=== PATIENT | male | born 1970 | race Caucasian/White ===

== ENCOUNTER 2023-01-19 21:11 | Emergency (ER) | payer SELFPAY ==
[2023-01-19 21:45] LABS: Protime INR 1.01
[2023-01-19 22:00] LABS: ALT/SGPT 37 U/L (16-61); AST/SGOT 18 U/L (15-37); Albumin 3.4 g/dL (3.4-5.0); Alkaline Phosphatase 121 U/L (45-117); BUN Blood Urea Nitrogen 19 mg/dL (7-18); Bicarbonate 30 mEq/L (21-32); Bilirubin Total 0.2 mg/dL (0.2-1.0); Glomerular Filtration Rate 74 ml/min (=/>90); Glucose Level 121 mg/dL (74-106); NT PRO-BNP 18 pg/mL (<125); Protein, Total 7.5 g/dL (6.4-8.2); Sodium Level 136 mEq/L (136-145); Troponin High Sensitivity 4.3 pg/mL (<58.9)
[2023-01-19 22:01] LABS: Bilirubin Direct < 0.1 mg/dL (0-0.2); Bilirubin Indirect, Calculated ND mg/dL (0.2-0.8)
[2023-01-19 22:13] LABS: Absolute Lymphocytes (CBC) 1.4 K/uL (0.7-4.9); Hematocrit 42.7 % (39.6-49.0); Lymphocytes % 15.9 % (15.3-44.8); MCV 91.6 fL (80-100); RBC Red Blood Cell Count 4.66 M/uL (4.33-5.43)
--- NOTE | 2023-01-19 22:23 | RAD REPORT ---
EXAM DESCRIPTION: Gisele Single View01/19/2023 10:10 pm CLINICAL HISTORY: Chest pain COMPARISON: none FINDINGS: The lungs appear clear of acute infiltrate. The heart is normal size IMPRESSION: No acute abnormalities displayed
--- NOTE | 2023-01-19 23:14 | EDPHYS ---
Physician Documentation [facility] Name: Jeramie Gibbs Age: 52 yrs Sex: Male : 1970 Arrival Date: 01/19/2023 Time: 21:11 Bed 6 Private MD: ED Physician Willie Calderon HPI: 01/19 23:06 This 52 yrs old Male presents to ER via Ambulatory with complaints of Chest sp4 Pain, Palpitations, Dizziness. 23:06 Very pleasant 52-year-old male who is currently in the rehab at [facility] , presents sp4 with acute onset of palpitations described as fluttering heart starting 2 hours ago. Patient has past medical history of asthma. 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 No drug or alcohol use or caffeine use in the last 3 weeks. Patient reports that she has used some other drugs as well in the past. Patient denied chest pain, denied syncope, denied dizziness. Historical: - Allergies: 21:21 PENICILLINS; kd3 - Immunization history:: Adult Immunizations up to date. - Social history:: Smoking status: Patient denies any tobacco usage or history of. - Family history:: not pertinent. ROS: 23:06 Constitutional: Negative for fever, chills, and weight loss, Eyes: Negative for injury, sp4 pain, redness, and discharge, ENT: Negative for injury, pain, and discharge, Neck: Negative for injury, pain, and swelling, Cardiovascular: Negative for chest pain, and edema, positive palpitations and a rapid heart rate Respiratory: Negative for shortness of breath, cough, wheezing, and pleuritic chest pain, Abdomen/GI: Negative for abdominal pain, nausea, vomiting, diarrhea, and constipation, Back: Negative for injury and pain, : Negative for injury, bleeding, discharge, and swelling, MS/Extremity: Negative for injury and deformity, Skin: Negative for injury, rash, and discoloration, Neuro: Negative for headache, weakness, numbness, tingling, and seizure, Psych: Negative for depression, anxiety, Allergy/Immunology: Negative for hives, rash, and allergies Endocrine: Negative for neck swelling, polydipsia, polyuria, polyphagia, and weight changes Hematologic/Lymphatic: Negative for swollen nodes, abnormal bleeding, and unusual bruising Exam: 23:06 Constitutional: This is a well developed, well nourished patient who is awake, alert, sp4 and in no acute distress. Head/Face: Normocephalic, atraumatic. Eyes: Pupils equal round and reactive to light, extra-ocular motions intact. Lids and lashes normal. Conjunctiva and sclera are not injected. Cornea within normal limits. Periorbital areas with no swelling, redness, or edema. ENT: Nares patent. No nasal discharge, no septal abnormalities noted. Tympanic membranes are normal and external auditory canals are clear. Oropharynx with no redness, swelling, or masses, exudates, or evidence of obstruction, uvula midline. Mucous membranes moist. Neck: Trachea midline, no thyromegaly or masses palpated, and no cervical lymphadenopathy. Supple, full range of motion without nuchal rigidity, or vertebral point tenderness. No Meningismus. Chest/axilla: Normal chest wall appearance and motion. Nontender with no deformity. No lesions are appreciated. Cardiovascular: Regular rate and rhythm with a normal S1 and S2. No gallops, murmurs, or rubs. Normal PMI, no JVD. No pulse deficits. Respiratory: Lungs have equal breath sounds bilaterally, clear to auscultation and percussion. No rales, rhonchi or wheezes noted. No increased work of breathing, no retractions or nasal flaring. Abdomen/GI: Soft, non-tender, with normal bowel sounds. No distension or tympany. No guarding or rebound. No evidence of tenderness throughout. Back: No spinal tenderness. No costovertebral tenderness. Skin: Warm, dry with normal turgor. Normal color with no rashes, no lesions, and no evidence of cellulitis. MS/ Extremity: Pulses equal, no cyanosis. Neurovascular intact. Full, normal range of motion. Neuro: Awake and alert, GCS 15, oriented to person, place, time, and situation. Cranial nerves II-XII grossly intact. Motor strength 5/5 in all extremities. Sensory grossly intact. Psych: Awake, alert, with orientation to person, place and time. Behavior, mood, and affect are within normal limits 23:06 ECG was reviewed by the Attending Physician. EKG time 2121, there is normal sinus sp4 rhythm at the rate of 80, overall normal EKG, no ectopy or arrhythmia Vital Signs: 21:19 Weight 63.5 kg; Height 5 ft. 7 in. ; kd3 21:22 Pulse 77; Resp 16; Temp 98.4(TE); Pulse Ox 100% ; kd3 21:24 BP 142 / 93; kd3 23:10 BP 129 / 86; Pulse 74; Resp 18; Pulse Ox 100% on R/A; ll3 21:19 Body Mass Index 21.93 (63.50 kg, 170.18 cm) kd3 MDM: 21:26 Patient medically screened. sp4 23:11 Differential diagnosis: abnormal EKG, acute pericarditis, anxiety, chest wall pain, sp4 congestive heart failure myocarditis, pericarditis. HEART Score: History: Slightly Suspicious (0), ECG: Normal (0), Age: > 45 and < 65 years (1), Risk Factors: No Risk Factors Known (0), Troponin: < or = 1 x Normal Limit (0), Total Score = 1. Data reviewed: vital signs, nurses notes, lab test result(s), cardiac enzymes, CBC, electrolytes, hepatic panel, EKG, radiologic studies, plain films. Consideration of Admission/Observation Escalation of care including admission/observation considered. ED course: Blood sugar mildly elevated 121 otherwise unremarkable work-up, normal EKG, normal chest x-ray, no arrhythmia on the monitor. Normal vital signs. Patient stable for discharge home with referral to cardiology in case of recurrence of palpitations. 01/19 21:25 Order name: Basic Metabolic Panel; Complete Time: 23: [facility] 01/19 21:25 Order name: CBC with Diff; Complete Time: 23: [facility] 01/19 21:25 Order name: LFT's; Complete Time: 23: [facility] 01/19 21:25 Order name: Magnesium; Complete Time: 23: [facility] 01/19 21:25 Order name: NT PRO-BNP; Complete Time: 23: [facility] 01/19 21:25 Order name: PT-INR; Complete Time: 23: 01/19 21:25 Order name: Troponin HS; Complete Time: 23: [facility] 01/19 21:25 Order name: XRAY Chest (1 view); Complete Time: 23: [facility] 01/19 21:25 Order name: EKG; Complete Time: 21: sp4 01/19 21:26 Order name: Cardiac monitoring; Complete Time: :32 sp4 01/19 21:26 Order name: EKG - Nurse/Tech; Complete Time: : sp4 01/19 21:26 Order name: IV Saline Lock; Complete Time: :35 sp4 01/19 21:26 Order name: Labs collected and sent; Complete Time: :35 sp4 01/19 21:26 Order name: O2 Per Protocol; Complete Time: :32 sp4 01/19 21:26 Order name: O2 Sat Monitoring; Complete Time: :32 sp4 EC:06 Rate is 80 beats/min. Rhythm is regular. QRS [place] is Normal. [place] interval is normal. QRS sp4 interval is normal. QT interval is normal. T waves are Normal. No ST changes noted. Clinical impression: Normal ECG. Interpreted by me. Administered Medications: No medications were administered Disposition Summary: 01/19/23 23:14 Discharge Ordered Location: Home sp4 Problem: new sp4 Symptoms: are resolved sp4 Condition: Stable sp4 Diagnosis - Palpitations sp4 Followup: sp4 - With: Lee Harris MD - When: 7 - 10 days - Reason: If symptoms return Discharge Instructions: - Discharge Summary Sheet sp4 - Palpitations sp4 Signatures: Dispatcher [employer] Belinda Rock RN RN kd3 Willie Calderon MD MD sp4
--- NOTE | 2023-01-19 23:14 | ER ---
Nurse's Notes [facility] Name: Jeramie Gibbs Age: 52 yrs Sex: Male : 1970 Arrival Date: 01/19/2023 Time: 21:11 Bed 6 Private MD: Diagnosis: Palpitations Presentation: 01/19 21:19 Chief complaint: Patient states: I have some chest pain with palpation that's started kd3 about 2 hours ago. I have no cardiac issues but i has asthma. My blood pressure is 160/100. I feel like my breathing is a bit shallow. its about a 4/6 right now but earlier it was a 6. Coronavirus screen: Vaccine status: Patient reports being unvaccinated. Ebola Screen: No symptoms or risks identified at this time. Initial Sepsis Screen: Does the patient meet any 2 criteria? No. Patient's initial sepsis screen is negative. Does the patient have a suspected source of infection? No. Patient's initial sepsis screen is negative. Risk Assessment: Do you want to hurt yourself or someone else? Patient reports no desire to harm self or others. Onset of symptoms was January 19, 2023. 21:19 Method Of Arrival: Ambulatory kd3 21:19 Acuity: KANDIS 3 kd3 Triage Assessment: 21:21 General: Appears uncomfortable, Behavior is calm, cooperative. Pain: Complains of pain kd3 in anterior aspect of left upper chest Pain does not radiate. Cardiovascular: Patient's skin is warm and dry. 21:21 Neuro: Level of Consciousness is awake, alert, obeys commands, Oriented to person, kd3 place, time, situation. Respiratory: Airway is patent Trachea midline Respiratory effort is even, unlabored, Respiratory pattern is regular, symmetrical. Historical: - Allergies: 21:21 PENICILLINS; kd3 - Immunization history:: Adult Immunizations up to date. - Social history:: Smoking status: Patient denies any tobacco usage or history of. - Family history:: not pertinent. Screenin:33 [facility] ED Fall Risk Assessment (Adult) History of falling in the last 3 months, ll3 including since admission No falls in past 3 months (0 pts) Confusion or Disorientation No (0 pts) Intoxicated or Sedated No (0 pts) Impaired Gait No (0 pts) Mobility Assist Device Used No (0 pt) Altered Elimination No (0 pt) Score/Fall Risk Level 0 - 2 = Low Risk Oriented to surroundings, Maintained a safe environment, Educated pt \T\ family on fall prevention, incl call for assistance when getting out of bed. Abuse screen: Denies threats or abuse. Denies injuries from another. Nutritional screening: No deficits noted. Tuberculosis screening: No symptoms or risk factors identified. Assessment: 21:33 General: Appears uncomfortable, Behavior is calm, cooperative. Pain: Complains of pain ll3 in chest Pain does not radiate. Pain currently is 4 out of 10 on a pain scale. at worst was 7 out of 10 on a pain scale. Quality of pain is described as sharp, stabbing, Pain began 1 hour ago. Is continuous. Neuro: Level of Consciousness is awake, alert, obeys commands, Oriented to person, place, time, situation, Reports dizziness. Cardiovascular: Patient's skin is warm and dry. Chest pain is described as vague, quality is sharp, stabbing, is located in left anterior chest wall began 1 hour prior to arrival episodes are continuous. Respiratory: Reports shortness of breath Respiratory effort is even, unlabored, Respiratory pattern is regular, symmetrical. Derm: Skin is pink, warm \T\ dry. 23:10 Reassessment: No changes from previously documented assessment. Patient and/or family ll3 updated on plan of care and expected duration. Pain level reassessed. Patient is alert, oriented x 3, equal unlabored respirations, skin warm/dry/pink. Vital Signs: 21:19 Weight 63.5 kg; Height 5 ft. 7 in. ; kd3 21:22 Pulse 77; Resp 16; Temp 98.4(TE); Pulse Ox 100% ; kd3 21:24 BP 142 / 93; kd3 23:10 BP 129 / 86; Pulse 74; Resp 18; Pulse Ox 100% on R/A; ll3 21:19 Body Mass Index 21.93 (63.50 kg, 170.18 cm) kd3 ED Course: 21:12 Patient arrived in ED. ja2 21:21 Triage completed. kd3 21:21 Arm band placed on right wrist. kd3 21:25 Willie Cadleron MD is Attending Physician. sp4 21:34 Placed in gown. Bed in low position. Call light in reach. Side rails up X 1. Client mb9 placed on continuous cardiac and pulse oximetry monitoring. NIBP monitoring applied. surgical supplies sterilizer on. 21:34 EKG done, by ED staff, reviewed by Willie Calderon MD. Inserted saline lock: 20 gauge mb9 in right antecubital area, using aseptic technique. 21:35 No provider procedures requiring assistance completed. mb9 21:35 Patient maintains SpO2 saturation greater than 95% on room air. ll3 21:35 Basic Metabolic Panel Sent. mb9 21:35 CBC with Diff Sent. mb9 21:35 LFT's Sent. mb9 21:35 Magnesium Sent. mb9 21:35 NT PRO-BNP Sent. mb9 21:35 PT-INR Sent. mb9 21:35 Troponin HS Sent. mb9 22:12 XRAY Chest (1 view) In Process Unspecified. EDMS 22:19 Isidro Wilson, RN is Primary Nurse. rv 23:13 Lee Harris MD is Referral Physician. sp4 23:20 IV discontinued, intact, bleeding controlled, No redness/swelling at site. Pressure ll3 dressing applied. Administered Medications: No medications were administered Medication: 21:35 VIS not applicable for this client. mb9 Outcome: 23:14 Discharge ordered by . sp4 23:20 Discharged to home ambulatory. ll3 23:20 Condition: stable 23:20 Discharge instructions given to patient, Instructed on discharge instructions, follow up and referral plans. Demonstrated understanding of instructions, follow-up care. 23:20 Patient left the ED. ll3 Signatures: Dispatcher [employer] [facility] Isidro Wilson, RN RN rv Sandra Zimmer Lynsea, RN RN [email or web address] Belinda Carcamo RN RN [email or web address] Gaviota Lopez RN RN [email or web address] Willie Calderon MD MD sp4
[2023-01-20 00:22] VITALS: TEMP 98.4; O2SAT 100
[2023-01-20 00:24] VITALS: BP 129/86
--- NOTE | 2023-01-20 14:36 | EKG ---
Test Date: 2023-01-19 Test Time: 21:22:53 Customer Retention Representative: JOSLYN MEASUREMENT RESULTS: Intervals: Rate: 80 MD: 142 QRSD: 90 QT: 338 QTc: 389 [place]: P: 65 MD: 142 QRS: 9 T: 42 INTERPRETIVE STATEMENTS: Normal sinus rhythm Normal ECG No previous ECG available for comparison Electronically Signed On 01-20-23 14:35:49 CDT by Osiel Tapia
== END 2023-01-19 23:20 | disposition home or self-care (01) ==
LOC: ER 21:11
DX: R00.2 Palpitations (principal)
CPT/HCPCS: 36415; 71045; 80048; 80076; 83735; 83880; 84484; 85025; 85610; 93005; 99285

== ENCOUNTER 2023-01-22 21:07 | Emergency (ER) | payer SELFPAY ==
--- OUTSIDE RECORDS SUMMARY | 2023-01-22 21:24 | XMS REPORT | Continuity of Care Document ---
:1970 Author Organization [facility] t Address [address] [place] [address] Care Team Providers Name Role Phone Asked, No Pcp Primary Care Physician Unavailable Cathy Morocho Attending Clinician CATHY MOROCHO Attending Clinician Unavailable KEVIN CHIANG Attending Clinician Unavailable GARTH ROBISON Attending Clinician Unavailable VANGIE MANE Attending Clinician Unavailable PAM THMOAS Attending Clinician Unavailable Deepak Rutherford Attending Clinician DEEPAK RUTHERFORD Attending Clinician Unavailable Lennie Doss MD Attending Clinician [phone] Jayden Chavez Attending Clinician JAYDEN CHAVEZ Attending Clinician Unavailable Tommy Kemp MD Attending Clinician TOMMY KEMP Attending Clinician Unavailable BARRY CREWS Attending Clinician Unavailable MK ELLSWORTH Attending Clinician Unavailable VINICIUS PRESLEY Attending Clinician Unavailable Lg Hutchinson Attending Clinician Unavailable Sly Mccord Attending Clinician Unavailable Sofia Blood Attending Clinician SOFIA BLOOD Attending Clinician Unavailable Branden Benitez Attending Clinician BRANDEN BENITEZ Attending Clinician Unavailable Harriet Pierce Attending Clinician Jamar Azar Jr Attending Clinician Felipa Gabino Jorge Attending Clinician Ata Coats Attending Clinician Augusto Perry Attending Clinician Grayson Loyd Attending Clinician Ezra Warren Attending Clinician [phone] GARTH ROBISON Admitting Clinician Unavailable Payers Payer Name Policy Type Policy Number Effective Date Expiration Date S ource Problems Condition Condition Condition Status Onset Resolution Last Treating Co mments Source Name Details Category Date Date Treatment Clinician Date SOB/CHEST SOB/CHEST Diagnosis Active 2021-082022-08-14 Memoria PRESSURE PRESSURE 2-17 09:26:00 l Active 00:00: Naresh 08/08/2022 [facility] FACE FACE Diagnosis Active 2022-02-14 Mem oria SWOLLEN SWOLLEN 6- 01:22:00 l Active 00:00: Naresh 02/14/2022 [facility] SOB/CHEST SOB/CHEST Diagnosis Active 2021-10-23 Memoria TIGHTNESS TIGHTNESS 3-03 13:00:00 l Active 00:00: [place] 10/23/2021 [facility] SI SI Diagnosis Active 2020-082021-06-15 Mem oria Active 0-23 14:21:00 l 06/14/2021 00:00: Enmanuel interiano [facility] [place] CHEST PAIN CHEST Diagnosis Active 2021-02-03 Memoria PAIN 6-12 07:42:00 l Active 00:00: Naresh 02/01/2021 [facility] LEG PAIN LEG PAIN Diagnosis Active 2019-12-30 Memoria Active 12-29 17:03:00 l 12/30/2019 00:00: Enmanuel interiano [facility] 00 Naresh BACK PAIN BACK PAIN Diagnosis Active 2018-082019-06-26 Memoria Active 08-26 16:46:00 l 06/26/2019 00:00: Enmanuel interiano [facility] 00 Naresh CHEST CHEST Diagnosis Active 2018-12-07 [facility] oria PAINS PAINS 3-15 13:04:00 l Active 00:00: Naresh 11/04/2018 00 [facility] HEAD HEAD Diagnosis Active 2016-11-25 Mem oria INJURY INJURY - 14:40:00 l Active 00:00: Naresh 11/25/2016 00 [facility] FALL FALL Diagnosis Active 2016-04-13 Mem oria Active 04-13 21:23:00 l 04/13/2016 00:00: Enmanuel interiano 00 [facility] PAIN IN PAIN IN Diagnosis Active 2015-11-25 Memoria NECK NECK 4- 20:59:00 l Active 00:00: Naresh 11/25/2015 00 [facility] COUGH/FEVE COUGH/FEV Diagnosis Active 2015-11-05 Memoria R ER Active - 07:24:00 l 11/05/2015 00:00: Enmanuel interiano 00 [place] RIBCAGE RIBCAGE Diagnosis Active 2013-11-05 Memoria PAIN PAIN 3-16 14:25:00 l Active 00:00: Naresh 11/05/2013 00 [facility] KNEE PAIN KNEE PAIN Diagnosis Active 2011-082012-08-16 Memoria OR INJURY OR INJURY - 11:46:00 l Active 10:00: [place] 08/15/2012 00 [place] Other long Other Problem 2019-01-10 M emoria term detention 12:17:27 l (current) (current) Herm gracie drug drug therapy therapy 01/10/2019 [facility] Personal Personal Problem 2019-02-20 Memoria history of history of 15:43:45 l urinary urinary Naresh calculi calculi 02/20/2019 [facility] Allergy Allergy Problem 2019-02-20 Me moria status to status to 15:43:45 l other other [place] drugs, drugs, medicament medicament s and s and biological biological substances substances status status 02/20/2019 [facility] Allergy Allergy Problem 2019-02-20 Me moria status to status to 15:43:45 l penicillin penicillin He rgacie 9 [facility] History of History Problem Resolve 2022-02-16 Memoria operative of d 21:14:14 l procedure operative Herm gracie on knee procedure (situation on knee ) (situation ) Resolved Problem 02/16/2022 [facility] Asthma Asthma Problem Active 2012-08-18 Santino cynthia Active 09:39:25 l Problem Naresh 08/18/2012 [facility] Asthma Asthma Problem Active 2022-08-11 Santino cynthia (disorder) (disorder) 00:46:36 l Active [place] Problem 08/11/2022 [facility] Contusion Contusion Problem Active 2022-08-11 Memoria of of 00:46:36 l multiple multiple Enmanuel n sites of sites of lower limb lower limb (disorder) (disorder) Active Problem 08/11/2022 [facility] Thigh pain Thigh Problem Active 2022-08-11 M emoria (finding) pain 00:46:36 l (finding) Naresh Active Problem 08/11/2022 [facility] History of Past Illness Condition Condition Condition Status Onset Resolution Last Treating Co mments Source Name Details Category Date Date Treatment Clinician Date Dental Dental Problem 2022-02-16 2022-02-16 Memoria caries, caries, 02-14 21:14:14 21:14:14 l unspecifie unspecifie 17:00: He rmann d d 00 02/14/2022 02/16/2022 [facility] Other Other Problem 2022-02-16 2022-02-16 M emoria psychoacti psychoacti 02-14 21:14:14 21:14:14 l ve ve 17:00: Naresh substance substance 00 abuse, abuse, uncomplica uncomplica sofiya sofiya 02/14/2022 02/16/2022 [facility] Cellulitis Celluliti Problem 2022-02-16 2022-02-16 Memoria of face s of face 02-14 21:14:14 21:14:14 l 02/14/2022 17:00: Enmanuel interiano 02/16/2022 00 [facility] Unspecifie Unspecifi Problem 2020-082021-06-16 2021-06-16 Memoria d asthma ed asthma 21:55:19 21:55:19 l with with 17:00: Naresh (acute) (acute) 00 exacerbati exacerbati on on 06/14/2021 06/16/2021 [facility] Suicidal Suicidal Problem 2020-082021-06-16 2021-06-16 Memoria ideations ideations 21:55:19 21:55:19 l 06/14/2021 17:00: Enmanuel interiano 06/16/2021 00 [facility] Acute Acute Problem 2020-082021-06-16 2021-06-16 M emoria upper upper 21:55:19 21:55:19 l respirator respirator 17:00: Bean bello y y 00 infection, infection, unspecifie unspecifie d d 06/14/2021 06/16/2021 [facility] Major Major Problem 2021-02-06 2021-02-06 M emoria depressive depressive 02-04 21:41:17 21:41:17 l disorder, disorder, 17:00: [place] soto single 00 episode, episode, unspecifie unspecifie d d 02/04/2021 [facility] Chest Chest Problem 2021-02-04 2021-02-04 M emoria pain, pain, 02-02 21:06:34 21:06:34 l unspecifie unspecifie 17:00: He eugenia d d 00 02/02/2021 02/04/2021 [facility] Acute Acute Problem 2021-02-04 2021-02-04 M emoria kidney kidney 02-02 21:06:34 21:06:34 l failure, failure, 17:00: Enmanuel interiano unspecifie unspecifie 00 d d 02/02/2021 [facility] Unspecifie Unspecifi Problem 2020-01-01 2020-01-01 Bailey chapman asthma, ed asthma, 12-29 21:50:25 21:50:25 l uncomplica uncomplica 17:00: He eugenia arriaza sofiya 00 12/30/2019 0 [facility] Contusion Contusion Problem 2020-01-01 2020-01-01 Memoria of of 12-29 21:50:25 21:50:25 l unspecifie unspecifie 17:00: He eugenia chapman lower d lower 00 leg, leg, initial initial encounter encounter 12/30/2019 01/01/2020 [facility] Pain in Pain in Problem 2020-01-01 2020-01-01 Memoria right right 12-29 21:50:25 21:50:25 l thigh thigh 17:00: Naresh 12/30/2019 00 01/01/2020 [facility] Dorsalgia, Dorsalgia Problem 2018-082019-06-28 2019-06-28 Bailey unspecifie , 08-26 23:20:29 23:20:29 l d unspecifie 18:00: Enmanuel chapman 00 06/26/2019 06/28/2019 [facility] Unspecifie Unspecifi Problem 2017-082019-02-20 2019-02-20 Bailey chapman ed 2- 15:43:45 15:43:45 l abdominal abdominal 04:43: Herm gracie pain pain 15 08/11/2018 02/20/2019 [facility] Cervicalgi Cervicalg Problem 2017-082019-01-10 2019-01-10 Bailey a ia 08-29 12:17:27 12:17:27 l 06/29/2018 04:30: Enmanuel interiano 50 9 [facility] Struck by Struck by Problem 2017-082019-01-10 2019-01-10 Bailey horse, horse, 08-23 12:17:27 12:17:27 l initial initial 05:00: Naresh encounter encounter 00 06/23/2018 9 [facility] Palpitatio Palpitati Problem 2018-11-07 2018-11-07 Bailey vizcarra ons 316 22:45:51 22:45:51 l 11/05/2018 05:00: Enmanuel interiano 00 9 [facility] Elevated Elevated Problem 2018-2018-11-07 2018-11-07 Memoria blood-pres blood-pres 11-05 22:45:51 22:45:51 l sure sure 05:00: Naresh reading, reading, 00 without without diagnosis diagnosis of of hypertensi hypertensi on on 11/05/2018 11/07/2018 [facility] Contusion Contusion Problem 2016-11-28 2016-11-28 Memoria of right of right 11-25 05:09:03 05:09:03 l hand, hand, 05:00: Naresh initial initial 00 encounter encounter 11/25/2016 11/28/2016 [facility] Unspecifie Unspecifi Problem 2016-11-28 2016-11-28 Memoria d injury ed injury 11-25 05:09:03 05:09:03 l of head, of head, 05:00: Enmanuel interiano initial initial 00 encounter encounter 11/25/2016 11/28/2016 [facility] Discharge Discharge Problem 2016-04-16 2016-04-16 Memoria Diagnosis: Diagnosis: 04-13 04:00:13 04:00:13 l Cervical Cervical 05:00: Enmanuel interiano sprain sprain 00 04/13/2016 04/16/2016 [facility] Discharge Discharge Problem 2016-04-16 2016-04-16 Memoria Diagnosis: Diagnosis: 04-13 04:00:13 04:00:13 l Acute head Acute head 05:00: Bean gracie injury injury 00 with loss with loss of of consciousn consciousn ess ess 04/13/2016 6 [facility] Discharge Discharge Problem 2015-11-28 2015-11-28 Memoria Diagnosis: Diagnosis: 11-24 04:34:22 04:34:22 l Sprain of Sprain of 05:00: [place] gracie ligaments ligaments 00 of of cervical cervical spine, spine, initial initial encounter encounter 11/25/2015 11/28/2015 [facility] Discharge Discharge Problem 2015-11-08 2015-11-08 Memoria Diagnosis: Diagnosis: 11-04 05:22:06 05:22:06 l Bronchitis Bronchitis 05:00: He rmann 11/05/2015 00 11/08/2015 [facility] Allergies, Adverse Reactions, Alerts Allergy Allergy Status Severity Reaction(s) Onset Inactive Treating Comm ents Source Name Type Date Date Clinician Penicill Propensi Active Other (See 2020-08 Unknown M ethodi ins ty to Comments) 08-26 adverse 00:00: Hospita reaction 00 l s to drug [facility]: 00 tramadol DA Active U [facility]ching [facility] 02-17 00:00: 00 Penicill DA Active U Rash [facility] ins 02-07 00:00: 00 tramadol DA Active U Itching [facility] 02-07 00:00: 00 tramadol DA Active U 2018-08 [facility] 09[facility]12 [place] [facility] [place] penicill DA Active U 2018-08 [facility] in G 09-12 [place] 00:00: [facility] 00 [facility] [place] NO KNOWN Allergy Active [facility] penicill penicill Active Memori a ins ins l Naresh traMADol traMADol Active Memori a l Naresh Social History Social Habit Start Date Stop Date Quantity Comments Source Gender identity [facility] History of Social 2021-12-02 2021-12-02 [facility] function 00:00:00 00:00:00 Sex Ass[birth year] At [birth year] [facility] 00:00:00 00:[facility]:00 [facility] Smoking Status Start Date Stop Date Source Tobacco smoking consumption unknown [facility] Tobacco smoking status [facility] Medications Ordered Filled Start Stop Current Ordering Indication Dosage Frequency Signature Comments Components Source Medication Medication Date Date Medication? Clinician (SIG) Name Name Albuterol 2021-08 Yes = 2 puff, Mem oria (Eqv-Proven 2-17 INHALATION l til HFA) 90 19:00: , Q6H, # He rmann mcg/inh 00 8.5 gm, 0 inhalation Refill(s), aerosol Pharmacy: [facility] #[id number], 167.64, cm, 08/08/22 9:03:00 COPY CHIEF, Height, 69.6, kg, 08/08/22 9:03:00 COPY CHIEF, Weight Nebulizer 2021-08 Yes 1 Bailey meaz 2-17 MISC, l 19:00: ONCALL, # Naresh 00 1 ea, 0 Refill(s), Pharmacy: [facility] #[id number], 167.64, cm, 08/08/22 9:03:00 COPY CHIEF, Height, 69.6, kg, 08/08/22 9:03:00 COPY CHIEF, Weight albuterol 2021-08 Yes 2.5 mg, Memor ia 0.5% 2-17 INHALATION l inhalation 19:00: , Q6H, PRN H ermann solution 00 wheezing, # 20 ea, 0 Refill(s), Pharmacy: [facility] #[id number], 167.64, cm, 08/08/22 9:03:00 COPY CHIEF, Height, 69.6, kg, 08/08/22 9:03:00 COPY CHIEF, Weight Azithromyci 2021-08 Yes See Jayson whitney n 5 Day 2-17 Instructio l Dose Pack 19:00: ns, Take 2 He rmann 250 mg oral 00 tablets by tablet mouth the first day then 1 tablet by mouth days 2-5., X 5 day, # 6 tab, 0 Refill(s), Pharmacy: [facility] #[id number], 167.64, cm, 08/08/22 9:03:00 COPY CHIEF, Height, 69.6, kg, 08/08/22 9:03:00 COPY CHIEF, Weight Albuterol 2021-08 Yes = 2 puff, Mem oria (Eqv-Proven 2-17 INHALATION l til HFA) 90 19:00: , Q6H, # He rmann mcg/inh 00 8.5 gm, 0 inhalation Refill(s), aerosol Pharmacy: [facility] #[id number], 167.64, cm, 08/08/22 9:03:00 COPY CHIEF, Height, 69.6, kg, 08/08/22 9:03:00 COPY CHIEF, Weight Nebulizer 2021-08 Yes 1 ea, Memoria 2-17 MISC, l 19:00: ONCALL, # Naresh 00 1 ea, 0 Refill(s), Pharmacy: [facility] #[id number], 167.64, cm, 08/08/22 9:03:00 COPY CHIEF, Height, 69.6, kg, 08/08/22 9:03:00 COPY CHIEF, Weight albuterol 2021-08 Yes 2.5 mg, Memor ia 0.5% 2-17 INHALATION l inhalation 19:00: , Q6H, PRN H ermann solution 00 wheezing, # 20 ea, 0 Refill(s), Pharmacy: [facility] #[id number], 167.64, cm, 08/08/22 9:03:00 COPY CHIEF, Height, 69.6, kg, 08/08/22 9:03:00 COPY CHIEF, Weight Azithromyci 2021-08 Yes See Memori a n 5 Day 2-17 Instructio l Dose Pack 19:00: ns, Take 2 He rmann 250 mg oral 00 tablets by tablet mouth the first day then 1 tablet by mouth days 2-5., X 5 day, # 6 tab, 0 Refill(s), Pharmacy: [facility] #[id number], 167.64, cm, 08/08/22 9:03:00 COPY CHIEF, Height, 69.6, kg, 08/08/22 9:03:00 COPY CHIEF, Weight predniSONE 2021-08 Yes 50 mg = 1 Me moria 50 mg oral 2-17 tab, PO, l tablet 18:59: Daily, X 5 Radha nn 00 day, # 5 tab, 0 Refill(s), Pharmacy: [facility] #[id number], 167.64, cm, 08/08/22 9:03:00 COPY CHIEF, Height, 69.6, kg, 08/08/22 9:03:00 COPY CHIEF, Weight predniSONE 2021-08 Yes 50 mg = 1 Me moria 50 mg oral 2-17 tab, PO, l tablet 18:59: Daily, X 5 Radha nn 00 day, # 5 tab, 0 Refill(s), Pharmacy: [facility] #[id number], 167.64, cm, 08/08/22 9:03:00 COPY CHIEF, Height, 69.6, kg, 08/08/22 9:03:00 COPY CHIEF, Weight clindamycin Yes 450 mg = 3 Memoria 150 mg oral 6-25 cap, PO, l capsule 08:30: Q6H, X 10 Radha nn 00 day, # 120 cap, 0 Refill(s), Pharmacy: [facility] #[id number], 167.64, cm, 06/25/22 0:17:00 CDT, Height, 70.455, kg, 02/14/22 0:17:00 CDT, Weight ketOROLAC 2021-0 Yes 10 mg = 1 Mem oria 10 mg oral 6-25 tab, PO, l tablet 08:30: Q6H, X 5 Naresh 00 day, # 20 tab, 0 Refill(s), [id number], 167.64, cm, 02/14/22 0:17:00 CDT, Height, 70.455, kg, 02/14/22 0:17:00 CDT, Weight clindamycin 2021-0 Yes 450 mg = 3 Memoria 150 mg oral 6-25 cap, PO, l capsule 08:30: Q6H, X 10 Radha nn 00 day, # 120 cap, 0 Refill(s), [id number], 167.64, cm, 02/14/22 0:17:00 CDT, Height, 70.455, kg, 02/14/22 0:17:00 CDT, Weight ketOROLAC 2021-0 Yes 10 mg = 1 Mem oria 10 mg oral 6-25 tab, PO, l tablet 08:30: Q6H, X 5 [place] 00 day, # 20 tab, 0 Refill(s), [id number], 167.64, cm, 02/14/22 0:17:00 CDT, Height, 70.455, kg, 02/14/22 0:17:00 CDT, Weight Omnipaque 2021-0 No 45 Memoria 350 6-25 mL/min, l injectable 06:45: STAT, Enmanuel n solution 00 Start date: 02/14/22 1:45:00 CDT, Stop date: 02/14/22 1:45:00 CDT Omnipaque 2-0 No 45 Memoria 350 6-25 mL/min, l injectable 06:45: STAT, Enmanuel n solution 00 Start date: 02/14/22 1:45:00 CDT, Stop date: 02/14/22 1:45:00 CDT ketOROLAC 2-0 No 30 mg, Memori a 30 mg/mL 6-25 Route: l injectable 06:30: IVP, Drug He rmann solution 00 form: INJ, ONCE, Dosing Weight 70.455, kg, Priority: STAT, Start date: 02/14/22 1:30:00 CDT, Stop date: 02/14/22 1:30:00 CDT ketOROLAC No 30 mg, Memori a 30 mg/mL 6-25 Route: l injectable 06:30: IVP, Drug He rmann solution 00 form: INJ, ONCE, Dosing Weight 70.455, kg, Priority: STAT, Start date: 02/14/22 1:30:00 CDT, Stop date: 02/14/22 1:30:00 CDT Saline No Notes: Memoria Flush 0.9% 6-25 Same as: l 05:56: BD Naresh 00 Posiflush Sterile Saline No Notes: Memoria Flush 0.9% 6-25 Same as: l 05:56: BD [place] 00 Posiflush Sterile albuterol 2021- No 1{puff} Q6H Inhale 1-2 Methodi (PROAIR 4-12 05-[address] HFA) 90 00:00: 04:59 every 6 Hospit a mcg/actuati 00 :00 (six) l on inhaler hours as needed for wheezing for up to 30 days. predniSONE Yes 20 mg = 1 Me moria 20 mg oral 3-03 tab, PO, l tablet 18:40: BID, X 5 [place] day, # 10 tab, 0 Refill(s), Pharmacy: [facility] #[id number], 167.64, cm, 10/23/21 11:36:00 COPY CHIEF, Height, 71.2, kg, 10/23/21 11:36:00 COPY CHIEF, Weight Albuterol Yes 2.49 mg = Mem oria 0.83 MG/ML 3-03 3 mL, NEB, l Inhalant 18:40: Q6H, PRN Radha nn Solution 00 as needed for shortness of breath, # 120 ea, 3 Refill(s), Pharmacy: [facility] #[id number], 167.64, cm, 10/23/21 11:36:00 COPY CHIEF, Height, 71.2, kg, 10/23/21 11:36:00 COPY CHIEF, Weight albuterol Yes 2.49 mg = Mem oria 0.083% 3-03 3 mL, NEB, l inhalation 18:40: Q6H, PRN Her escobedo solution 00 as needed for shortness of breath, # 120 ea, 3 Refill(s), [id number], 167.64, cm, 10/23/21 11:36:00 COPY CHIEF, Height, 71.2, kg, 10/23/21 11:36:00 COPY CHIEF, Weight albuterol Yes 2 puff, Memor ia 90 mcg/inh 3-03 INHALATION l inhalation 18:40: , QID, # Her escobedo aerosol 00 17 gm, 0 Refill(s), [id number], 167.64, cm, 10/23/21 11:36:00 COPY CHIEF, Height, 71.2, kg, 10/23/21 11:36:00 COPY CHIEF, Weight Nebulizer Yes 1 ea, Memoria Mask 3-03 MISC, PRN, l Child/Pedia 18:40: PRN As Herm gracie tric 00 directed Misc/Other by physician, # 1 packet, 0 Refill(s), Pharmacy: [facility] #[id number], 167.64, cm, 10/23/21 11:36:00 COPY CHIEF, Height, 71.2, kg, 10/23/21 11:36:00 COPY CHIEF, Weight Nebulizer 0 Yes 1 ea, Memoria 3-03 MISC, l 18:40: ONCALL, # [place] 00 1 ea, 0 Refill(s), [id number], DISP #1 NEBULIZER, 167.64, cm, 10/23/21 11:36:00 COPY CHIEF, Height, 71.2, kg, 10/23/21 11:36:00 COPY CHIEF, Weight predniSONE Yes 20 mg = 1 Me moria 20 mg oral 3-03 tab, PO, l tablet 18:40: BID, X 5 [place] 00 day, # 10 tab, 0 Refill(s), [id number], 167.64, cm, 10/23/21 11:36:00 COPY CHIEF, Height, 71.2, kg, 10/23/21 11:36:00 COPY CHIEF, Weight Albuterol Yes 2.49 mg = Mem oria 0.83 MG/ML 3-03 3 mL, NEB, l Inhalant 18:40: Q6H, PRN Radha nn Solution 00 as needed for shortness of breath, # 120 ea, 3 Refill(s), Pharmacy: [facility] #[id number], 167.64, cm, 10/23/21 11:36:00 COPY CHIEF, Height, 71.2, kg, 10/23/21 11:36:00 COPY CHIEF, Weight albuterol Yes 2.49 mg = Mem oria 0.083% 3-03 3 mL, NEB, l inhalation 18:40: Q6H, PRN Her escobedo solution 00 as needed for shortness of breath, # 120 ea, 3 Refill(s), [id number], 167.64, cm, 10/23/21 11:36:00 COPY CHIEF, Height, 71.2, kg, 10/23/21 11:36:00 COPY CHIEF, Weight albuterol Yes 2 puff, Memor ia 90 mcg/inh 3-03 INHALATION l inhalation 18:40: , QID, # Her escobedo aerosol 00 17 gm, 0 Refill(s), [id number], 167.64, cm, 10/23/21 11:36:00 COPY CHIEF, Height, 71.2, kg, 10/23/21 11:36:00 COPY CHIEF, Weight Nebulizer 0 Yes 1 ea, Memoria Mask 3-03 MISC, PRN, l Child/Pedia 18:40: PRN As Herm gracie tric 00 directed Misc/Other by physician, # 1 packet, 0 Refill(s), [id number], 167.64, cm, 10/23/21 11:36:00 COPY CHIEF, Height, 71.2, kg, 10/23/21 11:36:00 COPY CHIEF, Weight Nebulizer 0 Yes 1 ea, Memoria 3-03 MISC, l 18:40: ONCALL, # [place] 00 1 ea, 0 Refill(s), Pharmacy: [facility] #[id number], DISP #1 NEBULIZER, 167.64, cm, 10/23/21 11:36:00 COPY CHIEF, Height, 71.2, kg, 10/23/21 11:36:00 COPY CHIEF, Weight Solu-Medrol No Notes: Santino cynthia 10-23 (Same l 18:32: as:Solu-ME Naresh 00 DROL, A-Methapre d) Albuterol No Notes: SEE Me moria 0.83 MG/ML 3-03 RT l Inhalant 18:32: DOCUMENTAT Her escobedo Solution 00 ION (Same as: Proventil) Solu-Medrol No Notes: Santino cynthia 10-23 (Same l 18:32: as:Solu-ME [place] 00 DROL, A-Methapre d) Albuterol No Notes: SEE Me moria 0.83 MG/ML 3-03 RT l Inhalant 18:32: DOCUMENTAT Her escobedo Solution 00 ION (Same as: Proventil) Albuterol No Notes: SEE Me moria 0.83 MG/ML 3-03 RT l Inhalant 17:51: DOCUMENTAT Her escobedo Solution 00 ION (Same as: Proventil) Albuterol No Notes: SEE Me moria 0.83 MG/ML 3-03 RT l Inhalant 17:51: DOCUMENTAT Her escobedo Solution 00 ION (Same as: Proventil) Albuterol No Notes: Memori a 0.833 MG/ML - (Same as: l / 17:50: Duoneb) [place] Ipratropium 00 Prosperity 0.167 MG/ML Inhalant Solution [DuoNeb] Albuterol No Notes: Memori a 0.833 MG/ML 3-03 (Same as: l / 17:50: Duoneb) [place] Ipratropium 00 Prosperity 0.167 MG/ML Inhalant Solution [DuoNeb] albuterol 2020-08- No 1{puff} Q6H Inhale 1-2 [facility] (PROAIR 1-04 12-[address] HFA) 90 00:00: 05:59 every 6 Hospit a mcg/actuati 00 :00 (six) l on inhaler hours as needed for wheezing for up to 30 days. methylPREDN 2020-08 No follow Met joséi Thompsonrei 08-26 11-[address] (MEDROL 00:00: 05:59 directions Hos neha DOSEPAK) 4 00 :00 l mg tablet 0.5 ML 2020-08 No 0.5 ml, Memoria Bordetella 023 Route: IM, l pertussis 09:00: Drug Form: Bean rm SUSP, hemagglutin Dosing in vaccine, Weight inactivated 72.727, 0.016 MG/ML kg, ONCE, / Start Bordetella date: pertussis 06/14/21 pertactin 4:00:00 vaccine, CDT, Stop inactivated date: 0.005 MG/ML 06/14/21 / 4:00:00 Bordetella CDT pertussis toxoid vaccine, inactivated 0.016 MG/ML / diphtheria toxoid vaccine, inactivate 0.5 ML 2020-08 No 0.5 ml, Memoria Bordetella 023 Route: IM, l pertussis 09:00: Drug Form: Bean SUSP, hemagglutin Dosing in vaccine, Weight inactivated 72.727, 0.016 MG/ML kg, ONCE, / Start Bordetella date: pertussis 06/14/21 pertactin 4:00:00 vaccine, CDT, Stop inactivated date: 0.005 MG/ML 06/14/21 / 4:00:00 Bordetella CDT pertussis toxoid vaccine, inactivated 0.016 MG/ML / diphtheria toxoid vaccine, inactivate Ibuprofen 2020-08 No 800 mg, Memor ia 0-23 Route: PO, l 08:59: Drug form: [place] 00 TAB, ONCE, Dosing Weight 72.727, kg, Priority: STAT, Start date: 06/14/21 3:59:00 CDT, Stop date: 06/14/21 3:59:00 CDT Ibuprofen 2020-08 No 800 mg, Memor ia 0-23 Route: PO, l 08:59: Drug form: [place] 00 TAB, ONCE, Dosing Weight 72.727, kg, Priority: STAT, Start date: 06/14/21 3:59:00 CDT, Stop date: 06/14/21 3:59:00 CDT ketOROLAC 2020-08 No 4 days Memor ia 30 mg/mL 0-23 l injectable 07:40: MEDICATION H ermann solution 00 WASTE Product Size: 30 mg Product Wasted: ___ mg ketOROLAC 2020-08 No 4 days Memor ia 30 mg/mL 0-23 l injectable 07:40: MEDICATION H ermann solution 00 WASTE Product Size: 30 mg Product Wasted: ___ mg Albuterol 2020-08 No Notes: Memori a 0.833 MG/ML 0-23 (Same as: l / 07:39: Duoneb) Naresh Ipratropium 00 Pros[place] 0.167 MG/ML Inhalant Solution Prednisone 2020-08 No Notes: Memor ia 0-23 Take with l 07:39: food. Albuterol 2020-08 No Notes: Memori a 0.833 MG/ML 0-23 (Same as: l 07:39: Duoneb) Naresh Ipratropium 00 [place] 0.167 MG/ML Inhalant Solution Prednisone 2020-08 No Notes: Memor ia 0-23 Take with l 07:39: food. AZITHROmyci 2020-08 Yes 250mg QD Take [address] [facility] 0[facility]22 [facility] (ZITHROMAX) 00:00: (250 mg Med ical 250 MG 00 total) by Center tablet mouth daily Take first 2 tablets together, then 1 every day until finished.. AZITHROmyci 2020-08 Yes 250mg QD Take [address] [facility] 0[facility] (ZITHROMAX) 00:00: (250 mg Med ical 250 MG 00 total) by [facility] tablet mouth daily Take first 2 tablets together, then 1 every day until finished.. albuterol 2020-08 No 2{puff} Inhale [address] [facility] HFA 0-22 10-22 puffs by [facility] (VENTOLIN 00:00: 23:59 mouth via Me dical HFA) 90 00 :00 inhaler Center mcg/actuati every 4 on inhaler (four) hours as needed for Wheezing. albuterol 2020-08- No 2{puff} Inhale [address] [facility] HFA 0-22 10-22 puffs [facility] (VENTOLIN 00:00: 23:59 mouth via Me dical HFA) 90 00 :00 inhaler Center mcg/actuati every 4 on inhaler (four) hours as needed for Wheezing. acetaminoph 2020-08 No 500mg Take [address] [facility] [address] [facility] 06-23 [facility] (TYLENOL) 00:00: 23:59 (500 mg Medi guzman 500 MG 00 :00 total) by Center tablet mouth every 6 (six) hours as needed for Pain for up to 10 days. guaiFENesin 2020-08 No 200mg Take [address] (ROBITUSSIN 06-23 mLs (200 Brittni es ) 100 mg/5 00:00: 23:59 mg total) M edical mL syrup 00 :00 by mouth 3 Cent[facility] r (three) times daily as needed for Cough for up to 10 days. albuterol 2020-08 No 2{puff} Inhale [address] [facility] HFA 0-22 10-22 puffs [facility] (VENTOLIN 00:00: 00:00 mouth via Me dical HFA) 90 00 :00 inhaler Center mcg/actuati every 4 on inhaler (four) hours as needed for Wheezing. Melatonin Yes Notes: Memori a 6-15 (Same as: l 12:06: Melatonin) Melatonin Yes Notes: Memori a 6-15 (Same as: l 12:06: Melatonin) Calcium No 2,000 mL, Memor ia Chloride 6 2,000 l 0.0014 05:29: ml/hr, [place] MEQ/ML / 00 Infuse Potassium Over: 1 Chloride hr, Route: 0.004 IV, 2,000, MEQ/ML / Drug form: Sodium INJ, ONCE, Chloride Priority: 0.103 STAT, MEQ/ML / Dosing Sodium Weight Lactate 72.727 kg, 0.028 Start MEQ/ML date: Injectable 02/02/21 Solution 0:29:00 CDT, Stop date: 02/02/21 0:29:00 CDT, 0 Calcium 2021-0 No 2,000 mL, Memor ia Chloride 6-13 2,000 l 0.0014 05:29: ml/hr, [place] MEQ/ML / 00 Infuse Potassium Over: 1 Chloride hr, Route: 0.004 IV, 2,000, MEQ/ML / Drug form: Sodium INJ, ONCE, Chloride Priority: 0.103 STAT, MEQ/ML / Dosing Sodium Weight Lactate 72.727 kg, 0.028 Start MEQ/ML date: Injectable 02/02/21 Solution 0:29:00 CDT, Stop date: 02/02/21 0:29:00 CDT, 0 Calcium 2020-0 No 1,000 mL, Memor ia Chloride 6-13 1,000 l 0.0014 04:46: ml/hr, [place] MEQ/ML / 00 Infuse Potassium Over: 1 Chloride hr, Route: 0.004 IV, 1,000, MEQ/ML / Drug form: Sodium INJ, ONCE, Chloride Priority: 0.103 STAT, MEQ/ML / Dosing Sodium Weight Lactate 72.727 kg, 0.028 Start MEQ/ML date: Injectable 02/01/21 Solution 23:46:00 CDT, Stop date: 02/01/21 23:46:00 CDT, 0 Calcium 2020-0 No 1,000 mL, Memor ia Chloride 6-13 1,000 l 0.0014 04:46: ml/hr, Naresh MEQ/ML / 00 Infuse Potassium Over: 1 Chloride hr, Route: 0.004 IV, 1,000, MEQ/ML / Drug form: Sodium INJ, ONCE, Chloride Priority: 0.103 STAT, MEQ/ML / Dosing Sodium Weight Lactate 72.727 kg, 0.028 Start MEQ/ML date: Injectable 02/01/21 Solution 23:46:00 CDT, Stop date: 02/01/21 23:46:00 CDT, 0 Aspirin No Notes: Memoria 02-02 Take with l 02:43: food. Nitroglycer No Notes: Santino cynthia in 02-02 (Same l 02:43: as:Nitroqu ick, Nitrostat) "Do Not Crush" Sublingual tablet Saline No Notes: Memoria Flush 0.9% 02-02 (Same as: l 02:43: BD [place] Posiflush) Aspirin No Notes: Memoria 02-02 Take with l 02:43: food. Naresh 00 Nitroglycer No Notes: Santino cynthia in 02-02 (Same l 02:43: as:Nitroqu ick, Nitrostat) "Do Not Crush" Sublingual tablet Saline No Notes: Memoria Flush 0.9% 02-02 (Same as: l 02:43: BD [place] Posiflush) 200 ACTUAT 2020-0 Yes 2 puff, Santino cynthia Albuterol 5-10 INHALER, l 0.09 00:03: Q6H, PRN [place] MG/ACTUAT 00 wheezing, Metered coughing, Dose or Inhaler shortness [ProAir of breath, HFA] # 1 ea, 1 Refill(s) tramadol 2020-0 Yes 50 mg = 1 Santino cynthia hydrochlori 5-10 tab, PO, l de 50 MG 00:03: BID, X 15 Herm gracie Oral Tablet day, # 12 [Ultram] tab, 0 Refill(s) ProAir HFA 2020-0 Yes 2 puff, Santino cynthia 90 mcg/inh 5-10 INHALER, l inhalation 00:03: Q6H, PRN Her [place] aerosol 00 wheezing, with coughing, adapter or shortness of breath, # 1 ea, 1 Refill(s) 200 ACTUAT 2020-0 Yes 2 puff, Santino cynthia Albuterol 5-10 INHALER, l 0.09 00:03: Q6H, PRN [place] MG/ACTUAT 00 wheezing, Metered coughing, Dose or Inhaler shortness [ProAir of breath, HFA] # 1 ea, 1 Refill(s) tramadol 2020-0 Yes 50 mg = 1 Santino cynthia hydrochlori 5-10 tab, PO, l de 50 MG 00:03: BID, X 15 Herm gracie Oral Tablet 00 day, # 12 [Ultram] tab, 0 Refill(s) ProAir HFA 2020-0 Yes 2 puff, Santino cynthia 90 mcg/inh 5-10 INHALER, l inhalation 00:03: Q6H, PRN Her [place] aerosol 00 wheezing, with coughing, adapter or shortness of breath, # 1 ea, 1 Refill(s) Methocarbam 2018-08 Yes 1,500 mg = Memoria ol 750 MG 1-05 2 tab, PO, l Oral Tablet 00:55: TID, X 7 He rmann [Robaxin] 00 day, # 42 tab, 0 Refill(s) Acetaminoph 2018-08 Yes 1 tab, PO, Memoria en 300 MG / 1-05 Q6H, PRN l Codeine 00:55: pain, X 7 Radha nn Phosphate 00 day, # 7 30 MG Oral tab, 0 Tablet Refill(s) Methocarbam 2018-08 Yes 1,500 mg = Memoria ol 750 MG 1-05 2 tab, PO, l Oral Tablet 00:55: TID, X 7 He rmann [Robaxin] 00 day, # 42 tab, 0 Refill(s) Acetaminoph 2018-08 Yes 1 tab, PO, Memoria en 300 MG / 1-05 Q6H, PRN l Codeine 00:55: pain, X 7 Radha nn Phosphate 00 day, # 7 30 MG Oral tab, 0 Tablet Refill(s) meloxicam 2018-08 Yes 15 mg = 1 Mem oria 15 mg oral 1-05 tab, PO, l tablet 00:54: Daily, # [place] 00 30 tab, 0 Refill(s) meloxicam 2018-08 Yes 15 mg = 1 Mem oria 15 mg oral 1-05 tab, PO, l tablet 00:54: Daily, # Naresh 00 30 tab, 0 Refill(s) Ketorolac 2018-08 No 30 mg, Memori a 08-26 Route: l 22:05: IVP, Drug Naresh form: INJ, ONCE, Dosing Weight 69.9, kg, Priority: STAT, Start date: 06/26/19 16:05:00 COPY CHIEF, Stop date: 06/26/19 16:05:00 COPY CHIEF Zofran 2018-08 No 4 mg, Memoria 08-26 Route: l 22:05: IVP, Drug [place] form: INJ, ONCE, Dosing Weight 69.9, kg, Priority: STAT, Start date: 06/26/19 16:05:00 COPY CHIEF, Stop date: 06/26/19 16:05:00 COPY CHIEF Ketorolac 2018-08 No 30 mg, Memori a 08-26 Route: l 22:05: IVP, Drug Naresh 00 form: INJ, ONCE, Dosing Weight 69.9, kg, Priority: STAT, Start date: 06/26/19 16:05:00 COPY CHIEF, Stop date: 06/26/19 16:05:00 COPY CHIEF Zofran 2018- No 4 mg, Memoria 08-26 Route: l 22:05: IVP, Drug [place] 00 form: INJ, ONCE, Dosing Weight 69.9, kg, Priority: STAT, Start date: 06/26/19 16:05:00 COPY CHIEF, Stop date: 06/26/19 16:05:00 COPY CHIEF Saline 2018-08 No Notes: Memoria Flush 0.9% 1-04 (Same as: l 21:08: BD Naresh Posiflush) Saline 2018-08 No Notes: Memoria Flush 0.9% 1-04 (Same as: l 21:08: BD [place] Posiflush) Furosemide No 40 mg, Memor ia 11-05 Route: l 06:50: IVP, Drug [place] form: INJ, ONCE, Dosing Weight 67.8, kg, Priority: STAT, Start date: 11/05/18 1:50:00 CDT, Stop date: 11/05/18 1:50:00 CDT Nitroglycer 2018-0 No 1 inch, Mem oria in 0.02 11-05 Route: l MG/MG 06:50: TOP, Naresh Topical 00 Dosing Ointment Weight 67.8, kg, ONCE, STAT, Start date: 11/05/18 1:50:00 CDT, Stop date: 11/05/18 1:50:00 CDT Aspirin 2018-0 No 324 mg, Memoria 11-05 Route: l 06:50: CHEW, Drug [place] 00 form: CHEWTAB, ONCE, Dosing Weight 67.8, kg, Priority: STAT, Start date: 11/05/18 1:50:00 CDT, Stop date: 11/05/18 1:50:00 CDT Furosemide 2018-0 No 40 mg, Memor ia 11-05 Route: l 06:50: IVP, Drug [place] 00 form: INJ, ONCE, Dosing Weight 67.8, kg, Priority: STAT, Start date: 11/05/18 1:50:00 CDT, Stop date: 11/05/18 1:50:00 CDT Nitroglycer 2019-0 No 1 inch, Mem oria in 0.02 3-16 Route: l MG/MG 06:50: TOP, Naresh Topical 00 Dosing Ointment Weight 67.8, kg, ONCE, STAT, Start date: 11/05/18 1:50:00 CDT, Stop date: 11/05/18 1:50:00 CDT Aspirin 2019-0 No 324 mg, Memoria 3-16 Route: l 06:50: CHEW, Drug Naresh 00 form: CHEWTAB, ONCE, Dosing Weight 67.8, kg, Priority: STAT, Start date: 11/05/18 1:50:00 CDT, Stop date: 11/05/18 1:50:00 CDT Sodium 2019-0 No 1,000 mL, Memori a Chloride 3-16 1000 l 0.9% 04:53: ml/hr, Naresh (Bolus) IV 00 Infuse Over: 1 hr, Route: IV, 1,000, Drug form: INJ, ONCE, Priority: STAT, Dosing Weight 67.8 kg, Start date: 11/04/18 23:53:00 CDT, Stop date: 11/04/18 23:53:00 CDT Sodium 2019-0 No 1,000 mL, Memori a Chloride 3-16 1000 l 0.9% 04:53: ml/hr, Naresh (Bolus) IV 00 Infuse Over: 1 hr, Route: IV, 1,000, Drug form: INJ, ONCE, Priority: STAT, Dosing Weight 67.8 kg, Start date: 11/04/18 23:53:00 CDT, Stop date: 11/04/18 23:53:00 CDT Saline 0 No Notes: Memoria Flush 0.9% 3-16 (Same as: l 04:33: BD Naresh Posiflush) Saline 0 No Notes: Memoria Flush 0.9% 3-16 (Same as: l 04:33: BD [place] Posiflush) Acetaminoph 2017-08 No 1 tab, Santino cynthia en 325 MG / 2-13 Route: PO, l Hydrocodone 04:10: Drug Form: Naresh Bitartrate 00 TAB, 5 MG Oral Dosing Tablet Weight [[place] 72.727, 5/325] kg, ONCE, STAT, Start date: 08/03/18 22:10:00 COPY CHIEF, Stop date: 08/03/18 22:10:00 COPY CHIEF Acetaminoph 2017-08 No 1 tab, Santino cynthia en 325 MG / 2-13 Route: PO, l Hydrocodone 04:10: Drug Form: [place] Bitartrate 00 TAB, 5 MG Oral Dosing Tablet Weight [[place] 72.727, 5/325] kg, ONCE, STAT, Start date: 08/03/18 22:10:00 COPY CHIEF, Stop date: 08/03/18 22:10:00 COPY CHIEF Methocarbam 2017-08 No 1,500 mg = Memoria ol 750 MG 2-13 2 tab, PO, l Oral Tablet 04:08: TID, X 7 He rmann [Robaxin] 00 day, # 42 tab, 0 Refill(s) Methocarbam 2017-08 No 1,500 mg = Memoria ol 750 MG 2-13 2 tab, PO, l Oral Tablet 04:08: TID, X 7 He rmann [Robaxin] 00 day, # 42 tab, 0 Refill(s) Acetaminoph 2017-08 No 1 - 2 tab, Memoria en 300 MG / 2-13 PO, Q4H, l Codeine 04:07: PRN Pain, Radha nn Phosphate 00 X 7 day, # 30 MG Oral 20 tab, 0 Tablet Refill(s) [Tylenol with Codeine #3] Acetaminoph 2017-08 No 1 - 2 tab, Memoria en 300 MG / 2-13 PO, Q4H, l Codeine 04:07: PRN Pain, Radha nn Phosphate 00 X 7 day, # 30 MG Oral 20 tab, 0 Tablet Refill(s) [Tylenol with Codeine #3] Zofran 2017-08 No Notes: Memoria 2-13 (Same as: l 00:55: Zofran) [place] 00 MEDICATION WASTE Product Size: 4 mg Product Wasted: ___ mg Morphine 2017-08 No Notes: Memoria 2-13 (Same l 00:55: as:MORPhin Naresh 00 e Sulfate) Ketorolac 2017-08 No 4 days Memor ia 2-13 l 00:55: MEDICATION [place] 00 WASTE Product Size: 30 mg Product Wasted: ___ mg Zofran 2017-08 No Notes: Memoria 2-13 (Same as: l 00:55: Zofran) Naresh 00 MEDICATION WASTE Product Size: 4 mg Product Wasted: ___ mg Morphine 2017-08 No Notes: Memoria 2-13 (Same l 00:55: as:MORPhin Naresh 00 e Sulfate) Ketorolac 2017-08 No 4 days Memor ia 2-13 l 00:55: MEDICATION [place] 00 WASTE Product Size: 30 mg Product Wasted: ___ mg Ondansetron 2017-08 No Notes: Santino cynthia 2-13 (Same as: l 00:51: Zofran) Naresh 00 MEDICATION WASTE Product Size: 4 mg Product Wasted: ___ mg Sodium 2017-08 No 1,000 mL, Memori a Chloride 2-13 1000 l 0.9% 00:51: ml/hr, [place] (Bolus) IV 00 Infuse Over: 1 hr, Route: IV, 1,000, Drug form: INJ, ONCE, Priority: STAT, Dosing Weight 72.727 kg, Start date: 08/03/18 18:51:00 COPY CHIEF, Stop date: 08/03/18 18:51:00 COPY CHIEF Ondansetron 2017-08 No Notes: Santino cynthia 2-13 (Same as: l 00:51: Zofran) [place] 00 MEDICATION WASTE Product Size: 4 mg Product Wasted: ___ mg Sodium 2017-08 No 1,000 mL, Memori a Chloride 2-13 1000 l 0.9% 00:51: ml/hr, Naresh (Bolus) IV 00 Infuse Over: 1 hr, Route: IV, 1,000, Drug form: INJ, ONCE, Priority: STAT, Dosing Weight 72.727 kg, Start date: 08/03/18 18:51:00 COPY CHIEF, Stop date: 08/03/18 18:51:00 COPY CHIEF Acetaminoph 2017-08 No 1 tab, PO, Memoria en 300 MG / 1-01 Q4H, PRN l Codeine 22:06: Pain, X 7 Radha nn Phosphate 00 day, # 30 60 MG Oral tab, 0 Tablet Refill(s) [Tylenol with Codeine #4] Acetaminoph 2017-08 No 1 tab, PO, Memoria en 300 MG / 01 Q4H, PRN l Codeine 22:06: Pain, X 7 Radha nn Phosphate 00 day, # 30 60 MG Oral tab, 0 Tablet Refill(s) [Tylenol with Codeine #4] Acetaminoph 2017-08 No 1 tab, Santino cynthia en 325 MG / 08-23 Route: PO, l Hydrocodone 22:05: Drug Form: Naresh Bitartrate 00 TAB, 7.5 MG Oral Dosing Tablet Weight [[place] 70.455, 7.5/325] kg, ONCE, STAT, Start date: 06/23/18 17:05:00 CDT, Stop date: 06/23/18 17:05:00 CDT Acetaminoph 2017-08 No 1 tab, Santino cynthia en 325 MG / 08-23 Route: PO, l Hydrocodone 22:05: Drug Form: Na[place] Bitartrate 00 TAB, 7.5 MG Oral Dosing Tablet Weight [[place] 70.455, 7.5/325] kg, ONCE, STAT, Start date: 06/23/18 17:05:00 CDT, Stop date: 06/23/18 17:05:00 CDT Flexeril 2017-08 No Notes: Memoria 08-23 (Same As: l 19:59: Flexeril) Flexeril 2017-08 No Notes: Memoria 08-23 (Same As: l 19:59: Flexeril) Acetaminoph No 1 - 2 tab, Memoria en 300 MG / 4-05 PO, Q4H, l Codeine 20:38: PRN Pain, Radha nn Phosphate 00 X 2 day, # 30 MG Oral 30 tab, 0 Tablet Refill(s) [Tylenol with Codeine #3] Acetaminoph No 1 - 2 tab, Memoria en 300 MG / 4-05 PO, Q4H, l Codeine 20:38: PRN Pain, Radha nn Phosphate 00 X 2 day, # 30 MG Oral 30 tab, 0 Tablet Refill(s) [Tylenol with Codeine #3] Acetaminoph No Notes: Do M emoria en 325 MG / 4-05 not exceed l Hydrocodone 19:16: 4gm/day of Naresh Bitartrate 00 acetaminop 10 MG Oral hen. (Same Tablet as: [place] [[place] 325/10) ] Acetaminoph No Notes: Do M emoria en 325 MG / 4-05 not exceed l Hydrocodone 19:16: 4gm/day of Naresh Bitartrate 00 acetaminop 10 MG Oral hen. (Same Tablet as: [place] [[place] 325/10) ] Morphine 2015-0 No 4 mg, Memoria 04-14 Route: l 03:43: IVP, Drug [place] 00 form: INJ, ONCE, Dosing Weight 77.273, kg, Priority: STAT, Start date: 04/13/16 22:43:00 CDT, Stop date: 04/13/16 22:43:00 CDT Morphine 2015-0 No 4 mg, Memoria 04-14 Route: l 03:43: IVP, Drug Na[place] 00 form: INJ, ONCE, Dosing Weight 77.273, kg, Priority: STAT, Start date: 04/13/16 22:43:00 CDT, Stop date: 04/13/16 22:43:00 CDT Cyclobenzap 2015- Yes 10 mg = 1 M emoria rine 8-23 tab, PO, l hydrochlori 03:40: TID, PRN He rmann de 10 MG 00 for spasm, Oral Tablet X 10 day, [Flexeril] # 30 tab, 0 Refill(s) Cyclobenzap Yes 10 mg = 1 M emoria rine 8-23 tab, PO, l hydrochlori 03:40: TID, PRN He rmann de 10 MG 00 for spasm, Oral Tablet X 10 day, [Flexeril] # 30 tab, 0 Refill(s) Acetaminoph No 1 - 2 tab, Memoria en 300 MG / -23 PO, Q4H, l Codeine 03:38: PRN Pain, Radha nn Phosphate 00 X 2 day, # 30 MG Oral 24 tab, 0 Tablet Refill(s) [Tylenol with Codeine #3] Acetaminoph No 1 - 2 tab, Memoria en 300 MG / 8-23 PO, Q4H, l Codeine 03:38: PRN Pain, Radha nn Phosphate 00 X 2 day, # 30 MG Oral 24 tab, 0 Tablet Refill(s) [Tylenol with Codeine #3] Morphine No Notes: Memoria 04-14 (Same l 00:39: as:MORPhin [place] 00 e Sulfate) Zofran No Notes: Memoria 04-14 (Same as: l 00:39: Zoan) Naresh 00 MEDICATION WASTE Product Size: 4 mg Product Wasted: ___ mg Sodium No 1,000 mL, Memori a Chloride 8-23 1000 l 0.154 00:39: ml/hr, [place] MEQ/ML 00 Infuse Injectable Over: 1 Solution hr, Route: IV, 1,000, Drug form: INJ, ONCE, Priority: STAT, Dosing Weight 77.273 kg, Start date: 04/13/16 19:39:00 CDT, Duration: 1 doses or times, Stop date: 04/13/16 19:39:00 CDT Morphine No Notes: Memoria 04-14 (Same l 00:39: as:MORPhin [place] 00 e Sulfate) Zofran No Notes: Memoria 04-14 (Same as: l 00:39: [facility]) Naresh 00 MEDICATION WASTE Product Size: 4 mg Product Wasted: ___ mg Sodium No 1,000 mL, Memori a Chloride 8-23 1000 l 0.154 00:39: ml/hr, Naresh MEQ/ML 00 Infuse Injectable Over: 1 Solution hr, Route: IV, 1,000, Drug form: INJ, ONCE, Priority: STAT, Dosing Weight 77.273 kg, Start date: 04/13/16 19:39:00 CDT, Duration: 1 doses or times, Stop date: 04/13/16 19:39:00 CDT Acetaminoph Yes 1 - 2 tab, Memoria en 300 MG / 4-05 PO, Q4H, l Codeine 01:46: PRN Pain, Radha nn Phosphate 00 X 4 day, # 30 MG Oral 20 tab, 0 Tablet Refill(s) [Tylenol with Codeine #3] Cyclobenzap Yes 10 mg, PO, Memoria rine 4-05 TID, PRN l hydrochlori 01:46: Muscle Herm gracie de 10 MG 00 Spasm, X 5 Oral Tablet day, # 20 [Flexeril] tab, 0 Refill(s) Acetaminoph Yes 1 - 2 tab, Memoria en 300 MG / 4-05 PO, Q4H, l Codeine 01:46: PRN Pain, Radha nn Phosphate 00 X 4 day, # 30 MG Oral 20 tab, 0 Tablet Refill(s) [Tylenol with Codeine #3] Cyclobenzap Yes 10 mg, PO, Memoria rine 4-05 TID, PRN l hydrochlori 01:46: Muscle Herm gracie de 10 MG 00 Spasm, X 5 Oral Tablet day, # 20 [Flexeril] tab, 0 Refill(s) Acetaminoph No Notes: Do M emoria en 300 MG / 4-05 not exceed l Codeine 01:44: 4gm/day of Herm gracie Phosphate 00 acetaminop 30 MG Oral hen. (Same Tablet as: [Tylenol Tylenol with with Codeine #3] Codeine # 3) Flexeril No Notes: Memoria 4-05 (Same As: l 01:44: Flexeril) [place] 00 Acetaminoph No Notes: Do M emoria en 300 MG / 4-05 not exceed l Codeine 01:44: 4gm/day of Herm gracie Phosphate 00 acetaminop 30 MG Oral hen. (Same Tablet as: [Tylenol Tylenol with with Codeine #3] Codeine # 3) Flexeril No Notes: Memoria 4-05 (Same As: l 01:44: Flexeril) [place] 00 200 ACTUAT Yes 2 puff, Santino cynthia Albuterol 3-15 INHALATION l 0.09 12:08: , Q4H, # 1 [place] MG/ACTUAT 00 unit, 0 Dry Powder Refill(s) Inhaler predniSONE Yes 60 mg = 3 Me moria 20 mg oral 3-15 tab, PO, l tablet 12:08: Daily, [place] 00 Take 3 tablets for 60 mg dose, X 4 day, # 12 tab, 0 Refill(s) Azithromyci Yes See Memori a n 5 Day 3-15 Instructio l Dose Pack 12:08: ns, Take 2 He rmann 250 mg oral 00 tablets by tablet mouth the first day then 1 tablet by mouth days 2-5., X 5 day, # 6 tab, 0 Refill(s) albuterol Yes 2 puff, Memor ia 90 mcg/inh 3-15 INHALATION l inhalation 12:08: , Q4H, # 1 H ermann powder 00 unit, 0 Refill(s) 200 ACTUAT Yes 2 puff, Santino cynthia Albuterol 3-15 INHALATION l 0.09 12:08: , Q4H, # 1 [place] MG/ACTUAT 00 unit, 0 Dry Powder Refill(s) Inhaler predniSONE Yes 60 mg = 3 Me moria 20 mg oral 3-15 tab, PO, l tablet 12:08: Daily, Naresh 00 Take 3 tablets for 60 mg dose, X 4 day, # 12 tab, 0 Refill(s) Azithromyci Yes See Maria Doloresori a n 5 Day 3-15 Instructio l Dose Pack 12:08: ns, Take 2 He rmann 250 mg oral 00 tablets by tablet mouth the first day then 1 tablet by mouth days 2-5., X 5 day, # 6 tab, 0 Refill(s) albuterol Yes 2 puff, Memor ia 90 mcg/inh 3-15 INHALATION l inhalation 12:08: , Q4H, # 1 H ermann powder 00 unit, 0 Refill(s) Prednisone No 60 mg, Memor ia 3-15 Route: PO, l 11:40: Drug form: [place] 00 TAB, ONCE, Dosing Weight 77.273, kg, Priority: STAT, Start date: 11/05/15 6:40:00, Stop date: 11/05/15 6:40:00 Albuterol No 3 mL, Memoria 0.833 MG/ML 3-15 Route: l / 11:40: NEB, Naresh Ipratropium 00 Dosing [place] Weight 0.167 MG/ML 77.273, Inhalant kg, ONCE, Solution STAT, Start date: 11/05/15 6:40:00, Stop date: 11/05/15 6:40:00 Prednisone 2016-0 No 60 mg, Memor ia 11-04 Route: PO, l 11:40: Drug form: [place] 00 TAB, ONCE, Dosing Weight 77.273, kg, Priority: STAT, Start date: 11/05/15 6:40:00, Stop date: 11/05/15 6:40:00 Albuterol 2015-0 No 3 mL, Memoria 0.833 MG/ML 11-04 Route: l / 11:40: NEB, Naresh Ipratropium 00 Dosing [place] Weight 0.167 MG/ML 77.273, Inhalant kg, ONCE, Solution STAT, Start date: 11/05/15 6:40:00, Stop date: 11/05/15 6:40:00 [place] 2011-08 Yes Jesu 1 tab, PO, Memoria oral tablet 2-25 Will Thacker TID, PRN, l 17:52: 10 tabNaresh 07 for pain, Substituti on Allowed, Maintenanc e, TAB [place] 2011-08 Yes Jesu 1 tab, PO, Memoria oral tablet 2-25 Will Thacker TID, PRN, l 17:52: 10 tabNaresh 07 for pain, Substituti on Allowed, Maintenanc e, TAB ibuprofen 2011-08 Yes Jesu 600 mg, 1 M emoria 600 mg oral 2-25 Will Thacker tab, PO, l tablet 17:51: Q6H, PRN, Enmanuel n 45 take with food, 30 tab, Pain, Substituti on Allowedtak e with food ibuprofen 2011-08 Yes Jesu 600 mg, 1 M emoria 600 mg oral 2-25 Will Thackre tab, PO, l tablet 17:51: Q6H, PRN, Enmanuel n 45 take with food, 30 tab, Pain, Substituti on Allowedtak e with food Vital Signs Vital Name Observation Time Observation Value Comments Source HEIGHT 2021-06-13 11:37:00 160 cm WEIGHT 2021-06-13 11:37:00 74.844 kg HEIGHT 2021-06-13 11:37:00 160 cm WEIGHT 2021-06-13 11:37:00 74.844 kg Systolic (mm Hg) 2022-08-08 19:21:00 Santino rial [place] Diastolic (mm Hg) 2022-08-08 19:21:00 Mem orial [place] Heart Rate 2022-08-08 19:21:00 [facility] Na[facility] Height 2022-08-08 15:03:00 5 [ft_i] [facility] [place] BMI Calculated 2022-08-08 15:03:00 Memori al Naresh Weight 2022-08-08 15:03:00 [facility] Naresh Weight 2022-08-08 14:56:00 [facility] [place] Systolic (mm Hg) 2022-02-14 09:13:00 Santino rial Na[place] Diastolic (mm Hg) 2022-02-14 09:13:00 Mem orial Naresh Systolic (mm Hg) 2022-02-14 08:08:00 Santino rial [place] Diastolic (mm Hg) 2022-02-14 08:08:00 Mem orial Naresh Height 2022-02-14 05:17:00 167.64 cm [facility] [place] BMI Calculated 2022-02-14 05:17:00 Memori al Naresh Weight 2022-02-14 05:17:00 [facility] [place] Systolic (mm Hg) 2022-02-14 05:17:00 Santino rial [place] Diastolic (mm Hg) 2022-02-14 05:17:00 Mem orial [place] Heart Rate 2022-02-14 05:17:00 [facility] [place] Respitory Rate 2022-02-14 05:17[facility] Oral (F[facility] 2022-02-14 05:17:00 98.1 F [facility] Systolic blood 2021-12-02 13:44:00 140 mm[Hg] [facility] pressure Diastolic blood 2021-12-02 13:44:00 79 mm[Hg] [facility] pressure Heart rate 2021-12-02 13:44:00 91 /min [facility] Respiratory rate 2021-12-02 13:44:00 20 /min [facility] Oxygen saturation in 2021-12-02 13:44:00 98 /min [facility] Arterial blood by Pulse oximetry Body temperature 2021-12-02 12:23:00 37.28 [facility] Systolic (mm Hg) 2021-10-23 19:02:00 [facility] [place] Diastolic (mm Hg) 2021-10-23 19:02:00 [facility] Temperature Oral (F) 2021-10-23 18:44:00 98.1 F [facility] Respitory Rate 2021-10-23 18:44:00 [facility] Systolic (mm Hg) 2021-10-23 18:00:00 [facility] [place] Diastolic (mm Hg) 2021-10-23 18:00:00 [facility] Systolic (mm Hg) 2021-10-23 17:48:00 [facility] Diastolic (mm Hg) 2021-10-23 17:48:00 [facility] Height 2021-10-23 17:36:00 167.64 cm [facility] BMI Calculated 2021-10-23 17:36:00 [facility] [place] Weight 2021-10-23 17:36:00 [facility] 2021-10-23 17:36:00 [facility] Respitory Rate 2021-10-23 17:36:00 [facility] Temperature Oral (F) 2021-10-23 17:36:00 98.2 F [facility] Body height 2021-06-26 19:24:00 167.6 cm [facility] Body weight 2021-06-26 19:24:00 77.111 kg [facility] BMI 2021-06-26 19:24:00 27.44 kg/m2 [facility] Temperature Oral (F) 2021-06-14 19:00:00 98.0 F [facility] [place] Heart Rate 2021-06-14 19:00:00 [facility] Respitory Rate 2021-06-14 19:00:00 [facility] Systolic (mm Hg) 2021-06-14 19:00:00 [facility] [place] Diastolic (mm Hg) 2021-06-14 19:00:00 [facility] [place] Temperature Oral (F) 2021-06-14 17:03:00 97.8 F [facility] Heart Rate 2021-06-14 17:03:00 [facility] Respitory Rate 2021-06-14 17:03:00 [facility] [place] Systolic (mm Hg) 2021-06-14 17:03:00 [facility] [place] Diastolic (mm Hg) 2021-06-14 17:03:00 [facility] [place] Systolic (mm Hg) 2021-06-14 15:06:00 [facility] Diastolic (mm Hg) 2021-06-14 15:06:00 [facility] Temperature Oral (F) 2021-06-14 15:06:00 97.2 F [facility] Heart Rate 2021-06-14 15:06:00 [facility] Respitory Rate 2021-06-14 15:06:00 Jayson Rosasann Height 2021-06-14 05:51:00 167.64 cm [facility] BMI Calculated 2021-06-14 05:51:00 [facility] [place] Weight 2021-06-14 05:51:00 [facility] Systolic blood 2021-06-13 13:08:00 140 mm[Hg] [facility] Diastolic blood 2021-06-13 13:08:00 88 mm[Hg] [facility] Heart rate 2021-06-13 13:08:00 86 /min [facility] Respiratory rate 2021-06-13 13:08:00 18 /min [facility] Oxygen saturation in 2021-06-13 13:08:00 98 /min [facility] Arterial blood by Medical Ce nter Pulse oximetry Body temperature 2021-06-13 11:37:00 37.11 [facility] Body height 2021-06-13 11:37:00 160 cm [facility] Body weight 2021-06-13 11:37:00 74.844 kg [facility] BMI 2021-06-13 11:37:00 29.23 kg/m2 [facility] Systolic (mm Hg) 2021-02-04 13:57:00 Sant[facility] Diastolic (mm Hg) 2021-02-04 13:57:00 Mem orial [place] Respitory Rate 2021-02-04 13:57:00 [facility] Rate 2021-02-04 13:57:00 [facility] [place] Temperature Oral (F) 2021-02-04 13:57:00 97.9 F [facility] Temperature Oral (F) 2021-02-04 11:56:00 97.4 F [facility] Heart Rate 2021-02-04 11:56:00 [facility] [place] Respitory Rate 2021-02-04 11:56:00 [facility] Systolic (mm Hg) 2021-02-04 11:56:00 Santino rial [place] Diastolic (mm Hg) 2021-02-04 11:56:00 [facility] Temperature Oral (F) 2021-02-04 10:30:00 98.2 F [facility] [place] Heart Rate 2021-02-04 10:30:00 [facility] Respitory Rate 2021-02-04 10:30:00 [facility] Systolic (mm Hg) 2021-02-04 10:30:00 Santino rial [place] Diastolic (mm Hg) 2021-02-04 10:30:00 [facility] Height 2021-02-03 20:51:00 170.18 cm [facility] BMI Calculated 2021-02-03 20:51:00 [facility] Weight 2021-02-03 20:51:00 [facility] Respitory Rate 2021-02-02 07:00:00 [facility] [place] Systolic (mm Hg) 2021-02-02 07:00:00 Santino rial [place] Diastolic (mm Hg) 2021-02-02 07:00:00 [facility] Respitory Rate 2021-02-02 05:50:00 [facility] Systolic (mm Hg) 2021-02-02 05:50:00 Santino rial [place] Diastolic (mm Hg) 2021-02-02 05:50:00 Mem orial [place] Respitory Rate 2021-02-02 04:40:00 [facility] Systolic (mm Hg) 2021-02-02 04:40:00 Santino [facility] [place] Diastolic (mm Hg) 2021-02-02 04:40:00 Mem orial [place] BMI Calculated 2021-02-02 02:43:00 [facility] Height 2021-02-02 02:30:00 172.72 cm [facility] BMI Calculated 2021-02-02 02:30:00 [facility] Weight 2021-02-02 02:30:00 [facility] Heart Rate 2021-02-02 02:30:00 [facility] Temperature Oral (F) 2021-02-02 02:30:00 98.8 F [facility] [place] Systolic (mm Hg) 2019-12-31 00:03:00 [facility]ino [facility] Diastolic (mm Hg) 2019-12-31 00:03:00 [facility] Heart Rate 2019-12-31 00:03:00 [facility] [place] Respitory Rate 2019-12-31 00:03:00 [facility] Height 2019-12-30 21:58:00 167.64 cm [facility] [place] BMI Calculated 2019-12-30 21:58:00 [facility] [place] Weight 2019-12-30 21:58:00 [facility] [place] Systolic (mm Hg) 2019-12-30 21:58:00 Santino rial [place] Diastolic (mm Hg) 2019-12-30 21:58:00 Mem orial [place] Heart Rate 2019-12-30 21:58:00 [facility] Respitory Rate 2019-12-30 21:58:00 [facility] [place] Temperature Oral (F) 2019-12-30 21:58:00 98.2 F [facility] [place] Temperature Oral (F) 2019-06-27 01:20:00 98 F [facility] Heart Rate 2019-06-27 01:20:00 [facility] Respitory Rate 2019-06-27 01:20:00 [facility] Systolic (mm Hg) 2019-06-27 01:20:00 Santino [facility] [place] Diastolic (mm Hg) 2019-06-27 01:20:00 [facility] Systolic (mm Hg) 2019-06-26 20:57:00 [facility] Diastolic (mm Hg) 2019-06-26 20:57:00 [facility] Heart Rate 2019-06-26 20:57:00 [facility] Respitory Rate 2019-06-26 20:57:00 [facility] [place] Temperature Oral (F) 2019-06-26 20:57:00 97.8 F [facility] [place] Height 2019-06-26 20:57:00 167.64 cm [facility] BMI Calculated 2019-06-26 20:57:00 [facility] [place] Weight 2019-06-26 20:57:00 [facility] [place] Respitory Rate 2018-11-05 08:07:00 [facility] [place] Temperature Oral (F) 2018-11-05 08:07:00 98.2 F [facility] [place] Systolic (mm Hg) 2018-11-05 08:07:00 Santino [facility] Diastolic (mm Hg) 2018-11-05 08:07:00 Mem orial [place] Heart Rate 2018-11-05 08:07:00 [facility] [place] Systolic (mm Hg) 2018-11-05 06:54:00 Santino rial [place] Diastolic (mm Hg) 2018-11-05 06:54:00 Mem orial [place] Respitory Rate 2018-11-05 06:54:00 [facility] Heart Rate 2018-11-05 05:35:00 [facility] Systolic (mm Hg) 2018-11-05 04:47:00 Santino rial [place] Diastolic (mm Hg) 2018-11-05 04:47:00 Mem orial [place] BMI Calculated 2018-11-05 04:25:00 [facility] Height 2018-11-05 04:25:00 170.18 cm [facility] [place] Weight 2018-11-05 04:25:00 [facility] [place] Temperature Oral (F) 2018-11-05 04:25:00 98.2 F [facility] Respitory Rate 2018-11-05 04:25:00 [facility] [place] Heart Rate 2018-11-05 04:25:00 [facility] Respitory Rate 2018-08-04 04:08:00 [facility] Heart Rate 2018-08-04 04:08:00 [facility] Systolic (mm Hg) 2018-08-04 04:08:00 Santino rial [place] Diastolic (mm Hg) 2018-08-04 04:08:00 [facility] Temperature Oral (F) 2018-08-04 04:08:00 98.5 F [facility] Height 2018-08-04 00:39:00 167.64 cm [facility] [place] Weight 2018-08-04 00:39:00 [facility] BMI Calculated 2018-08-04 00:39:00 [facility] Respitory Rate 2018-08-04 00:39:00 [facility] [place] Heart Rate 2018-08-04 00:39:00 [facility] Systolic (mm Hg) 2018-08-04 00:39:00 Santino rial [place] Diastolic (mm Hg) 2018-08-04 00:39:00 Mem o[facility] [place] Temperature Oral (F) 2018-08-04 00:39:00 98.8 F [facility] [place] Respitory Rate 2018-06-23 22:20:00 [facility] Heart Rate 2018-06-23 22:20:00 [facility] Systolic (mm Hg) 2018-06-23 22:20:00 Santino [facility] Diastolic (mm Hg) 2018-06-23 22:20:00 Mem orial [place] Weight 2018-06-23 19:46:00 [facility] [place] Respitory Rate 2018-06-23 19:46:00 [facility] [place] Heart Rate 2018-06-23 19:46:00 [facility] [place] Height 2018-06-23 19:46:00 170.18 cm [facility] BMI Calculated 2018-06-23 19:46:00 [facility] [place] Temperature Oral (F) 2018-06-23 19:46:00 97.9 F [facility] [place] Systolic (mm Hg) 2018-06-23 19:46:00 [facility]ino [facility] Diastolic (mm Hg) 2018-06-23 19:46:00 Mem o[facility] [place] Systolic (mm Hg) 2016-11-25 20:50:00 Santino [facility] [place] Diastolic (mm Hg) 2016-11-25 20:50:00 Mem [facility] Heart Rate 2016-11-25 20:50:00 [facility] [place] Respitory Rate 2016-11-25 20:50:00 [facility] [place] Temperature Oral (F) 2016-11-25 20:50:00 98.1 F [facility] [place] Weight 2016-11-25 19:02:00 [facility] [place] BMI Calculated 2016-11-25 19:02:00 [facility] [place] Height 2016-11-25 19:02:00 170.18 cm [facility] [place] Temperature Oral (F) 2016-11-25 19:02:00 97.8 F [facility] [place] Respitory Rate 2016-11-25 19:02:00 [facility] [place] Heart Rate 2016-11-25 19:02:00 [facility] [place] Systolic (mm Hg) 2016-11-25 19:02:00 Santino [facility] Diastolic (mm Hg) 2016-11-25 19:02:00 [facility] [place] Respitory Rate 2016-04-14 03:57:00 [facility] [place] Heart Rate 2016-04-14 03:57:00 [facility] [place] Systolic (mm Hg) 2016-04-14 03:57:00 Santino rial [place] Diastolic (mm Hg) 2016-04-14 03:57:00 Mem orial [place] Temperature Oral (F) 2016-04-14 03:57:00 97.8 F [facility] Temperature Oral (F) 2016-04-14 00:12:00 97.5 F [facility] [place] Heart Rate 2016-04-14 00:12:00 [facility] Respitory Rate 2016-04-14 00:12:00 [facility] Weight 2016-04-14 00:12:00 [facility] [place] Systolic (mm Hg) 2016-04-14 00:12:00 [facility]ino [facility] Diastolic (mm Hg) 2016-04-14 00:12:00 [facility] [place] Temperature Oral (F) 2015-11-26 02:15:00 98.0 F [facility] Respitory Rate 2015-11-26 02:15:00 [facility] Systolic (mm Hg) 2015-11-26 02:15:00 Santino [facility] Diastolic (mm Hg) 2015-11-26 02:15:00 [facility] Heart Rate 2015-11-26 02:15:00 [facility] Height 2015-11-25 23:44:00 170.18 cm [facility] BMI Calculated 2015-11-25 23:44:00 [facility] Weight 2015-11-25 23:44:00 [facility] Temperature Oral (F) 2015-11-25 23:44:00 98.2 F [facility] [place] Respitory Rate 2015-11-25 23:44:00 [facility] Heart Rate 2015-11-25 23:44:00 [facility] Systolic (mm Hg) 2015-11-25 23:44:00 Santino [facility] Diastolic (mm Hg) 2015-11-25 23:44:00 Mem [facility] Heart Rate 2015-11-05 12:20:00 [facility] [place] Systolic (mm Hg) 2015-11-05 12:20:00 Santino rial [place] Diastolic (mm Hg) 2015-11-05 12:20:00 Mem o[facility] [place] Temperature Oral (F) 2015-11-05 12:20:00 97.8 F [facility] Respitory Rate 2015-11-05 12:20:00 [facility] [place] Respitory Rate 2015-11-05 12:06:00 [facility] Temperature Oral (F) 2015-11-05 11:16:00 97.5 F [facility] [place] Respitory Rate 2015-11-05 11:16:00 [facility] [place] Heart Rate 2015-11-05 11:16:00 [facility] Height 2015-11-05 11:16:00 170.18 cm [facility] [place] Systolic (mm Hg) 2015-11-05 11:16:00 Santino rial [place] Diastolic (mm Hg) 2015-11-05 11:16:00 [facility] BMI Calculated 2015-11-05 11:16:00 [facility] [place] Weight 2015-11-05 11:16:00 [facility] Weight 2013-11-05 17:37:00 [facility] [place] Diastolic (mm Hg) 2013-11-05 17:37:00 [facility] Systolic (mm Hg) 2013-11-05 17:37:00 Santino [facility] Temperature Oral (F) 2013-11-05 17:37:00 98.1 F [facility] Heart Rate 2013-11-05 17:37:00 [facility] [place] Respitory Rate 2013-11-05 17:37:00 [facility] Weight 2012-08-16 15:36:00 [facility] Height 2012-08-16 15:36:00 170.18 cm [facility] Procedures Procedure Date / Time Performing Clinician Source Performed ECG ED PRELIMINARY 2021-12-02 [facility] ECG 12-LEAD 2021-12-02 12:16:32 [place] ECG ED PRELIMINARY 2021-06-26 22:14[facility] 12-LEAD 2021-06-26 20:13[facility]07 [facility] 2021-06-26 20:06[facility]00 [facility] METABOLIC 2021-06-26 20:06:00 Jesús [facility] PANEL [facility] TROPONIN 2021-06-26 20:06:00 [facility] NATRIURETIC PEPTIDE 2021-06-26 20:06:00 [facility] GFR 2021-06-26 20:06:00 [facility]IR[facility]ORY [facility]OGEN 2021-06-26 20:04:00 [facility] WITH [facility]-19 [facility] RT-PCR XR CHEST 1 VW 2021-06-26 19:48:52 [facility] CHEST 1 VIEW PORTABLE 2021-06-13 12:40:00 [facility] SARS-COV2/INFLUENZA/RSV 2021-06-13 11:55:[address] [facility] RT-PCR Medical Center COMPREHENSIVE METABOLIC 2021-06-13 11:55:00 Edison [facility] CBC W/PLT COUNT & AUTO 2021-06-13 11:55:00 [facility] B-TYPE NATRIURETIC FACTOR 2021-06-13 11:55:00 Tommy Kemp I [facility] (BNP) [facility] TROPONIN I 2021-06-13 11:55:00 Edison [facility] PROTHROMBIN TIME/INR 2021-06-13 11:55:00 [facility] D-DIMER 2021-06-13 11:55:00 [facility] CBC W/PLT COUNT & AUTO 2021-06-13 11:55:00 [facility] ECG 12-LEAD 2021-06-13 11:50:12 Unknown, Hl7 [facility] EKG-SCANNED 2021-06-13 00:00:00 Provider, Default GREGORIO Nixk es [facility] ACL - Repair of anterior Memoria l [facility] cruciate ligament Knee joint operation [facility] Plan of Care Planned Activity Planned Date Details Comments Source Future Scheduled 2023-04-[address] [facility] Test 00:00:00 (Season Ended) [code = Medic al Center INFLUENZA VACCINE (Season Ended)] Future Scheduled 2022-12-17 COLONOSCOPY SCREENING [facility] Test 00:53:50 [code = COLONOSCOPY SCREENING] Future Scheduled 2022-12-17 SHINGLES VACCINES (1 [facility] Test 00:53:50 of 2) [code = SHINGLES VACCINES (1 of 2)] Future Scheduled 2022-12-17 INFLUENZA VACCINE Method is Hospital Test 00:53:50 [code = INFLUENZA VACCINE] Future Scheduled 2022-12-17 COVID-19 VACCINE (#1) [facility] Test 00:53:50 [code = COVID-19 VACCINE (#1)] Future Scheduled 2022-12-17 Hepatitis C screening [facility] Test 00:53:50 (procedure) [code = 254767161] Future Scheduled 2022 SHINGLES VACCINES ([address] [facility] Test 00:00:00 of 2) [code = SHINGLES Medic al Center VACCINES (1 of 2)] Future Scheduled 2022-08-[address] [facility] Test 00:00:00 (12+) [code = Medical Center DEPRESSION SCREENING (12+)] Future Scheduled 2022-04-23 INFLUENZA VACCINE (#1) [facility] 00:00[facility]00 [code = INFLUENZA Medical Ce nter VACCINE (#1)] Future Scheduled 2022-04-22 HEPATITIS B VACCINES [facility] Test 05:52:23 (1 of 3 - 3-dose series) [code = HEPATITIS B VACCINES (1 of 3 - 3-dose series)] Future Scheduled 2022-04-22 COVID-19 VACCINE (#1) [facility] Test 05:52:23 [code = COVID-19 VACCINE (#1)] Future Scheduled 2022-04-22 Pneumococcal Vaccine: [facility] Test 05:52:23 Pediatrics (0 to 5 Years) and At-Risk Patients (6 to 64 Years) (1 - PCV) [code = Pneumococcal Vaccine: Pediatrics (0 to 5 Years) and At-Risk Patients (6 to 64 Years) (1 - PCV)] Future Scheduled 2022-04-22 Hepatitis C screening [facility] Test 05:52:23 (procedure) [code = 554333158] Future Scheduled 2022-04-22 COLONOSCOPY SCREENING [facility] Test 05:52:23 [code = COLONOSCOPY SCREENING] Future Scheduled 2022-04-22 INFLUENZA VACCINE [facility] Hospital Test 05:52:23 [code = INFLUENZA VACCINE] Future Scheduled 2021-08-[address] [facility] Test 00:00:00 (12+) [code = [facility] DEPRESSION SCREEN[facility] (12+)] Future Scheduled 2007-12-[address] [facility] Test 00:00:00 (procedure) [code = [facility] [id number]] Future Scheduled 2007-12-[address] [facility] Test 00:00:00 (procedure) [code = [facility] [id number]] Future Scheduled 1991-12-07 DTAP/TDAP/TD [facility]ACCINES [facility] 00:00:00 (1 - Tdap) [code = Medical C enter DTAP/TDAP/TD VACCINES (1 - Tdap)] Future Scheduled 1991-12-07 DTAP/TDAP/TD [facility]ACCINES [facility] 00:00:00 (1 - Tdap) [code = Medical C enter DTAP/TDAP/TD VACCINES (1 - Tdap)] Future Scheduled 1990 HEPATITIS C [facility]CRE[facility] 00:00:00 [code = HEPATITIS C Medical Center SCREENING] Future Scheduled 1990 HEPATITIS C [facility] 00:00:00 [code = HEPATITIS C Medical Center SCREENING] Future Scheduled [address] [facility] Test 00:00:00 Counseling and Medical Cente r Screening (12+) [code = Tobacco Cessation Counseling and Screening (12+)] Future Scheduled 1973-06-07 COVID-19 VACCINE (#1) [facility] 00:00:00 [code = COVID-[address] VACCINE (#1)] Future Scheduled 1973-06-07 COVID-19 VACCINE (#1) [facility] 00:00:00 [code = COVID-[address] VACCINE (#1)] Future Scheduled [address] [facility] Test 00:00:00 (combo) [code = CT Medical C enter Colonography (combo)] Future Scheduled [address] [facility] 00:00:00 malignant neoplasm of Medica l Center colon (procedure) [code = 049545803] Future Scheduled [address] [facility] Test 00:00:00 malignant neoplasm of Medica l Center colon (procedure) [code = 163048738] Future Scheduled [address] [facility] Test 00:00:00 malignant neoplasm of Medica l Center colon (procedure) [code = 457754919] Future Scheduled [address] [facility] Test 00:00:00 malignant neoplasm of Medica l Center colon (procedure) [code = 835906366] Future Scheduled 1972 Sigmoidoscopy [facility]code [facility] S[facility]oscopy] Medical Cente r Future Scheduled [address] [facility] 00:00:00 (combo) [code = CT Medical C enter Colonography (combo)] Future Scheduled [address] [facility] Test 00:00:00 malignant neoplasm of Medica l Center colon (procedure) [code = 191194468] Future Scheduled [address] [facility] Test 00:00:00 malignant neoplasm of Medica l Center colon (procedure) [code = 957323215] Future Scheduled [address] [facility] Test 00:00:00 malignant neoplasm of Medica l Center colon (procedure) [code = 240005423] Future Scheduled [address] [facility] Test 00:00:00 malignant neoplasm of Medica l Center colon (procedure) [code = 010967498] Future Scheduled 1972 Sigmoidoscopy [facility] Sigmoidoscopy] Medical Cente r Encounters Start End Encounter Admission Attending Care Care Encounter Source Date/Time Date/Time Type Type Clinicians Facility Department ID 2022-06-14 Emergency [facility] [id number] VINNY - 13:21:[address] [facility] ent 2022-06-13 Outpatient [facility] [id number] [place] 14:52:47 [id number] [facility] 2021-02-17 Inpatient [facility] [id number] [facility] 20:37:00 83 2021-02-07 Inpatient [facility] [id number] [facility] 13:15:00 43 2023-01-15 2023-01-15 Outpatient [facility] [id number] Ghassan 12:04:43 12:04:43 [id number] [place] 2022-08-08 2022-08-08 Emergency [facility] [id number] Memoria 14:46:50 19:29:[address] 2022-08-08 2022-08-08 Emergency [facility] [id number] Memoria 14:46:50 19:29:[address] 2022-08-08 2022-08-08 Outpatient Cathy Morocho 2.16.840. 2.16.840. 1. [id number] 08:46:50 13:29:00 Bryan [id number]. [id number] 3.615.120 5.120 2022-08-08 2022-08-08 Outpatient Cathy Morocho 2.16.840. 2.16.840. 1. [id number] 08:46:50 13:29:00 Bryan [id number]. [id number] 11 3.615.120 5.120 2022-08-08 2022-08-08 Emergency E CATHY MOROCHO [facility] [id number] [facility] 08:46:00 13:29:00 2022-06-13 2022-06-16 Inpatient MARIIA [facility] [id number] Dania Pineda 16:25:00 23:00:00 [facility] 2022-06-13 2022-06-16 Outpatient RICKI [facility] [id number] [facility] 16:25:00 17:08:00 GARTH 2022-06-14 2022-06-14 Emergency VANGIE MANE [facility] [id number] Edwin 14:01:00 21:49:00 [facility] 2022-06-14 2022-06-14 Emergency WILLIAM, [facility] [id number] [place] 16:35:55 17:06:51 [facility] 2022-02-14 2022-02-14 Emergency [facility] [id number] [facility] 05:07:21 09:22:00 r [place] 10 [facility] 2022-02-14 2022-02-14 Emergency [facility] [id number] [facility] 05:07:21 09:22:00 r [place] 10 l [facility] 2022-02-14 2022-02-14 Outpatient Krish, 2.16.840. 2.16.840.1. 4 [id number] 00:07:21 04:22:00 Deepak Felipe [id number]. [id number] 10 3.615.120 5.120 2022-02-14 2022-02-14 Outpatient Krish, 2.16.840. 2.16.840.1. 4 [id number] 00:07:21 04:22:00 Deepak Felipe [id number]. [id number] 10 3.615.120 5.120 2022-02-14 2022-02-14 Emergency E KRISH, [facility] [id number] [facility] 00:07:00 04:22:00 DEEPAK 2021-12-02 2021-12-02 Emergency Norick, 1.2.840.1 [id number] Methodi 08:09:00 08:46:00 Lennie Ramirez 15384.1.1 600 s t 3.430.2.7 Hospit a .3.559780 l .8 2021-12-02 2021-12-02 Travel 1.2.840.1 1.2.450.587 [id number] Methodi 00:00:00 00:00:[address] 3.430.2.7 0.2.7.3.698 Ho spita .3.020451 084.8 l .8 2021-10-23 2021-10-23 Emergency [facility] [id number] Memoria 17:33:27 19:09:00 r [place] 09 [facility] 2021-10-23 2021-10-23 Emergency [facility] [id number] Memoria 17:33:27 19:09:00 r [place] 09 [facility] 2021-10-23 2021-10-23 Outpatient Scott, 2.16.840. 2.16.840.1. 4 [id number] 11:33:27 13:09:00 Jayden [id number]. [id number] [place] 3.615.120 5.120 2021-10-23 2021-10-23 Outpatient Scott, 2.16.840. 2.16.840.1. 4 [id number] 11:33:27 13:09:00 Jayden 1.568527. [id number] 09 [place] 3.615.120 5.120 2021-10-23 2021-10-23 Emergency E SCOTT, [facility] MHC[facility] [id number] [facility] 11:33:00 13:09:00 JAYDEN 2021-06-26 2021-06-26 Emergency Noffsinger, 1.2.840.1 [id number] Methodi 17:28:00 18:04:00 Lennie Ramirez 88190.1.1 327 s t 3.430.2.7 Hospit a .3.733293 l .8 2021-06-26 2021-06-26 Travel 1.2.840.1 1.2.508.009 [id number] Methodi 00:00:00 00:00:[address] 3.430.2.7 0.2.7.3.698 Ho spita .3.033452 084.8 l .8 2021-06-14 2021-06-14 Emergency [facility] [id number] Memoria 05:50:40 19:51:00 r [place] 08 [facility] 2021-06-14 2021-06-14 Emergency [facility] [id number] Memoria 05:50:40 19:51:00 r [place] 08 l [facility] 2021-06-14 2021-06-14 Outpatient Krish, 2.16.840. 2.16.840.1. 4 [id number] 00:50:40 14:51:00 Deepak Felipe [id number]. [id number] 08 3.615.120 5.120 2021-06-14 2021-06-14 Outpatient Krish, 2.16.840. 2.16.840.1. 4 [id number] 00:50:40 14:51:00 Deepak Felipe [id number]. [id number] 08 3.615.120 5.120 2021-06-14 2021-06-14 Outpatient Krish, 2.16.840. 2.16.840.1. 4 [id number] 00:50:40 14:51:00 Deepak Felipe [id number]. [id number] 08 3.615.120 5.120 2021-06-14 2021-06-14 Outpatient Krish, 2.16.840. 2.16.840.1. 4 [id number] 00:50:40 14:51:00 Deepak Felipe [id number]. [id number] 08 3.615.120 5.120 2021-06-13 2021-06-13 Emergency ER Eladia Kemptravon [facility] [id number] 11:38:00 13:36:00 [facility] 2021-06-13 2021-06-13 [id number] [facility] 11:38:00 13:36:00 2021-06-13 2021-06-13 Orders [facility] [id number] 00:00:00 00:00:00 Only [facility] 2021-06-05 2021-06-05 Outpatient WAIPAHU, [facility] [id number] Edwin 09:56:51 09:57:38 [facility] 2021-06-05 2021-06-[address] [place] [address] [id number] [place] 09:56:51 09:57:38 [facility] 2021-06-05 2021-06-05 [facility] [id number] [place] 00:00:00 00:00:00 [facility] 2021-05-28 2021-05-28 [facility] [id number] [place] 14:57:00 19:04:00 [facility] 2021-05-28 2021-05-28 [facility] [id number] [place] 12:15:31 12:27:14 [facility] 2021-04-15 2021-04-16 Emergency [facility] [id number] [place] 18:59:00 00:02:00 [facility] 2021-04-15 2021-04-15 Emergency [facility] [id number] [place] 21:02:13 21:22:03 [facility] 2021-04-15 2021-04-15 [facility] [id number] [place] 19:33:31 19:41:12 [facility] 2021-04-15 2021-04-15 Emergency [facility] [id number] [place] 00:00:00 17:37:11 [facility] [facility] 2021-03-11 2021-03-11 Outpatient [facility] [id number] [place] 00:00:00 00:00:00 [facility] 2021-03-10 2021-03-10 Outpatient [facility] [id number] [place] 09:09:39 10:23:48 [facility] 2021-02-18 2021-02-18 Outpatient [facility] [id number] [place] 14:10:55 14:45:54 [facility] 2021-02-17 2021-02-17 Emergency [facility] [id number] [facility] 20:37:00 20:37:00 2021-02-10 2021-02-10 Outpatient [facility] [id number] [place] 11:17:19 11:17:24 [facility] 2021-02-07 2021-02-07 Outpatient [facility] [id number] [place] 10:38:11 11:09:38 [facility] 2021-02-03 2021-02-04 Emergency [facility] [id number] Memoria 20:31:30 14:47:00 r Naresh [address] [place] [address] 2021-02-03 2021-02-04 Emergency [facility] [id number] Memoria 20:31:30 14:47:[address] 2021-02-03 2021-02-04 Outpatient Jeremi, 2.16.840. 2.16.840.1. [id number] 15:31:30 09:47:00 Sofia Joe 1.327263. [id number] 07 3.615.120 5.120 2021-02-03 2021-02-04 Outpatient Jeremi, 2.16.840. 2.16.840.1. [id number] 15:31:30 09:47:00 Sofia Joe 1.120596. [id number] 07 3.615.120 5.120 2021-02-03 2021-02-04 Emergency E JEREMI, MHCY MHCY 7507 MHCY 15:31:00 09:47:00 SOFIA 2021-02-02 2021-02-02 Emergency [facility] [id number] Memoria 02:27:30 07:51:[address] 2021-02-02 2021-02-02 [facility] [id number] Memoria 02:27:30 07:51:[address] 2021-02-01 2021-02-02 Outpatient Walk, 2.16.840. 2.16.840.1. 4 [id number] 21:27:30 02:51:00 Branden 1.956230. [id number] 06 [place] 3.615.120 5.120 2021-02-01 2021-02-02 Outpatient Walk, 2.16.840. 2.16.840.1. 4 [id number] 21:27:30 02:51:00 Branden 1.168289. [id number] 06 [place] 3.615.120 5.120 2021-02-01 2021-02-02 Emergency E WALK, MHCY MHCY 7506 MHCY 21:27:00 02:51:00 BRANDEN 2019-12-30 2019-12-31 [facility] [id number] Memoria 21:53:45 00:23:[address] 2019-12-30 2019-12-31 [facility] [id number] Memoria 21:53:45 00:23:[address] 2019-12-30 2019-12-30 Outpatient Krish, 2.16.840. 2.16.840.1. 4 [id number] 16:53:45 19:23:00 Deepak Felipe 1.537751. [id number] 05 3.615.120 5.120 2019-12-30 2019-12-30 Outpatient Krish, 2.16.840. 2.16.840.1. 4 [id number] 16:53:45 19:23:00 Deepak Spears.774895. [id number] 05 3.615.120 5.120 2019-12-30 2019-12-30 Emergency E KRISH, MHCY MHCY 7505 MHCY 16:53:00 19:23:00 DEEPAK 2019-06-26 2019-06-27 [facility] [id number] Memoria 20:54:02 01:22:[address] 2019-06-26 2019-06-27 [facility] [id number] Memoria 20:54:02 01:22:[address] 2019-06-26 2019-06-26 Outpatient [facility], 2.16.840. 2.16.840.1. 4 [id number] 14:54:02 19:22:00 Harriet Spears.143756. [id number] 04 [place] 3.615.120 5.120 2019-06-26 2019-06-26 [facility] 2.16.840. 2.16.840.1. 4 [id number] 14:54:02 19:22:00 Harriet 1.217281. [id number] 04 [place] 3.615.120 5.120 2019-06-26 2019-06-26 Emergency E MHCY MHCY 7504 MHCY 14:54:00 14:54:00 2018-11-05 2018-11-05 Emergency [facility] [id number] Memoria 04:22:00 09:19:00 r Naresh 03 [facility] 2018-11-05 2018-11-05 [facility] [id number] Memoria 04:22:00 09:19:00 r Naresh 03 [facility] 2018-11-04 2018-11-05 Outpatient Azar, 2.16.840. 2.16.840.1. 4 [id number] 23:22:00 04:19:00 Jamar 1.187538. [id number] 03 Mar 3.615.120 5.120 2018-11-04 2018-11-05 Outpatient Azar, 2.16.840. 2.16.840.1. 4 [id number] 23:22:00 04:19:00 Jamar 1.324051. [id number] 03 Mar 3.615.120 5.120 2018-11-04 2018-11-04 Emergency E MHCY MHCY 7503 MHCY 23:22:00 23:22:00 2018-08-04 2018-08-04 [facility] [id number] Memoria 00:39:00 04:23:00 r Naresh 02 [facility] 2018-08-04 2018-08-04 [facility] [id number] Memoria 00:39:00 04:23:00 r Naresh 02 [facility] 2018-08-03 2018-08-03 Outpatient Le, Gabino 2.16.840. 2.16.840.1. [id number] 18:39:00 22:23:00 Man 1.590388. [id number] 02 3.615.120 5.120 2018-08-03 2018-08-03 Outpatient Le, Gabino 2.16.840. 2.16.840.1. [id number] 18:39:00 22:23:00 Man 1.046356. [id number] 02 3.615.120 5.120 2018-06-23 2018-06-23 [facility] [id number] Memoria 19:44:00 22:20:00 r [place] [facility] 2018-06-23 2018-06-23 [facility] [id number] Memoria 19:44:00 22:20:00 r [place] [facility] 2018-06-23 2018-06-23 Outpatient Krish, 2.16.840. 2.16.840.1. 4 [id number] 14:44:00 17:20:00 Deepak Felipe 1.492901. [id number] 01 3.615.120 5.120 2018-06-23 2018-06-23 Outpatient Krish, 2.16.840. 2.16.840.1. 4 [id number] 14:44:00 17:20:00 Deepak Felipe 1.526105. [id number] 01 3.615.120 5.120 2016-11-25 2016-11-25 [facility] [id number] Memoria 18:57:00 20:51:00 r [place] 00 [facility] 2016-11-25 2016-11-25 [facility] [id number] Memoria 18:57:00 20:51:00 r [place] 00 [facility] 2016-11-25 2016-11-25 Outpatient Jorge L, 2.16.840. 2.16.840.1. 4 [id number] 13:57:00 15:51:00 Ata Felipe 1.356097. [id number] 00 3.615.120 5.120 2016-11-25 2016-11-25 Outpatient Jorge L, 2.16.840. 2.16.840.1. 4 [id number] 13:57:00 15:51:00 Ata Felipe 1.155411. [id number] 00 3.615.120 5.120 2016-04-14 2016-04-14 [facility] [id number] Memoria 00:04:00 04:17:00 r Naresh 04 [facility] 2016-04-14 2016-04-14 [facility] [id number] Memoria 00:04:00 04:17:00 r [place] 04 [facility] 2016-04-13 2016-04-13 Outpatient Kumichaelleen, MHSE MHSE [id number] 19:04:00 23:17:00 Augusto 04 2016-04-13 2016-04-13 Outpatient Adantsen, MHSE MHSE [id number] 19:04:00 23:17:00 Augusto 04 2015-11-25 2015-11-26 [facility] [id number] Memoria 23:35:00 02:15:00 Emergency r [place] 03 [facility] 2015-11-25 2015-11-26 [facility] [id number] Memoria 23:35:00 02:15:00 Emergency r Naresh 03 [facility] 2015-11-25 2015-11-25 Outpatient Loyd, MHSE MHSE [id number] 18:35:00 21:15:00 Gr[place] 03 [facility] 2015-11-25 2015-11-25 Outpatient Loyd, MHSE MHSE [id number] 18:35:00 21:15:00 Grayson 03 [facility] 2015-11-05 2015-11-05 [facility] [id number] Memoria 11:15:00 12:26:00 Emergency r Naresh 02 [facility] 2015-11-05 2015-11-05 [facility] [id number] Memoria 11:15:00 12:26:00 Emergency r Naresh 02 [facility] 2015-11-05 2015-11-05 Outpatient Johannacain, MHSE MHSE [id number] 06:15:00 07:26:00 Ezra Lulu [facility] 2015-11-05 2015-11-05 Outpatient Chinaharrisoncain, MHSE MHSE [id number] 06:15:00 07:26:00 Ezra 02 Jesús 2013-11-05 2013-11-05 [facility] [id number] 8_[id number] Memoria 17:15:00 19:25:00 Emergency r [place] [id number] l [address] 2013-11-05 2013-11-05 [facility] [id number] 8_4 Memoria 17:15:00 19:25:00 Emergency r Naresh [id number] l [address] 2013-11-05 2013-11-05 Outpatient Briana, 2.16.840. 2.16.840.1. [id number] 12:15:00 14:25:00 Ezra 1.196449. [id number] Jesús 3.615.0.1 5.0.608 03 5492-03-16 2013-11-05 Outpatient charleen, 2.16.840. 2.16.840.1. [id number] 12:15:00 14:25:00 Ezra 1.337451. [id number] Jesús 3.615.0.1 5.0.982 76 4403-12-25 2012-08-16 Emergency [facility] [id number] Memoria 09:35:00 09:36:00 r [place] 00 l Naresh 2012-08-16 2012-08-16 [id number] Memoria 09:35:00 09:36:00 r [place] 00 l Naresh Results Test Description Test Time Test Comments Results Result Comments Source RADRPT 2022-08-08 15:55:01 Test Item Value Reference [facility] code = [facility] PROCEDURE INFORMATION: Exam: XR Chest Exam date and time: 08/08/2022 9:17 AM Age: 51 years old Clinical indication: Dyspnea; Additional info: /dyspnea TECHNIQUE: Imaging protocol: Radiologic exam of the chest. Views: 1 view. COMPARISON: CR CHEST 1VIEW DX 10/23/2021 12:10 PM FINDINGS: Tubes, catheters and devices: None. Lungs: The lungs appear clear. Pleural spaces: Unremarkable. No pleural effusion. No pneumothorax. Heart/Mediastinum: Mediastinum and leydi appear unremarkable. Bones/joints: No acute bony abnormality identified. IMPRESSION: No evidence for an acute cardiopulmonary process. Roger Joyner MD On 08/08/2022 09:53:41; [id number] [facility]IYRQ5339-13-40 15:55:01 Test Item Value Reference Range Interpretation Comments RADRPT (test code PROCEDURE INFORMATION: = RADRPT) Exam: XR Chest Exam date and time: 08/08/2022 9:17 AM Age: 51 years old Clinical indication: Dyspnea; Additional info: /dyspnea TECHNIQUE: Imaging protocol: Radiologic exam of the chest. Views: 1 view. COMPARISON: CR CHEST 1VIEW DX 10/23/2021 12:10 PM FINDINGS: Tubes, catheters and devices: None. Lungs: The lungs appear clear. Pleural spaces: Unremarkable. No pleural effusion. No pneumothorax. Heart/Mediastinum: Mediastinum and leydi appear unremarkable. Bones/joints: No acute bony abnormality identified. IMPRESSION: No evidence for an acute cardiopulmonary process. Roger Joyner MD On 08/08/2022 09:53:41; [id number] [facility]FcvwcbnJDWCMCCWG6479-06-93 15:28:00 Test Item Value Reference Range Interpretation Comments Glucose Lvl (test code = Glucose Lvl) 121 70-99 [facility]hamAsuwamqHPRDHROCJ2773-72-49 15:28:00 Test Item Value Reference Range Interpretation Comments Glucose Lvl (test code = Glucose Lvl) 121 70-99 [facility]hamIffmkllWGFGWNVIC2816-43-89 15:28:00 Test Item Value Reference Range Interpretation Comments BUN (test code = BUN) 23 - [place] 089042-12-17 15:28:00 Test Item Value Reference Range Interpretation Comments BUN (test code = BUN) 23 03-13 [facility]hamGuktaeaIXWJPANXX3873-73-96 15:28:00 Test Item Value Reference Range Interpretation Comments Creatinine Lvl (test code = Creatinine 1.20 0.50-1.40 Lvl) [place] 089042-12-17 15:28:00 Test Item Value Reference Range Interpretation Comments Creatinine Lvl (test code = Creatinine 1.20 0.50-1.40 Lvl) [place] 089042-12-17 15:28:00 Test Item Value Reference Range Interpretation Comments Sodium Lvl (test code = Sodium Lvl) 142 135-145 [facility]hamWrrxzoiPEYBJCBBK1905-20-36 15:28:00 Test Item Value Reference Range Interpretation Comments Sodium Lvl (test code = Sodium Lvl) 142 135-145 [facility]hamUozykhtOYAAYJPOG9165-60-25 15:28:00 Test Item Value Reference Range Interpretation Comments Potassium Lvl (test code = Potassium 4.0 3.5-5.1 Lvl) [facility]RMCFWNQCZ8685-44-21 15:28:00 Test Item Value Reference Range Interpretation Comments Potassium Lvl (test code = Potassium 4.0 3.5-5.1 Lvl) [facility]hamGfknjqcNZKAXWEXS8695-97-36 15:28:00 Test Item Value Reference Range Interpretation Comments Chloride Lvl (test code = Chloride Lvl) 108 95-109 [facility]hamSvdbmhfEADBEQIMR2954-45-27 15:28:00 Test Item Value Reference Range Interpretation Comments Chloride Lvl (test code = Chloride Lvl) 108 95-109 [facility]hamQwiyphlEINBDHWOG6832-03-62 15:28:00 Test Item Value Reference Range Interpretation Comments CO2 (test code = CO2) [facility]hamZkgedzyOAFOGQGDR5692-10-97 15:28:00 Test Item Value Reference Range Interpretation Comments CO2 (test code = CO2) 32 [facility] HospitalIutynnvSNFDQXUJH5921-46-15 15:28:00 Test Item Value Reference Range Interpretation Comments Calcium Lvl (test code = Calcium Lvl) 9.0 8.5-10.5 [facility]hamZmgnqopHRNACVDZM0989-50-82 15:28:00 Test Item Value Reference Range Interpretation Comments Calcium Lvl (test code = Calcium Lvl) 9.0 8.5-10.5 [facility]hamFjmmcmnBTADCYKNC1744-03-63 15:28:00 Test Item Value Reference Range Interpretation Comments AGAP (test code = AGAP) 11.0 10.0-20.0 [facility]hamBfszpqtQGOMHNHRR8510-63-01 15:28:00 Test Item Value Reference Range Interpretation Comments AGAP (test code = AGAP) 11.0 10.0-20.0 [facility]hamPfzumdvEJVSSASOP0324-17-11 15:28:00 Test Item Value Reference Range Interpretation Comments eGFR (test code = eGFR) 74 [facility] HospitalCxtgkgzAKEJJRSLE8299-20-08 15:28:00 Test Item Value Reference Range Interpretation Comments eGFR (test code = eGFR) 74 [facility] CenterUlsmuznZMTDGBFVSP4209-20-75 15:28:00 Test Item Value Reference Range Interpretation Comments WBC X 10x3 (test code = WBC X 10x3) 7.2 3.7-10.4 [facility]KzswwgjBAVZHXUUDX9688-29-89 15:28:00 Test Item Value Reference Range Interpretation Comments WBC X 10x3 (test code = WBC X 10x3) 7.2 3.7-10.4 [facility] CenterUbgtpvmFUMDTSKMGM4670-09-93 15:28:00 Test Item Value Reference Range Interpretation Comments RBC X 10x6 (test code = RBC X 10x6) 4.67 4.70-6.10 [facility] CenterFqsnuhtIBDYTZJRGN7806-68-90 15:28:00 Test Item Value Reference Range Interpretation Comments RBC X 10x6 (test code = RBC X 10x6) 4.67 4.70-6.10 [facility] CenterJbjyqogZICHOCHKPR4225-76-76 15:28:00 Test Item Value Reference Range Interpretation Comments Hgb (test code = Hgb) 14.7 14.0-18.0 [facility] CenterDandvpwHVQNZFISBA3871-72-65 15:28:00 Test Item Value Reference Range Interpretation Comments Hgb (test code = Hgb) 14.7 14.0-18.0 [facility] CenterGhkhbskKKMCFTTUYZ2591-89-55 15:28:00 Test Item Value Reference Range Interpretation Comments Hct (test code = Hct) 43.7 42.0-54.0 [facility] CenterJatvafzGHARRQEZTD2154-48-04 15:28:00 Test Item Value Reference Range Interpretation Comments Hct (test code = Hct) 43.7 42.0-54.0 [facility] CenterYwxlyknLBCZKWWNHK9304-94-59 15:28:00 Test Item Value Reference Range Interpretation Comments MCV (test code = MCV) 93.6 80.0-94.0 [facility] CenterXpoxngdOFXAXMDSNZ0639-54-10 15:28:00 Test Item Value Reference Range Interpretation Comments MCV (test code = MCV) 93.6 80.0-94.0 [facility] CenterFfdhyfhRSLIMBYWBT3844-38-23 15:28:00 Test Item Value Reference Range Interpretation Comments MCH (test code = MCH) 31.6 pg 27.0-31.0 [facility] CenterYnivgpsSJSHQDGIWW2393-22-45 15:28:00 Test Item Value Reference Range Interpretation Comments MCH (test code = MCH) 31.6 pg 27.0-31.0 [place] 969802-12-17 15:28:00 Test Item Value Reference Range Interpretation Comments MCHC (test code = MCHC) 33.7 32.0-36.0 [facility] CenterTkkqtqfLATDWVTVWS1758-08-47 15:28:00 Test Item Value Reference Range Interpretation Comments MCHC (test code = MCHC) 33.7 32.0-36.0 [facility] CenterAseiqvlDFCWSRXRBH8678-35-60 15:28:00 Test Item Value Reference Range Interpretation Comments RDW (test code = RDW) 13.1 11.5-14.5 [place] 969802-12-17 15:28:00 Test Item Value Reference Range Interpretation Comments RDW (test code = RDW) 13.1 11.5-14.5 [facility] CenterOwyeiqkCVVGRGMNUX9117-85-11 15:28:00 Test Item Value Reference Range Interpretation Comments Platelet (test code = Platelet) 428 133-450 [place] 969802-12-17 15:28:00 Test Item Value Reference Range Interpretation Comments Platelet (test code = Platelet) 428 133-450 [facility] CenterVyqqqzkPPLUAWUCMY8404-13-86 15:28:00 Test Item Value Reference Range Interpretation Comments MPV (test code = MPV) 7.3 7.4-10.4 [facility] CenterVhtiznoZIFYJYNDTR2754-24-99 15:28:00 Test Item Value Reference Range Interpretation Comments MPV (test code = MPV) 7.3 7.4-10.4 [facility] CenterEihnosfQIIBMQUAWN4119-45-88 15:28:00 Test Item Value Reference Range Interpretation Comments Segs (test code = Segs) 51.7 45.0-75.0 [place] 969802-12-17 15:28:00 Test Item Value Reference Range Interpretation Comments Segs (test code = Segs) 51.7 45.0-75.0 [place] [address]-12-17 15:28:00 Test Item Value Reference Range Interpretation Comments Lymphocytes (test code = Lymphocytes) 26.4 20.0-40.0 [place] [address]-12-17 15:28:00 Test Item Value Reference Range Interpretation Comments Lymphocytes (test code = Lymphocytes) 26.4 20.0-40.0 [place] 969802-12-17 15:28:00 Test Item Value Reference Range Interpretation Comments Monocytes (test code = Monocytes) 8.9 2.0-12.0 [place] 969802-12-17 15:28:00 Test Item Value Reference Range Interpretation Comments Monocytes (test code = Monocytes) 8.9 2.0-12.0 [place] [address]-12-17 15:28:00 Test Item Value Reference Range Interpretation Comments Eosinophils (test code = 12.1 See_Comment [A utomated message] The Eosinophils) system which ge nerated this result tra nsmitted reference range : <=4.0. The reference r robert was not used to int erpret this result as normal/abnormal . [place] [address]-12-17 15:28:00 Test Item Value Reference Range Interpretation Comments Eosinophils (test code = 12.1 See_Comment [A utomated message] The Eosinophils) system which ge nerated this result tra nsmitted reference range : <=4.0. The reference r robert was not used to int erpret this result as normal/abnormal . [place] [address]-12-17 15:28:00 Test Item Value Reference Range Interpretation Comments Basophils (test code = 0.9 See_Comment [Aut omated message] The Basophils) system which ge nerated this result tra nsmitted reference range : <=1.0. The reference r robert was not used to int erpret this result as normal/abnormal . [place] [address]-12-17 15:28:00 Test Item Value Reference Range Interpretation Comments Basophils (test code = 0.9 See_Comment [Aut omated message] The Basophils) system which ge nerated this result tra nsmitted reference range : <=1.0. The reference r robert was not used to int erpret this result as normal/abnormal . [place] [address]-12-17 15:28:00 Test Item Value Reference Range Interpretation Comments Neutrophils # (test code = Neutrophils 3.7 1.5-8.1 #) [place] [address]-12-17 15:28:00 Test Item Value Reference Range Interpretation Comments Neutrophils # (test code = Neutrophils 3.7 1.5-8.1 #) [place] [address]-12-17 15:28:00 Test Item Value Reference Range Interpretation Comments Lymphocytes # (test code = Lymphocytes 1.9 1.0-5.5 #) [place] [address] 15:28:00 Test Item Value Reference Range Interpretation Comments Lymphocytes # (test code = Lymphocytes 1.9 1.0-5.5 #) [address]12-17 15:28:00 Test Item Value Reference Range Interpretation Comments Monocytes # (test code 0.6 See_Comment [Aut omated message] The = Monocytes #) system which generated this result tra nsmitted reference range : <=0.8. The reference r robert was not used to int erpret this result as normal/abnormal . [address]12-17 15:28:00 Test Item Value Reference Range Interpretation Comments Monocytes # (test code 0.6 See_Comment [Aut omated message] The = Monocytes #) system which generated this result tra nsmitted reference range : <=0.8. The reference r robert was not used to int erpret this result as normal/abnormal . [address]17 15:28:00 Test Item Value Reference Range Interpretation Comments Eosinophils # (test code 0.9 See_Comment [A utomated message] The = Eosinophils #) system [facility] generated this result tra nsmitted reference range : <=0.5. The reference r robert was not used to int erpret this result as normal/abnormal . [address]12-17 15:28:00 Test Item Value Reference Range Interpretation Comments Eosinophils # (test code 0.9 See_Comment [A utomated message] The = Eosinophils #) system [facility] [employer] generated this result tra nsmitted reference range : <=0.5. The reference r robert was not used to int erpret this result as normal/abnormal . [address]17 15:28:00 Test Item Value Reference Range Interpretation Comments Basophils # (test code 0.1 See_Comment [Aut omated message] The = Basophils #) system which generated this result tra nsmitted reference range : <=0.2. The reference r robert was not used to int erpret this result as normal/abnormal . [place] [address] 15:28:00 Test Item Value Reference Range Interpretation Comments Basophils # (test code 0.1 See_Comment [Aut omated message] The = Basophils #) system which generated this result tra nsmitted reference range : <=0.2. The reference r robert was not used to int erpret this result as normal/abnormal . [facility] HIEWG1042-89-28 06:06:00 Test Item Value Reference Range Interpretation Comments Glucose Lvl (test code = Glucose Lvl) 109 70-99 [facility]2022-06-25 06:06:00 Test Item Value Reference Range Interpretation Comments Glucose Lvl (test code = Glucose Lvl) 109 70-99 [facility]2022-06-25 06:06:00 Test Item Value Reference Range Interpretation Comments BUN (test code = BUN) 13 03-13 [facility]COMMUNICATION[facility] INFRASTRUCTURE INVESTMENTSFORMERLY [facility] CAREKVEUR9428-51-95 06:06:00 Test Item Value Reference Range Interpretation Comments BUN (test code = BUN) 13 03-13 [facility] [employer] [id number] 06:06:00 Test Item Value Reference Range Interpretation Comments Creatinine Lvl (test code = Creatinine 1.00 0.50-1.40 Lvl) [facility] [employer] [id number] 06:06:00 Test Item Value Reference Range Interpretation Comments Creatinine Lvl (test code = Creatinine 1.00 0.50-1.40 Lvl) [facility] [employer] [id number] 06:06:00 Test Item Value Reference Range Interpretation Comments Sodium Lvl (test code = Sodium Lvl) 143 135-145 [facility] [employer] [id number] 06:06:00 Test Item Value Reference Range Interpretation Comments Sodium Lvl (test code = Sodium Lvl) 143 135-145 [facility] [employer] [id number] 06:06:00 Test Item Value Reference Range Interpretation Comments Potassium Lvl (test code = Potassium 3.3 3.5-5.1 Lvl) [facility] [employer] [id number] 06:06:00 Test Item Value Reference Range Interpretation Comments Potassium Lvl (test code = Potassium 3.3 3.5-5.1 Lvl) [facility] [employer] [id number] 06:06:00 Test Item Value Reference Range Interpretation Comments Chloride Lvl (test code = Chloride Lvl) 107 95-109 [facility] [id number] 06:06:00 Test Item Value Reference Range Interpretation Comments Chloride Lvl (test code = Chloride Lvl) 107 95-109 [facility]2022-06-25 06:06:00 Test Item Value Reference Range Interpretation Comments CO2 (test code = CO2) 29 [facility]2022-06-25 06:06:00 Test Item Value Reference Range Interpretation Comments CO2 (test code = CO2) [place] 221162-06-25 06:06:00 Test Item Value Reference Range Interpretation Comments Calcium Lvl (test code = Calcium Lvl) 9.1 8.5-10.5 [place] 221162-06-25 06:06:00 Test Item Value Reference Range Interpretation Comments Calcium Lvl (test code = Calcium Lvl) 9.1 8.5-10.5 [place] 221162-06-25 06:06:00 Test Item Value Reference Range Interpretation Comments Total Protein (test code = Total 7.1 6.4-8.4 Protein) [place] 221162-06-25 06:06:00 Test Item Value Reference Range Interpretation Comments Total Protein (test code = Total 7.1 6.4-8.4 Protein) [place] 221162-06-25 06:06:00 Test Item Value Reference Range Interpretation Comments Albumin Lvl (test code = Albumin Lvl) 3.0 3.5-5.0 [place] 221162-06-25 06:06:00 Test Item Value Reference Range Interpretation Comments Albumin Lvl (test code = Albumin Lvl) 3.0 3.5-5.0 [place] 221162-06-25 06:06:00 Test Item Value Reference Range Interpretation Comments ALANINE AMINOTRANSFERASE 66 See_Comment [A utomated message] (test code = ALANINE The sys tem which AMINOTRANSFERASE) generated this result transmitted ref erence range: <=65. Th e reference range was not used to int erpret this result as normal/abnormal . [place] 221162-06-25 06:06:00 Test Item Value Reference Range Interpretation Comments ALANINE AMINOTRANSFERASE 66 See_Comment [A utomated message] (test code = ALANINE The sys tem which AMINOTRANSFERASE) generated this result transmitted ref erence range: <=65. Th e reference range was not used to int erpret this result as normal/abnormal . [facility] [employer] [id number] 06:06:00 Test Item Value Reference Range Interpretation Comments AST (test code = AST) 58 See_Comment [Auto mated message] The system which ge nerated this result transmit sofiya reference range : <=37. The reference range was not used to interpr et this result as simone l/abnormal. [facility] [employer] [id number] 06:06:00 Test Item Value Reference Range Interpretation Comments AST (test code = AST) 58 See_Comment [Auto mated message] The system which ge nerated this result transmit sofiya reference range : <=37. The reference range was not used to interpr et this result as simone l/abnormal. [facility] [employer] [id number] 06:06:00 Test Item Value Reference Range Interpretation Comments Alk Phos (test code = Alk Phos) 180 39-136 [facility] [employer] [id number] 06:06:00 Test Item Value Reference Range Interpretation Comments Alk Phos (test code = Alk Phos) 180 39-136 [facility] [employer] [id number] 06:06:00 Test Item Value Reference Range Interpretation Comments Bili Total (test code = Bili Total) 0.3 0.2-1.3 [facility] [employer] [id number] 06:06:00 Test Item Value Reference Range Interpretation Comments Bili Total (test code = Bili Total) 0.3 0.2-1.3 [facility] [employer] [id number] 06:06:00 Test Item Value Reference Range Interpretation Comments AGAP (test code = AGAP) 10.3 10.0-20.0 [facility] [employer] [id number] 06:06:00 Test Item Value Reference Range Interpretation Comments AGAP (test code = AGAP) 10.3 10.0-20.0 [facility] [employer] [id number] 06:06:00 Test Item Value Reference Range Interpretation Comments B/C Ratio (test code = B/C Ratio) 13 02-14 [facility] [employer] [id number] 06:06:00 Test Item Value Reference Range Interpretation Comments B/C Ratio (test code = B/C Ratio) 13 02-14 [facility] [employer] [id number] 06:06:00 Test Item Value Reference Range Interpretation Comments Globulin (test code = Globulin) 4.1 2.7-4.2 [facility]2022-06-25 06:06:00 Test Item Value Reference Range Interpretation Comments Globulin (test code = Globulin) 4.1 2.7-4.2 [facility]2022-06-25 06:06:00 Test Item Value Reference Range Interpretation Comments A/G Ratio (test code = A/G Ratio) 0.7 1 0.7-1.6 [facility]2022-06-25 06:06:00 Test Item Value Reference Range Interpretation Comments A/G Ratio (test code = A/G Ratio) 0.7 1 0.7-1.6 [facility]2022-06-25 06:06:00 Test Item Value Reference Range Interpretation Comments eGFR (test code = eGFR) 88 [facility]2022-06-25 06:06:00 Test Item Value Reference Range Interpretation Comments eGFR (test code = eGFR) 88 [facility]AnueejhLTNYJJBYIL1401-96-52 06:06:00 Test Item Value Reference Range Interpretation Comments WBC X 10x3 (test code = WBC X 10x3) 12.6 3.7-10.4 [facility] CenterMlgwgtdXQGFANWKRC0521-88-68 06:06:00 Test Item Value Reference Range Interpretation Comments WBC X 10x3 (test code = WBC X 10x3) 12.6 3.7-10.4 [facility] CenterKjjleykEVIWZYLTOG0819-76-21 06:06:00 Test Item Value Reference Range Interpretation Comments RBC X 10x6 (test code = RBC X 10x6) 4.67 4.70-6.10 [facility] CenterQbxitxaTQPAHITZQP7844-00-88 06:06:00 Test Item Value Reference Range Interpretation Comments RBC X 10x6 (test code = RBC X 10x6) 4.67 4.70-6.10 [facility] CenterUxxqecuHZEBBDKEXB8999-99-96 06:06:00 Test Item Value Reference Range Interpretation Comments Hgb (test code = Hgb) 14.5 14.0-18.0 [facility] CenterRrwfbanJEWXZRWQUK1329-20-79 06:06:00 Test Item Value Reference Range Interpretation Comments Hgb (test code = Hgb) 14.5 14.0-18.0 [facility] CenterPtnzryaIMQSHHBNQA6918-69-78 06:06:00 Test Item Value Reference Range Interpretation Comments Hct (test code = Hct) 42.3 42.0-54.0 [facility] CenterNkoldcmDFBQREWVTR9543-40-70 06:06:00 Test Item Value Reference Range Interpretation Comments Hct (test code = Hct) 42.3 42.0-54.0 [facility] CenterOismtlzTZSVRLHFUC0308-69-57 06:06:00 Test Item Value Reference Range Interpretation Comments MCV (test code = MCV) 90.6 80.0-94.0 [facility] CenterHuubjgvLONEPXRFUJ7778-35-74 06:06:00 Test Item Value Reference Range Interpretation Comments MCV (test code = MCV) 90.6 80.0-94.0 [facility] CenterMprmtnsUCTZZNMYLD9871-73-08 06:06:00 Test Item Value Reference Range Interpretation Comments MCH (test code = MCH) 31.0 pg 27.0-31.0 [facility] CenterOsybjgwDFMJEPSVYS0022-57-90 06:06:00 Test Item Value Reference Range Interpretation Comments MCH (test code = MCH) 31.0 pg 27.0-31.0 [facility] CenterZeaxgqkNAHPAHCIYJ8059-71-30 06:06:00 Test Item Value Reference Range Interpretation Comments MCHC (test code = MCHC) 34.2 32.0-36.0 [facility] CenterOqteqyvYBYLSUNPOZ2412-40-36 06:06:00 Test Item Value Reference Range Interpretation Comments RDW (test code = RDW) 13.2 11.5-14.5 [facility] CenterYxhqgzqPCKSKKEJLT7163-17-26 06:06:00 Test Item Value Reference Range Interpretation Comments MCHC (test code = MCHC) 34.2 32.0-36.0 [facility] CenterUbdocjiGDUOXLHVFW7517-30-05 06:06:00 Test Item Value Reference Range Interpretation Comments Platelet (test code = Platelet) 394 133450 [facility] CenterKsejsvqRYIEETDZSQ2787-36-89 06:06:00 Test Item Value Reference Range Interpretation Comments RDW (test code = RDW) 13.2 11.5-14.5 [facility] CenterSurufkrQHJRQKCBVD2391-08-69 06:06:00 Test Item Value Reference Range Interpretation Comments Platelet (test code = Platelet) 394 133450 [facility] CenterRooxpngAEHUGRDSNG5210-89-54 06:06:00 Test Item Value Reference Range Interpretation Comments MPV (test code = MPV) 7.7 7.4-10.4 [facility] CenterPdgwkpbQRABIUOHWM1460-12-03 06:06:00 Test Item Value Reference Range Interpretation Comments MPV (test code = MPV) 7.7 7.4-10.4 [facility] CenterQymdnwmTEQLDAWIVJ0141-87-08 06:06:00 Test Item Value Reference Range Interpretation Comments Segs (test code = Segs) 78.7 45.0-75.0 [facility] CenterUlgdxhyXKXMAGVAUZ7120-05-89 06:06:00 Test Item Value Reference Range Interpretation Comments Lymphocytes (test code = Lymphocytes) 8.8 20.0-40.0 [facility] CenterQmujogrHSJEMNITPU3213-65-32 06:06:00 Test Item Value Reference Range Interpretation Comments Segs (test code = Segs) 78.7 45.0-75.0 [facility] CenterUclfqaoEHPUMGVHQM5089-64-74 06:06:00 Test Item Value Reference Range Interpretation Comments Monocytes (test code = Monocytes) 8.2 2.0-12.0 [facility] CenterXrzkqlxBCMXKWULOJ2588-05-95 06:06:00 Test Item Value Reference Range Interpretation Comments Lymphocytes (test code = Lymphocytes) 8.8 20.0-40.0 [facility] CenterNuhetrcJJRQGGMJLY9505-23-67 06:06:00 Test Item Value Reference Range Interpretation Comments Monocytes (test code = Monocytes) 8.2 2.0-12.0 [facility] CenterPqecladGTXCUMMDIM9120-81-01 06:06:00 Test Item Value Reference Range Interpretation Comments Eosinophils (test code = 3.8 See_Comment [A utomated message] The Eosinophils) system which ge nerated this result tra nsmitted reference range : <=4.0. The reference r robert was not used to int erpret this result as normal/abnormal . [facility] CenterFnradklPWNFWRLGIV0914-01-42 06:06:00 Test Item Value Reference Range Interpretation Comments Eosinophils (test code = 3.8 See_Comment [A utomated message] The Eosinophils) system which ge nerated this result tra nsmitted reference range : <=4.0. The reference r robert was not used to int erpret this result as normal/abnormal . [facility] CenterIbeoiimUUHAXZWGXG1451-26-74 06:06:00 Test Item Value Reference Range Interpretation Comments Basophils (test code = 0.5 See_Comment [Aut omated message] The Basophils) system which ge nerated this result tra nsmitted reference range : <=1.0. The reference r robert was not used to int erpret this result as normal/abnormal . [facility] CenterKghstinSSTHPNPPKT7786-90-02 06:06:00 Test Item Value Reference Range Interpretation Comments Neutrophils # (test code = Neutrophils 9.9 1.5-8.1 #) [facility] CenterOembzfbSSXFFSXHQK9957-84-01 06:06:00 Test Item Value Reference Range Interpretation Comments Basophils (test code = 0.5 See_Comment [Aut omated message] The Basophils) system which ge nerated this result tra nsmitted reference range : <=1.0. The reference r robert was not used to int erpret this result as normal/abnormal . [facility] CenterYaplcpePEHLNVLRYL2191-69-12 06:06:00 Test Item Value Reference Range Interpretation Comments Lymphocytes # (test code = Lymphocytes 1.1 1.0-5.5 #) [facility] CenterZndmtaeBULXEPDXAZ2681-98-25 06:06:00 Test Item Value Reference Range Interpretation Comments Neutrophils # (test code = Neutrophils 9.9 1.5-8.1 #) [facility] CenterUrmszciBXOOMEJRYH3957-62-05 06:06:00 Test Item Value Reference Range Interpretation Comments Monocytes # (test code 1.0 See_Comment [Aut omated message] The = Monocytes #) system which generated this result tra nsmitted reference range : <=0.8. The reference r robert was not used to int erpret this result as normal/abnormal . [facility] CenterXyzzofnFRPBNZSBVW0838-45-16 06:06:00 Test Item Value Reference Range Interpretation Comments Lymphocytes # (test code = Lymphocytes 1.1 1.0-5.5 #) [facility] CenterQliqhpuIPENJPFKVY3404-91-23 06:06:00 Test Item Value Reference Range Interpretation Comments Eosinophils # (test code 0.5 See_Comment [A utomated message] The = Eosinophils #) system whic h generated this result tra nsmitted reference range : <=0.5. The reference r robert was not used to int erpret this result as normal/abnormal . [facility] CenterByqphorHGKKEFOLXY1189-74-23 06:06:00 Test Item Value Reference Range Interpretation Comments Monocytes # (test code 1.0 See_Comment [Aut omated message] The = Monocytes #) system which generated this result tra nsmitted reference range : <=0.8. The reference r robert was not used to int erpret this result as normal/abnormal . [facility] CenterCmyoqnnJAKIGOSXFT8106-50-96 06:06:00 Test Item Value Reference Range Interpretation Comments Basophils # (test code 0.1 See_Comment [Aut omated message] The = Basophils #) system which generated this result tra nsmitted reference range : <=0.2. The reference r robert was not used to int erpret this result as normal/abnormal . [facility] CenterIsfhzbaUAPFKXRGQU8779-51-63 06:06:00 Test Item Value Reference Range Interpretation Comments Eosinophils # (test code 0.5 See_Comment [A utomated message] The = Eosinophils #) system whic h generated this result tra nsmitted reference range : <=0.5. The reference r robert was not used to int erpret this result as normal/abnormal . [place] [id number] 06:06:00 Test Item Value Reference Range Interpretation Comments Acetaminoph Lvl (test code = no gt 10-20 Acetaminoph Lvl) [facility] CenterNneujyvQITSGYOZJX5266-38-57 06:06:00 Test Item Value Reference Range Interpretation Comments Basophils # (test code 0.1 See_Comment [Aut omated message] The = Basophils #) system which generated this result tra nsmitted reference range : <=0.2. The reference r robert was not used to int erpret this result as normal/abnormal . [facility]V28[facility] 06:06:00 Test Item Value Reference Range Interpretation Comments Salicylate Lvl (test 12.2 See_Comment [Autom ated message] The code = Salicylate Lvl) syste m which generated this result tra nsmitted reference range : <=30.0. The reference r robert was not used to int erpret this result as normal/abnormal . [place] [id number] 06:06:00 Test Item Value Reference Range Interpretation Comments Acetaminoph Lvl (test code = no gt 10-20 Acetaminoph Lvl) [place] [id number] 06:06:00 Test Item Value Reference Range Interpretation Comments Salicylate Lvl (test 12.2 See_Comment [Autom ated message] The code = Salicylate Lvl) jay hess which generated this result tra nsmitted reference range : <=30.0. The reference r robert was not used to int erpret this result as normal/abnormal . [facility] [id number] 06:04:00 Test Item Value Reference Range Interpretation Comments U Amph Scr (test code Positive *ABN*(02/14/22 = U Amph Scr) 1:04 AM) [facility] [id number] 06:04:00 Test Item Value Reference Range Interpretation Comments U Garciela Scr (test code Negative *NA*(02/14/22 = U Graciela Scr) 1:04 AM) [facility] [id number] 06:04:00 Test Item Value Reference Range Interpretation Comments U Amph Scr (test code Positive *ABN*(02/14/22 = U Amph Scr) 1:04 AM) [facility] [id number] 06:04:00 Test Item Value Reference Range Interpretation Comments U Benzodiaz Scr (test Positive *ABN*(02/14/22 code = U Benzodiaz Scr) 1:04 AM) [facility] [id number] 06:04:00 Test Item Value Reference Range Interpretation Comments U Graciela Scr (test code Negative *NA*(02/14/22 = U Graciela Scr) 1:04 AM) [facility] [id number] 06:04:00 Test Item Value Reference Range Interpretation Comments U Cocaine Scr (test Negative *NA*(02/14/22 code = U Cocaine Scr) 1:04 AM) [facility] [id number] 06:04:00 Test Item Value Reference Range Interpretation Comments U Benzodiaz Scr (test Positive *ABN*(02/14/22 code = U Benzodiaz Scr) 1:04 AM) [facility] [id number] 06:04:00 Test Item Value Reference Range Interpretation Comments U Cannab Scr (test Negative *NA*(02/14/22 code = U Cannab Scr) 1:04 AM) [facility] [id number] 06:04:00 Test Item Value Reference Range Interpretation Comments U Cocaine Scr (test Negative *NA*(02/14/22 code = U Cocaine Scr) 1:04 AM) [facility] [id number] 06:04:00 Test Item Value Reference Range Interpretation Comments U Opiate Scr (test Positive *ABN*(02/14/22 code = U Opiate Scr) 1:04 AM) [facility] [id number] 06:04:00 Test Item Value Reference Range Interpretation Comments U Cannab Scr (test Negative *NA*(02/14/22 code = U Cannab Scr) 1:04 AM) [facility] [id number] 06:04:00 Test Item Value Reference Range Interpretation Comments U Phencyclidine Scr (test Negative code = U Phencyclidine *NA*(02/14/22 1:04 Scr) AM) [facility] [id number] 06:04:00 Test Item Value Reference Range Interpretation Comments U Opiate Scr (test Positive *ABN*(02/14/22 code = U Opiate Scr) 1:04 AM) [facility] [id number] 06:04:00 Test Item Value Reference Range Interpretation Comments UDS Note (test code = See Note (02/14/22 1:04 UDS Note) AM) [facility] [id number] 06:04:00 Test Item Value Reference Range Interpretation Comments U Phencyclidine Scr (test Negative code = U Phencyclidine *NA*(02/14/22 1:04 Scr) AM) [facility] [id number] 06:04:00 Test Item Value Reference Range Interpretation Comments Ethanol Lvl (test code = Ethanol Lvl) no gt [facility] [id number] 06:04:00 Test Item Value Reference Range Interpretation Comments UDS Note (test code = See Note (02/14/22 1:04 UDS Note) AM) [facility] NgpmxwsRCBOATALYY4550-67-68 06:04:00 Test Item Value Reference Range Interpretation Comments Etoh (%) (test code = Etoh (%)) no gt [facility] PjiazfnJPOOAAQLYD9734-32-06 06:04:00 Test Item Value Reference Range Interpretation Comments Ethanol Lvl (test code = Ethanol Lvl) no gt [facility] [id number] 06:04:00 Test Item Value Reference Range Interpretation Comments UA Color (test code = Deana *ABN*(02/14/22 UA Color) 1:04 AM) [facility] IvbtkboGQGHPANYWQ4002-57-12 06:04:00 Test Item Value Reference Range Interpretation Comments Etoh (%) (test code = Etoh (%)) no gt [facility] [id number] 06:04:00 Test Item Value Reference Range Interpretation Comments UA Turbidity (test code = Clear (02/14/22 1:04 UA Turbidity) AM) [facility] [id number] 06:04:00 Test Item Value Reference Range Interpretation Comments UA Color (test code = Deana *ABN*(02/14/22 UA Color) 1:04 AM) [facility] [id number] 06:04:00 Test Item Value Reference Range Interpretation Comments UA Spec Grav (test code = UA Spec 1.035 1 Grav) [facility] [id number] 06:04:00 Test Item Value Reference Range Interpretation Comments UA Turbidity (test code = Clear (02/14/22 1:04 UA Turbidity) AM) [facility] [id number] 06:04:00 Test Item Value Reference Range Interpretation Comments UA pH (test code = UA pH) 5.0 1 5.0-8.0 [facility] [id number] 06:04:00 Test Item Value Reference Range Interpretation Comments UA Spec Grav (test code = UA Spec 1.035 1 Grav) [facility] [id number] 06:04:00 Test Item Value Reference Range Interpretation Comments UA Protein (test code = UA Protein) 30 mg/dL [facility] [id number] 06:04:00 Test Item Value Reference Range Interpretation Comments UA pH (test code = UA pH) 5.0 1 5.0-8.0 [facility] [id number] 06:04:00 Test Item Value Reference Range Interpretation Comments UA Glucose (test code = UA Negative mg/dL Glucose) [facility] [id number] 06:04:00 Test Item Value Reference Range Interpretation Comments UA Protein (test code = UA Protein) 30 mg/dL [facility] [id number] 06:04:00 Test Item Value Reference Range Interpretation Comments UA Ketones (test code = UA Negative mg/dL Ketones) [facility] [id number] 06:04:00 Test Item Value Reference Range Interpretation Comments UA Glucose (test code = UA Negative mg/dL Glucose) [facility] [id number] 06:04:00 Test Item Value Reference Range Interpretation Comments UA Bili (test code = Small *ABN*(02/14/22 UA Bili) 1:04 AM) [facility] [id number] 06:04:00 Test Item Value Reference Range Interpretation Comments UA Ketones (test code = UA Negative mg/dL Ketones) [facility] [id number] 06:04:00 Test Item Value Reference Range Interpretation Comments UA Blood (test code = Negative (02/14/22 1:04 UA Blood) AM) [facility] AND [id number] 06:04:00 Test Item Value Reference Range Interpretation Comments UA Bili (test code = Small *ABN*(02/14/22 UA Bili) 1:04 AM) [facility] AND [id number] 06:04:00 Test Item Value Reference Range Interpretation Comments UA Urobilinogen (test code = UA 4.0 0.1-1.0 Urobilinogen) [facility] AND [id number] 06:04:00 Test Item Value Reference Range Interpretation Comments UA Nitrite (test code Negative (02/14/22 1:04 = UA Nitrite) AM) [facility] AND [id number] 06:04:00 Test Item Value Reference Range Interpretation Comments UA Blood (test code = Negative (02/14/22 1:04 UA Blood) AM) [facility] [id number] 06:04:00 Test Item Value Reference Range Interpretation Comments UA Leuk Est (test Negative (02/14/22 1:04 code = UA Leuk Est) AM) [facility] [id number] 06:04:00 Test Item Value Reference Range Interpretation Comments UA Urobilinogen (test code = UA 4.0 0.1-1.0 Urobilinogen) [facility] [id number] 06:04:00 Test Item Value Reference Range Interpretation Comments UA WBC (test code = 2 See_Comment [Automa sofiya message] The UA WBC) system which ge nerated this result transmit sofiya reference range : <=5. The reference range was not used to interpr et this result as simone l/abnormal. [facility] [id number] 06:04:00 Test Item Value Reference Range Interpretation Comments UA Nitrite (test code Negative (02/14/22 1:04 = UA Nitrite) AM) [facility] [id number] 06:04:00 Test Item Value Reference Range Interpretation Comments UA RBC (test code = 11 See_Comment [Automa sofiya message] The UA RBC) system which ge nerated this result transmit sofiya reference range : <=2. The reference range was not used to interpr et this result as simone l/abnormal. [facility] [id number] 06:04:00 Test Item Value Reference Range Interpretation Comments UA Leuk Est (test Negative (02/14/22 1:04 code = UA Leuk Est) AM) [facility] [id number] 06:04:00 Test Item Value Reference Range Interpretation Comments UA Mucus (test code = UA Mucus) Few /LPF [facility] [id number] 06:04:00 Test Item Value Reference Range Interpretation Comments UA WBC (test code = 2 See_Comment [Automa sofiya message] The UA WBC) system which ge nerated this result transmit sofiya reference range : <=5. The reference range was not used to interpr et this result as simone l/abnormal. [facility] [id number] 06:04:00 Test Item Value Reference Range Interpretation Comments UA Sq Epi (test code = UA Sq Epi) None Seen [facility] [id number] 06:04:00 Test Item Value Reference Range Interpretation Comments UA RBC (test code = 11 See_Comment [Automa sofiya message] The UA RBC) system which ge nerated this result transmit sofiya reference range : <=2. The reference range was not used to interpr et this result as simone l/abnormal. [facility] [id number] 06:04:00 Test Item Value Reference Range Interpretation Comments UA Mucus (test code = UA Mucus) Few /LPF [facility] [id number] 06:04:00 Test Item Value Reference Range Interpretation Comments UA Sq Epi (test code = UA Sq Epi) None Seen [facility] 12 [id number] 22:00:35 Test Item Value Reference Range Interpretation Comments Ventricular rate (test code = 253) Atrial rate (test code = 255) [place] interval (test code = 266) QRSD interval (test code = 260) QT interval (test code = 264) QTC interval (test code = 265) P axis 1 (test code = 267) QRS axis 1 (test code = 268) T wave axis (test code = 270) EKG impression (test Normal sinus code = 273) rhythm-Normal ECG-In automated comparison with ECG of 26-JUN-2021 15:13,-No significant change was found- [facility]2022-03-03 17:57:00 Test Item Value Reference Range Interpretation Comments Glucose Lvl (test code = Glucose Lvl) 116 70-99 [facility]2022-03-03 17:57:00 Test Item Value Reference Range Interpretation Comments BUN (test code = BUN) 16 03-13 [facility]2022-03-03 17:57:00 Test Item Value Reference Range Interpretation Comments Creatinine Lvl (test code = Creatinine 1.10 0.50-1.40 Lvl) [facility]2022-03-03 17:57:00 Test Item Value Reference Range Interpretation Comments Glucose Lvl (test code = Glucose Lvl) 116 70-99 [facility]2022-03-03 17:57:00 Test Item Value Reference Range Interpretation Comments Sodium Lvl (test code = Sodium Lvl) 139 135-145 [facility]2022-03-03 17:57:00 Test Item Value Reference Range Interpretation Comments BUN (test code = BUN) 16 03-13 [facility]2022-03-03 17:57:00 Test Item Value Reference Range Interpretation Comments Potassium Lvl (test code = Potassium 4.0 3.5-5.1 Lvl) [facility]2022-03-03 17:57:00 Test Item Value Reference Range Interpretation Comments Creatinine Lvl (test code = Creatinine 1.10 0.50-1.40 Lvl) [facility]2022-03-03 17:57:00 Test Item Value Reference Range Interpretation Comments Chloride Lvl (test code = Chloride Lvl) 104 95-109 [facility]2022-03-03 17:57:00 Test Item Value Reference Range Interpretation Comments Sodium Lvl (test code = Sodium Lvl) 139 135-145 [place] 221162-03-03 17:57:00 Test Item Value Reference Range Interpretation Comments CO2 (test code = CO2) 30 [facility]2022-03-03 17:57:00 Test Item Value Reference Range Interpretation Comments Potassium Lvl (test code = Potassium 4.0 3.5-5.1 Lvl) [facility]2022-03-03 17:57:00 Test Item Value Reference Range Interpretation Comments Calcium Lvl (test code = Calcium Lvl) 9.1 8.5-10.5 [place] 221162-03-03 17:57:00 Test Item Value Reference Range Interpretation Comments Chloride Lvl (test code = Chloride Lvl) 104 95-109 [facility]2022-03-03 17:57:00 Test Item Value Reference Range Interpretation Comments AGAP (test code = AGAP) 9.0 10.0-20.0 [facility]2022-03-03 17:57:00 Test Item Value Reference Range Interpretation Comments CO2 (test code = CO2) [facility]2022-03-03 17:57:00 Test Item Value Reference Range Interpretation Comments eGFR (test code = eGFR) 79 [facility]2022-03-03 17:57:00 Test Item Value Reference Range Interpretation Comments Calcium Lvl (test code = Calcium Lvl) 9.1 8.5-10.5 [place] 969802-03-03 17:57:00 Test Item Value Reference Range Interpretation Comments WBC X 10x3 (test code = WBC X 10x3) 9.7 3.7-10.4 [place] 221162-03-03 17:57:00 Test Item Value Reference Range Interpretation Comments AGAP (test code = AGAP) 9.0 10.0-20.0 [place] 969802-03-03 17:57:00 Test Item Value Reference Range Interpretation Comments RBC X 10x6 (test code = RBC X 10x6) 4.36 4.70-6.10 [facility]2022-03-03 17:57:00 Test Item Value Reference Range Interpretation Comments eGFR (test code = eGFR) 79 [place] 969802-03-03 17:57:00 Test Item Value Reference Range Interpretation Comments Hgb (test code = Hgb) 13.8 14.0-18.0 [place] [address]-03-03 17:57:00 Test Item Value Reference Range Interpretation Comments WBC X 10x3 (test code = WBC X 10x3) 9.7 3.7-10.4 [place] [address]-03-03 17:57:00 Test Item Value Reference Range Interpretation Comments Hct (test code = Hct) 39.4 42.0-54.0 [place] [address]-03-03 17:57:00 Test Item Value Reference Range Interpretation Comments RBC X 10x6 (test code = RBC X 10x6) 4.36 4.70-6.10 [place] 969802-03-03 17:57:00 Test Item Value Reference Range Interpretation Comments MCV (test code = MCV) 90.3 80.0-94.0 [place] [address]-03-03 17:57:00 Test Item Value Reference Range Interpretation Comments Hgb (test code = Hgb) 13.8 14.0-18.0 [place] [address]-03-03 17:57:00 Test Item Value Reference Range Interpretation Comments MCH (test code = MCH) 31.5 pg 27.0-31.0 [place] 969802-03-03 17:57:00 Test Item Value Reference Range Interpretation Comments Hct (test code = Hct) 39.4 42.0-54.0 [place] [address]-03-03 17:57:00 Test Item Value Reference Range Interpretation Comments MCHC (test code = MCHC) 34.9 32.0-36.0 [place] [address]-03-03 17:57:00 Test Item Value Reference Range Interpretation Comments MCV (test code = MCV) 90.3 80.0-94.0 [place] [address]-03-03 17:57:00 Test Item Value Reference Range Interpretation Comments RDW (test code = RDW) 12.7 11.5-14.5 [facility]GkqrrqvLNXZPYFWJO2803-95-28 17:57:00 Test Item Value Reference Range Interpretation Comments MCH (test code = MCH) 31.5 pg 27.0-31.0 [facility] CenterFdvazijBKWAPVPSQH7002-11-48 17:57:00 Test Item Value Reference Range Interpretation Comments Platelet (test code = Platelet) 427 133-450 [facility] CenterHlzdwvkJCSDLGBQVY0501-27-44 17:57:00 Test Item Value Reference Range Interpretation Comments MCHC (test code = MCHC) 34.9 32.0-36.0 [facility] CenterVdxurohVTYEDHRXPF5363-58-62 17:57:00 Test Item Value Reference Range Interpretation Comments MPV (test code = MPV) 7.0 7.4-10.4 [facility] CenterBsuavjvKRFBBKEEKN5747-38-75 17:57:00 Test Item Value Reference Range Interpretation Comments RDW (test code = RDW) 12.7 11.5-14.5 [facility] CenterHpkyqbvLVVWQZECOW8525-81-51 17:57:00 Test Item Value Reference Range Interpretation Comments D-Dimer (test code = D-Dimer) no gt [facility] CenterCbfwuijFKDFSTMWQY1484-76-59 17:57:00 Test Item Value Reference Range Interpretation Comments Platelet (test code = Platelet) 427 133-450 [facility] CenterUpawgjsJOJVTSQORH2510-48-73 17:57:00 Test Item Value Reference Range Interpretation Comments Segs (test code = Segs) 63.9 45.0-75.0 [facility] CenterMvdaudkUBFDKJQQWT7214-78-18 17:57:00 Test Item Value Reference Range Interpretation Comments MPV (test code = MPV) 7.0 7.4-10.4 [place] 969802-03-03 17:57:00 Test Item Value Reference Range Interpretation Comments Lymphocytes (test code = Lymphocytes) 14.8 20.0-40.0 [place] 969802-03-03 17:57:00 Test Item Value Reference Range Interpretation Comments D-Dimer (test code = D-Dimer) no gt [facility] CenterHjormszAVBQJFNKQH0606-07-15 17:57:00 Test Item Value Reference Range Interpretation Comments Monocytes (test code = Monocytes) 9.5 2.0-12.0 [address]03-03 17:57:00 Test Item Value Reference Range Interpretation Comments Segs (test code = Segs) 63.9 45.0-75.0 [place] [address]-03-03 17:57:00 Test Item Value Reference Range Interpretation Comments Eosinophils (test code = 11.3 See_Comment [A utomated message] The Eosinophils) system which ge nerated this result tra nsmitted reference range : <=4.0. The reference r robert was not used to int erpret this result as normal/abnormal . [place] [address]-03-03 17:57:00 Test Item Value Reference Range Interpretation Comments Lymphocytes (test code = Lymphocytes) 14.8 20.0-40.0 [address]03-03 17:57:00 Test Item Value Reference Range Interpretation Comments Basophils (test code = 0.5 See_Comment [Aut omated message] The Basophils) system which ge nerated this result tra nsmitted reference range : <=1.0. The reference r robert was not used to int erpret this result as normal/abnormal . [place] [address]-03-03 17:57:00 Test Item Value Reference Range Interpretation Comments Neutrophils # (test code = Neutrophils 6.2 1.5-8.1 #) [place] [address]-03-03 17:57:00 Test Item Value Reference Range Interpretation Comments Monocytes (test code = Monocytes) 9.5 2.0-12.0 [place] [address]-03-03 17:57:00 Test Item Value Reference Range Interpretation Comments Lymphocytes # (test code = Lymphocytes 1.4 1.0-5.5 #) [place] [address]-03-03 17:57:00 Test Item Value Reference Range Interpretation Comments Eosinophils (test code = 11.3 See_Comment [A utomated message] The Eosinophils) system which ge nerated this result tra nsmitted reference range : <=4.0. The reference r robert was not used to int erpret this result as normal/abnormal . [address]03-03 17:57:00 Test Item Value Reference Range Interpretation Comments Monocytes # (test code 0.9 See_Comment [Aut omated message] The = Monocytes #) system which generated this result tra nsmitted reference range : <=0.8. The reference r robert was not used to int erpret this result as normal/abnormal . [place] [address]-03-03 17:57:00 Test Item Value Reference Range Interpretation Comments Basophils (test code = 0.5 See_Comment [Aut omated message] The Basophils) system which ge nerated this result tra nsmitted reference range : <=1.0. The reference r robert was not used to int erpret this result as normal/abnormal . [place] 969802-03-03 17:57:00 Test Item Value Reference Range Interpretation Comments Eosinophils # (test code 1.1 See_Comment [A utomated message] The = Eosinophils #) system [employer] generated this result tra nsmitted reference range : <=0.5. The reference r robert was not used to int erpret this result as normal/abnormal . [place] [address]-03-03 17:57:00 Test Item Value Reference Range Interpretation Comments Neutrophils # (test code = Neutrophils 6.2 1.5-8.1 #) [place] [address]-03-03 17:57:00 Test Item Value Reference Range Interpretation Comments Lymphocytes # (test code = Lymphocytes 1.4 1.0-5.5 #) [place] 969802-03-03 17:57:00 Test Item Value Reference Range Interpretation Comments Monocytes # (test code 0.9 See_Comment [Aut omated message] The = Monocytes #) system which generated this result tra nsmitted reference range : <=0.8. The reference r robert was not used to int erpret this result as normal/abnormal . [place] [address]-03-03 17:57:00 Test Item Value Reference Range Interpretation Comments Eosinophils # (test code 1.1 See_Comment [A utomated message] The = Eosinophils #) system [employer] generated this result tra nsmitted reference range : <=0.5. The reference r robert was not used to int erpret this result as normal/abnormal . [facility] [id number] 08:10:00 Test Item Value Reference Range Interpretation Comments U Amph Scr (test code Positive *ABN*(06/14/21 = U Amph Scr) 3:10 AM) [facility] [id number] 08:10:00 Test Item Value Reference Range Interpretation Comments U Graciela Scr (test code Negative *NA*(06/14/21 = U Graciela Scr) 3:10 AM) [facility] [id number] 08:10:00 Test Item Value Reference Range Interpretation Comments U Benzodiaz Scr (test Negative *NA*(06/14/21 code = U Benzodiaz Scr) 3:10 AM) [facility] [id number] 08:10:00 Test Item Value Reference Range Interpretation Comments U Cocaine Scr (test Negative *NA*(06/14/21 code = U Cocaine Scr) 3:10 AM) [facility] [id number] 08:10:00 Test Item Value Reference Range Interpretation Comments U Amph Scr (test code Positive *ABN*(06/14/21 = U Amph Scr) 3:10 AM) [facility] [id number] 08:10:00 Test Item Value Reference Range Interpretation Comments U Cannab Scr (test Negative *NA*(06/14/21 code = U Cannab Scr) 3:10 AM) [facility] [id number] 08:10:00 Test Item Value Reference Range Interpretation Comments U Graciela Scr (test code Negative *NA*(06/14/21 = U Graciela Scr) 3:10 AM) [facility] [id number] 08:10:00 Test Item Value Reference Range Interpretation Comments U Opiate Scr (test Negative *NA*(06/14/21 code = U Opiate Scr) 3:10 AM) [facility] [id number] 08:10:00 Test Item Value Reference Range Interpretation Comments U Benzodiaz Scr (test Negative *NA*(06/14/21 code = U Benzodiaz Scr) 3:10 AM) [facility] [id number] 08:10:00 Test Item Value Reference Range Interpretation Comments U Phencyclidine Scr (test Negative code = U Phencyclidine *NA*(06/14/21 3:10 Scr) AM) [facility] [id number] 08:10:00 Test Item Value Reference Range Interpretation Comments U Cocaine Scr (test Negative *NA*(06/14/21 code = U Cocaine Scr) 3:10 AM) [facility] [id number] 08:10:00 Test Item Value Reference Range Interpretation Comments UDS Note (test code = See Note (06/14/21 3:10 UDS Note) AM) [facility] [id number] 08:10:00 Test Item Value Reference Range Interpretation Comments U Cannab Scr (test Negative *NA*(06/14/21 code = U Cannab Scr) 3:10 AM) [facility] [id number] 08:10:00 Test Item Value Reference Range Interpretation Comments U Opiate Scr (test Negative *NA*(06/14/21 code = U Opiate Scr) 3:10 AM) [facility] [id number] 08:10:00 Test Item Value Reference Range Interpretation Comments U Phencyclidine Scr (test Negative code = U Phencyclidine *NA*(06/14/21 3:10 Scr) AM) [facility] [id number] 08:10:00 Test Item Value Reference Range Interpretation Comments UDS Note (test code = See Note (06/14/21 3:10 UDS Note) AM) [facility] [id number] 06:06:00 Test Item Value Reference Range Interpretation Comments Glucose Lvl (test code = Glucose Lvl) 111 70-99 [facility] [employer] [id number] 06:06:00 Test Item Value Reference Range Interpretation Comments BUN (test code = BUN) 20 7- [facility]2021-10-23 06:06:00 Test Item Value Reference Range Interpretation Comments Creatinine Lvl (test code = Creatinine 1.00 0.50-1.40 Lvl) [facility]2021-10-23 06:06:00 Test Item Value Reference Range Interpretation Comments Sodium Lvl (test code = Sodium Lvl) 141 135-145 [facility] [employer] [id number] 06:06:00 Test Item Value Reference Range Interpretation Comments Glucose Lvl (test code = Glucose Lvl) 111 70-99 [facility] [employer] [id number] 06:06:00 Test Item Value Reference Range Interpretation Comments Potassium Lvl (test code = Potassium 3.4 3.5-5.1 Lvl) [facility] [id number] 06:06:00 Test Item Value Reference Range Interpretation Comments BUN (test code = BUN) 20 7-22 [facility]2021-10-23 06:06:00 Test Item Value Reference Range Interpretation Comments Chloride Lvl (test code = Chloride Lvl) 109 95-109 [facility]2021-10-23 06:06:00 Test Item Value Reference Range Interpretation Comments Creatinine Lvl (test code = Creatinine 1.00 0.50-1.40 Lvl) [facility]2021-10-23 06:06:00 Test Item Value Reference Range Interpretation Comments CO2 (test code = CO2) [facility]2021-10-23 06:06:00 Test Item Value Reference Range Interpretation Comments Sodium Lvl (test code = Sodium Lvl) 141 135-145 [facility]2021-10-23 06:06:00 Test Item Value Reference Range Interpretation Comments Calcium Lvl (test code = Calcium Lvl) 9.1 8.5-10.5 [facility]2021-10-23 06:06:00 Test Item Value Reference Range Interpretation Comments Potassium Lvl (test code = Potassium 3.4 3.5-5.1 Lvl) [facility]2021-10-23 06:06:00 Test Item Value Reference Range Interpretation Comments Total Protein (test code = Total 7.6 6.4-8.4 Protein) [facility]2021-10-23 06:06:00 Test Item Value Reference Range Interpretation Comments Chloride Lvl (test code = Chloride Lvl) 109 95-109 [facility]2021-10-23 06:06:00 Test Item Value Reference Range Interpretation Comments Albumin Lvl (test code = Albumin Lvl) 3.9 3.5-5.0 [facility]2021-10-23 06:06:00 Test Item Value Reference Range Interpretation Comments CO2 (test code = CO2) [facility]2021-10-23 06:06:00 Test Item Value Reference Range Interpretation Comments ALANINE AMINOTRANSFERASE 52 See_Comment [A utomated message] (test code = ALANINE The sys tem which AMINOTRANSFERASE) generated this result transmitted ref erence range: <=65. Th e reference range was not used to int erpret this result as normal/abnormal . [facility]Du[facility] [id number] 06:06:00 Test Item Value Reference Range Interpretation Comments Calcium Lvl (test code = Calcium Lvl) 9.1 8.5-10.5 [facility] [employer] [id number] 06:06:00 Test Item Value Reference Range Interpretation Comments AST (test code = AST) 29 See_Comment [Auto mated message] The system which ge nerated this result transmit sofiya reference range : <=37. The reference range was not used to interpr et this result as simone l/abnormal. [facility] [employer] [id number] 06:06:00 Test Item Value Reference Range Interpretation Comments Total Protein (test code = Total 7.6 6.4-8.4 Protein) [facility] [employer] [id number] 06:06:00 Test Item Value Reference Range Interpretation Comments Alk Phos (test code = Alk Phos) 143 39-136 [facility] [employer] [id number] 06:06:00 Test Item Value Reference Range Interpretation Comments Albumin Lvl (test code = Albumin Lvl) 3.9 3.5-5.0 [facility] [employer] [id number] 06:06:00 Test Item Value Reference Range Interpretation Comments Bili Total (test code = Bili Total) 0.9 0.2-1.3 [facility] [employer] [id number] 06:06:00 Test Item Value Reference Range Interpretation Comments ALANINE AMINOTRANSFERASE 52 See_Comment [A utomated message] (test code = ALANINE The sys tem which AMINOTRANSFERASE) generated this result transmitted ref erence range: <=65. Th e reference range was not used to int erpret this result as normal/abnormal . [facility] [employer] [id number] 06:06:00 Test Item Value Reference Range Interpretation Comments AGAP (test code = AGAP) 8.4 10.0-20.0 [facility] [employer] [id number] 06:06:00 Test Item Value Reference Range Interpretation Comments AST (test code = AST) 29 See_Comment [Auto mated message] The system which ge nerated this result transmit sofiya reference range : <=37. The reference range was not used to interpr et this result as simone l/abnormal. [facility] [employer] [id number] 06:06:00 Test Item Value Reference Range Interpretation Comments B/C Ratio (test code = B/C Ratio) 20 1 -25 [facility]2021-10-23 06:06:00 Test Item Value Reference Range Interpretation Comments Alk Phos (test code = Alk Phos) 143 39-136 [facility]2021-10-23 06:06:00 Test Item Value Reference Range Interpretation Comments Globulin (test code = Globulin) 3.7 2.7-4.2 [place] 221161-10-23 06:06:00 Test Item Value Reference Range Interpretation Comments A/G Ratio (test code = A/G Ratio) 1.1 1 0.7-1.6 [facility]2021-10-23 06:06:00 Test Item Value Reference Range Interpretation Comments Bili Total (test code = Bili Total) 0.9 0.2-1.3 [facility]2021-10-23 06:06:00 Test Item Value Reference Range Interpretation Comments eGFR (test code = eGFR) 89 [facility]2021-10-23 06:06:00 Test Item Value Reference Range Interpretation Comments AGAP (test code = AGAP) 8.4 10.0-20.0 [facility] [id number] 06:06:00 Test Item Value Reference Range Interpretation Comments WBC X 10x3 (test code = WBC X 10x3) 9.7 3.7-10.4 [facility]2021-10-23 06:06:00 Test Item Value Reference Range Interpretation Comments B/C Ratio (test code = B/C Ratio) 20 1 02-14 [facility] [id number] 06:06:00 Test Item Value Reference Range Interpretation Comments RBC X 10x6 (test code = RBC X 10x6) 4.41 4.70-6.10 [facility]2021-10-23 06:06:00 Test Item Value Reference Range Interpretation Comments Globulin (test code = Globulin) 3.7 2.7-4.2 [facility] [id number] 06:06:00 Test Item Value Reference Range Interpretation Comments Hgb (test code = Hgb) 13.9 14.0-18.0 [facility]2021-10-23 06:06:00 Test Item Value Reference Range Interpretation Comments A/G Ratio (test code = A/G Ratio) 1.1 1 0.7-1.6 [facility] [id number] 06:06:00 Test Item Value Reference Range Interpretation Comments Hct (test code = Hct) 41.2 42.0-54.0 [facility]2021-10-23 06:06:00 Test Item Value Reference Range Interpretation Comments eGFR (test code = eGFR) 89 [facility] Cent[id number] 06:06:00 Test Item Value Reference Range Interpretation Comments MCV (test code = MCV) 93.3 80.0-94.0 [facility] CenterBotcriqAEHNUMMTSF8875-44-15 06:06:00 Test Item Value Reference Range Interpretation Comments WBC X 10x3 (test code = WBC X 10x3) 9.7 3.7-10.4 [facility] C[id number] 06:06:00 Test Item Value Reference Range Interpretation Comments MCH (test code = MCH) 31.6 pg 27.0-31.0 [facility] [id number] 06:06:00 Test Item Value Reference Range Interpretation Comments RBC X 10x6 (test code = RBC X 10x6) 4.41 4.70-6.10 [facility] CenterTzlhvqrXYSUPVPBHL5218-87-25 06:06:00 Test Item Value Reference Range Interpretation Comments MCHC (test code = MCHC) 33.8 32.0-36.0 [facility] [id number] 06:06:00 Test Item Value Reference Range Interpretation Comments Hgb (test code = Hgb) 13.9 14.0-18.0 [facility] CenterEhaixbeRHANOIWHSF9916-17-16 06:06:00 Test Item Value Reference Range Interpretation Comments RDW (test code = RDW) 12.9 11.5-14.5 [facility] [id number] 06:06:00 Test Item Value Reference Range Interpretation Comments Hct (test code = Hct) 41.2 42.0-54.0 [place] 969801-10-23 06:06:00 Test Item Value Reference Range Interpretation Comments Platelet (test code = Platelet) 440 133-450 [facility] CenterTjuleahYDEJNRYJVA6146-90-98 06:06:00 Test Item Value Reference Range Interpretation Comments MCV (test code = MCV) 93.3 80.0-94.0 [facility] C[id number] 06:06:00 Test Item Value Reference Range Interpretation Comments MPV (test code = MPV) 7.3 7.4-10.4 [facility] CenterXyyseikISPKCBCOVA4037-06-72 06:06:00 Test Item Value Reference Range Interpretation Comments MCH (test code = MCH) 31.6 pg 27.0-31.0 [place] 969801-10-23 06:06:00 Test Item Value Reference Range Interpretation Comments Segs (test code = Segs) 64.3 45.0-75.0 [facility] C[id number] 06:06:00 Test Item Value Reference Range Interpretation Comments MCHC (test code = MCHC) 33.8 32.0-36.0 [facility] CenterShsikmjFKPLZYXDKE9380-75-29 06:06:00 Test Item Value Reference Range Interpretation Comments Lymphocytes (test code = Lymphocytes) 22.7 20.0-40.0 [facility] C[id number] 06:06:00 Test Item Value Reference Range Interpretation Comments RDW (test code = RDW) 12.9 11.5-14.5 [facility] CenterUlzahhdPEEHSMRHQO0231-14-43 06:06:00 Test Item Value Reference Range Interpretation Comments Monocytes (test code = Monocytes) 9.2 2.0-12.0 [facility]QsvbowqQGSKOQWPXO0256-61-10 06:06:00 Test Item Value Reference Range Interpretation Comments Platelet (test code = Platelet) 440 133-450 [facility] CenterVpenjvpHSODRQHRLY2817-67-31 06:06:00 Test Item Value Reference Range Interpretation Comments Eosinophils (test code = 3.1 See_Comment [A utomated message] The Eosinophils) system which ge nerated this result tra nsmitted reference range : <=4.0. The reference r robert was not used to int erpret this result as normal/abnormal . [facility] CenterJjnfhbwDMALDNFHZM8527-17-28 06:06:00 Test Item Value Reference Range Interpretation Comments MPV (test code = MPV) 7.3 7.4-10.4 [facility] CenterDxdsqynSNWYSICQMD5100-36-79 06:06:00 Test Item Value Reference Range Interpretation Comments Basophils (test code = 0.7 See_Comment [Aut omated message] The Basophils) system which ge nerated this result tra nsmitted reference range : <=1.0. The reference r robert was not used to int erpret this result as normal/abnormal . [facility] CenterCucwrivMXNKDTKYWC5408-93-37 06:06:00 Test Item Value Reference Range Interpretation Comments Segs (test code = Segs) 64.3 45.0-75.0 [place] 969801-10-23 06:06:00 Test Item Value Reference Range Interpretation Comments Neutrophils # (test code = Neutrophils 6.2 1.5-8.1 #) [facility] CenterBpeihouSANGQEVJPY6834-94-40 06:06:00 Test Item Value Reference Range Interpretation Comments Lymphocytes (test code = Lymphocytes) 22.7 20.0-40.0 [place] 969801-10-23 06:06:00 Test Item Value Reference Range Interpretation Comments Lymphocytes # (test code = Lymphocytes 2.2 1.0-5.5 #) [facility] CenterEbekrdvXARMKVVNWD3857-58-34 06:06:00 Test Item Value Reference Range Interpretation Comments Monocytes (test code = Monocytes) 9.2 2.0-12.0 [place] 969801-10-23 06:06:00 Test Item Value Reference Range Interpretation Comments Monocytes # (test code 0.9 See_Comment [Aut omated message] The = Monocytes #) system which generated this result tra nsmitted reference range : <=0.8. The reference r robert was not used to int erpret this result as normal/abnormal . [facility] CenterLrhczslEBCONPRTHS8333-70-15 06:06:00 Test Item Value Reference Range Interpretation Comments Eosinophils (test code = 3.1 See_Comment [A utomated message] The Eosinophils) system which ge nerated this result tra nsmitted reference range : <=4.0. The reference r robert was not used to int erpret this result as normal/abnormal . [facility] CenterEqrynwqHMOPUJTJVR9549-15-80 06:06:00 Test Item Value Reference Range Interpretation Comments Eosinophils # (test code 0.3 See_Comment [A utomated message] The = Eosinophils #) system whic h generated this result tra nsmitted reference range : <=0.5. The reference r robert was not used to int erpret this result as normal/abnormal . [place] 969801-10-23 06:06:00 Test Item Value Reference Range Interpretation Comments Basophils (test code = 0.7 See_Comment [Aut omated message] The Basophils) system which ge nerated this result tra nsmitted reference range : <=1.0. The reference r robert was not used to int erpret this result as normal/abnormal . [facility] CenterIyffwbxUGTBPVZHTX8736-43-87 06:06:00 Test Item Value Reference Range Interpretation Comments Basophils # (test code 0.1 See_Comment [Aut omated message] The = Basophils #) system which generated this result tra nsmitted reference range : <=0.2. The reference r robert was not used to int erpret this result as normal/abnormal . [facility] CenterIlboaegEFJQDKEPSV8181-86-30 06:06:00 Test Item Value Reference Range Interpretation Comments Neutrophils # (test code = Neutrophils 6.2 1.5-8.1 #) [facility]AsvupueYZOYHXUDXV8548-91-73 06:06:00 Test Item Value Reference Range Interpretation Comments Coronavirus (COVID-19) Not Detected PILO (test code = (06/14/21 1:06 AM) Coronavirus (COVID-19) PILO) [facility] CenterMbrhbskIIPIZNEKBD4039-13-29 06:06:00 Test Item Value Reference Range Interpretation Comments Lymphocytes # (test code = Lymphocytes 2.2 1.0-5.5 #) [place] [id number] 06:06:00 Test Item Value Reference Range Interpretation Comments Acetaminoph Lvl (test code = no gt 10-20 Acetaminoph Lvl) [facility] CenterManqqrkMCNEVWHZCP8156-19-65 06:06:00 Test Item Value Reference Range Interpretation Comments Monocytes # (test code 0.9 See_Comment [Aut omated message] The = Monocytes #) system which generated this result tra nsmitted reference range : <=0.8. The reference r robert was not used to int erpret this result as normal/abnormal . [place] [id number] 06:06:00 Test Item Value Reference Range Interpretation Comments Ethanol Lvl (test code = Ethanol Lvl) no gt [facility] CenterQenurowEZEMHKUJAO7118-39-75 06:06:00 Test Item Value Reference Range Interpretation Comments Eosinophils # (test code 0.3 See_Comment [A utomated message] The = Eosinophils #) system whic h generated this result tra nsmitted reference range : <=0.5. The reference r robert was not used to int erpret this result as normal/abnormal . [facility] CenterAbfojhaDWJZZWLJRU6993-81-07 06:06:00 Test Item Value Reference Range Interpretation Comments Etoh (%) (test code = Etoh (%)) no gt [facility] CenterWkclecgJQRJHLGCPW5775-65-72 06:06:00 Test Item Value Reference Range Interpretation Comments Basophils # (test code 0.1 See_Comment [Aut omated message] The = Basophils #) system which generated this result tra nsmitted reference range : <=0.2. The reference r robert was not used to int erpret this result as normal/abnormal . [facility] CenterJwxffeuWCUOMMYLEJ7214-11-02 06:06:00 Test Item Value Reference Range Interpretation Comments Salicylate Lvl (test no gt See_Comment [Autom ated message] The code = Salicylate Lvl) syste m which generated this result tra nsmitted reference range : <=30.0. The reference r robert was not used to int erpret this result as normal/abnormal . [facility] CenterQupltjiBCSTMVRADA4903-85-77 06:06:00 Test Item Value Reference Range Interpretation Comments Coronavirus (COVID-19) Not Detected PILO (test code = (06/14/21 1:06 AM) Coronavirus (COVID-19) PILO) [facility]OnkxstvTCWHJIZGKW2370-96-22 06:06:00 Test Item Value Reference Range Interpretation Comments Acetaminoph Lvl (test code = no gt 06-11 Acetaminoph Lvl) [facility] HospitalFcrzkgdQONZWSXQXB6973-16-34 06:06:00 Test Item Value Reference Range Interpretation Comments Ethanol Lvl (test code = Ethanol Lvl) no [facility] CenterUhezuzqGYHZVKCDHM5840-97-97 06:06:00 Test Item Value Reference Range Interpretation Comments Etoh (%) (test code = Etoh (%)) no [facility] CenterQtzahpzJRHTYGGSNF1070-00-31 06:06:00 Test Item Value Reference Range Interpretation Comments Salicylate Lvl (test no gt See_Comment [Autom ated message] The code = Salicylate Lvl) syste m which generated this result tra nsmitted reference range : <=30.0. The reference r robert was not used to int erpret this result as normal/abnormal . [facility] [place], CHEST, 1 VIEW, NON [id number] 12:51:00Reason for exam:- >coughShould this be performed at the bedside?->Yes [facility] : 1970 Sex: MFINAL REPORT Chest AP portable erect History provided: Cough Radiographically normal-appearing heart and lungs. Signed: Mitesh Rebolledo MDReport Verified Date/Time: 06/13/2021 12:51:48 Reading Location: [facility] Diagnostic Imaging Reading Room - [facility] 1310.12 SARS-CoV2/Influenza/RSV RT-PCR (Symptomatic ONLY) 2021-06-13 12:40:11 Test Item Value Reference Interpretation Comments Range SARS-COV2/RT-PCR Negative Negative The SARS-Co V-2 (test code = target nucleic 04723-6) acids are not detected in [facility] s specimen. Negat rickey results do not preclude SARS-C oV-2 infection and should not be u sed as the sole bas is for patient management decisions. Nega tive results must be combined with clinical observations, patient history , and epidemiolog ical information. A false negative result may occu r if a specimen is improperly collected, transported or handled. This S ARS CoV-2 test is a rapid, real-ebony e RT-PCR test intended for e qualitative detection of nucleic acid fr om SARS-CoV-2 in a nasopharyngeal swab specimen collec sofiya from individual s suspected of COVID-19 by the ir healthcare provider. Influenza A RT-PCR Negative Negative The Flu A target (test code = [place] [address]-7) not detected in this specimen. Influenza B RT-PCR Negative Negative The Flu B target (test code = [place] 31602-2) not detected in this specimen. RSV by RT-PCR (test Negative Negative The RSV target code = 01020-4) nucleic acid s are not detected in this specimen. SHERRI (test code = The presence of SHERRI) SARS-CoV-2/FLU/RSV viral nucleic acids cannot rule out co-infections or disease caused by other viral or bacterial pathogens. As with any molecular test, mutations within the target regions of the Xpert Xpress SARS-CoV-2/Flu/RSV test could affect primer and/or probe binding resulting in failure to detect the presence of virus or the virus being detected less predictably. False negative results may occur if the virus is present at levels below the analytical limit of detection in this specimen. This Xpert Xpress SARS-CoV-2/Flu/RSV test is a rapid, real-time RT-PCR test intended for the qualitative detection of nucleic acid from Xpert Xpress SARS-CoV-2/Flu/RSV in a nasopharyngeal swab specimen collected from individuals suspected of Xpert Xpress SARS-CoV-2/Flu/RSV by their healthcare provider. Results from [facility] Xpert Xpress SARS-CoV-2/Flu/RSV test should be correlated with the clinical history, epidemiological data, and other data available to the clinician evaluating the patient. Viral nucleic acid may persist in vivo, independent of virus viability. Detection of analyte target(s) does not imply that the corresponding virus(es) are infectious or are the causative agents for clinical symptoms. This test has not been Food and Drug Administration (FDA) cleared or approved and has been authorized by FDA under an Emergency Use Authorization (EUA). This EUA will be effective until the declaration that circumstances exist justifying the authorization of the emergency use of in vitro diagnostic tests for detection and/or diagnosis of COVID-19 is terminated under Section 564(b)(2) of the Act or the EUA is revoked under Section 564(g) of the Act. Fact Sheet for Healthcare Providers:https://w jorge.DecisionView.ChoiceMap/Docu ments/Xpert%20Xpres s%20SARS%20CoV-2/Fa ct%20Sheets/302-390 2%19LHHM-GOO-0%20HE ALTHCARE%20PROVIDER S%20FACT%20SHEET.pd f Fact Sheet for Healthcare Patients:https://ww w.[employer]/Docum ents/Xpert%20Xpress %20SARS%20Cov-2/Fac t%20Sheets/302-3801 %38ZHQW-AZD-4%20PAT IENT%20FACT%20SHEET .pdf Lab Interpretation Normal (test code = 80779-8) [facility]FL[facility]/RSV KC-[id number] 12:40:11 Test Item Value Reference Range Interpretation Comments SARS-COV2/RT-PCR Negative Negative The SARS-Co V-2 target (test code = nucleic acids a re not 7183708) detected in thi s specimen. Negat rickey results do not preclude SARS-CoV-2 infe ction and should not be u sed as the sole basis for patient management deci sions. Negative result s must be combined with c linical observations, p atient history, and epidemiological information. A false negative result may occur if a specimen i s improperly stephan ected, transported or handled. This SARS CoV-2 test is a rapid, real-ebony e RT-PCR test intended f or the qualitative det ection of nucleic acid fr om SARS-CoV-2 in a nasopharyngeal swab specimen collec sofiya from individuals casper pected of COVID-19 by the [facility] ider. INFLUENZA A RT-PCR Negative Negative The Flu A target nucleic (test code = acids are not d etected in 1024620) this specimen. INFLUENZA B RT-PCR Negative Negative The Flu B target nucleic (test code = acids are not d etected in 9491963) this specimen. RSV RT-PCR (test Negative Negative The RSV tar get nucleic code = 9160866) acids are no t detected in this specimen. The presence of SARS-CoV-2/FLU/RSV viral nucleic acids cannot rule out co- infections or disease caused by other viral or bacterial pathogens. As with any molecular test, mutations within the target regions of the Xpert Xpress SARS-CoV-2/Flu/RSV test could affect primer and/or probe binding resulting in failure to detect the presence of virus or the virus being detected less predictably. False negative results may occur if the virus is present at levels below the analytical limit of detection in thisspecimen.This Xpert Xpress SARS-CoV-2/Flu/RSV test is a rapid, real-time RT-PCR test intended for the qualitative detection of nucleic acid from Xpert Xpress SARS-CoV-2/Flu/RSV in a nasopharyngeal swabspecimen collected from individuals suspected of Xpert Xpress SARS-CoV-2/Flu/RSV by their healthcareprovider. [facility] from [facility] Xpert Xpress SARS-CoV-2/Flu/RSV test should be correlated with the clinical history, epidemiological data, and other data available to the clinician evaluating the patient. Viral nucleic acid may persist in vivo, independent of virus viability. Detection of analyte target(s)does not imply that the corresponding virus(es) are infectious or are the causative agents for clinical symptoms.This test has not been Food and Drug Administration (FDA) cleared or approved and has been authorized by FDA under an Emergency Use Authorization (EUA). This EUA will be effective until thedeclaration that circumstances exist justifying the authorization of the emergency use of in vitro diagnostic tests for detection and/or diagnosis of COVID-19 is terminated under Section 564(b)(2) of the Act or the EUA is revoked under Section 564(g) of the Act.Fact Sheet for Healthcare Providers:https ://www.[employer]/Documents/Xpert%20Xpress%20SARS%20CoV-2/Fact%20Sheets/302-390 2%50GSWV-USO-9%20HEALTHCARE%20PROVIDERS%20FACT%20SHEET.pdfFact Sheet for Healthcare Patients:https://www.[employer]/Docum ents/Xpert%20Xpress%20SARS%20Cov-2/Fact%20Sheets/302-3801%74MYQB-SDX-6%20PATIENT %20FACT%20SHEET.pdfB-type Natriuretic Factor (BNP)2021-06-13 12:27:33 Test Item Value Reference Range Interpretation Comments BNP (test code = 50060-0) 2 pg/mL 0-100 SHERRI (test code = SHERRI) Optical Instrument Repairer ID - MAR Lab Interpretation (test Normal code = 77841-3) [facility] (BNP)2021-06-13 12:27:33 Test Item Value Reference Range Interpretation Comments B-TYPE NATRIURETIC PEPTIDE (BEAKER) 2 pg/mL 0-100 (test code = 700) Optical Instrument Repairer ID - Beyn [id number] 12:24:23 Test Item Value Reference Range Interpretation Comments Troponin I (test code = <0.01 0.00-0.03 91653-4) SHERRI (test code = SHERRI) Troponin I (TnI) levels must be interpreted in the context of the presenting symptoms and the clinical findings. Elevated TnI levels indicate myocardial damage, but are not specific for ischemic heart disease. Elevated TnI levels are seen in patients with other cardiac conditions (including myocarditis and congestive heart failure), and slight TnI elevations occur in patients with other conditions, including sepsis, renal failure, acidosis, acute neurological disease, and persistent tachyarrhythmia.Opera tor ID - MAR Lab Interpretation (test Normal code = 68155-7) [facility] HospitalTRBESSYN [id number] 12:24:23 Test Item Value Reference Range Interpretation Comments TROPONIN I (BEAKER) (test code = 397) < ng/mL 0.00-0.03 Troponin I (TnI) levels must be interpreted in the context of the presenting symptoms and the clinical findings. Elevated TnI levels indicate myocardial damage, but are not specific for ischemic heart disease. Elevated TnI levels are seen in patients with other cardiac conditions (including myocarditis and congestive heart failure), and slight TnI elevations occur in patients with other conditions, including sepsis, renal failure, acidosis, acute neurological disease, and persistent tachyarrhythmia.Optical Instrument Repairer ID - MARComprehensive metabolic [id number] 12:21:49 Test Item Value Reference Range Interpretation Comments Protein, Total (test 7.3 See_Comment [Autom ated code = 2885-2) message] The system which generated this result transmit sofiya reference range : 6.0 - 8.5 gm/dL . The reference range was not u sed to interpret th is result as normal/abnormal . Albumin (test code = 4.1 g/dL 3.5-5.0 60044-3) Alkaline Phosphatase 137 U/L 30-115 H (test code = 6768-6) Total Bilirubin (test 1.0 mg/dL 0.1-1.2 code = 1974-2) Sodium (test code = 141 meq/L 694-200 7438-2) Potassium (test code 3.5 meq/L 3.6-5.5 L = 2823-3) Chloride (test code = 106 meq/L 98-106 2075-0) CO2 (test code = 24 meq/L -2027-9) BUN (test code = 21 mg/dL - 3094-0) Creatinine (test code 1.08 mg/dL 0.50-1.20 = 2160-0) Glucose (test code = 105 mg/dL 70-110 2345-7) Calcium (test code = 9.6 mg/dL 8.5-10.5 73107-4) AST (test code = 31 U/L 5-40 1920-8) ALT (test code = 51 U/L 5-50 H 1742-6) EGFR (test code = 73 mL/min/1.73 sq m INSUFF ICIENT 36462-2) CLINICAL DATA T O CALCULATE ESTIMATED GFR. SHERRI (test code = SHERRI) Optical Instrument Repairer ID - MAR Lab Interpretation Abnormal (test code = 10043-1) [facility] HospitalCOMPRE[facility]ENSIVE METABOLIC [id number] 12:21:49 Test Item Value Reference Range Interpretation Comments TOTAL PROTEIN 7.3 gm/dL 6.0-8.5 (BEAKER) (test code = 770) ALBUMIN (BEAKER) 4.1 g/dL 3.5-5.0 (test code = 1145) ALKALINE PHOSPHATASE 137 U/L 30-115 H (BEAKER) (test code = 346) BILIRUBIN TOTAL 1.0 mg/dL 0.1-1.2 (BEAKER) (test code = 377) SODIUM (BEAKER) 141 meq/L 135-148 (test code = 381) POTASSIUM (BEAKER) 3.5 meq/L 3.6-5.5 L (test code = 379) CHLORIDE (BEAKER) 106 meq/L 98-106 (test code = 382) CO2 (BEAKER) (test 24 meq/L - code = 355) BLOOD UREA NITROGEN 21 mg/dL 06-17 (BEAKER) (test code = 354) CREATININE (BEAKER) 1.08 mg/dL 0.50-1.20 (test code = 358) GLUCOSE RANDOM 105 mg/dL 70-110 (BEAKER) (test code = 652) CALCIUM (BEAKER) 9.6 mg/dL 8.5-10.5 (test code = 697) AST (SGOT) (BEAKER) 31 U/L 5-40 (test code = 353) ALT (SGPT) (BEAKER) 51 U/L 5-50 H (test code = 347) EGFR (BEAKER) (test 73 mL/min/1.73 INSUFF ICIENT code = 1092) sq m CLINICAL DATA T O CALCULATE ESTIM ATED GFR. Optical Instrument Repairer ID - MARProthrombin time/[id number] 12:13:42 Test Item Value Reference Interpretation Comments Range Protime (test code = 10.9 See_Comment Final 5902-2) Information (Auto Output) [Automated message] The system which generated this result transmitted reference range : 9.8 - 12.0 seconds. The reference range was not used to interpret this result as normal/abnormal . INR (test code = 1.02 See_Comment Final 6301-6) Information (Auto Output) [Automated message] The system which generated this result transmitted reference range : <=5.90. The reference range was not used to interpret this result as normal/abnormal . SHERRI (test code = RECOMMENDED SHERRI) COUMADIN/WARFARIN INR THERAPY RANGESSTANDARD DOSE: 2.0 - 3.0 Includes: PROPHYLAXIS for venous thrombosis, systemic embolization; TREATMENT for venous thrombosis and/or pulmonary embolus.HIGH RISK: Target INR is 2.5-3.5 for patients with mechanical heart valves. Lab Interpretation Normal (test code = 50746-1) [facility] HospitalPROTHROMBIN TIME/[id number] 12:13:42 Test Item Value Reference Range Interpretation Comments PROTIME (BEAKER) 10.9 seconds 9.8-12.0 Final Infor mation (test code = 759) (Auto Outp ut) INR (BEAKER) (test 1.02 See_Comment Final Inf ormation code = 370) (Auto Output) [Automated mess age] The system [employer] generated this result transmitted ref erence range: <=5.90. The reference range was not used to int erpret this result as normal/abnormal . RECOMMENDED COUMADIN/WARFARIN INR THERAPY RANGESSTANDARD DOSE: 2.0 - 3.0 Includes: PROPHYLAXIS for venous thrombosis, systemic embolization; TREATMENT for venous thrombosis and/or pulmonary embolus.HIGH RISK: Target INR is 2.5-3.5 for patients with mechanical heart valves.[id number] 12:13:41 Test Item Value Reference Range Interpretation Comments D-Dimer, Quant (test 0.44 See_Comment Final I nformation code = 15321-5) (Auto Output ) [Automated message] The system which generated this result transmitted reference range : <0.50 MG/L FEU. The reference range was not used to interpr et this result as normal/abnormal . SHERRI (test code = REGARDING D-DIMER SHERRI) RESULTS: The 98% NPV (Negative Predictive Value) for DVT/PE exclusion is 0.50 mg/L FEU as suggested by the stable manager and as approved by the FDA. Lab Interpretation Normal (test code = 25016-2) [facility] HospitalD-[id number] 12:13:41 Test Item Value Reference Range Interpretation Comments D-DIMER QUANTITATIVE 0.44 MG/L FEU <0.50 Final Information (BEAKER) (test code = (Auto Output) 671) REGARDING D-DIMER RESULTS: The 98% NPV (Negative Predictive Value) for DVT/PE exclusion is 0.50 mg/LFEU as suggested by the stable manager and as approved by the FDA.CBC with platelet count + automated [id number] 12:02:39 Test Item Value Reference Range Interpretation Comments WBC (test code = 9.5 See_Comment [Automated message] 6690-2) The system Superhuman generated this result transmitted ref erence range: 4.0 - 10 .0 K/L. The refe rence range was not u sed to interpret this result as normal/abnor mal. RBC (test code = 789-8) 4.56 See_Comment [Au tomated message] The system Superhuman generated this result transmitted ref erence range: 4.20 - 5 .80 M/L. The refe rence range was not u sed to interpret this result as normal/abnor mal. MCHC (test code = 33.6 See_Comment [Automate d message] 786-4) The system [employer] generated this result transmitted ref erence range: 32.0 - 3 6.0 GM/DL. The refe rence range was not u sed to interpret this result as normal/abnor mal. Hematocrit (test code = 42.8 % 36.0-50.0 4544-3) MCV (test code = 787-2) 93.9 fL 82.0-99.0 MCH (test code = 785-6) 31.6 pg 27.0-33.0 RDW (test code = 788-0) 12.2 % 12.0-15.0 Platelets (test code = 415 See_Comment [Aut omated message] 777-3) The system Superhuman generated this result transmitted ref erence range: 150 - 43 0 K/CU MM. The referen ce range was not used to interpret this result as normal/abnor mal. MPV (test code = 9.1 fL 6.0-11.5 73242-2) nRBC (test code = 413) 0 See_Comment [Aut omated message] The system Superhuman generated this result transmitted ref erence range: 0 - 0 /1 00 WBC. The reference r robert was not used to int erpret this result as normal/abnormal . % Neutros (test code = 69 % 429) % Lymphs (test code = 17 % 430) % Monos (test code = 9 % 431) % Eos (test code = 432) 4 % % Baso (test code = 1 % 437) # Neutros (test code = 6.54 See_Comment [Aut omated message] 670) The system [employer] generated this result transmitted ref erence range: 1.80 - 8 .00 K/L. The refe rence range was not u sed to interpret this result as normal/abnor mal. # Lymphs (test code = 1.58 See_Comment [Auto mated message] 414) The system Superhuman generated this result transmitted ref erence range: 1.48 - 4 .50 K/L. The refe rence range was not u sed to interpret this result as normal/abnor mal. # Monos (test code = 0.89 See_Comment [Autom ated message] 415) The system Superhuman generated this result transmitted ref erence range: 0.00 - 1 .30 K/L. The refe rence range was not u sed to interpret this result as normal/abnor mal. # Eos (test code = 416) 0.40 See_Comment [Au tomated message] The system Superhuman generated this result transmitted ref erence range: 0.00 - 0 .50 K/L. The refe rence range was not u sed to interpret this result as normal/abnor mal. # Baso (test code = 0.05 See_Comment [Automa sofiya message] 417) The system Super[employer] generated this result transmitted ref erence range: 0.00 - 0 .20 K/L. The refe rence range was not u sed to interpret this result as normal/abnor mal. Immature 0 % 0-0 Granulocytes-Relative (test code = 2801) [facility] W/PLT COUNT & AUTO [id number] 12:02:39 Test Item Value Reference Range Interpretation Comments WHITE BLOOD CELL COUNT (BEAKER) 9.5 K/ L 4.0-10.0 (test code = 775) RED BLOOD CELL COUNT (BEAKER) 4.56 M/ L 4.20-5.80 (test code = 761) HEMOGLOBIN (BEAKER) (test code = 14.4 GM/DL 13.0-16.8 410) HEMATOCRIT (BEAKER) (test code = 42.8 % 36.0-50.0 411) MEAN CORPUSCULAR VOLUME (BEAKER) 93.9 fL 82.0-99.0 (test code = 753) MEAN CORPUSCULAR HEMOGLOBIN 31.6 pg 27.0-33.0 (BEAKER) (test code = 751) MEAN CORPUSCULAR HEMOGLOBIN CONC 33.6 GM/DL 32.0-36.0 (BEAKER) (test code = 752) RED CELL DISTRIBUTION WIDTH 12.2 % 12.0-15.0 (BEAKER) (test code = 412) PLATELET COUNT (BEAKER) (test 415 K/CU MM 150-430 code = 756) MEAN PLATELET VOLUME (BEAKER) 9.1 fL 6.0-11.5 (test code = 754) NUCLEATED RED BLOOD CELLS 0 /100 WBC 0-0 (BEAKER) (test code = 413) NEUTROPHILS RELATIVE PERCENT 69 % (BEAKER) (test code = 429) LYMPHOCYTES RELATIVE PERCENT 17 % (BEAKER) (test code = 430) MONOCYTES RELATIVE PERCENT 9 % (BEAKER) (test code = 431) EOSINOPHILS RELATIVE PERCENT 4 % (BEAKER) (test code = 432) BASOPHILS RELATIVE PERCENT 1 % (BEAKER) (test code = 437) NEUTROPHILS ABSOLUTE COUNT 6.54 K/ L 1.80-8.00 (BEAKER) (test code = 670) LYMPHOCYTES ABSOLUTE COUNT 1.58 K/ L 1.48-4.50 (BEAKER) (test code = 414) MONOCYTES ABSOLUTE COUNT (BEAKER) 0.89 K/ L 0.00-1.30 (test code = 415) EOSINOPHILS ABSOLUTE COUNT 0.40 K/ L 0.00-0.50 (BEAKER) (test code = 416) BASOPHILS ABSOLUTE COUNT (BEAKER) 0.05 K/ L 0.00-0.20 (test code = 417) IMMATURE GRANULOCYTES-RELATIVE 0 % 0-0 PERCENT (BEAKER) (test code = 2801) SARS-CoV-2 ORF1ab Resp Ql PILO+[id number] 15:56:47 Test Item Value Reference Range Interpretation Comments Symptomatic as defined No by CDC? (test code = 79876-5) Hospitalized? (test No code = 27581-3) ICU? (test code = No 08400-3) Employed in No Healthcare? (test code = 25434-3) Resident in a Yes congregate care setting (including nursing homes, residential care for people with intellectual and developmental disabilities, psychiatric treatment facilities, group homes, board and care homes, homeless fdc, foster care or other): (test code = 67595-5) SARS-CoV-2 ORF1ab Resp NOT DETECTED Not Detected INTER PRETATION: No Ql PILO+probe (test detectabl e levels code = 19050-4) of SARS-CoV- 2 Coronavirus (COVID-19) were present in this patient's sampl e by this test. A no t detected result does not exclud e the possibility of active infectio n with this virus due to other factor s that may affect the results such as a poorly collecte d sample, viral titers below th e limit of detect ion of the assay, a nd the infrequent possibility of inhibitors in t he sample. This re sult should be interpreted in conjunction wit h clinical, radiographic, a nd other laborator y findings and sh ould not be used as the sole indicator of active infectio n with SARS-CoV-2 Coronavirus (COVID-19). COMMENT: This [employer] SARS-CoV-2 molecular diagnostic assay utilizes Eng[employer]ver Rubber Mediated Amplification (TMA) technology to rapidly detect the SARS-CoV-2 (COVID-19) virus from respiratory samples. In accordance with the FDA's guidance document "Policy for Diagnostic Tests for Coronavirus Disease- 2019 during the Public Health Emergency", this test was developed, and its performance characteristics were verified by the [facility] molecular diagnostics laboratory and is authorized for clinical diagnostic use. This laboratory is certified under the Clinical Laboratory Improvement Amendments (CLIA) as qualified to perform high complexity clinical laboratory testing.HHSUA, Urinalysis Rflx Cult/[id number] 21:50:00 Test Item Value Reference Range Interpretation Comments Color,Urine (test code Yellow Y = UCOL) Clarity,Urine (test Clear Clear code = UCLAR) PH,Urine (test code = 6.0 5.5-8.5 UPH.XX) Specific Sims,Urine >= 1.030 1.005-1.030 N (test code = USG) Blood,Urine (test code Trace-intact cells/uL Negative A = UBLD) Protein,Urine (test Negative mg/dL Negative code = UPRO) Glucose,Urine (UA) Negative mg/dL Negative (test code = UGLU) Ketones,Urine (test Trace mg/dL Negative A code = UKET) Nitrate,Urine (test Negative Negative code = UNIT) Bilirubin,Urine (test Negative mg/dL Negative code = UBIL) Urobilinogen,Urine 0.2 mg/dL Negative (test code = UURO) Leukocyte Negative cells/uL Negative Esterase,Urine (test code = ULEU) Urine [id number] 21:50:00 Test Item Value Reference Range Interpretation Comments RBC,Urine (test code = 0-5 /HPF None Seen URBC.XX) WBC,Urine (test code = 0-5 /HPF None Seen UWBC.XX) Squamous Epithelial 0-5 /HPF None Seen Cell,Urine (test code = USQEPI.XX) Calcium Oxalate Occasional /HPF None Seen A Crystals,Urine (test code = UCALO) Mucus,Urine (test code = Many /LPF None Seen A [facility]) Drug Screen,[id number] 21:50:00 Test Item Value Reference Range Interpretation Comments PCP Phencyclidine Screen,Urine (test Negative Negative code = PCPU) Amphetamine Screen,Urine (test code Negative Negative = AMPU) Methadone Screen,Urine (test code = Negative Negative METHU) Opiate Screen,Urine (test code = Negative Negative UOPIS) Barbituates Screen,Urine (test code Negative Negative = BARBU) Benzodiazepines Screen,Urine (test Negative Negative code = UBENZS) Cocaine Screen,Urine (test code = Negative Negative UCOCS) Cannabinoid Screen,Urine (test code Negative Negative = UTHCS) Propoxyphene Screen, Urine (test Negative Negative code = UPROP) CHEM [id number] 21:03:00 Test Item Value Reference Range Interpretation Comments Glucose Lvl (test code = Glucose Lvl) 115 70-99 [facility] [employer] [id number] 21:03:00 Test Item Value Reference Range Interpretation Comments BUN (test code = BUN) 13 - [facility] [employer] [id number] 21:03:00 Test Item Value Reference Range Interpretation Comments Creatinine Lvl (test code = Creatinine 1.10 0.50-1.40 Lvl) [facility] [employer] [id number] 21:03:00 Test Item Value Reference Range Interpretation Comments Sodium Lvl (test code = Sodium Lvl) 143 135-145 [facility] [employer] [id number] 21:03:00 Test Item Value Reference Range Interpretation Comments Potassium Lvl (test code = Potassium 3.7 3.5-5.1 Lvl) [facility] [employer] [id number] 21:03:00 Test Item Value Reference Range Interpretation Comments Chloride Lvl (test code = Chloride Lvl) 111 95-109 [facility] [employer] [id number] 21:03:00 Test Item Value Reference Range Interpretation Comments Glucose Lvl (test code = Glucose Lvl) 115 70-99 [facility] [employer] [id number] 21:03:00 Test Item Value Reference Range Interpretation Comments CO2 (test code = CO2) 27 24-32 [facility] [employer] [id number] 21:03:00 Test Item Value Reference Range Interpretation Comments BUN (test code = BUN) 13 7-22 [place] 221161-06-14 21:03:00 Test Item Value Reference Range Interpretation Comments Calcium Lvl (test code = Calcium Lvl) 8.2 8.5-10.5 [place] 221161-06-14 21:03:00 Test Item Value Reference Range Interpretation Comments Creatinine Lvl (test code = Creatinine 1.10 0.50-1.40 Lvl) [place] 221161-06-14 21:03:00 Test Item Value Reference Range Interpretation Comments Total Protein (test code = Total 6.1 6.4-8.4 Protein) [place] 221161-06-14 21:03:00 Test Item Value Reference Range Interpretation Comments Sodium Lvl (test code = Sodium Lvl) 143 135-145 [place] 221161-06-14 21:03:00 Test Item Value Reference Range Interpretation Comments Albumin Lvl (test code = Albumin Lvl) 3.2 3.5-5.0 [place] 221161-06-14 21:03:00 Test Item Value Reference Range Interpretation Comments Potassium Lvl (test code = Potassium 3.7 3.5-5.1 Lvl) [facility]2021-06-14 21:03:00 Test Item Value Reference Range Interpretation Comments ALANINE AMINOTRANSFERASE 23 See_Comment [A utomated message] (test code = ALANINE The sys tem which AMINOTRANSFERASE) generated this result transmitted ref erence range: <=65. Th e reference range was not used to int erpret this result as normal/abnormal . [facility] [id number] 21:03:00 Test Item Value Reference Range Interpretation Comments Chloride Lvl (test code = Chloride Lvl) 111 95-109 [facility]2021-06-14 21:03:00 Test Item Value Reference Range Interpretation Comments ASPARTATE TRANSAMINASE 15 See_Comment [Aut omated message] (test code = ASPARTATE The s ystem which TRANSAMINASE) generated this result transmitted ref erence range: <=37. Th e reference range was not used to interpr et this result as normal/abnormal . [facility] [id number] 21:03:00 Test Item Value Reference Range Interpretation Comments CO2 (test code = CO2) 27 24-32 [facility]2021-06-14 21:03:00 Test Item Value Reference Range Interpretation Comments Alk Phos (test code = Alk Phos) 95 39-136 [facility]2021-06-14 21:03:00 Test Item Value Reference Range Interpretation Comments Calcium Lvl (test code = Calcium Lvl) 8.2 8.5-10.5 [facility]2021-06-14 21:03:00 Test Item Value Reference Range Interpretation Comments Bili Total (test code = Bili Total) 0.4 0.2-1.3 [facility]2021-06-14 21:03:00 Test Item Value Reference Range Interpretation Comments Total Protein (test code = Total 6.1 6.4-8.4 Protein) [place] 221161-06-14 21:03:00 Test Item Value Reference Range Interpretation Comments AGAP (test code = AGAP) 8.7 10.0-20.0 [facility]2021-06-14 21:03:00 Test Item Value Reference Range Interpretation Comments Albumin Lvl (test code = Albumin Lvl) 3.2 3.5-5.0 [facility]2021-06-14 21:03:00 Test Item Value Reference Range Interpretation Comments B/C Ratio (test code = B/C Ratio) 12 1 6-25 [facility]2021-06-14 21:03:00 Test Item Value Reference Range Interpretation Comments ALANINE AMINOTRANSFERASE 23 See_Comment [A utomated message] (test code = ALANINE The sys tem which AMINOTRANSFERASE) generated this result transmitted ref erence range: <=65. Th e reference range was not used to int erpret this result as normal/abnormal . [facility] [employer] [id number] 21:03:00 Test Item Value Reference Range Interpretation Comments Globulin (test code = Globulin) 2.9 2.7-4.2 [place] 221161-06-14 21:03:00 Test Item Value Reference Range Interpretation Comments ASPARTATE TRANSAMINASE 15 See_Comment [Aut omated message] (test code = ASPARTATE The s ystem which TRANSAMINASE) generated this result transmitted ref erence range: <=37. Th e reference range was not used to interpr et this result as normal/abnormal . [facility] [employer] [id number] 21:03:00 Test Item Value Reference Range Interpretation Comments A/G Ratio (test code = A/G Ratio) 1.1 1 0.7-1.6 [facility] [employer] [id number] 21:03:00 Test Item Value Reference Range Interpretation Comments Alk Phos (test code = Alk Phos) 95 39-136 [facility] [employer] [id number] 21:03:00 Test Item Value Reference Range Interpretation Comments eGFR (test code = eGFR) 79 [facility] [employer] [id number] 21:03:00 Test Item Value Reference Range Interpretation Comments Bili Total (test code = Bili Total) 0.4 0.2-1.3 [facility] [employer] [id number] 21:03:00 Test Item Value Reference Range Interpretation Comments U Amph Scr (test code Positive *ABN*(02/03/21 = U Amph Scr) 4:03 PM) [facility] [employer] [id number] 21:03:00 Test Item Value Reference Range Interpretation Comments AGAP (test code = AGAP) 8.7 10.0-20.0 [facility] [employer] [id number] 21:03:00 Test Item Value Reference Range Interpretation Comments U Graciela Scr (test code Negative *NA*(02/03/21 = U Graciela Scr) 4:03 PM) [facility] [employer] [id number] 21:03:00 Test Item Value Reference Range Interpretation Comments B/C Ratio (test code = B/C Ratio) 12 1 6-25 [facility] [employer] [id number] 21:03:00 Test Item Value Reference Range Interpretation Comments U Benzodiaz Scr (test Negative *NA*(02/03/21 code = U Benzodiaz Scr) 4:03 PM) [facility] [employer] [id number] 21:03:00 Test Item Value Reference Range Interpretation Comments Globulin (test code = Globulin) 2.9 2.7-4.2 [facility] [employer] [id number] 21:03:00 Test Item Value Reference Range Interpretation Comments U Cocaine Scr (test Negative *NA*(02/03/21 code = U Cocaine Scr) 4:03 PM) [facility] [employer] [id number] 21:03:00 Test Item Value Reference Range Interpretation Comments A/G Ratio (test code = A/G Ratio) 1.1 1 0.7-1.6 [facility] [id number] 21:03:00 Test Item Value Reference Range Interpretation Comments U Cannab Scr (test Negative *NA*(02/03/21 code = U Cannab Scr) 4:03 PM) [facility] [id number] 21:03:00 Test Item Value Reference Range Interpretation Comments eGFR (test code = eGFR) 79 [facility] [id number] 21:03:00 Test Item Value Reference Range Interpretation Comments U Opiate Scr (test Negative *NA*(02/03/21 code = U Opiate Scr) 4:03 PM) [facility] [id number] 21:03:00 Test Item Value Reference Range Interpretation Comments U Phencyclidine Scr (test Negative code = U Phencyclidine *NA*(02/03/21 4:03 Scr) PM) [facility] [id number] 21:03:00 Test Item Value Reference Range Interpretation Comments U Amph Scr (test code Positive *ABN*(02/03/21 = U Amph Scr) 4:03 PM) [facility] [id number] 21:03:00 Test Item Value Reference Range Interpretation Comments UDS Note (test code = See Note (02/03/21 4:03 UDS Note) PM) [facility] [id number] 21:03:00 Test Item Value Reference Range Interpretation Comments U Graciela Scr (test code Negative *NA*(02/03/21 = U Graciela Scr) 4:03 PM) [facility] [id number] 21:03:00 Test Item Value Reference Range Interpretation Comments WBC X 10x3 (test code = WBC X 10x3) 7.5 3.7-10.4 [facility] [id number] 21:03:00 Test Item Value Reference Range Interpretation Comments U Benzodiaz Scr (test Negative *NA*(02/03/21 code = U Benzodiaz Scr) 4:03 PM) [facility] GyuslafKCLXVJTJTG7645-10-04 21:03:00 Test Item Value Reference Range Interpretation Comments RBC X 10x6 (test code = RBC X 10x6) 3.99 4.70-6.10 [facility] [id number] 21:03:00 Test Item Value Reference Range Interpretation Comments U Cocaine Scr (test Negative *NA*(02/03/21 code = U Cocaine Scr) 4:03 PM) [facility]entonYqwlbwzWRLTRNORJV6548-30-13 21:03:00 Test Item Value Reference Range Interpretation Comments Hgb (test code = Hgb) 12.7 14.0-18.0 [facility] [id number] 21:03:00 Test Item Value Reference Range Interpretation Comments U Cannab Scr (test Negative *NA*(02/03/21 code = U Cannab Scr) 4:03 PM) [facility] [id number] 21:03:00 Test Item Value Reference Range Interpretation Comments Hct (test code = Hct) 37.4 42.0-54.0 [facility] [id number] 21:03:00 Test Item Value Reference Range Interpretation Comments U Opiate Scr (test Negative *NA*(02/03/21 code = U Opiate Scr) 4:03 PM) [facility] C[id number] 21:03:00 Test Item Value Reference Range Interpretation Comments MCV (test code = MCV) 93.8 80.0-94.0 [facility] [id number] 21:03:00 Test Item Value Reference Range Interpretation Comments U Phencyclidine Scr (test Negative code = U Phencyclidine *NA*(02/03/21 4:03 Scr) PM) [id number] 21:03:00 Test Item Value Reference Range Interpretation Comments MCH (test code = MCH) 31.8 pg 27.0-31.0 [facility] [id number] 21:03:00 Test Item Value Reference Range Interpretation Comments UDS Note (test code = See Note (02/03/21 4:03 UDS Note) PM) [facility] Cent[id number] 21:03:00 Test Item Value Reference Range Interpretation Comments MCHC (test code = MCHC) 33.9 32.0-36.0 [facility] DentonXhacwzwLKQVMRGADV4399-24-11 21:03:00 Test Item Value Reference Range Interpretation Comments WBC X 10x3 (test code = WBC X 10x3) 7.5 3.7-10.4 [place] [id number] 21:03:00 Test Item Value Reference Range Interpretation Comments RDW (test code = RDW) 12.5 11.5-14.5 [facility] [id number] 21:03:00 Test Item Value Reference Range Interpretation Comments RBC X 10x6 (test code = RBC X 10x6) 3.99 4.70-6.10 [facility] [id number] 21:03:00 Test Item Value Reference Range Interpretation Comments Platelet (test code = Platelet) 417 133-450 [facility] [id number] 21:03:00 Test Item Value Reference Range Interpretation Comments Hgb (test code = Hgb) 12.7 14.0-18.0 [place] [id number] 21:03:00 Test Item Value Reference Range Interpretation Comments MPV (test code = MPV) 7.3 7.4-10.4 [facility] C[id number] 21:03:00 Test Item Value Reference Range Interpretation Comments Hct (test code = Hct) 37.4 42.0-54.0 [facility] C[id number] 21:03:00 Test Item Value Reference Range Interpretation Comments Segs (test code = Segs) 72.8 45.0-75.0 [facility] CenterDbjiiryTBXHKISFEY2296-65-35 21:03:00 Test Item Value Reference Range Interpretation Comments MCV (test code = MCV) 93.8 80.0-94.0 [facility] CenterLwieaxiRIJSURPXPW0387-07-38 21:03:00 Test Item Value Reference Range Interpretation Comments Lymphocytes (test code = Lymphocytes) 14.7 20.0-40.0 [facility] CenterWpvwgjyNJDMJVVXZV1251-05-72 21:03:00 Test Item Value Reference Range Interpretation Comments MCH (test code = MCH) 31.8 pg 27.0-31.0 [facility] Cent[id number] 21:03:00 Test Item Value Reference Range Interpretation Comments Monocytes (test code = Monocytes) 10.0 2.0-12.0 [place] 969801-06-14 21:03:00 Test Item Value Reference Range Interpretation Comments MCHC (test code = MCHC) 33.9 32.0-36.0 [facility] [id number] 21:03:00 Test Item Value Reference Range Interpretation Comments Eosinophils (test code = 2.0 See_Comment [A utomated message] The Eosinophils) system which ge nerated this result tra nsmitted reference range : <=4.0. The reference r robert was not used to int erpret this result as normal/abnormal . [facility] CenterOeiddheEKSAAKWRXV2154-96-23 21:03:00 Test Item Value Reference Range Interpretation Comments RDW (test code = RDW) 12.5 11.5-14.5 [facility] Cent[id number] 21:03:00 Test Item Value Reference Range Interpretation Comments Basophils (test code = 0.5 See_Comment [Aut omated message] The Basophils) system which ge nerated this result tra nsmitted reference range : <=1.0. The reference r robert was not used to int erpret this result as normal/abnormal . [facility] C[id number] 21:03:00 Test Item Value Reference Range Interpretation Comments Platelet (test code = Platelet) 417 133-450 [facility] CenterIzfmoaaKFKEAIKDRD2188-13-74 21:03:00 Test Item Value Reference Range Interpretation Comments Neutrophils # (test code = Neutrophils 5.4 1.5-8.1 #) [facility] CenterUrkmzigSZRYGIVKMB1665-14-94 21:03:00 Test Item Value Reference Range Interpretation Comments MPV (test code = MPV) 7.3 7.4-10.4 [facility] Cent[id number] 21:03:00 Test Item Value Reference Range Interpretation Comments Lymphocytes # (test code = Lymphocytes 1.1 1.0-5.5 #) [facility] CenterPuqcjosLJKPRQQWTK6497-71-31 21:03:00 Test Item Value Reference Range Interpretation Comments Segs (test code = Segs) 72.8 45.0-75.0 [facility] CenterNfdzgzfOEBJQWZILS1912-48-64 21:03:00 Test Item Value Reference Range Interpretation Comments Monocytes # (test code 0.8 See_Comment [Aut omated message] The = Monocytes #) system which generated this result tra nsmitted reference range : <=0.8. The reference r robert was not used to int erpret this result as normal/abnormal . [facility] CenterQrafgpqPXESVEISBH1818-04-57 21:03:00 Test Item Value Reference Range Interpretation Comments Lymphocytes (test code = Lymphocytes) 14.7 20.0-40.0 [facility] CenterMscadscCWLLPLIADC2389-74-36 21:03:00 Test Item Value Reference Range Interpretation Comments Eosinophils # (test code 0.1 See_Comment [A utomated message] The = Eosinophils #) system whic h generated this result tra nsmitted reference range : <=0.5. The reference r robert was not used to int erpret this result as normal/abnormal . [facility] CenterGjevreuLOZXTRAQVF9308-41-12 21:03:00 Test Item Value Reference Range Interpretation Comments Monocytes (test code = Monocytes) 10.0 2.0-12.0 [place] [id number] 21:03:00 Test Item Value Reference Range Interpretation Comments Acetaminoph Lvl (test code = no gt 10-20 Acetaminoph Lvl) [facility] CenterLrvvxhlZMTYNYIWEP7489-43-22 21:03:00 Test Item Value Reference Range Interpretation Comments Eosinophils (test code = 2.0 See_Comment [A utomated message] The Eosinophils) system which ge nerated this result tra nsmitted reference range : <=4.0. The reference r robert was not used to int erpret this result as normal/abnormal . [place] 16061021-06-14 21:03:00 Test Item Value Reference Range Interpretation Comments Ethanol Lvl (test code = Ethanol Lvl) no gt [facility] CenterOunlpjbXHOMZMOXGJ6709-19-40 21:03:00 Test Item Value Reference Range Interpretation Comments Basophils (test code = 0.5 See_Comment [Aut omated message] The Basophils) system which ge nerated this result tra nsmitted reference range : <=1.0. The reference r robert was not used to int erpret this result as normal/abnormal . [place] 16061021-06-14 21:03:00 Test Item Value Reference Range Interpretation Comments Etoh (%) (test code = Etoh (%)) no gt [facility] CenterVtxyxeiXGFWITQKTD3969-49-70 21:03:00 Test Item Value Reference Range Interpretation Comments Neutrophils # (test code = Neutrophils 5.4 1.5-8.1 #) [place] 16061021-06-14 21:03:00 Test Item Value Reference Range Interpretation Comments Salicylate Lvl (test no gt See_Comment [Autom ated message] The code = Salicylate Lvl) syste m which generated this result tra nsmitted reference range : <=30.0. The reference r robert was not used to int erpret this result as normal/abnormal . [facility] CenterTbjdapzSWOTDOBAFF2261-80-95 21:03:00 Test Item Value Reference Range Interpretation Comments Lymphocytes # (test code = Lymphocytes 1.1 1.0-5.5 #) [facility] CenterBpmygmnXSAXQGJVZH1526-54-77 21:03:00 Test Item Value Reference Range Interpretation Comments Monocytes # (test code 0.8 See_Comment [Aut omated message] The = Monocytes #) system which generated this result tra nsmitted reference range : <=0.8. The reference r robert was not used to int erpret this result as normal/abnormal . [facility]TlldmfxRJXUVORPDC0436-41-50 21:03:00 Test Item Value Reference Range Interpretation Comments Eosinophils # (test code 0.1 See_Comment [A utomated message] The = Eosinophils #) system whic h generated this result tra nsmitted reference range : <=0.5. The reference r robert was not used to int erpret this result as normal/abnormal . [facility] CenterOjbfbzwZPBZSDVFWU8244-02-73 21:03:00 Test Item Value Reference Range Interpretation Comments Acetaminoph Lvl (test code = no gt 10-20 Acetaminoph Lvl) [facility] CenterNocydtsFOPNHMBYVA7871-97-51 21:03:00 Test Item Value Reference Range Interpretation Comments Ethanol Lvl (test code = Ethanol Lvl) no gt [facility]entonNymyhecAAZRSFKPLL8257-30-05 21:03:00 Test Item Value Reference Range Interpretation Comments Etoh (%) (test code = Etoh (%)) no gt [facility] DentonNfdrbgvQXDXQSAWEX8635-86-74 21:03:00 Test Item Value Reference Range Interpretation Comments Salicylate Lvl (test no gt See_Comment [Autom ated message] The code = Salicylate Lvl) syste m which generated this result tra nsmitted reference range : <=30.0. The reference r robert was not used to int erpret this result as normal/abnormal . [facility] CenterCARDIAC TCXHOUW2909-20-83 07:02:00 Test Item Value Reference Range Interpretation Comments Troponin-I (test code no gt See_Comment [Auto mated message] The = Troponin-I) system which g enerated this result transmit sfoiya reference range : <=0.40. The reference r robert was not used to interpr et this result as simone l/abnormal. [facility]2021-06-13 07:02:00 Test Item Value Reference Range Interpretation Comments Creatinine Lvl (test code = Creatinine 1.30 0.50-1.40 Lvl) [facility]2021-06-13 07:02:00 Test Item Value Reference Range Interpretation Comments eGFR (test code = eGFR) 65 [facility] [id number] 07:02:00 Test Item Value Reference Range Interpretation Comments Troponin-I (test code no gt See_Comment [Auto mated message] The = Troponin-I) system which g enerated this result transmit sofiya reference range : <=0.40. The reference r robert was not used to interpr et this result as simone l/abnormal. [facility]2021-06-13 07:02:00 Test Item Value Reference Range Interpretation Comments Creatinine Lvl (test code = Creatinine 1.30 0.50-1.40 Lvl) [facility]2021-06-13 07:02:00 Test Item Value Reference Range Interpretation Comments eGFR (test code = eGFR) 65 [facility] CenterOosnzhjCGGGALHVXN7567-47-13 04:14:00 Test Item Value Reference Range Interpretation Comments Neutrophils # (test code = Neutrophils 9.5 1.5-8.1 #) [facility] CenterMfajqxdRRYLRENMLJ7869-67-66 04:14:00 Test Item Value Reference Range Interpretation Comments Platelet (test code = Platelet) 505 133-450 [facility] CenterIwlrollDDXCTSFEOV9167-96-94 04:14:00 Test Item Value Reference Range Interpretation Comments Lymphocytes # (test code = Lymphocytes 2.3 1.0-5.5 #) [place] 969801-06-13 04:14:00 Test Item Value Reference Range Interpretation Comments MPV (test code = MPV) 7.4 7.4-10.4 [place] 969801-06-13 04:14:00 Test Item Value Reference Range Interpretation Comments Monocytes # (test code 1.3 See_Comment [Aut omated message] The = Monocytes #) system which generated this result tra nsmitted reference range : <=0.8. The reference r robert was not used to int erpret this result as normal/abnormal . [facility] CenterXcqmaypSOCPTATYXB6763-31-49 04:14:00 Test Item Value Reference Range Interpretation Comments Segs (test code = Segs) 70.0 45.0-75.0 [facility] CenterSelnjaxQMDROSOKYH3968-30-03 04:14:00 Test Item Value Reference Range Interpretation Comments Eosinophils # (test code 0.4 See_Comment [A utomated message] The = Eosinophils #) system whic h generated this result tra nsmitted reference range : <=0.5. The reference r robert was not used to int erpret this result as normal/abnormal . [facility] CenterPkdgiguKORNYCQLCI0608-23-59 04:14:00 Test Item Value Reference Range Interpretation Comments Lymphocytes (test code = Lymphocytes) 16.9 20.0-40.0 [facility] CenterEdyzrhdWPKGJNXMOA0945-00-51 04:14:00 Test Item Value Reference Range Interpretation Comments Basophils # (test code 0.1 See_Comment [Aut omated message] The = Basophils #) system which generated this result tra nsmitted reference range : <=0.2. The reference r robert was not used to int erpret this result as normal/abnormal . [facility] CenterDpqbuvnRSGABAVXUO9003-69-95 04:14:00 Test Item Value Reference Range Interpretation Comments Monocytes (test code = Monocytes) 9.6 2.0-12.0 [facility] CenterJiqcsyxPNDAUQEBYR9420-07-10 04:14:00 Test Item Value Reference Range Interpretation Comments Eosinophils (test code = 3.1 See_Comment [A utomated message] The Eosinophils) system which ge nerated this result tra nsmitted reference range : <=4.0. The reference r robert was not used to int erpret this result as normal/abnormal . [facility] CenterTialfnsZQXLYMKPFP4346-97-25 04:14:00 Test Item Value Reference Range Interpretation Comments Basophils (test code = 0.4 See_Comment [Aut omated message] The Basophils) system which ge nerated this result tra nsmitted reference range : <=1.0. The reference r robert was not used to int erpret this result as normal/abnormal . [place] 969801-06-13 04:14:00 Test Item Value Reference Range Interpretation Comments Neutrophils # (test code = Neutrophils 9.5 1.5-8.1 #) [facility] CenterNwoqftuKGAPVCNDCP7205-86-37 04:14:00 Test Item Value Reference Range Interpretation Comments Lymphocytes # (test code = Lymphocytes 2.3 1.0-5.5 #) [facility] CenterIfteuuyCYZKCKLMTG2934-29-52 04:14:00 Test Item Value Reference Range Interpretation Comments Monocytes # (test code 1.3 See_Comment [Aut omated message] The = Monocytes #) system which generated this result tra nsmitted reference range : <=0.8. The reference r robert was not used to int erpret this result as normal/abnormal . [facility] CenterJmfjehrJKNTOPBVDB8253-40-53 04:14:00 Test Item Value Reference Range Interpretation Comments Eosinophils # (test code 0.4 See_Comment [A utomated message] The = Eosinophils #) system whic h generated this result tra nsmitted reference range : <=0.5. The reference r robert was not used to int erpret this result as normal/abnormal . [facility] CenterKurnniwUGYGOSLNJD2152-02-09 04:14:00 Test Item Value Reference Range Interpretation Comments Basophils # (test code 0.1 See_Comment [Aut omated message] The = Basophils #) system which generated this result tra nsmitted reference range : <=0.2. The reference r robert was not used to int erpret this result as normal/abnormal . [facility] GOUSPDI8474-67-76 04:14:00 Test Item Value Reference Range Interpretation Comments Total CK (test code = Total CK) 72 12-191 [facility] CenterStory of My Life YTQYBJQ7497-46-18 04:14:00 Test Item Value Reference Range Interpretation Comments Troponin-I (test code no gt See_Comment [Auto mated message] The = Troponin-I) system which g enerated this result transmit sofiya reference range : <=0.40. The reference r robert was not used to interpr et this result as simone l/abnormal. [facility] DentonQubellIGPGB2354-01-07 04:14:00 Test Item Value Reference Range Interpretation Comments Glucose Lvl (test code = Glucose Lvl) 92 70-99 [facility] DentonQubellMLOIB3198-41-16 04:14:00 Test Item Value Reference Range Interpretation Comments BUN (test code = BUN) 28 7- [facility] [employer] [id number] 04:14:00 Test Item Value Reference Range Interpretation Comments Creatinine Lvl (test code = Creatinine 1.70 0.50-1.40 Lvl) [facility] [employer] [id number] 04:14:00 Test Item Value Reference Range Interpretation Comments Sodium Lvl (test code = Sodium Lvl) 142 135-145 [facility] [employer] [id number] 04:14:00 Test Item Value Reference Range Interpretation Comments Potassium Lvl (test code = Potassium 3.6 3.5-5.1 Lvl) [facility] [employer] [id number] 04:14:00 Test Item Value Reference Range Interpretation Comments Chloride Lvl (test code = Chloride Lvl) 106 95-109 [facility] [employer] [id number] 04:14:00 Test Item Value Reference Range Interpretation Comments Total CK (test code = Total CK) 72 12-191 [facility] [employer] [id number] 04:14:00 Test Item Value Reference Range Interpretation Comments CO2 (test code = CO2) 31 24-32 [facility] [employer] [id number] 04:14:00 Test Item Value Reference Range Interpretation Comments Troponin-I (test code no gt See_Comment [Auto mated message] The = Troponin-I) system which g enerated this result transmit sofiya reference range : <=0.40. The reference r robret was not used to interpr et this result as simone l/abnormal. [facility] [employer]2021-06-13 04:14:00 Test Item Value Reference Range Interpretation Comments Calcium Lvl (test code = Calcium Lvl) 9.3 8.5-10.5 [facility] [employer] [id number] 04:14:00 Test Item Value Reference Range Interpretation Comments Glucose Lvl (test code = Glucose Lvl) 92 70-99 [facility] [employer] [id number] 04:14:00 Test Item Value Reference Range Interpretation Comments Total Protein (test code = Total 7.6 6.4-8.4 Protein) [facility] [employer]2021-06-13 04:14:00 Test Item Value Reference Range Interpretation Comments BUN (test code = BUN) 28 7-22 [facility]entonDanf[facility] [employer] [id number] 04:14:00 Test Item Value Reference Range Interpretation Comments Albumin Lvl (test code = Albumin Lvl) 3.9 3.5-5.0 [facility]enton[facility] [employer] [id number] 04:14:00 Test Item Value Reference Range Interpretation Comments Creatinine Lvl (test code = Creatinine 1.70 0.50-1.40 Lvl) [place] 221161-06-13 04:14:00 Test Item Value Reference Range Interpretation Comments ALANINE AMINOTRANSFERASE 27 See_Comment [A utomated message] (test code = ALANINE The sys tem which AMINOTRANSFERASE) generated this result transmitted ref erence range: <=65. Th e reference range was not used to int erpret this result as normal/abnormal . [facility]entonDanf[facility] [employer] [id number] 04:14:00 Test Item Value Reference Range Interpretation Comments Sodium Lvl (test code = Sodium Lvl) 142 135-145 [facility]entonDan[facility] [employer] [id number] 04:14:00 Test Item Value Reference Range Interpretation Comments ASPARTATE TRANSAMINASE 10 See_Comment [Aut omated message] (test code = ASPARTATE The s ystem which TRANSAMINASE) generated this result transmitted ref erence range: <=37. Th e reference range was not used to interpr et this result as normal/abnormal . [facility]enton[facility] [employer] [id number] 04:14:00 Test Item Value Reference Range Interpretation Comments Potassium Lvl (test code = Potassium 3.6 3.5-5.1 Lvl) [facility] [employer] [id number] 04:14:00 Test Item Value Reference Range Interpretation Comments Alk Phos (test code = Alk Phos) 123 39-136 [facility]entonDan[facility] [employer] [id number] 04:14:00 Test Item Value Reference Range Interpretation Comments Chloride Lvl (test code = Chloride Lvl) 106 95-109 [facility] [employer] [id number] 04:14:00 Test Item Value Reference Range Interpretation Comments Bili Total (test code = Bili Total) 0.4 0.2-1.3 [facility] [employer] [id number] 04:14:00 Test Item Value Reference Range Interpretation Comments CO2 (test code = CO2) 31 24-32 [facility] [employer] [id number] 04:14:00 Test Item Value Reference Range Interpretation Comments AGAP (test code = AGAP) 8.6 10.0-20.0 [place] 221161-06-13 04:14:00 Test Item Value Reference Range Interpretation Comments Calcium Lvl (test code = Calcium Lvl) 9.3 8.5-10.5 [place] 221161-06-13 04:14:00 Test Item Value Reference Range Interpretation Comments B/C Ratio (test code = B/C Ratio) 16 1 6-25 [place] 221161-06-13 04:14:00 Test Item Value Reference Range Interpretation Comments Total Protein (test code = Total 7.6 6.4-8.4 Protein) [place] 221161-06-13 04:14:00 Test Item Value Reference Range Interpretation Comments Globulin (test code = Globulin) 3.7 2.7-4.2 [place] 221161-06-13 04:14:00 Test Item Value Reference Range Interpretation Comments Albumin Lvl (test code = Albumin Lvl) 3.9 3.5-5.0 [place] 221161-06-13 04:14:00 Test Item Value Reference Range Interpretation Comments A/G Ratio (test code = A/G Ratio) 1.1 1 0.7-1.6 [place] 221161-06-13 04:14:00 Test Item Value Reference Range Interpretation Comments ALANINE AMINOTRANSFERASE 27 See_Comment [A utomated message] (test code = ALANINE The sys tem which AMINOTRANSFERASE) generated this result transmitted ref erence range: <=65. Th e reference range was not used to int erpret this result as normal/abnormal . [facility]2021-06-13 04:14:00 Test Item Value Reference Range Interpretation Comments eGFR (test code = eGFR) 47 [place] 221161-06-13 04:14:00 Test Item Value Reference Range Interpretation Comments ASPARTATE TRANSAMINASE 10 See_Comment [Aut omated message] (test code = ASPARTATE The s ystem which TRANSAMINASE) generated this result transmitted ref erence range: <=37. Th e reference range was not used to interpr et this result as normal/abnormal . [facility] CenterMcfeclxETMVBIVIPR1612-81-40 04:14:00 Test Item Value Reference Range Interpretation Comments WBC X 10x3 (test code = WBC X 10x3) 13.6 3.7-10.4 [place] 221161-06-13 04:14:00 Test Item Value Reference Range Interpretation Comments Alk Phos (test code = Alk Phos) 123 39-136 [place] 969801-06-13 04:14:00 Test Item Value Reference Range Interpretation Comments RBC X 10x6 (test code = RBC X 10x6) 4.77 4.70-6.10 [place] 221161-06-13 04:14:00 Test Item Value Reference Range Interpretation Comments Bili Total (test code = Bili Total) 0.4 0.2-1.3 [place] 969801-06-13 04:14:00 Test Item Value Reference Range Interpretation Comments Hgb (test code = Hgb) 15.1 14.0-18.0 [place] 221161-06-13 04:14:00 Test Item Value Reference Range Interpretation Comments AGAP (test code = AGAP) 8.6 10.0-20.0 [place] 969801-06-13 04:14:00 Test Item Value Reference Range Interpretation Comments Hct (test code = Hct) 44.2 42.0-54.0 [facility]2021-06-13 04:14:00 Test Item Value Reference Range Interpretation Comments B/C Ratio (test code = B/C Ratio) 16 1 6-25 [place] 969801-06-13 04:14:00 Test Item Value Reference Range Interpretation Comments MCV (test code = MCV) 92.5 80.0-94.0 [place] 221161-06-13 04:14:00 Test Item Value Reference Range Interpretation Comments Globulin (test code = Globulin) 3.7 2.7-4.2 [place] 969801-06-13 04:14:00 Test Item Value Reference Range Interpretation Comments MCH (test code = MCH) 31.6 pg 27.0-31.0 [place] 221161-06-13 04:14:00 Test Item Value Reference Range Interpretation Comments A/G Ratio (test code = A/G Ratio) 1.1 1 0.7-1.6 [place] 969801-06-13 04:14:00 Test Item Value Reference Range Interpretation Comments MCHC (test code = MCHC) 34.2 32.0-36.0 [facility]2021-06-13 04:14:00 Test Item Value Reference Range Interpretation Comments eGFR (test code = eGFR) 47 [facility] CenterObqnazqPRJTZXLRKY6701-37-16 04:14:00 Test Item Value Reference Range Interpretation Comments RDW (test code = RDW) 12.6 11.5-14.5 [place] 969801-06-13 04:14:00 Test Item Value Reference Range Interpretation Comments WBC X 10x3 (test code = WBC X 10x3) 13.6 3.7-10.4 [place] 969801-06-13 04:14:00 Test Item Value Reference Range Interpretation Comments Platelet (test code = Platelet) 505 133-450 [place] 969801-06-13 04:14:00 Test Item Value Reference Range Interpretation Comments RBC X 10x6 (test code = RBC X 10x6) 4.77 4.70-6.10 [place] 969801-06-13 04:14:00 Test Item Value Reference Range Interpretation Comments MPV (test code = MPV) 7.4 7.4-10.4 [place] 969801-06-13 04:14:00 Test Item Value Reference Range Interpretation Comments Hgb (test code = Hgb) 15.1 14.0-18.0 [place] 969801-06-13 04:14:00 Test Item Value Reference Range Interpretation Comments Segs (test code = Segs) 70.0 45.0-75.0 [place] 969801-06-13 04:14:00 Test Item Value Reference Range Interpretation Comments Hct (test code = Hct) 44.2 42.0-54.0 [place] [address]-06-13 04:14:00 Test Item Value Reference Range Interpretation Comments Lymphocytes (test code = Lymphocytes) 16.9 20.0-40.0 [place] 969801-06-13 04:14:00 Test Item Value Reference Range Interpretation Comments MCV (test code = MCV) 92.5 80.0-94.0 [place] 969801-06-13 04:14:00 Test Item Value Reference Range Interpretation Comments Monocytes (test code = Monocytes) 9.6 2.0-12.0 [facility] CenterSuzsydbVUKAGHPIRM7276-78-74 04:14:00 Test Item Value Reference Range Interpretation Comments MCH (test code = MCH) 31.6 pg 27.0-31.0 [facility] CenterAhhycnrZMSPNFSZUT5258-56-08 04:14:00 Test Item Value Reference Range Interpretation Comments Eosinophils (test code = 3.1 See_Comment [A utomated message] The Eosinophils) system which ge nerated this result tra nsmitted reference range : <=4.0. The reference r robert was not used to int erpret this result as normal/abnormal . [facility] CenterAppephsHOYEBPHTGW6045-19-48 04:14:00 Test Item Value Reference Range Interpretation Comments MCHC (test code = MCHC) 34.2 32.0-36.0 [facility] CenterFtyznlfSIEBLTQOZY3017-82-44 04:14:00 Test Item Value Reference Range Interpretation Comments Basophils (test code = 0.4 See_Comment [Aut omated message] The Basophils) system which ge nerated this result tra nsmitted reference range : <=1.0. The reference r robert was not used to int erpret this result as normal/abnormal . [facility] CenterXqyyimwKNICKSFHVY8079-19-15 04:14:00 Test Item Value Reference Range Interpretation Comments RDW (test code = RDW) 12.6 11.5-14.5 [facility]2020-05-09 22:40:00 Test Item Value Reference Range Interpretation Comments Glucose Lvl (test code = Glucose Lvl) 112 70-99 [facility]2020-05-09 22:40:00 Test Item Value Reference Range Interpretation Comments BUN (test code = BUN) 22 7-22 [place] 221160-05-09 22:40:00 Test Item Value Reference Range Interpretation Comments Creatinine Lvl (test code = Creatinine 1.20 0.50-1.40 Lvl) [facility]2020-05-09 22:40:00 Test Item Value Reference Range Interpretation Comments Sodium Lvl (test code = Sodium Lvl) 138 135-145 [place] 221160-05-09 22:40:00 Test Item Value Reference Range Interpretation Comments Potassium Lvl (test code = Potassium 4.1 3.5-5.1 Lvl) [place] 221160-05-09 22:40:00 Test Item Value Reference Range Interpretation Comments Chloride Lvl (test code = Chloride Lvl) 105 95-109 [place] [address]-05-09 22:40:00 Test Item Value Reference Range Interpretation Comments CO2 (test code = CO2) 27 24-32 [place] [address]-05-09 22:40:00 Test Item Value Reference Range Interpretation Comments Calcium Lvl (test code = Calcium Lvl) 8.6 8.5-10.5 [place] 221160-05-09 22:40:00 Test Item Value Reference Range Interpretation Comments Total Protein (test code = Total 7.6 6.4-8.4 Protein) [place] 221160-05-09 22:40:00 Test Item Value Reference Range Interpretation Comments Glucose Lvl (test code = Glucose Lvl) 112 70-99 [place] 221160-05-09 22:40:00 Test Item Value Reference Range Interpretation Comments Albumin Lvl (test code = Albumin Lvl) 3.9 3.5-5.0 [place] 221160-05-09 22:40:00 Test Item Value Reference Range Interpretation Comments BUN (test code = BUN) 22 7-22 [place] 221160-05-09 22:40:00 Test Item Value Reference Range Interpretation Comments ALANINE AMINOTRANSFERASE 33 See_Comment [A utomated message] (test code = ALANINE The sys tem which AMINOTRANSFERASE) generated this result transmitted ref erence range: <=65. Th e reference range was not used to int erpret this result as normal/abnormal . [place] 221160-05-09 22:40:00 Test Item Value Reference Range Interpretation Comments Creatinine Lvl (test code = Creatinine 1.20 0.50-1.40 Lvl) [place] 221160-05-09 22:40:00 Test Item Value Reference Range Interpretation Comments ASPARTATE TRANSAMINASE 17 See_Comment [Aut omated message] (test code = ASPARTATE The s ystem which TRANSAMINASE) generated this result transmitted ref erence range: <=37. Th e reference range was not used to interpr et this result as normal/abnormal . [place] 221160-05-09 22:40:00 Test Item Value Reference Range Interpretation Comments Sodium Lvl (test code = Sodium Lvl) 138 135-145 [facility]entonCOMMUNICATIONS INFRASTRUCTURE INVESTMENTSFORMERLY [facility] HE[facility] [id number] 22:40:00 Test Item Value Reference Range Interpretation Comments Alk Phos (test code = Alk Phos) 110 39-136 [facility]2020-05-09 22:40:00 Test Item Value Reference Range Interpretation Comments Potassium Lvl (test code = Potassium 4.1 3.5-5.1 Lvl) [facility]2020-05-09 22:40:00 Test Item Value Reference Range Interpretation Comments Bili Total (test code = Bili Total) 0.5 0.2-1.3 [facility]entonCOMMUNICATIONS INFRASTRUCTURE INVESTMENTSSAMANTHA [place] [id number] 22:40:00 Test Item Value Reference Range Interpretation Comments Chloride Lvl (test code = Chloride Lvl) 105 95-109 [facility]2020-05-09 22:40:00 Test Item Value Reference Range Interpretation Comments AGAP (test code = AGAP) 10.1 10.0-20.0 [facility]2020-05-09 22:40:00 Test Item Value Reference Range Interpretation Comments CO2 (test code = CO2) 27 24-32 [facility]2020-05-09 22:40:00 Test Item Value Reference Range Interpretation Comments B/C Ratio (test code = B/C Ratio) 18 1 6-25 [place] 221160-05-09 22:40:00 Test Item Value Reference Range Interpretation Comments Calcium Lvl (test code = Calcium Lvl) 8.6 8.5-10.5 [facility]2020-05-09 22:40:00 Test Item Value Reference Range Interpretation Comments Globulin (test code = Globulin) 3.7 2.7-4.2 [place] 221160-05-09 22:40:00 Test Item Value Reference Range Interpretation Comments Total Protein (test code = Total 7.6 6.4-8.4 Protein) [place] 221160-05-09 22:40:00 Test Item Value Reference Range Interpretation Comments A/G Ratio (test code = A/G Ratio) 1.1 1 0.7-1.6 [place] 221160-05-09 22:40:00 Test Item Value Reference Range Interpretation Comments Albumin Lvl (test code = Albumin Lvl) 3.9 3.5-5.0 [facility]2020-05-09 22:40:00 Test Item Value Reference Range Interpretation Comments eGFR (test code = eGFR) 72 [facility]2020-05-09 22:40:00 Test Item Value Reference Range Interpretation Comments ALANINE AMINOTRANSFERASE 33 See_Comment [A utomated message] (test code = ALANINE The sys tem which AMINOTRANSFERASE) generated this result transmitted ref erence range: <=65. Th e reference range was not used to int erpret this result as normal/abnormal . [facility] CenterGtwtgasUMKLPSJCIQ1466-03-78 22:40:00 Test Item Value Reference Range Interpretation Comments WBC X 10x3 (test code = WBC X 10x3) 7.6 3.7-10.4 [facility]2020-05-09 22:40:00 Test Item Value Reference Range Interpretation Comments ASPARTATE TRANSAMINASE 17 See_Comment [Aut omated message] (test code = ASPARTATE The s ystem which TRANSAMINASE) generated this result transmitted ref erence range: <=37. Th e reference range was not used to interpr et this result as normal/abnormal . [facility] CenterWsgeigqFRJGOLODCE5612-97-83 22:40:00 Test Item Value Reference Range Interpretation Comments RBC X 10x6 (test code = RBC X 10x6) 4.93 4.70-6.10 [facility]2020-05-09 22:40:00 Test Item Value Reference Range Interpretation Comments Alk Phos (test code = Alk Phos) 110 39-136 [facility] CenterLiihdboIVUEVQXUEM9607-13-69 22:40:00 Test Item Value Reference Range Interpretation Comments Hgb (test code = Hgb) 15.8 14.0-18.0 [place] 221160-05-09 22:40:00 Test Item Value Reference Range Interpretation Comments Bili Total (test code = Bili Total) 0.5 0.2-1.3 [place] [address]-05-09 22:40:00 Test Item Value Reference Range Interpretation Comments Hct (test code = Hct) 45.5 42.0-54.0 [facility]2020-05-09 22:40:00 Test Item Value Reference Range Interpretation Comments AGAP (test code = AGAP) 10.1 10.0-20.0 [place] [address]-05-09 22:40:00 Test Item Value Reference Range Interpretation Comments MCV (test code = MCV) 92.4 80.0-94.0 [facility]2020-05-09 22:40:00 Test Item Value Reference Range Interpretation Comments B/C Ratio (test code = B/C Ratio) 18 1 6-25 [facility] CenterYugunbjIYCYGSFBGB6367-07-45 22:40:00 Test Item Value Reference Range Interpretation Comments MCH (test code = MCH) 32.1 pg 27.0-31.0 [facility]2020-05-09 22:40:00 Test Item Value Reference Range Interpretation Comments Globulin (test code = Globulin) 3.7 2.7-4.2 [place] [address]-05-09 22:40:00 Test Item Value Reference Range Interpretation Comments MCHC (test code = MCHC) 34.8 32.0-36.0 [facility]2020-05-09 22:40:00 Test Item Value Reference Range Interpretation Comments A/G Ratio (test code = A/G Ratio) 1.1 1 0.7-1.6 [place] [address]-05-09 22:40:00 Test Item Value Reference Range Interpretation Comments RDW (test code = RDW) 12.8 11.5-14.5 [facility]2020-05-09 22:40:00 Test Item Value Reference Range Interpretation Comments eGFR (test code = eGFR) 72 [facility] CenterThostkaPZFAEWQSJB7050-34-63 22:40:00 Test Item Value Reference Range Interpretation Comments Platelet (test code = Platelet) 372 133-450 [place] 969800-05-09 22:40:00 Test Item Value Reference Range Interpretation Comments WBC X 10x3 (test code = WBC X 10x3) 7.6 3.7-10.4 [place] 969800-05-09 22:40:00 Test Item Value Reference Range Interpretation Comments MPV (test code = MPV) 6.9 7.4-10.4 [place] 969800-05-09 22:40:00 Test Item Value Reference Range Interpretation Comments RBC X 10x6 (test code = RBC X 10x6) 4.93 4.70-6.10 [place] [address]-05-09 22:40:00 Test Item Value Reference Range Interpretation Comments PROTIME (test code = PROTIME) 13.9 s 12.0-14.7 [facility] CenterElaitwpFSBMGMWUOJ1880-34-00 22:40:00 Test Item Value Reference Range Interpretation Comments Hgb (test code = Hgb) 15.8 14.0-18.0 [facility] CenterEtmsfpwJHILTECMLA6715-88-02 22:40:00 Test Item Value Reference Range Interpretation Comments INR (test code = INR) 1.07 1 0.85-1.17 [facility] CenterNwkdeizENNPXAJBBR0945-95-83 22:40:00 Test Item Value Reference Range Interpretation Comments Hct (test code = Hct) 45.5 42.0-54.0 [facility] CenterAgikedfNDWEJZEVCY4765-10-94 22:40:00 Test Item Value Reference Range Interpretation Comments aPTT (test code = aPTT) 31.8 s 22.9-35.8 [facility] CenterWmyalguDUVFUNXVBT2275-69-06 22:40:00 Test Item Value Reference Range Interpretation Comments MCV (test code = MCV) 92.4 80.0-94.0 [facility] CenterFvyapalXDXQSMWXFQ4422-74-79 22:40:00 Test Item Value Reference Range Interpretation Comments Segs (test code = Segs) 69.3 45.0-75.0 [facility] CenterQtffihySRGOUUAOVU3225-11-32 22:40:00 Test Item Value Reference Range Interpretation Comments MCH (test code = MCH) 32.1 pg 27.0-31.0 [facility] CenterCgvxmvzGQIRIMKHSL0878-85-52 22:40:00 Test Item Value Reference Range Interpretation Comments Lymphocytes (test code = Lymphocytes) 18.4 20.0-40.0 [facility] CenterJioqoxyYDFBZDCTBA9637-51-20 22:40:00 Test Item Value Reference Range Interpretation Comments MCHC (test code = MCHC) 34.8 32.0-36.0 [facility] CenterIlzbokbTENMVNIIVR7669-49-66 22:40:00 Test Item Value Reference Range Interpretation Comments Monocytes (test code = Monocytes) 7.9 2.0-12.0 [place] [address]-05-09 22:40:00 Test Item Value Reference Range Interpretation Comments RDW (test code = RDW) 12.8 11.5-14.5 [facility] CenterRrzcpinMNKLZUYJBN8205-15-13 22:40:00 Test Item Value Reference Range Interpretation Comments Eosinophils (test code = 4.1 See_Comment [A utomated message] The Eosinophils) system which ge nerated this result tra nsmitted reference range : <=4.0. The reference r robert was not used to int erpret this result as normal/abnormal . [facility] CenterIuvpzekYURQYLZOXQ0892-74-98 22:40:00 Test Item Value Reference Range Interpretation Comments Basophils (test code = 0.3 See_Comment [Aut omated message] The Basophils) system which ge nerated this result tra nsmitted reference range : <=1.0. The reference r robert was not used to int erpret this result as normal/abnormal . [facility] CenterChsqmoqRNYNBXNBRZ4582-85-98 22:40:00 Test Item Value Reference Range Interpretation Comments Platelet (test code = Platelet) 372 133-450 [place] 969800-05-09 22:40:00 Test Item Value Reference Range Interpretation Comments Neutrophils # (test code = Neutrophils 5.2 1.5-8.1 #) [facility] CenterDssgmooGBXGTJESSC6801-73-17 22:40:00 Test Item Value Reference Range Interpretation Comments MPV (test code = MPV) 6.9 7.4-10.4 [facility] CenterPfcuxvpILBXKYWASG3660-17-61 22:40:00 Test Item Value Reference Range Interpretation Comments Lymphocytes # (test code = Lymphocytes 1.4 1.0-5.5 #) [facility] CenterEzhazgmXZADKPZDTO2045-20-37 22:40:00 Test Item Value Reference Range Interpretation Comments PROTIME (test code = PROTIME) 13.9 s 12.0-14.7 [place] 969800-05-09 22:40:00 Test Item Value Reference Range Interpretation Comments Monocytes # (test code 0.6 See_Comment [Aut omated message] The = Monocytes #) system which generated this result tra nsmitted reference range : <=0.8. The reference r robert was not used to int erpret this result as normal/abnormal . [facility] CenterPipbjifGAOONFHDZG9908-40-43 22:40:00 Test Item Value Reference Range Interpretation Comments INR (test code = INR) 1.07 1 0.85-1.17 [facility] CenterRaybadqJENQJNZKTP0401-91-49 22:40:00 Test Item Value Reference Range Interpretation Comments Eosinophils # (test code 0.3 See_Comment [A utomated message] The = Eosinophils #) system [facility] h generated this result tra nsmitted reference range : <=0.5. The reference r robert was not used to int erpret this result as normal/abnormal . [facility] CenterKriujkvECYVOGLTNW2878-72-72 22:40:00 Test Item Value Reference Range Interpretation Comments aPTT (test code = aPTT) 31.8 s 22.9-35.8 [facility] CenterQrbnqlbTKDWALHNWY9698-63-18 22:40:00 Test Item Value Reference Range Interpretation Comments Segs (test code = Segs) 69.3 45.0-75.0 [facility] CenterVcusokkSFYRQKZCHL2253-57-21 22:40:00 Test Item Value Reference Range Interpretation Comments Lymphocytes (test code = Lymphocytes) 18.4 20.0-40.0 [place] 969800-05-09 22:40:00 Test Item Value Reference Range Interpretation Comments Monocytes (test code = Monocytes) 7.9 2.0-12.0 [facility] CenterPudozruCSGMSILXAF2296-63-99 22:40:00 Test Item Value Reference Range Interpretation Comments Eosinophils (test code = 4.1 See_Comment [A utomated message] The Eosinophils) system which ge nerated this result tra nsmitted reference range : <=4.0. The reference r robert was not used to int erpret this result as normal/abnormal . [facility] CenterUxeakqwNMVVIGUPUV1098-33-10 22:40:00 Test Item Value Reference Range Interpretation Comments Basophils (test code = 0.3 See_Comment [Aut omated message] The Basophils) system which ge nerated this result tra nsmitted reference range : <=1.0. The reference r robert was not used to int erpret this result as normal/abnormal . [facility] CenterGnmxzmkCAVFSNQXMW5057-97-73 22:40:00 Test Item Value Reference Range Interpretation Comments Neutrophils # (test code = Neutrophils 5.2 1.5-8.1 #) [facility] CenterIbphfweKLNLDVXAXP5363-49-53 22:40:00 Test Item Value Reference Range Interpretation Comments Lymphocytes # (test code = Lymphocytes 1.4 1.0-5.5 #) [facility] CenterLxvmskzXLGEVUCFTQ5282-66-27 22:40:00 Test Item Value Reference Range Interpretation Comments Monocytes # (test code 0.6 See_Comment [Aut omated message] The = Monocytes #) system which generated this result tra nsmitted reference range : <=0.8. The reference r robert was not used to int erpret this result as normal/abnormal . [facility] CenterDtafqyuKALLHGMTRS0654-76-65 22:40:00 Test Item Value Reference Range Interpretation Comments Eosinophils # (test code 0.3 See_Comment [A utomated message] The = Eosinophils #) system whic h generated this result tra nsmitted reference range : <=0.5. The reference r robert was not used to int erpret this result as normal/abnormal . [facility]- MRI L-SPINE W/O [id number] 16:08:00Patient Name: ROGER TENORIO Unit No: [id number] EXAMS: CPT: [id number] MRI L-SPINE W/O CONT [id number] MRI LUMBAR SPINE WITHOUT CONTRAST TECHNIQUE: Multisequence multiplanar MR imaging of the lumbar spine without contrast COMPARISON:None HISTORY: ro cauda equina FINDINGS: There is grade 1 anterolisthesis at L4-L5 from facet disease. There is disc desiccation with mild loss of disc space from L3 to S1.The bodies are normal in height. There is no fracture. There is no suspicious marrow lesion. The conus terminates at L1 and is unremarkable. Mild bone edema in the posterior elements of L4 and L5 are seen in the left side, likely reactive from the facet arthrosis which is present at those levels. L1-L2: There is anterior bulging disc with diffuse annular tear throughout the disc. There is mild left neural foramen narrowing but the central canal is patent. L2-L3: Canal and foramina are patent L3-L4:Diffuse bulging disc with annular tearing of the disc. There is mild bilateral neural foraminal narrowing but the central canal is patent L4-5: There is diffuse bulging disc, severe facet disease and prominent ligament flavum causing mild to moderate tricompartment spinal stenosis and moderate bilateral neural foraminal narrowing. This is worse in the right side. L5-S1: There is mild bulging disc with annular tear throughout the disc. There is facet disease. There is mild bilateral neural foraminal narrowing, worse in the left. The central canal remains patent. IMPRESSION: 1. Multilevel degenerative disease as detailed above, worst at L4-L5 where there is grade 1 anterolisthesis and mild to moderate canal narrowing 2. Normal conus. No conus compression at 1608 Reported and signed by: Keila Delgado MD Name: ROGER TENORIO [facility] Bernadette Phys: JANUARYMarianaKeila Schmidt MD [address] [facility] : 1970 Age: 48 [facility] [id number] Loc: T.ERS Exam Date: 07/13/2019 Status: PRE ER PH: FAX: PAGE 1 Signed Report (CONTINUED) Patient Name: ROGER TENORIO Unit No: [id number] EXAMS: CPT: [id number] MRI L-SPINE W/O CONT [id number] (Continued) CC: Georgette Gary MD; Keila Florian MD Technologist: Hui Souza Trscr Dt/Tm: 07/13/2019 (1608) by:[email or web address] Orig Print D/T: S: 07/13/2019 (1612) BATCH NO: N/A Name: ROGER TENORIO [facility] Bernadette Phys: JANUARYMarianaKeila Schmidt MD [address] [facility] : 1970 Age: 48 [facility]: [facility] [id number] Loc: T.ERS Exam Date: 07/13/2019 Status: PRE ER PH: FAX: PAGE 2 [facility] [id number] 21:48:00 Test Item Value Reference Range Interpretation Comments UA Color (test code = Yellow *NA*(06/26/19 UA Color) 3:48 PM) [facility] [id number] 21:48:00 Test Item Value Reference Range Interpretation Comments UA Turbidity (test code = Clear (06/26/19 3:48 UA Turbidity) PM) [facility] AND [id number] 21:48:00 Test Item Value Reference Range Interpretation Comments UA Spec Grav (test code = UA Spec 1.015 1 Grav) [facility] AND [id number] 21:48:00 Test Item Value Reference Range Interpretation Comments UA pH (test code = UA pH) 7.5 1 5.0-8.0 [facility] AND [id number] 21:48:00 Test Item Value Reference Range Interpretation Comments UA Protein (test code Negative (06/26/19 3:48 = UA Protein) PM) [facility] AND [id number] 21:48:00 Test Item Value Reference Range Interpretation Comments UA Glucose (test code Negative (06/26/19 3:48 = UA Glucose) PM) [facility] AND [id number] 21:48:00 Test Item Value Reference Range Interpretation Comments UA Ketones (test code Negative *NA*(06/26/19 = UA Ketones) 3:48 PM) [facility] AND [id number] 21:48:00 Test Item Value Reference Range Interpretation Comments UA Bili (test code = Negative *NA*(06/26/19 UA Bili) 3:48 PM) [facility] AND [id number] 21:48:00 Test Item Value Reference Range Interpretation Comments UA Blood (test code = Negative (06/26/19 3:48 UA Blood) PM) [facility] AND [id number] 21:48:00 Test Item Value Reference Range Interpretation Comments UA Urobilinogen (test code = UA 0.2 0.1-1.0 Urobilinogen) [facility] AND [id number] 21:48:00 Test Item Value Reference Range Interpretation Comments UA Color (test code = Yellow *NA*(06/26/19 UA Color) 3:48 PM) [facility] AND [id number] 21:48:00 Test Item Value Reference Range Interpretation Comments UA Nitrite (test code Negative (06/26/19 3:48 = UA Nitrite) PM) [facility] AND [id number] 21:48:00 Test Item Value Reference Range Interpretation Comments UA Turbidity (test code = Clear (06/26/19 3:48 UA Turbidity) PM) [facility] AND [id number] 21:48:00 Test Item Value Reference Range Interpretation Comments UA Leuk Est (test Negative (06/26/19 3:48 code = UA Leuk Est) PM) [facility] AND [id number] 21:48:00 Test Item Value Reference Range Interpretation Comments UA Spec Grav (test code = UA Spec 1.015 1 Grav) [facility] AND [id number] 21:48:00 Test Item Value Reference Range Interpretation Comments UA Sq Epi (test code = UA Sq Epi) Rare /LPF [facility] [id number] 21:48:00 Test Item Value Reference Range Interpretation Comments UA pH (test code = UA pH) 7.5 1 5.0-8.0 [facility] AND [id number] 21:48:00 Test Item Value Reference Range Interpretation Comments UA WBC (test code = UA WBC) 0-2 /HPF [facility] [id number] 21:48:00 Test Item Value Reference Range Interpretation Comments UA Protein (test code Negative (06/26/19 3:48 = UA Protein) PM) [facility] AND [id number] 21:48:00 Test Item Value Reference Range Interpretation Comments UA RBC (test None Seen See_Comment [Automated mes lobo] code = UA RBC) (06/26/19 3:48 The system w hich PM) generated this result transmitted ref erence range: <=2. The reference range was not used to int erpret this result as normal/abnormal . [facility] AND [id number] 21:48:00 Test Item Value Reference Range Interpretation Comments UA Glucose (test code Negative (06/26/19 3:48 = UA Glucose) PM) [facility] AND [id number] 21:48:00 Test Item Value Reference Range Interpretation Comments UA Bacteria (test code = None Seen (06/26/19 UA Bacteria) 3:48 PM) [facility] AND [id number] 21:48:00 Test Item Value Reference Range Interpretation Comments UA Ketones (test code Negative *NA*(06/26/19 = UA Ketones) 3:48 PM) [facility] AND [id number] 21:48:00 Test Item Value Reference Range Interpretation Comments UA Bili (test code = Negative *NA*(06/26/19 UA Bili) 3:48 PM) [facility] AND [id number] 21:48:00 Test Item Value Reference Range Interpretation Comments UA Blood (test code = Negative (06/26/19 3:48 UA Blood) PM) [facility] [id number] 21:48:00 Test Item Value Reference Range Interpretation Comments UA Urobilinogen (test code = UA 0.2 0.1-1.0 Urobilinogen) [facility] AND [id number] 21:48:00 Test Item Value Reference Range Interpretation Comments UA Nitrite (test code Negative (06/26/19 3:48 = UA Nitrite) PM) [facility] AND [id number] 21:48:00 Test Item Value Reference Range Interpretation Comments UA Leuk Est (test Negative (06/26/19 3:48 code = UA Leuk Est) PM) [facility] AND [id number] 21:48:00 Test Item Value Reference Range Interpretation Comments UA Sq Epi (test code = UA Sq Epi) Rare /LPF [facility] AND [id number] 21:48:00 Test Item Value Reference Range Interpretation Comments UA WBC (test code = UA WBC) 0-2 /HPF [facility] AND [id number] 21:48:00 Test Item Value Reference Range Interpretation Comments UA RBC (test None Seen See_Comment [Automated mes lobo] code = UA RBC) (06/26/19 3:48 The system w hich PM) generated this result transmitted ref erence range: <=2. The reference range was not used to int erpret this result as normal/abnormal . [facility] AND [id number] 21:48:00 Test Item Value Reference Range Interpretation Comments UA Bacteria (test code = None Seen (06/26/19 UA Bacteria) 3:48 PM) [facility]2019-11-04 21:10:00 Test Item Value Reference Range Interpretation Comments Glucose Lvl (test code = Glucose Lvl) 98 70-99 [facility]2019-11-04 21:10:00 Test Item Value Reference Range Interpretation Comments BUN (test code = BUN) 26 7-22 [facility]2019-11-04 21:10:00 Test Item Value Reference Range Interpretation Comments Creatinine Lvl (test code = Creatinine 1.20 0.50-1.40 Lvl) [facility]2019-11-04 21:10:00 Test Item Value Reference Range Interpretation Comments Sodium Lvl (test code = Sodium Lvl) 136 135-145 [facility]2019-11-04 21:10:00 Test Item Value Reference Range Interpretation Comments Potassium Lvl (test code = Potassium 3.9 3.5-5.1 Lvl) [facility]2019-11-04 21:10:00 Test Item Value Reference Range Interpretation Comments Chloride Lvl (test code = Chloride Lvl) 100 95-109 [facility]2019-11-04 21:10:00 Test Item Value Reference Range Interpretation Comments CO2 (test code = CO2) 30 24-32 [facility]2019-11-04 21:10:00 Test Item Value Reference Range Interpretation Comments Calcium Lvl (test code = Calcium Lvl) 9.4 8.5-10.5 [facility]2019-11-04 21:10:00 Test Item Value Reference Range Interpretation Comments Total Protein (test code = Total 8.4 6.4-8.4 Protein) [facility]2019-11-04 21:10:00 Test Item Value Reference Range Interpretation Comments Albumin Lvl (test code = Albumin Lvl) 4.3 3.5-5.0 [facility]2019-11-04 21:10:00 Test Item Value Reference Range Interpretation Comments ALANINE AMINOTRANSFERASE 44 See_Comment [A utomated message] (test code = ALANINE The sys tem which AMINOTRANSFERASE) generated this result transmitted ref erence range: <=65. Th e reference range was not used to int erpret this result as normal/abnormal . [facility]2019-11-04 21:10:00 Test Item Value Reference Range Interpretation Comments Glucose Lvl (test code = Glucose Lvl) 98 70-99 [facility]2019-11-04 21:10:00 Test Item Value Reference Range Interpretation Comments ASPARTATE TRANSAMINASE 30 See_Comment [Aut omated message] (test code = ASPARTATE The s ystem which TRANSAMINASE) generated this result transmitted ref erence range: <=37. Th e reference range was not used to interpr et this result as normal/abnormal . [facility]2019-11-04 21:10:00 Test Item Value Reference Range Interpretation Comments BUN (test code = BUN) 26 7-22 [facility]2019-11-04 21:10:00 Test Item Value Reference Range Interpretation Comments Alk Phos (test code = Alk Phos) 128 39-136 [facility]2019-11-04 21:10:00 Test Item Value Reference Range Interpretation Comments Creatinine Lvl (test code = Creatinine 1.20 0.50-1.40 Lvl) [facility]2019-11-04 21:10:00 Test Item Value Reference Range Interpretation Comments Bili Total (test code = Bili Total) 0.5 0.2-1.3 [facility]2019-11-04 21:10:00 Test Item Value Reference Range Interpretation Comments Sodium Lvl (test code = Sodium Lvl) 136 135-145 [facility]2019-11-04 21:10:00 Test Item Value Reference Range Interpretation Comments eGFR (test code = eGFR) 72 [facility]2019-11-04 21:10:00 Test Item Value Reference Range Interpretation Comments Potassium Lvl (test code = Potassium 3.9 3.5-5.1 Lvl) [facility]2019-11-04 21:10:00 Test Item Value Reference Range Interpretation Comments AGAP (test code = AGAP) 9.9 10.0-20.0 [facility]2019-11-04 21:10:00 Test Item Value Reference Range Interpretation Comments Chloride Lvl (test code = Chloride Lvl) 100 95-109 [facility]2019-11-04 21:10:00 Test Item Value Reference Range Interpretation Comments B/C Ratio (test code = B/C Ratio) 22 1 6-25 [facility]2019-11-04 21:10:00 Test Item Value Reference Range Interpretation Comments CO2 (test code = CO2) 30 24-32 [facility]2019-11-04 21:10:00 Test Item Value Reference Range Interpretation Comments Globulin (test code = Globulin) 4.1 2.7-4.2 [facility]2019-11-04 21:10:00 Test Item Value Reference Range Interpretation Comments Calcium Lvl (test code = Calcium Lvl) 9.4 8.5-10.5 [facility]2019-11-04 21:10:00 Test Item Value Reference Range Interpretation Comments A/G Ratio (test code = A/G Ratio) 1.0 1 0.7-1.6 [facility]2019-11-04 21:10:00 Test Item Value Reference Range Interpretation Comments Total Protein (test code = Total 8.4 6.4-8.4 Protein) [id number] 21:10:00 Test Item Value Reference Range Interpretation Comments WBC X 10x3 (test code = WBC X 10x3) 8.3 3.7-10.4 [facility]2019-11-04 21:10:00 Test Item Value Reference Range Interpretation Comments Albumin Lvl (test code = Albumin Lvl) 4.3 3.5-5.0 [facility] CenterEbouddrXNQAQYRPCG8741-04-75 21:10:00 Test Item Value Reference Range Interpretation Comments RBC X 10x6 (test code = RBC X 10x6) 5.03 4.70-6.10 [facility]2019-11-04 21:10:00 Test Item Value Reference Range Interpretation Comments ALANINE AMINOTRANSFERASE 44 See_Comment [A utomated message] (test code = ALANINE The sys tem which AMINOTRANSFERASE) generated this result transmitted ref erence range: <=65. Th e reference range was not used to int erpret this result as normal/abnormal . [facility] [id number] 21:10:00 Test Item Value Reference Range Interpretation Comments Hgb (test code = Hgb) 15.9 14.0-18.0 [facility]2019-11-04 21:10:00 Test Item Value Reference Range Interpretation Comments ASPARTATE TRANSAMINASE 30 See_Comment [Aut omated message] (test code = ASPARTATE The s ystem which TRANSAMINASE) generated this result transmitted ref erence range: <=37. Th e reference range was not used to interpr et this result as normal/abnormal . [facility] CenterFyspjadTKQJSTJDFK6901-91-27 21:10:00 Test Item Value Reference Range Interpretation Comments Hct (test code = Hct) 46.1 42.0-54.0 [facility]2019-11-04 21:10:00 Test Item Value Reference Range Interpretation Comments Alk Phos (test code = Alk Phos) 128 39-136 [facility] CenterGdunnetHCRYTUSXDP0907-65-09 21:10:00 Test Item Value Reference Range Interpretation Comments MCV (test code = MCV) 91.6 80.0-94.0 [facility]2019-11-04 21:10:00 Test Item Value Reference Range Interpretation Comments Bili Total (test code = Bili Total) 0.5 0.2-1.3 [facility] CenterBwodraaIRSLINZNTN1777-34-83 21:10:00 Test Item Value Reference Range Interpretation Comments MCH (test code = MCH) 31.7 pg 27.0-31.0 [facility]2019-11-04 21:10:00 Test Item Value Reference Range Interpretation Comments eGFR (test code = eGFR) 72 [facility] CenterTanoijxQBAEKETMTH4794-53-41 21:10:00 Test Item Value Reference Range Interpretation Comments MCHC (test code = MCHC) 34.6 32.0-36.0 [facility]2019-11-04 21:10:00 Test Item Value Reference Range Interpretation Comments AGAP (test code = AGAP) 9.9 10.0-20.0 [facility] CenterCsenjxvXANGCOBMFQ7901-25-91 21:10:00 Test Item Value Reference Range Interpretation Comments RDW (test code = RDW) 12.7 11.5-14.5 [facility]2019-11-04 21:10:00 Test Item Value Reference Range Interpretation Comments B/C Ratio (test code = B/C Ratio) 22 1 6-25 [facility] CenterHirgixrMGUVCLYELM3192-41-10 21:10:00 Test Item Value Reference Range Interpretation Comments Platelet (test code = Platelet) 460 133-450 [facility]2019-11-04 21:10:00 Test Item Value Reference Range Interpretation Comments Globulin (test code = Globulin) 4.1 2.7-4.2 [facility] CenterUqippnzSMKNGUQTKG0057-35-14 21:10:00 Test Item Value Reference Range Interpretation Comments MPV (test code = MPV) 6.9 7.4-10.4 [facility]2019-11-04 21:10:00 Test Item Value Reference Range Interpretation Comments A/G Ratio (test code = A/G Ratio) 1.0 1 0.7-1.6 [facility] CenterVwrolkuISZEMAIFOO8850-52-67 21:10:00 Test Item Value Reference Range Interpretation Comments Segs (test code = Segs) 62.9 45.0-75.0 [facility] CenterIvtbbqbQJXRVRVTKZ1362-97-84 21:10:00 Test Item Value Reference Range Interpretation Comments WBC X 10x3 (test code = WBC X 10x3) 8.3 3.7-10.4 [facility] CenterEosptpeCXLIIBQVIR0941-91-20 21:10:00 Test Item Value Reference Range Interpretation Comments Lymphocytes (test code = Lymphocytes) 20.4 20.0-40.0 [facility] CenterCywkvaaNPHXGFLYXD1844-57-25 21:10:00 Test Item Value Reference Range Interpretation Comments RBC X 10x6 (test code = RBC X 10x6) 5.03 4.70-6.10 [facility] CenterRnwkgslOXTEMNRSOK8266-74-11 21:10:00 Test Item Value Reference Range Interpretation Comments Monocytes (test code = Monocytes) 8.2 2.0-12.0 [facility] CenterJsgteoaTBZDNLXHPY3475-33-53 21:10:00 Test Item Value Reference Range Interpretation Comments Hgb (test code = Hgb) 15.9 14.0-18.0 [facility] CenterVnfevchFOZAPQLCHJ1093-92-07 21:10:00 Test Item Value Reference Range Interpretation Comments Eosinophils (test code = 7.7 See_Comment [A utomated message] The Eosinophils) system which ge nerated this result tra nsmitted reference range : <=4.0. The reference r robert was not used to int erpret this result as normal/abnormal . [facility] CenterIrkmwcwFENSSHWIJP8721-35-02 21:10:00 Test Item Value Reference Range Interpretation Comments Hct (test code = Hct) 46.1 42.0-54.0 [facility] CenterPtcudmcJCRGKTHFGO2061-30-56 21:10:00 Test Item Value Reference Range Interpretation Comments Basophils (test code = 0.8 See_Comment [Aut omated message] The Basophils) system which ge nerated this result tra nsmitted reference range : <=1.0. The reference r robert was not used to int erpret this result as normal/abnormal . [facility] CenterMxjbzclVDYZAVELZD5932-18-59 21:10:00 Test Item Value Reference Range Interpretation Comments MCV (test code = MCV) 91.6 80.0-94.0 [facility] CenterIdkqtbpGGULMSOBYL9149-85-09 21:10:00 Test Item Value Reference Range Interpretation Comments Neutrophils # (test code = Neutrophils 5.2 1.5-8.1 #) [facility] CenterIfyluvwCMLJPUCWHK6396-23-64 21:10:00 Test Item Value Reference Range Interpretation Comments MCH (test code = MCH) 31.7 pg 27.0-31.0 [facility] CenterYealprvERWREEQSHQ1456-69-86 21:10:00 Test Item Value Reference Range Interpretation Comments Lymphocytes # (test code = Lymphocytes 1.7 1.0-5.5 #) [facility] CenterQshlgosNZIECNFMKS2655-33-75 21:10:00 Test Item Value Reference Range Interpretation Comments MCHC (test code = MCHC) 34.6 32.0-36.0 [facility] CenterHelslqcXGGLBYPZYN6242-12-29 21:10:00 Test Item Value Reference Range Interpretation Comments Monocytes # (test code 0.7 See_Comment [Aut omated message] The = Monocytes #) system which generated this result tra nsmitted reference range : <=0.8. The reference r robert was not used to int erpret this result as normal/abnormal . [facility] CenterZagpbggJOTHLKQAXQ6109-92-24 21:10:00 Test Item Value Reference Range Interpretation Comments RDW (test code = RDW) 12.7 11.5-14.5 [facility] CenterTdossrdEVSUNHIVUY3603-47-74 21:10:00 Test Item Value Reference Range Interpretation Comments Eosinophils # (test code 0.6 See_Comment [A utomated message] The = Eosinophils #) system whic h generated this result tra nsmitted reference range : <=0.5. The reference r robert was not used to int erpret this result as normal/abnormal . [facility] CenterFztvuccVFJBFEWLJT5272-21-73 21:10:00 Test Item Value Reference Range Interpretation Comments Platelet (test code = Platelet) 460 133-450 [facility] CenterIbsevmuPGDUSCWWRD9655-50-25 21:10:00 Test Item Value Reference Range Interpretation Comments Basophils # (test code 0.1 See_Comment [Aut omated message] The = Basophils #) system which generated this result tra nsmitted reference range : <=0.2. The reference r robert was not used to int erpret this result as normal/abnormal . [facility] CenterWdtlzgjASVBQOMLIJ8148-84-23 21:10:00 Test Item Value Reference Range Interpretation Comments MPV (test code = MPV) 6.9 7.4-10.4 [facility] CenterOmjdvewUEKETCVJZG7142-81-02 21:10:00 Test Item Value Reference Range Interpretation Comments Segs (test code = Segs) 62.9 45.0-75.0 [facility] CenterSbdpvohVZULUMJFPD3703-50-20 21:10:00 Test Item Value Reference Range Interpretation Comments Lymphocytes (test code = Lymphocytes) 20.4 20.0-40.0 [facility] CenterQykssfvNPZPEZZDFZ6962-80-57 21:10:00 Test Item Value Reference Range Interpretation Comments Monocytes (test code = Monocytes) 8.2 2.0-12.0 [facility] CenterJcylcacXFXOMFZFRH0737-05-58 21:10:00 Test Item Value Reference Range Interpretation Comments Eosinophils (test code = 7.7 See_Comment [A utomated message] The Eosinophils) system which ge nerated this result tra nsmitted reference range : <=4.0. The reference r robert was not used to int erpret this result as normal/abnormal . [facility] CenterQaowtebMHJBTSMUIT0394-85-08 21:10:00 Test Item Value Reference Range Interpretation Comments Basophils (test code = 0.8 See_Comment [Aut omated message] The Basophils) system which ge nerated this result tra nsmitted reference range : <=1.0. The reference r robert was not used to int erpret this result as normal/abnormal . [facility] CenterOrdxcolVVPUWSEYLQ9214-88-00 21:10:00 Test Item Value Reference Range Interpretation Comments Neutrophils # (test code = Neutrophils 5.2 1.5-8.1 #) [facility] CenterFtuuayiWOKHFWRCKD2841-47-63 21:10:00 Test Item Value Reference Range Interpretation Comments Lymphocytes # (test code = Lymphocytes 1.7 1.0-5.5 #) [facility] CenterLeiqjjjZNOJPTFPNK2822-32-70 21:10:00 Test Item Value Reference Range Interpretation Comments Monocytes # (test code 0.7 See_Comment [Aut omated message] The = Monocytes #) system which generated this result tra nsmitted reference range : <=0.8. The reference r robert was not used to int erpret this result as normal/abnormal . [facility] CenterIjzosgqQCRHSVTULV1657-27-43 21:10:00 Test Item Value Reference Range Interpretation Comments Eosinophils # (test code 0.6 See_Comment [A utomated message] The = Eosinophils #) system whic h generated this result tra nsmitted reference range : <=0.5. The reference r robert was not used to int erpret this result as normal/abnormal . [facility] CenterAztqnbeCPBBHZQBKP2652-65-99 21:10:00 Test Item Value Reference Range Interpretation Comments Basophils # (test code 0.1 See_Comment [Aut omated message] The = Basophils #) system which generated this result tra nsmitted reference range : <=0.2. The reference r robert was not used to int erpret this result as normal/abnormal . [facility] Wrist Complete 3+ Views Uqdea2849-56-59 10:41:05Patient: ROGER TENORIO Date/Time01/17/2019 10:27 CDTReason for ExamSwellingReportEXAM: XR WRIST 3 VIEWS, RIGHTINDICATION: SwellingCOMPARISON: None availableTECHNIQUE: AP, lateral and oblique views of the right wrist.FINDINGS:No acute fracture or dislocation is identified. No osseous lesions. The joint spaces are maintained. No soft tissue abnormality is identified.IMPRESSION:No acute osseous abnormality of the right wrist.LOCATION: R16 Final Dictated by: MD Robins Melanie CDictated DT/TM: 01/17/2019 10:40 amSigned by: MD Robins Melanie CSigned (Electronic Signature): 01/17/2019 10:41 amDRUG [id number] 06:54:00 Test Item Value Reference Range Interpretation Comments UDS Note (test code = See Note (11/05/18 1:54 UDS Note) AM) [facility] [id number] 06:54:00 Test Item Value Reference Range Interpretation Comments U Phencyclidine Scr (test Negative code = U Phencyclidine *NA*(11/05/18 1:54 Scr) AM) [facility] [id number] 06:54:00 Test Item Value Reference Range Interpretation Comments U Cocaine Scr (test Negative *NA*(11/05/18 code = U Cocaine Scr) 1:54 AM) [facility] [id number] 06:54:00 Test Item Value Reference Range Interpretation Comments U Benzodiaz Scr (test Negative *NA*(11/05/18 code = U Benzodiaz Scr) 1:54 AM) [facility] [id number] 06:54:00 Test Item Value Reference Range Interpretation Comments U Opiate Scr (test Negative *NA*(11/05/18 code = U Opiate Scr) 1:54 AM) [facility] MAHBXZ0520-00-09 06:54:00 Test Item Value Reference Range Interpretation Comments U Cannab Scr (test Negative *NA*(11/05/18 code = U Cannab Scr) 1:54 AM) [facility] [id number] 06:54:00 Test Item Value Reference Range Interpretation Comments U Graciela Scr (test code Negative *NA*(11/05/18 = U Graciela Scr) 1:54 AM) [facility] [id number] 06:54:00 Test Item Value Reference Range Interpretation Comments U Amph Scr (test code Positive *ABN*(11/05/18 = U Amph Scr) 1:54 AM) [facility] [id number] 06:54:00 Test Item Value Reference Range Interpretation Comments UDS Note (test code = See Note (11/05/18 1:54 UDS Note) AM) [facility] [id number] 06:54:00 Test Item Value Reference Range Interpretation Comments U Phencyclidine Scr (test Negative code = U Phencyclidine *NA*(11/05/18 1:54 Scr) AM) [facility] [id number] 06:54:00 Test Item Value Reference Range Interpretation Comments U Cocaine Scr (test Negative *NA*(11/05/18 code = U Cocaine Scr) 1:54 AM) [facility] [id number] 06:54:00 Test Item Value Reference Range Interpretation Comments U Benzodiaz Scr (test Negative *NA*(11/05/18 code = U Benzodiaz Scr) 1:54 AM) [facility] [id number] 06:54:00 Test Item Value Reference Range Interpretation Comments U Opiate Scr (test Negative *NA*(11/05/18 code = U Opiate Scr) 1:54 AM) [facility] [id number] 06:54:00 Test Item Value Reference Range Interpretation Comments U Cannab Scr (test Negative *NA*(11/05/18 code = U Cannab Scr) 1:54 AM) [facility] [id number] 06:54:00 Test Item Value Reference Range Interpretation Comments U Graciela Scr (test code Negative *NA*(11/05/18 = U Graciela Scr) 1:54 AM) [facility] [id number] 06:54:00 Test Item Value Reference Range Interpretation Comments U Amph Scr (test code Positive *ABN*(11/05/18 = U Amph Scr) 1:54 AM) [facility] [id number] 04:41:00 Test Item Value Reference Range Interpretation Comments BNP (test code = BNP) 3 [facility] [id number] 04:41:00 Test Item Value Reference Range Interpretation Comments Troponin-I (test code no gt See_Comment [Auto mated message] The = Troponin-I) system which g enerated this result transmit sofiya reference range : <=0.40. The reference r robert was not used to interpr et this result as simone l/abnormal. [facility] [id number] 04:41:00 Test Item Value Reference Range Interpretation Comments Total CK (test code = Total CK) 150 12-191 [facility] [id number] 04:41:00 Test Item Value Reference Range Interpretation Comments Globulin (test code = Globulin) 3.6 2.7-4.2 [facility] [id number] 04:41:00 Test Item Value Reference Range Interpretation Comments B/C Ratio (test code = B/C Ratio) 12 1 6-25 [facility] [id number] 04:41:00 Test Item Value Reference Range Interpretation Comments A/G Ratio (test code = A/G Ratio) 1.1 1 0.7-1.6 [facility] [id number] 04:41:00 Test Item Value Reference Range Interpretation Comments AGAP (test code = AGAP) 9.9 10.0-20.0 [facility] [id number] 04:41:00 Test Item Value Reference Range Interpretation Comments eGFR (test code = eGFR) 73 [facility] [id number] 04:41:00 Test Item Value Reference Range Interpretation Comments Alk Phos (test code = Alk Phos) 117 39-136 [facility] [id number] 04:41:00 Test Item Value Reference Range Interpretation Comments Bili Total (test code = Bili Total) 0.6 0.2-1.3 [facility]2019-03-16 04:41:00 Test Item Value Reference Range Interpretation Comments CO2 (test code = CO2) 29 24-32 [facility]2019-03-16 04:41:00 Test Item Value Reference Range Interpretation Comments Chloride Lvl (test code = Chloride Lvl) 104 95-109 [facility]2019-03-16 04:41:00 Test Item Value Reference Range Interpretation Comments ALANINE AMINOTRANSFERASE 39 See_Comment [A utomated message] (test code = ALANINE The sys tem which AMINOTRANSFERASE) generated this result transmitted ref erence range: <=65. Th e reference range was not used to int erpret this result as normal/abnormal . [facility]2019-03-16 04:41:00 Test Item Value Reference Range Interpretation Comments ASPARTATE TRANSAMINASE 19 See_Comment [Aut omated message] (test code = ASPARTATE The s ystem which TRANSAMINASE) generated this result transmitted ref erence range: <=37. Th e reference range was not used to interpr et this result as normal/abnormal . [facility]2019-03-16 04:41:00 Test Item Value Reference Range Interpretation Comments Sodium Lvl (test code = Sodium Lvl) 139 135-145 [facility]2019-03-16 04:41:00 Test Item Value Reference Range Interpretation Comments Creatinine Lvl (test code = Creatinine 1.20 0.50-1.40 Lvl) [facility]2019-03-16 04:41:00 Test Item Value Reference Range Interpretation Comments Potassium Lvl (test code = Potassium 3.9 3.5-5.1 Lvl) [facility]2019-03-16 04:41:00 Test Item Value Reference Range Interpretation Comments Total Protein (test code = Total 7.7 6.4-8.4 Protein) [facility]2019-03-16 04:41:00 Test Item Value Reference Range Interpretation Comments Calcium Lvl (test code = Calcium Lvl) 9.0 8.5-10.5 [facility]2019-03-16 04:41:00 Test Item Value Reference Range Interpretation Comments Albumin Lvl (test code = Albumin Lvl) 4.1 3.5-5.0 [facility] [id number] 04:41:00 Test Item Value Reference Range Interpretation Comments BUN (test code = BUN) 14 7-22 [facility] [id number] 04:41:00 Test Item Value Reference Range Interpretation Comments BNP (test code = BNP) 3 [facility] [id number] 04:41:00 Test Item Value Reference Range Interpretation Comments Glucose Lvl (test code = Glucose Lvl) 92 70-99 [facility] [id number] 04:41:00 Test Item Value Reference Range Interpretation Comments Troponin-I (test code no gt See_Comment [Auto mated message] The = Troponin-I) system which g enerated this result transmit sofiya reference range : <=0.40. The reference r robert was not used to interpr et this result as simone l/abnormal. [facility] CenterTanozoaCYZOEVFVFR1906-76-81 04:41:00 Test Item Value Reference Range Interpretation Comments Monocytes # (test code 0.9 See_Comment [Aut omated message] The = Monocytes #) system which generated this result tra nsmitted reference range : <=0.8. The reference r robert was not used to int erpret this result as normal/abnormal . [facility] [id number] 04:41:00 Test Item Value Reference Range Interpretation Comments Total CK (test code = Total CK) 150 12-191 [facility] CenterEcqwsacJUSLMYINBF8103-23-25 04:41:00 Test Item Value Reference Range Interpretation Comments Eosinophils # (test code 0.2 See_Comment [A utomated message] The = Eosinophils #) system whic h generated this result tra nsmitted reference range : <=0.5. The reference r robert was not used to int erpret this result as normal/abnormal . [facility] [id number] 04:41:00 Test Item Value Reference Range Interpretation Comments Globulin (test code = Globulin) 3.6 2.7-4.2 [facility] CenterNgfszozYJGYVPZIVP4802-97-86 04:41:00 Test Item Value Reference Range Interpretation Comments Lymphocytes # (test code = Lymphocytes 1.9 1.0-5.5 #) [facility]2019-03-16 04:41:00 Test Item Value Reference Range Interpretation Comments B/C Ratio (test code = B/C Ratio) 12 1 6-25 [facility] CenterFgxyhshJYUQRTIWBH8812-57-27 04:41:00 Test Item Value Reference Range Interpretation Comments Neutrophils # (test code = Neutrophils 9.5 1.5-8.1 #) [facility]2019-03-16 04:41:00 Test Item Value Reference Range Interpretation Comments A/G Ratio (test code = A/G Ratio) 1.1 1 0.7-1.6 [facility] CenterGrwewcrEJWRBUZAHW2914-69-01 04:41:00 Test Item Value Reference Range Interpretation Comments Lymphocytes (test code = Lymphocytes) 15.2 20.0-40.0 [facility]2019-03-16 04:41:00 Test Item Value Reference Range Interpretation Comments AGAP (test code = AGAP) 9.9 10.0-20.0 [facility] CenterOlzeuceCEHRNXVXVV5064-07-36 04:41:00 Test Item Value Reference Range Interpretation Comments Segs (test code = Segs) 75.7 45.0-75.0 [facility]2019-03-16 04:41:00 Test Item Value Reference Range Interpretation Comments eGFR (test code = eGFR) 73 [facility] CenterWjafkmtGDGHBDNCDB8577-18-91 04:41:00 Test Item Value Reference Range Interpretation Comments Basophils (test code = 0.2 See_Comment [Aut omated message] The Basophils) system which ge nerated this result tra nsmitted reference range : <=1.0. The reference r robert was not used to int erpret this result as normal/abnormal . [facility]2019-03-16 04:41:00 Test Item Value Reference Range Interpretation Comments Alk Phos (test code = Alk Phos) 117 39-136 [facility] CenterYldpeyuYQKTLGZOQM5322-76-17 04:41:00 Test Item Value Reference Range Interpretation Comments Monocytes (test code = Monocytes) 7.0 2.0-12.0 [facility]2019-03-16 04:41:00 Test Item Value Reference Range Interpretation Comments Bili Total (test code = Bili Total) 0.6 0.2-1.3 [place] 059969-03-16 04:41:00 Test Item Value Reference Range Interpretation Comments Eosinophils (test code = 1.9 See_Comment [A utomated message] The Eosinophils) system which ge nerated this result tra nsmitted reference range : <=4.0. The reference r robert was not used to int erpret this result as normal/abnormal . [facility] [id number] 04:41:00 Test Item Value Reference Range Interpretation Comments CO2 (test code = CO2) 29 24-32 [facility] CenterFaglwgwIZPENMXZPQ0767-51-77 04:41:00 Test Item Value Reference Range Interpretation Comments D-Dimer (test code = D-Dimer) no gt [facility] [id number] 04:41:00 Test Item Value Reference Range Interpretation Comments Chloride Lvl (test code = Chloride Lvl) 104 95-109 [facility] CenterEqoqvuaGMINQJOUOW5944-77-62 04:41:00 Test Item Value Reference Range Interpretation Comments aPTT (test code = aPTT) 30.0 s 22.9-35.8 [facility] [id number] 04:41:00 Test Item Value Reference Range Interpretation Comments ALANINE AMINOTRANSFERASE 39 See_Comment [A utomated message] (test code = ALANINE The sys tem which AMINOTRANSFERASE) generated this result transmitted ref erence range: <=65. Th e reference range was not used to int erpret this result as normal/abnormal . [facility] CenterQbpedenSNYUMCLQLR2520-12-04 04:41:00 Test Item Value Reference Range Interpretation Comments PROTIME (test code = PROTIME) 13.8 s 12.0-14.7 [facility] CenterQrcmcsdUEUUWFZXIP6783-93-78 04:41:00 Test Item Value Reference Range Interpretation Comments INR (test code = INR) 1.08 1 0.85-1.17 [facility] [id number] 04:41:00 Test Item Value Reference Range Interpretation Comments ASPARTATE TRANSAMINASE 19 See_Comment [Aut omated message] (test code = ASPARTATE The s ystem which TRANSAMINASE) generated this result transmitted ref erence range: <=37. Th e reference range was not used to interpr et this result as normal/abnormal . [facility] CenterQczluekESOPZHNPSY1630-14-87 04:41:00 Test Item Value Reference Range Interpretation Comments RDW (test code = RDW) 13.1 11.5-14.5 [facility]2019-03-16 04:41:00 Test Item Value Reference Range Interpretation Comments Sodium Lvl (test code = Sodium Lvl) 139 135-145 [facility] CenterWcirujoAVUCAYIUZF5981-08-64 04:41:00 Test Item Value Reference Range Interpretation Comments MPV (test code = MPV) 7.0 7.4-10.4 [facility]2019-03-16 04:41:00 Test Item Value Reference Range Interpretation Comments Creatinine Lvl (test code = Creatinine 1.20 0.50-1.40 Lvl) [facility] CenterDytmqcpZQQTPABHLW3044-30-99 04:41:00 Test Item Value Reference Range Interpretation Comments Platelet (test code = Platelet) 482 133-450 [facility]2019-03-16 04:41:00 Test Item Value Reference Range Interpretation Comments Potassium Lvl (test code = Potassium 3.9 3.5-5.1 Lvl) [facility] Cent[id number] 04:41:00 Test Item Value Reference Range Interpretation Comments Hgb (test code = Hgb) 16.1 14.0-18.0 [facility]2019-03-16 04:41:00 Test Item Value Reference Range Interpretation Comments Total Protein (test code = Total 7.7 6.4-8.4 Protein) [facility]PzddbwuFIMZGFNHIF9904-68-33 04:41:00 Test Item Value Reference Range Interpretation Comments RBC X 10x6 (test code = RBC X 10x6) 5.16 4.70-6.10 [facility]2019-03-16 04:41:00 Test Item Value Reference Range Interpretation Comments Calcium Lvl (test code = Calcium Lvl) 9.0 8.5-10.5 [facility] CenterOpinxuwPJIDQUBZZU3863-92-35 04:41:00 Test Item Value Reference Range Interpretation Comments WBC X 10x3 (test code = WBC X 10x3) 12.5 3.7-10.4 [facility]2019-03-16 04:41:00 Test Item Value Reference Range Interpretation Comments Albumin Lvl (test code = Albumin Lvl) 4.1 3.5-5.0 [facility] CenterYaswxgbXCGBOTEIGG4980-66-67 04:41:00 Test Item Value Reference Range Interpretation Comments MCHC (test code = MCHC) 33.9 32.0-36.0 [facility]2019-03-16 04:41:00 Test Item Value Reference Range Interpretation Comments BUN (test code = BUN) 14 7-22 [facility] CenterSwcmrfgYKJDVZMSTI2169-85-01 04:41:00 Test Item Value Reference Range Interpretation Comments MCH (test code = MCH) 31.3 pg 27.0-31.0 [facility]2019-03-16 04:41:00 Test Item Value Reference Range Interpretation Comments Glucose Lvl (test code = Glucose Lvl) 92 70-99 [facility] CenterEbeyuxdLLNZQCIVHA8887-51-02 04:41:00 Test Item Value Reference Range Interpretation Comments Hct (test code = Hct) 47.5 42.0-54.0 [facility] CenterGumkhhkYDODGXIIHZ2807-55-72 04:41:00 Test Item Value Reference Range Interpretation Comments Monocytes # (test code 0.9 See_Comment [Aut omated message] The = Monocytes #) system which generated this result tra nsmitted reference range : <=0.8. The reference r robert was not used to int erpret this result as normal/abnormal . [facility] CenterCtficnsPRWFALABAH2353-62-93 04:41:00 Test Item Value Reference Range Interpretation Comments MCV (test code = MCV) 92.2 80.0-94.0 [facility] CenterHaoexzeAEKEYNXSYM3127-44-65 04:41:00 Test Item Value Reference Range Interpretation Comments Eosinophils # (test code 0.2 See_Comment [A utomated message] The = Eosinophils #) system whic h generated this result tra nsmitted reference range : <=0.5. The reference r robert was not used to int erpret this result as normal/abnormal . [facility] CenterNqvlcomHMEYJWGYUU5081-87-10 04:41:00 Test Item Value Reference Range Interpretation Comments Lymphocytes # (test code = Lymphocytes 1.9 1.0-5.5 #) [facility] CenterIdshurkPAIFLEWHHH1402-22-82 04:41:00 Test Item Value Reference Range Interpretation Comments Neutrophils # (test code = Neutrophils 9.5 1.5-8.1 #) [facility] CenterYwwqghbXEVWSSGLLA4004-34-41 04:41:00 Test Item Value Reference Range Interpretation Comments Lymphocytes (test code = Lymphocytes) 15.2 20.0-40.0 [facility] CenterNjcrzopFBFDMDKFSA0785-49-98 04:41:00 Test Item Value Reference Range Interpretation Comments Segs (test code = Segs) 75.7 45.0-75.0 [facility] CenterIjhgghpWGFSVRWNDG5772-24-74 04:41:00 Test Item Value Reference Range Interpretation Comments Basophils (test code = 0.2 See_Comment [Aut omated message] The Basophils) system which ge nerated this result tra nsmitted reference range : <=1.0. The reference r robert was not used to int erpret this result as normal/abnormal . [facility] CenterKaxaayzKXKMYBPHGO7654-74-39 04:41:00 Test Item Value Reference Range Interpretation Comments Monocytes (test code = Monocytes) 7.0 2.0-12.0 [facility] CenterRmmddhiJNNNYSIRMT5655-35-33 04:41:00 Test Item Value Reference Range Interpretation Comments Eosinophils (test code = 1.9 See_Comment [A utomated message] The Eosinophils) system which ge nerated this result tra nsmitted reference range : <=4.0. The reference r robert was not used to int erpret this result as normal/abnormal . [facility] CenterWxmkcjlHPAUZKZRPH2637-67-83 04:41:00 Test Item Value Reference Range Interpretation Comments D-Dimer (test code = D-Dimer) no gt [facility] CenterZzgmkbpGUKFQGBFSN0654-63-82 04:41:00 Test Item Value Reference Range Interpretation Comments aPTT (test code = aPTT) 30.0 s 22.9-35.8 [facility] CenterYhqcwtiFUHJOKJOCK5386-09-35 04:41:00 Test Item Value Reference Range Interpretation Comments PROTIME (test code = PROTIME) 13.8 s 12.0-14.7 [facility] CenterHkfepzjPLEYBXUJED0628-47-22 04:41:00 Test Item Value Reference Range Interpretation Comments INR (test code = INR) 1.08 1 0.85-1.17 [facility] CenterUdjbwjsBUZYVPVXXY0068-80-48 04:41:00 Test Item Value Reference Range Interpretation Comments RDW (test code = RDW) 13.1 11.5-14.5 [facility] CenterVzxzfngHKOMELIYWX1792-54-23 04:41:00 Test Item Value Reference Range Interpretation Comments MPV (test code = MPV) 7.0 7.4-10.4 [facility] CenterKdnvrztJARAKTRPUX4324-74-17 04:41:00 Test Item Value Reference Range Interpretation Comments Platelet (test code = Platelet) 482 133-450 [facility] CenterTucmtetRYNNTKGOAN8543-56-64 04:41:00 Test Item Value Reference Range Interpretation Comments Hgb (test code = Hgb) 16.1 14.0-18.0 [facility] CenterBtzdslmVAYSSZHGYS6824-15-21 04:41:00 Test Item Value Reference Range Interpretation Comments RBC X 10x6 (test code = RBC X 10x6) 5.16 4.70-6.10 [facility] CenterOlewogsGZSNBROTUM4483-87-82 04:41:00 Test Item Value Reference Range Interpretation Comments WBC X 10x3 (test code = WBC X 10x3) 12.5 3.7-10.4 [facility] CenterXfbmrsyGBWWANSXAX0863-07-61 04:41:00 Test Item Value Reference Range Interpretation Comments MCHC (test code = MCHC) 33.9 32.0-36.0 [facility] CenterHcdzzrgLPLWMHWXCE1026-34-69 04:41:00 Test Item Value Reference Range Interpretation Comments MCH (test code = MCH) 31.3 pg 27.0-31.0 [facility] CenterLuhhwjuYBIRKGGLRM3209-03-83 04:41:00 Test Item Value Reference Range Interpretation Comments Hct (test code = Hct) 47.5 42.0-54.0 [facility] CenterLasbwadSJEWIOQIMC8379-44-96 04:41:00 Test Item Value Reference Range Interpretation Comments MCV (test code = MCV) 92.2 80.0-94.0 [facility] AND [id number] 03:20:00 Test Item Value Reference Range Interpretation Comments UA Mucus (test code = None Seen (08/03/18 UA Mucus) 9:20 PM) [facility] AND [id number] 03:20:00 Test Item Value Reference Range Interpretation Comments UA RBC (test None Seen See_Comment [Automated mes lobo] code = UA RBC) (08/03/18 9:20 The system which PM) generated this result transmitted ref erence range: <=2. The reference range was not used to int erpret this result as normal/abnormal . [facility] AND [id number] 03:20:00 Test Item Value Reference Range Interpretation Comments UA Bacteria (test code = None Seen (08/03/18 UA Bacteria) 9:20 PM) [facility] AND [id number] 03:20:00 Test Item Value Reference Range Interpretation Comments UA Sq Epi (test code = UA Sq Epi) Rare /LPF [facility] AND [id number] 03:20:00 Test Item Value Reference Range Interpretation Comments UA WBC (test code = UA None Seen (08/03/18 WBC) 9:20 PM) [facility] AND [id number] 03:20:00 Test Item Value Reference Range Interpretation Comments UA Color (test code = Yellow *NA*(08/03/18 UA Color) 9:20 PM) [facility] AND [id number] 03:20:00 Test Item Value Reference Range Interpretation Comments UA Spec Grav (test code = UA Spec 1.025 1 Grav) [facility] AND [id number] 03:20:00 Test Item Value Reference Range Interpretation Comments UA Turbidity (test code = Clear (08/03/18 9:20 UA Turbidity) PM) [facility] AND [id number] 03:20:00 Test Item Value Reference Range Interpretation Comments UA Blood (test code = Negative (08/03/18 9:20 UA Blood) PM) [facility] AND [id number] 03:20:00 Test Item Value Reference Range Interpretation Comments UA Ketones (test code = UA Negative mg/dL Ketones) [facility] AND [id number] 03:20:00 Test Item Value Reference Range Interpretation Comments UA Bili (test code = Negative *NA*(08/03/18 UA Bili) 9:20 PM) [facility] AND [id number] 03:20:00 Test Item Value Reference Range Interpretation Comments UA Glucose (test code = UA Negative mg/dL Glucose) [facility] AND [id number] 03:20:00 Test Item Value Reference Range Interpretation Comments UA Protein (test code = UA Negative mg/dL Protein) [facility] AND [id number] 03:20:00 Test Item Value Reference Range Interpretation Comments UA pH (test code = UA pH) 6.0 1 5.0-8.0 [facility] AND [id number] 03:20:00 Test Item Value Reference Range Interpretation Comments UA Urobilinogen (test code = UA 0.2 0.1-1.0 Urobilinogen) [facility] [id number] 03:20:00 Test Item Value Reference Range Interpretation Comments UA Nitrite (test code Negative (08/03/18 9:20 = UA Nitrite) PM) [facility] [id number] 03:20:00 Test Item Value Reference Range Interpretation Comments UA Leuk Est (test Negative (08/03/18 9:20 code = UA Leuk Est) PM) [facility] [id number] 03:20:00 Test Item Value Reference Range Interpretation Comments UA Mucus (test code = None Seen (08/03/18 UA Mucus) 9:20 PM) [facility] [id number] 03:20:00 Test Item Value Reference Range Interpretation Comments UA RBC (test None Seen See_Comment [Automated mes lobo] code = UA RBC) (08/03/18 9:20 The system which PM) generated this result transmitted ref erence range: <=2. The reference range was not used to int erpret this result as normal/abnormal . [facility] [id number] 03:20:00 Test Item Value Reference Range Interpretation Comments UA Bacteria (test code = None Seen (08/03/18 UA Bacteria) 9:20 PM) [facility] [id number] 03:20:00 Test Item Value Reference Range Interpretation Comments UA Sq Epi (test code = UA Sq Epi) Rare /LPF [facility] AND [id number] 03:20:00 Test Item Value Reference Range Interpretation Comments UA WBC (test code = UA None Seen (08/03/18 WBC) 9:20 PM) [facility] AND [id number] 03:20:00 Test Item Value Reference Range Interpretation Comments UA Color (test code = Yellow *NA*(08/03/18 UA Color) 9:20 PM) [facility] [id number] 03:20:00 Test Item Value Reference Range Interpretation Comments UA Spec Grav (test code = UA Spec 1.025 1 Grav) [facility] [id number] 03:20:00 Test Item Value Reference Range Interpretation Comments UA Turbidity (test code = Clear (08/03/18 9:20 UA Turbidity) PM) [facility] AND [id number] 03:20:00 Test Item Value Reference Range Interpretation Comments UA Blood (test code = Negative (08/03/18 9:20 UA Blood) PM) [facility] AND [id number] 03:20:00 Test Item Value Reference Range Interpretation Comments UA Ketones (test code = UA Negative mg/dL Ketones) [facility] AND [id number] 03:20:00 Test Item Value Reference Range Interpretation Comments UA Bili (test code = Negative *NA*(08/03/18 UA Bili) 9:20 PM) [facility] AND [id number] 03:20:00 Test Item Value Reference Range Interpretation Comments UA Glucose (test code = UA Negative mg/dL Glucose) [facility] AND [id number] 03:20:00 Test Item Value Reference Range Interpretation Comments UA Protein (test code = UA Negative mg/dL Protein) [facility] AND [id number] 03:20:00 Test Item Value Reference Range Interpretation Comments UA pH (test code = UA pH) 6.0 1 5.0-8.0 [facility] AND [id number] 03:20:00 Test Item Value Reference Range Interpretation Comments UA Urobilinogen (test code = UA 0.2 0.1-1.0 Urobilinogen) [facility] AND [id number] 03:20:00 Test Item Value Reference Range Interpretation Comments UA Nitrite (test code Negative (08/03/18 9:20 = UA Nitrite) PM) [facility] AND [id number] 03:20:00 Test Item Value Reference Range Interpretation Comments UA Leuk Est (test Negative (08/03/18 9:20 code = UA Leuk Est) PM) [facility] [id number] 01:07:00 Test Item Value Reference Range Interpretation Comments Lipase Lvl (test code = Lipase Lvl) 196 73-393 [facility]2018-12-13 01:07:00 Test Item Value Reference Range Interpretation Comments eGFR (test code = eGFR) 81 [facility] [id number] 01:07:00 Test Item Value Reference Range Interpretation Comments Alk Phos (test code = Alk Phos) 111 39-136 [facility]2018-12-13 01:07:00 Test Item Value Reference Range Interpretation Comments Bili Total (test code = Bili Total) 0.2 0.2-1.3 [facility]2018-12-13 01:07:00 Test Item Value Reference Range Interpretation Comments ASPARTATE TRANSAMINASE 16 See_Comment [Aut omated message] (test code = ASPARTATE The s ystem which TRANSAMINASE) generated this result transmitted ref erence range: <=37. Th e reference range was not used to interpr et this result as normal/abnormal . [facility]2018-12-13 01:07:00 Test Item Value Reference Range Interpretation Comments Sodium Lvl (test code = Sodium Lvl) 138 135-145 [facility]2018-12-13 01:07:00 Test Item Value Reference Range Interpretation Comments Potassium Lvl (test code = Potassium 3.9 3.5-5.1 Lvl) [facility]2018-12-13 01:07:00 Test Item Value Reference Range Interpretation Comments BUN (test code = BUN) 16 7-22 [facility]2018-12-13 01:07:00 Test Item Value Reference Range Interpretation Comments Creatinine Lvl (test code = Creatinine 1.10 0.50-1.40 Lvl) [facility]2018-12-13 01:07:00 Test Item Value Reference Range Interpretation Comments Glucose Lvl (test code = Glucose Lvl) 98 70-99 [facility]2018-12-13 01:07:00 Test Item Value Reference Range Interpretation Comments ALANINE AMINOTRANSFERASE 34 See_Comment [A utomated message] (test code = ALANINE The sys tem which AMINOTRANSFERASE) generated this result transmitted ref erence range: <=65. Th e reference range was not used to int erpret this result as normal/abnormal . [facility]2018-12-13 01:07:00 Test Item Value Reference Range Interpretation Comments Total Protein (test code = Total 7.8 6.4-8.4 Protein) [facility]2018-12-13 01:07:00 Test Item Value Reference Range Interpretation Comments Albumin Lvl (test code = Albumin Lvl) 3.9 3.5-5.0 [facility]2018-12-13 01:07:00 Test Item Value Reference Range Interpretation Comments Chloride Lvl (test code = Chloride Lvl) 104 95-109 [facility]2018-12-13 01:07:00 Test Item Value Reference Range Interpretation Comments Calcium Lvl (test code = Calcium Lvl) 9.1 8.5-10.5 [facility]2018-12-13 01:07:00 Test Item Value Reference Range Interpretation Comments CO2 (test code = CO2) 27 24-32 [facility]2018-12-13 01:07:00 Test Item Value Reference Range Interpretation Comments Globulin (test code = Globulin) 3.9 2.7-4.2 [facility]2018-12-13 01:07:00 Test Item Value Reference Range Interpretation Comments A/G Ratio (test code = A/G Ratio) 1.0 1 0.7-1.6 [facility]2018-12-13 01:07:00 Test Item Value Reference Range Interpretation Comments AGAP (test code = AGAP) 10.9 10.0-20.0 [facility]2018-12-13 01:07:00 Test Item Value Reference Range Interpretation Comments B/C Ratio (test code = B/C Ratio) 15 1 6-25 [facility] Cent[id number] 01:07:00 Test Item Value Reference Range Interpretation Comments MPV (test code = MPV) 6.8 7.4-10.4 [facility] CenterRxucnieNOIMYXEYFM4769-03-80 01:07:00 Test Item Value Reference Range Interpretation Comments Platelet (test code = Platelet) 988 568-450 [facility] CenterQisgoadQXQGCALOCM7979-83-66 01:07:00 Test Item Value Reference Range Interpretation Comments RDW (test code = RDW) 12.5 11.5-14.5 [facility] CenterPcramutJVRBCHLHAB0551-48-10 01:07:00 Test Item Value Reference Range Interpretation Comments MCHC (test code = MCHC) 34.0 32.0-36.0 [facility] CenterOmubxgjWTLAQTIYGW8309-79-89 01:07:00 Test Item Value Reference Range Interpretation Comments MCV (test code = MCV) 91.5 80.0-94.0 [facility]2018-12-13 01:07:00 Test Item Value Reference Range Interpretation Comments Lipase Lvl (test code = Lipase Lvl) 196 73-393 [facility] CenterEjdopyqSWHIIUOQIA9448-00-39 01:07:00 Test Item Value Reference Range Interpretation Comments MCH (test code = MCH) 31.1 pg 27.0-31.0 [facility]2018-12-13 01:07:00 Test Item Value Reference Range Interpretation Comments eGFR (test code = eGFR) 81 [facility] CenterJuzxitwAIQVQQFAOW2605-60-93 01:07:00 Test Item Value Reference Range Interpretation Comments WBC X 10x3 (test code = WBC X 10x3) 12.1 3.7-10.4 [facility]2018-12-13 01:07:00 Test Item Value Reference Range Interpretation Comments Alk Phos (test code = Alk Phos) 111 39-136 [facility] CenterTvzhkfyJPPUAWRNIZ9775-92-05 01:07:00 Test Item Value Reference Range Interpretation Comments RBC X 10x6 (test code = RBC X 10x6) 4.82 4.70-6.10 [facility]2018-12-13 01:07:00 Test Item Value Reference Range Interpretation Comments Bili Total (test code = Bili Total) 0.2 0.2-1.3 [facility] CenterRdritfbOYJEPINXGM0255-71-22 01:07:00 Test Item Value Reference Range Interpretation Comments Hct (test code = Hct) 44.1 42.0-54.0 [facility]2018-12-13 01:07:00 Test Item Value Reference Range Interpretation Comments ASPARTATE TRANSAMINASE 16 See_Comment [Aut omated message] (test code = ASPARTATE The s ystem which TRANSAMINASE) generated this result transmitted ref erence range: <=37. Th e reference range was not used to interpr et this result as normal/abnormal . [facility] CenterSzmzecbYPFMDMLNET2936-05-54 01:07:00 Test Item Value Reference Range Interpretation Comments Hgb (test code = Hgb) 15.0 14.0-18.0 [facility]2018-12-13 01:07:00 Test Item Value Reference Range Interpretation Comments Sodium Lvl (test code = Sodium Lvl) 138 135-145 [facility] CenterIevfbnzZKGGWXUIHU2612-60-86 01:07:00 Test Item Value Reference Range Interpretation Comments Basophils # (test code 0.1 See_Comment [Aut omated message] The = Basophils #) system which generated this result tra nsmitted reference range : <=0.2. The reference r robert was not used to int erpret this result as normal/abnormal . [facility]2018-12-13 01:07:00 Test Item Value Reference Range Interpretation Comments Potassium Lvl (test code = Potassium 3.9 3.5-5.1 Lvl) [facility] CenterYvusdbpYSSRWPFYGC1670-39-15 01:07:00 Test Item Value Reference Range Interpretation Comments Eosinophils # (test code 0.1 See_Comment [A utomated message] The = Eosinophils #) system whic h generated this result tra nsmitted reference range : <=0.5. The reference r robert was not used to int erpret this result as normal/abnormal . [facility]2018-12-13 01:07:00 Test Item Value Reference Range Interpretation Comments BUN (test code = BUN) 16 7-22 [facility] CenterOyaiuhnJBWVFQYSPZ5496-89-48 01:07:00 Test Item Value Reference Range Interpretation Comments Basophils (test code = 0.5 See_Comment [Aut omated message] The Basophils) system which ge nerated this result tra nsmitted reference range : <=1.0. The reference r robert was not used to int erpret this result as normal/abnormal . [facility]2018-12-13 01:07:00 Test Item Value Reference Range Interpretation Comments Creatinine Lvl (test code = Creatinine 1.10 0.50-1.40 Lvl) [facility] CenterCybfrzgXBFYHVEMKW1870-98-39 01:07:00 Test Item Value Reference Range Interpretation Comments Neutrophils # (test code = Neutrophils 9.7 1.5-8.1 #) [facility]2018-12-13 01:07:00 Test Item Value Reference Range Interpretation Comments Glucose Lvl (test code = Glucose Lvl) 98 70-99 [facility] CenterIamzupsXFJZDLALBK4635-88-55 01:07:00 Test Item Value Reference Range Interpretation Comments Lymphocytes # (test code = Lymphocytes 1.6 1.0-5.5 #) [facility]2018-12-13 01:07:00 Test Item Value Reference Range Interpretation Comments ALANINE AMINOTRANSFERASE 34 See_Comment [A utomated message] (test code = ALANINE The sys tem which AMINOTRANSFERASE) generated this result transmitted ref erence range: <=65. Th e reference range was not used to int erpret this result as normal/abnormal . [facility] CenterCpeqasvQJZWGNBUEE0598-31-69 01:07:00 Test Item Value Reference Range Interpretation Comments Monocytes # (test code 0.6 See_Comment [Aut omated message] The = Monocytes #) system which generated this result tra nsmitted reference range : <=0.8. The reference r robert was not used to int erpret this result as normal/abnormal . [facility]2018-12-13 01:07:00 Test Item Value Reference Range Interpretation Comments Total Protein (test code = Total 7.8 6.4-8.4 Protein) [facility] CenterFttjfuyKGYOCKOIYR7327-50-40 01:07:00 Test Item Value Reference Range Interpretation Comments Lymphocytes (test code = Lymphocytes) 13.7 20.0-40.0 [facility]2018-12-13 01:07:00 Test Item Value Reference Range Interpretation Comments Albumin Lvl (test code = Albumin Lvl) 3.9 3.5-5.0 [facility] CenterZlfsxptYUOZMVPJBY6300-15-88 01:07:00 Test Item Value Reference Range Interpretation Comments Monocytes (test code = Monocytes) 5.0 2.0-12.0 [facility]2018-12-13 01:07:00 Test Item Value Reference Range Interpretation Comments Chloride Lvl (test code = Chloride Lvl) 104 95-109 [facility] CenterFjzggxcKYDFXWHPNE3345-24-38 01:07:00 Test Item Value Reference Range Interpretation Comments Segs (test code = Segs) 80.3 45.0-75.0 [facility]2018-12-13 01:07:00 Test Item Value Reference Range Interpretation Comments Calcium Lvl (test code = Calcium Lvl) 9.1 8.5-10.5 [facility] CenterVhbclozMHNQUBFOVK8467-91-86 01:07:00 Test Item Value Reference Range Interpretation Comments Eosinophils (test code = 0.5 See_Comment [A utomated message] The Eosinophils) system which ge nerated this result tra nsmitted reference range : <=4.0. The reference r robert was not used to int erpret this result as normal/abnormal . [facility]2018-12-13 01:07:00 Test Item Value Reference Range Interpretation Comments CO2 (test code = CO2) 27 24-32 [facility]2018-12-13 01:07:00 Test Item Value Reference Range Interpretation Comments Globulin (test code = Globulin) 3.9 2.7-4.2 [place] [id number] 01:07:00 Test Item Value Reference Range Interpretation Comments A/G Ratio (test code = A/G Ratio) 1.0 1 0.7-1.6 [place] [id number] 01:07:00 Test Item Value Reference Range Interpretation Comments AGAP (test code = AGAP) 10.9 10.0-20.0 [facility]2018-12-13 01:07:00 Test Item Value Reference Range Interpretation Comments B/C Ratio (test code = B/C Ratio) 15 1 6-25 [facility] CenterLvqosidMEYHPVHPFI7207-65-16 01:07:00 Test Item Value Reference Range Interpretation Comments MPV (test code = MPV) 6.8 7.4-10.4 [place] [id number] 01:07:00 Test Item Value Reference Range Interpretation Comments Platelet (test code = Platelet) 614 133-450 [facility] CenterXsuunctMFMPCRBPWH7607-74-86 01:07:00 Test Item Value Reference Range Interpretation Comments RDW (test code = RDW) 12.5 11.5-14.5 [facility] CenterYkklzlbIGMDWHEJKH3649-26-05 01:07:00 Test Item Value Reference Range Interpretation Comments MCHC (test code = MCHC) 34.0 32.0-36.0 [facility] CenterKorpdjbDEINIDAKWQ0385-50-46 01:07:00 Test Item Value Reference Range Interpretation Comments MCV (test code = MCV) 91.5 80.0-94.0 [facility] CenterOzknsuxINOBBFMNIC4571-92-25 01:07:00 Test Item Value Reference Range Interpretation Comments MCH (test code = MCH) 31.1 pg 27.0-31.0 [facility] CenterSialaemTYQWFUDEYP1173-95-93 01:07:00 Test Item Value Reference Range Interpretation Comments WBC X 10x3 (test code = WBC X 10x3) 12.1 3.7-10.4 [facility] CenterDxpzdxmQBMPSKUBYM8837-24-77 01:07:00 Test Item Value Reference Range Interpretation Comments RBC X 10x6 (test code = RBC X 10x6) 4.82 4.70-6.10 [facility] CenterDwnjhtlMBQSQKQZUT6627-36-90 01:07:00 Test Item Value Reference Range Interpretation Comments Hct (test code = Hct) 44.1 42.0-54.0 [facility] CenterCohlzyxMZTLSWEQAU1063-25-63 01:07:00 Test Item Value Reference Range Interpretation Comments Hgb (test code = Hgb) 15.0 14.0-18.0 [facility] CenterCsjcaieJDJROVXHCS3847-94-86 01:07:00 Test Item Value Reference Range Interpretation Comments Basophils # (test code 0.1 See_Comment [Aut omated message] The = Basophils #) system which generated this result tra nsmitted reference range : <=0.2. The reference r robert was not used to int erpret this result as normal/abnormal . [facility] CenterXbvgeetUJGXRGRHFU8124-31-55 01:07:00 Test Item Value Reference Range Interpretation Comments Eosinophils # (test code 0.1 See_Comment [A utomated message] The = Eosinophils #) system whic h generated this result tra nsmitted reference range : <=0.5. The reference r robert was not used to int erpret this result as normal/abnormal . [facility] CenterEncuqhnRAGLAFEKYD4963-55-05 01:07:00 Test Item Value Reference Range Interpretation Comments Basophils (test code = 0.5 See_Comment [Aut omated message] The Basophils) system which ge nerated this result tra nsmitted reference range : <=1.0. The reference r robert was not used to int erpret this result as normal/abnormal . [facility] CenterFqspoiuKBHQEEWWUH0063-49-43 01:07:00 Test Item Value Reference Range Interpretation Comments Neutrophils # (test code = Neutrophils 9.7 1.5-8.1 #) [facility] CenterVahfsddLYCGADRUCI1456-89-69 01:07:00 Test Item Value Reference Range Interpretation Comments Lymphocytes # (test code = Lymphocytes 1.6 1.0-5.5 #) [facility] CenterKikbsupVRYWUOREUB4046-30-65 01:07:00 Test Item Value Reference Range Interpretation Comments Monocytes # (test code 0.6 See_Comment [Aut omated message] The = Monocytes #) system which generated this result tra nsmitted reference range : <=0.8. The reference r robert was not used to int erpret this result as normal/abnormal . [facility] CenterGcobldmWPERHFKBJR0859-35-17 01:07:00 Test Item Value Reference Range Interpretation Comments Lymphocytes (test code = Lymphocytes) 13.7 20.0-40.0 [facility] CenterAybwkltVJDTFJJLBV2556-30-64 01:07:00 Test Item Value Reference Range Interpretation Comments Monocytes (test code = Monocytes) 5.0 2.0-12.0 [facility] CenterNduuixjUSWDPTHQCE9406-98-34 01:07:00 Test Item Value Reference Range Interpretation Comments Segs (test code = Segs) 80.3 45.0-75.0 [facility] CenterNxnastvSMRDZYRFFS3991-86-36 01:07:00 Test Item Value Reference Range Interpretation Comments Eosinophils (test code = 0.5 See_Comment [A utomated message] The Eosinophils) system which ge nerated this result tra nsmitted reference range : <=4.0. The reference r robert was not used to int erpret this result as normal/abnormal . [facility] AND [id number] 02:03:00 Test Item Value Reference Range Interpretation Comments UA Bacteria (test code = UA Occasional /HPF Bacteria) [facility] AND [id number] 02:03:00 Test Item Value Reference Range Interpretation Comments UA RBC (test code = 7 See_Comment [Automa sofiya message] The UA RBC) system which ge nerated this result transmit sofiya reference range : <=2. The reference range was not used to interpr et this result as simone l/abnormal. [facility] AND [id number] 02:03:00 Test Item Value Reference Range Interpretation Comments UA Mucus (test code = UA Mucus) Many /LPF [facility] AND [id number] 02:03:00 Test Item Value Reference Range Interpretation Comments UA Urobilinogen (test code = UA <=1.0 mg/dL 0.1-1.0 Urobilinogen) [facility] AND [id number] 02:03:00 Test Item Value Reference Range Interpretation Comments UA Nitrite (test code Negative (04/13/16 9:03 = UA Nitrite) PM) [facility] AND [id number] 02:03:00 Test Item Value Reference Range Interpretation Comments UA Blood (test code = Small *ABN*(04/13/16 UA Blood) 9:03 PM) [facility] AND [id number] 02:03:00 Test Item Value Reference Range Interpretation Comments UA Leuk Est (test Negative (04/13/16 9:03 code = UA Leuk Est) PM) [facility] AND [id number] 02:03:00 Test Item Value Reference Range Interpretation Comments UA Sq Epi (test code = UA Sq Occasional /LPF Epi) [facility] AND [id number] 02:03:00 Test Item Value Reference Range Interpretation Comments UA WBC (test code = 3 See_Comment [Automa sofiya message] The UA WBC) system which ge nerated this result transmit sofiya reference range : <=5. The reference range was not used to interpr et this result as simone l/abnormal. [facility] AND [id number] 02:03:00 Test Item Value Reference Range Interpretation Comments UA Color (test code = Yellow *NA*(04/13/16 UA Color) 9:03 PM) [facility] AND [id number] 02:03:00 Test Item Value Reference Range Interpretation Comments UA Turbidity (test code = Clear (04/13/16 9:03 UA Turbidity) PM) [facility] AND [id number] 02:03:00 Test Item Value Reference Range Interpretation Comments UA pH (test code = UA pH) 5.0 5.0-8.0 [facility] AND [id number] 02:03:00 Test Item Value Reference Range Interpretation Comments UA Spec Grav (test code = UA Spec Grav) 1.030 [facility] AND [id number] 02:03:00 Test Item Value Reference Range Interpretation Comments UA Protein (test code = UA Negative mg/dL Protein) [facility] AND [id number] 02:03:00 Test Item Value Reference Range Interpretation Comments UA Bili (test code = Negative *NA*(04/13/16 UA Bili) 9:03 PM) [facility] AND [id number] 02:03:00 Test Item Value Reference Range Interpretation Comments UA Ketones (test code = UA Negative mg/dL Ketones) [facility] AND [id number] 02:03:00 Test Item Value Reference Range Interpretation Comments UA Glucose (test code = UA Negative mg/dL Glucose) [facility] AND [id number] 02:03:00 Test Item Value Reference Range Interpretation Comments UA Bacteria (test code = UA Occasional /HPF Bacteria) [facility] AND [id number] 02:03:00 Test Item Value Reference Range Interpretation Comments UA RBC (test code = 7 See_Comment [Automa sofiya message] The UA RBC) system which ge nerated this result transmit sofiya reference range : <=2. The reference range was not used to interpr et this result as simone l/abnormal. [facility] AND [id number] 02:03:00 Test Item Value Reference Range Interpretation Comments UA Mucus (test code = UA Mucus) Many /LPF [facility] AND [id number] 02:03:00 Test Item Value Reference Range Interpretation Comments UA Urobilinogen (test code = UA <=1.0 mg/dL 0.1-1.0 Urobilinogen) [facility] AND [id number] 02:03:00 Test Item Value Reference Range Interpretation Comments UA Nitrite (test code Negative (04/13/16 9:03 = UA Nitrite) PM) [facility] AND [id number] 02:03:00 Test Item Value Reference Range Interpretation Comments UA Blood (test code = Small *ABN*(04/13/16 UA Blood) 9:03 PM) [facility] AND [id number] 02:03:00 Test Item Value Reference Range Interpretation Comments UA Leuk Est (test Negative (04/13/16 9:03 code = UA Leuk Est) PM) [facility] AND [id number] 02:03:00 Test Item Value Reference Range Interpretation Comments UA Sq Epi (test code = UA Sq Occasional /LPF Epi) [facility] AND [id number] 02:03:00 Test Item Value Reference Range Interpretation Comments UA WBC (test code = 3 See_Comment [Automa sofiya message] The UA WBC) system which ge nerated this result transmit sofiya reference range : <=5. The reference range was not used to interpr et this result as simone l/abnormal. [facility] AND [id number] 02:03:00 Test Item Value Reference Range Interpretation Comments UA Color (test code = Yellow *NA*(04/13/16 UA Color) 9:03 PM) [facility] AND [id number] 02:03:00 Test Item Value Reference Range Interpretation Comments UA Turbidity (test code = Clear (04/13/16 9:03 UA Turbidity) PM) [facility] AND [id number] 02:03:00 Test Item Value Reference Range Interpretation Comments UA pH (test code = UA pH) 5.0 5.0-8.0 [facility] AND [id number] 02:03:00 Test Item Value Reference Range Interpretation Comments UA Spec Grav (test code = UA Spec Grav) 1.030 [facility] AND [id number] 02:03:00 Test Item Value Reference Range Interpretation Comments UA Protein (test code = UA Negative mg/dL Protein) [facility] AND [id number] 02:03:00 Test Item Value Reference Range Interpretation Comments UA Bili (test code = Negative *NA*(04/13/16 UA Bili) 9:03 PM) [facility] AND [id number] 02:03:00 Test Item Value Reference Range Interpretation Comments UA Ketones (test code = UA Negative mg/dL Ketones) [facility] AND [id number] 02:03:00 Test Item Value Reference Range Interpretation Comments UA Glucose (test code = UA Negative mg/dL Glucose) [facility] [employer] [id number] 01:05:00 Test Item Value Reference Range Interpretation Comments B/C Ratio (test code = B/C Ratio) 20 6-25 [facility] [employer] [id number] 01:05:00 Test Item Value Reference Range Interpretation Comments Globulin (test code = Globulin) 4.0 2.7-4.2 [facility] [id number] 01:05:00 Test Item Value Reference Range Interpretation Comments A/G Ratio (test code = A/G Ratio) 1.2 0.7-1.6 [facility] [employer] [id number] 01:05:00 Test Item Value Reference Range Interpretation Comments AGAP (test code = AGAP) 13.2 10.0-20.0 [facility]2016-08-23 01:05:00 Test Item Value Reference Range Interpretation Comments eGFR (test code = eGFR) 76 [facility]2016-08-23 01:05:00 Test Item Value Reference Range Interpretation Comments Alk Phos (test code = Alk Phos) 120 39-136 [facility]2016-08-23 01:05:00 Test Item Value Reference Range Interpretation Comments Bili Total (test code = Bili Total) 0.5 0.2-1.3 [facility]2016-08-23 01:05:00 Test Item Value Reference Range Interpretation Comments Albumin Lvl (test code = Albumin Lvl) 4.7 3.5-5.0 [facility]2016-08-23 01:05:00 Test Item Value Reference Range Interpretation Comments ALT (test code = ALT) 61 See_Comment [Auto mated message] The system which ge nerated this result transmit sofiya reference range : <=65. The reference range was not used to interpr et this result as simone l/abnormal. [facility]2016-08-23 01:05:00 Test Item Value Reference Range Interpretation Comments AST (test code = AST) 25 See_Comment [Auto mated message] The system which ge nerated this result transmit sofiya reference range : <=37. The reference range was not used to interpr et this result as simone l/abnormal. [facility]2016-08-23 01:05:00 Test Item Value Reference Range Interpretation Comments Total Protein (test code = Total 8.7 6.4-8.4 Protein) [facility]2016-08-23 01:05:00 Test Item Value Reference Range Interpretation Comments Sodium Lvl (test code = Sodium Lvl) 136 135-145 [facility]2016-08-23 01:05:00 Test Item Value Reference Range Interpretation Comments Potassium Lvl (test code = Potassium 4.2 3.5-5.1 Lvl) [facility]2016-08-23 01:05:00 Test Item Value Reference Range Interpretation Comments Chloride Lvl (test code = Chloride Lvl) 102 95-109 [facility]2016-08-23 01:05:00 Test Item Value Reference Range Interpretation Comments CO2 (test code = CO2) 25 24-32 [facility]2016-08-23 01:05:00 Test Item Value Reference Range Interpretation Comments Calcium Lvl (test code = Calcium Lvl) 9.1 8.5-10.5 [facility]2016-08-23 01:05:00 Test Item Value Reference Range Interpretation Comments Glucose Lvl (test code = Glucose Lvl) 102 70-99 [facility]2016-08-23 01:05:00 Test Item Value Reference Range Interpretation Comments BUN (test code = BUN) 23 7-22 [facility]2016-08-23 01:05:00 Test Item Value Reference Range Interpretation Comments Creatinine Lvl (test code = Creatinine 1.17 0.50-1.40 Lvl) [facility] Cent[id number] 01:05:00 Test Item Value Reference Range Interpretation Comments WBC (test code = WBC) 10.5 3.7-10.4 [facility] CenterDusiicoWHXPSDVORM1114-40-34 01:05:00 Test Item Value Reference Range Interpretation Comments MCH (test code = MCH) 31.7 pg 27.0-31.0 [facility] CenterExutmchCKCVJLVAWM8199-70-50 01:05:00 Test Item Value Reference Range Interpretation Comments MCHC (test code = MCHC) 33.8 32.0-36.0 [facility] CenterGxfcvlgNYOJSQRVJT0956-78-67 01:05:00 Test Item Value Reference Range Interpretation Comments RDW (test code = RDW) 12.5 11.5-14.5 [facility] CenterYgdncwqCAQXZSHUJY4224-92-94 01:05:00 Test Item Value Reference Range Interpretation Comments Hct (test code = Hct) 48.2 42.0-54.0 [facility] CenterGblcoxnYNGHYPCUZE1104-43-08 01:05:00 Test Item Value Reference Range Interpretation Comments MCV (test code = MCV) 93.9 80.0-94.0 [facility] CenterDsikoojHMMWTTIFNP6462-63-22 01:05:00 Test Item Value Reference Range Interpretation Comments RBC (test code = RBC) 5.14 4.70-6.10 [facility] CenterEspitdnNLSKJHLLVQ9389-88-78 01:05:00 Test Item Value Reference Range Interpretation Comments Hgb (test code = Hgb) 16.3 14.0-18.0 [facility]2016-08-23 01:05:00 Test Item Value Reference Range Interpretation Comments B/C Ratio (test code = B/C Ratio) 20 6-25 [facility] CenterVbqpmslLDJFRLSRUW5463-98-07 01:05:00 Test Item Value Reference Range Interpretation Comments Platelet (test code = Platelet) 416 133-450 [facility]2016-08-23 01:05:00 Test Item Value Reference Range Interpretation Comments Globulin (test code = Globulin) 4.0 2.7-4.2 [facility] CenterMjbcqocDXFDWNZXDI8145-81-06 01:05:00 Test Item Value Reference Range Interpretation Comments MPV (test code = MPV) 7.5 7.4-10.4 [facility]2016-08-23 01:05:00 Test Item Value Reference Range Interpretation Comments A/G Ratio (test code = A/G Ratio) 1.2 0.7-1.6 [facility] Cent[id number] 01:05:00 Test Item Value Reference Range Interpretation Comments Eosinophils # (test code 0.3 See_Comment [A utomated message] The = Eosinophils #) system whic h generated this result tra nsmitted reference range : <=0.5. The reference r robert was not used to int erpret this result as normal/abnormal . [facility]2016-08-23 01:05:00 Test Item Value Reference Range Interpretation Comments AGAP (test code = AGAP) 13.2 10.0-20.0 [facility] CenterL[id number] 01:05:00 Test Item Value Reference Range Interpretation Comments Monocytes # (test code 0.8 See_Comment [Aut omated message] The = Monocytes #) system which generated this result tra nsmitted reference range : <=0.8. The reference r robert was not used to int erpret this result as normal/abnormal . [facility]2016-08-23 01:05:00 Test Item Value Reference Range Interpretation Comments eGFR (test code = eGFR) 76 [facility] CenterTlkowprDSQSQATOOV2644-53-13 01:05:00 Test Item Value Reference Range Interpretation Comments Basophils # (test code 0.1 See_Comment [Aut omated message] The = Basophils #) system which generated this result tra nsmitted reference range : <=0.2. The reference r robert was not used to int erpret this result as normal/abnormal . [facility]2016-08-23 01:05:00 Test Item Value Reference Range Interpretation Comments Alk Phos (test code = Alk Phos) 120 39-136 [facility] CenterWcwbxoyEFMOGNCSEH5514-72-70 01:05:00 Test Item Value Reference Range Interpretation Comments Segs-Bands # (test code = Segs-Bands #) 7.7 1.5-8.1 [facility]2016-08-23 01:05:00 Test Item Value Reference Range Interpretation Comments Bili Total (test code = Bili Total) 0.5 0.2-1.3 [facility] CenterHjdqihpPVJDTKEOXI2389-61-23 01:05:00 Test Item Value Reference Range Interpretation Comments Lymphocytes # (test code = Lymphocytes 1.7 1.0-5.5 #) [facility]2016-08-23 01:05:00 Test Item Value Reference Range Interpretation Comments Albumin Lvl (test code = Albumin Lvl) 4.7 3.5-5.0 [facility] CenterHwzhdbkTAVHXLQYEO5813-20-75 01:05:00 Test Item Value Reference Range Interpretation Comments Segs (test code = Segs) 73.3 45.0-75.0 [facility]2016-08-23 01:05:00 Test Item Value Reference Range Interpretation Comments ALT (test code = ALT) 61 See_Comment [Auto mated message] The system which ge nerated this result transmit sofiya reference range : <=65. The reference range was not used to interpr et this result as simone l/abnormal. [facility] CenterHripdnrWGRWQWCFOA1461-21-78 01:05:00 Test Item Value Reference Range Interpretation Comments Eosinophils (test code = 3.0 See_Comment [A utomated message] The Eosinophils) system which ge nerated this result tra nsmitted reference range : <=4.0. The reference r robert was not used to int erpret this result as normal/abnormal . [facility]2016-08-23 01:05:00 Test Item Value Reference Range Interpretation Comments AST (test code = AST) 25 See_Comment [Auto mated message] The system which ge nerated this result transmit sofiya reference range : <=37. The reference range was not used to interpr et this result as simone l/abnormal. [facility] CenterUrhuariYHACLEQWIO3272-80-43 01:05:00 Test Item Value Reference Range Interpretation Comments Monocytes (test code = Monocytes) 7.5 2.0-12.0 [facility]2016-08-23 01:05:00 Test Item Value Reference Range Interpretation Comments Total Protein (test code = Total 8.7 6.4-8.4 Protein) [facility] CenterElvqgbbSVFOLNVVBK8668-92-80 01:05:00 Test Item Value Reference Range Interpretation Comments Basophils (test code = 0.5 See_Comment [Aut omated message] The Basophils) system which ge nerated this result tra nsmitted reference range : <=1.0. The reference r robert was not used to int erpret this result as normal/abnormal . [facility]2016-08-23 01:05:00 Test Item Value Reference Range Interpretation Comments Sodium Lvl (test code = Sodium Lvl) 136 135-145 [facility] CenterSgirlfkDOXOHHRLOD8584-05-31 01:05:00 Test Item Value Reference Range Interpretation Comments Lymphocytes (test code = Lymphocytes) 15.7 20.0-40.0 [facility]2016-08-23 01:05:00 Test Item Value Reference Range Interpretation Comments Potassium Lvl (test code = Potassium 4.2 3.5-5.1 Lvl) [facility]2016-08-23 01:05:00 Test Item Value Reference Range Interpretation Comments Chloride Lvl (test code = Chloride Lvl) 102 95-109 [facility]2016-08-23 01:05:00 Test Item Value Reference Range Interpretation Comments CO2 (test code = CO2) 25 24-32 [facility]2016-08-23 01:05:00 Test Item Value Reference Range Interpretation Comments Calcium Lvl (test code = Calcium Lvl) 9.1 8.5-10.5 [facility]2016-08-23 01:05:00 Test Item Value Reference Range Interpretation Comments Glucose Lvl (test code = Glucose Lvl) 102 70-99 [facility]2016-08-23 01:05:00 Test Item Value Reference Range Interpretation Comments BUN (test code = BUN) 23 7-22 [facility]2016-08-23 01:05:00 Test Item Value Reference Range Interpretation Comments Creatinine Lvl (test code = Creatinine 1.17 0.50-1.40 Lvl) [facility] CenterTururqpXSVUPOOEUY1747-09-79 01:05:00 Test Item Value Reference Range Interpretation Comments WBC (test code = WBC) 10.5 3.7-10.4 [facility] CenterPuuelxuYGXRLMUYEE2410-81-75 01:05:00 Test Item Value Reference Range Interpretation Comments MCH (test code = MCH) 31.7 pg 27.0-31.0 [facility] CenterZnpwilkPDXJPSIUVK7894-33-80 01:05:00 Test Item Value Reference Range Interpretation Comments MCHC (test code = MCHC) 33.8 32.0-36.0 [facility] CenterRrfwmltHIFGZZXZAJ0892-99-13 01:05:00 Test Item Value Reference Range Interpretation Comments RDW (test code = RDW) 12.5 11.5-14.5 [facility] CenterRlzjobuPUFQGBLTZV7454-38-34 01:05:00 Test Item Value Reference Range Interpretation Comments Hct (test code = Hct) 48.2 42.0-54.0 [facility] CenterKphskxiJYPWMVYBCY5209-10-63 01:05:00 Test Item Value Reference Range Interpretation Comments MCV (test code = MCV) 93.9 80.0-94.0 [facility] CenterJiclabfKBDFTBVXDU6692-93-04 01:05:00 Test Item Value Reference Range Interpretation Comments RBC (test code = RBC) 5.14 4.70-6.10 [facility] CenterStoqonpNENOIMNTEO3892-18-41 01:05:00 Test Item Value Reference Range Interpretation Comments Hgb (test code = Hgb) 16.3 14.0-18.0 [facility] CenterMwmwfunJYCRZHFYBO5007-31-00 01:05:00 Test Item Value Reference Range Interpretation Comments Platelet (test code = Platelet) 416 133-450 [facility] CenterWcqtgjhOMMXPGTZRH3224-64-04 01:05:00 Test Item Value Reference Range Interpretation Comments MPV (test code = MPV) 7.5 7.4-10.4 [facility] CenterYuetmduWXFCOHZBTV5431-37-84 01:05:00 Test Item Value Reference Range Interpretation Comments Eosinophils # (test code 0.3 See_Comment [A utomated message] The = Eosinophils #) system whic h generated this result tra nsmitted reference range : <=0.5. The reference r robert was not used to int erpret this result as normal/abnormal . [facility] CenterCdfbmhlBSGTZTLXIX3654-51-41 01:05:00 Test Item Value Reference Range Interpretation Comments Monocytes # (test code 0.8 See_Comment [Aut omated message] The = Monocytes #) system which generated this result tra nsmitted reference range : <=0.8. The reference r robert was not used to int erpret this result as normal/abnormal . [facility] [id number] 01:05:00 Test Item Value Reference Range Interpretation Comments Basophils # (test code 0.1 See_Comment [Aut omated message] The = Basophils #) system which generated this result tra nsmitted reference range : <=0.2. The reference r robert was not used to int erpret this result as normal/abnormal . [id number] 01:05:00 Test Item Value Reference Range Interpretation Comments Segs-Bands # (test code = Segs-Bands #) 7.7 1.5-8.1 [facility] [id number] 01:05:00 Test Item Value Reference Range Interpretation Comments Lymphocytes # (test code = Lymphocytes 1.7 1.0-5.5 #) [facility] [id number] 01:05:00 Test Item Value Reference Range Interpretation Comments Segs (test code = Segs) 73.3 45.0-75.0 [facility] [id number] 01:05:00 Test Item Value Reference Range Interpretation Comments Eosinophils (test code = 3.0 See_Comment [A utomated message] The Eosinophils) system which ge nerated this result tra nsmitted reference range : <=4.0. The reference r robert was not used to int erpret this result as normal/abnormal . [facility] [id number] 01:05:00 Test Item Value Reference Range Interpretation Comments Monocytes (test code = Monocytes) 7.5 2.0-12.0 [facility] [id number] 01:05:00 Test Item Value Reference Range Interpretation Comments Basophils (test code = 0.5 See_Comment [Aut omated message] The Basophils) system which ge nerated this result tra nsmitted reference range : <=1.0. The reference r robert was not used to int erpret this result as normal/abnormal . [facility] [id number] 01:05:00 Test Item Value Reference Range Interpretation Comments Lymphocytes (test code = Lymphocytes) 15.7 20.0-40.0 [facility] abdomen pelvis wo con [facility] [address] [place] [address] Patient Name: Roger Tenorio Medical Record#: [id number] Address: [address] [place] [address] City/State/Zip: [place] [address]: Lg Hutchinson MD Insurance: Self Pay /Age/Sex: 1970/50/M Admit/Reg Date: 02/17/[address]: Keesha Pires [facility] Location: [facility]/ PCP: Pcp-Md JOSE Carrasco Date of Service: 02/17/21 Order (s): CT abdomen pelvis wo con CPT Code: 58455 Report Number: [id number] Reason for Exam: Flank Pain Location: R 16 CT Abdomen and Pelvis without Contrast Indication: Flank Pain Comparison: none. Technical factors: Axial images were obtained without contrast. Coronal and sagittal reconstruction. This exam was performed according to our departmental dose-optimization program, which includes automated exposure control, adjustmentof the mA and/or kV according to patient size and/or use of iterative reconstruction technique. Total exam DLP 340.9 Findings: Lung bases are clear with no pleural effusion. The liver is normal in appearance. The biliary ducts are not dilated. No focal lesion is seen. The gallbladder is normal in appearance. The spleen and pancreas are unremarkable. Adrenal glands are normal in appearance. Kidneys are normal in appearance. No hydronephrosis or hydroureter. IVC is unremarkable. Abdominal aorta is unremarkable for age. Bowel is unremarkable. Appendix is unremarkable The urinary bladder is normal in appearance. Prostate and seminal vesicles are normal in appearance. No ascites. Mild edema in the central mesentery, no adenopathy. Abdominal-pelvic wall is unremarkable. Skeletal structures are normal for patient age. Impression: 1. No specific evidence of acute pathology. 2. Mild mesenteric edema, ofuncertain significance. Electronically signed by: Branden Whalen MD 02/17/2021 10:59 PM CDT Dictated By: Branden Whalen MD 02/17/212243 Signed By: Branden Whalen MD 02/17/212243 TD/TT: 02/17/212243 Tech: [id number] cc: RACHEL; THELMA* Keesha Pires, PAC; Pcp-Danilo, MDXShmuel hand LT min 3V [facility] [address] [place] [address] Patient Name: Roger Tenorio Medical Record#: [id number] Address: [address] [place] [address] City/State/Zip: [place] [address] [address]: Sly Guerra Insurance: Self Pay /Age/Sex: 1970/50/M Admit/Reg Date: 02/07/[address]: MD Taj Chu, PAC Location: [facility]/ PCP: Date of Service: 02/07/21 Order (s): XR hand LT min 3V CPT Code:91550 Report Number: [id number] Reason for Exam: pain Location R 16 Exam: Left Hand, Three Views History: Hand pain Comparison: None available Findings: The osseous structures at the hand are intact and well aligned. Joint spaces are preserved. No evidence of foreign body in the soft tissues. Impression: No acute osseous findings. Electronically signed by: Tiera Kirkpatrick MD 02/07/2021 3:23 PM CDT Dictated By: Tiera Glass MD 02/07/21 1502 Signed By: Tiera Glass MD 02/07/21 1502 TD/TT: 02/07/21 1502 Tech: [id number] cc: ISSLAVAD* MD Taj Chu, PAC Notes Date/Time Note Provider Source 2021-02-17 21:28:00-00:00 [facility] [address] [place] [address] Emergency Department Document Signed Patient: Roger Tenorio Medical Record#: [id number] : 1970 Acct:[id number] Age/Sex: 50 / M Admit/Reg Date: 02/17/21 Loc: [facility] Room: Report Number: [id number]: Lg Hutchinson MD History of Present Illness Chief Complaint: Abdominal Pain Stated Complaint: kidney stone Source: patient Exam/History Limitations: no limitations Primary Care Provider: Pcp-Md Danilo History of Present Illness: 50 y/o male with pmh of aliza l stones, asthma presents to the ED for left flank pain that radiates to the left groin. No vomiting, diarrhea, fever, constipation, dysuria. ambulatory with steady gait. Allergies/Adverse Reactions: Penicillins Allergy (Verified 02/17/21 21:34) Rash tramadol Allergy (Verified 02/17/21 21:34) Itching Review of Systems All Other Systems (except as marked in HPI): Rev iewed and Negative Family/Social History - Social History Smoking Status: Never smoker Current or Hx of Recreational Drug use: No Physical Exam Triage Vital Signs: Temperature 36.8 C 02/17/21 21:27 Temperature Source Oral 02/17/21 21:27 Pulse Rate 78 02/17/21 21:27 Respiratory Rate 18 02/17/21 21:27 Blood Pressure 150/93 H 02/17/21 21:27 Blood Pressure Mean 112 02/17/21 21:27 Blood Pressure Position Sitting 02/17/21 21:27 02 Sat by Pulse Oximetry 100 02/17/21 21:27 Oxygen Delivery Method 02/17/21 21:27 General Appearance: NAD, Cooperative, Ambulatory Head: Atraumatic, Normocephalic Eyes: PERRL, EOMI Ears: Hearing grossly intact, External ear simone l Nose: Normal, No sinus tenderness Mouth/Throat: Mucosa moist Neck: Supple, Non-tender Cardiovascular: R/R/R, No Murmurs, No S3/S4 gall ops Abdominal: Soft, Non-tender, Non-distended Back: No deformity, L CVAT Extremity/Musculoskeletal: Non-tender, No cyanos is, No edema Skin: Warm, Dry, No Rashes Psych: Calm, No SI/HI, Normal affect Neuro: A O X 3, Motor grossly normal, Sensory gr ossly normal Results/Orders - Results and Orders Lab Testing Results 02/17/21 21:50: Urine Color Yellow, Urine Clarity Clear, Urine pH 6.0, Ur Specific Sims >= 1.030, Urine Protein Negative, Urin e Glucose (UA) Negative, Urine Ketones Trace A, Urine Blood Trace-intact A, Urine Nitrate Negative, U rine Bilirubin Negative, Urine Urobilinogen 0.2, Ur Leukocyte Esterase Negative, Urine RBC 0-5, Uri ne WBC 0-5, Ur Squamous Epith Cells 0-5, Calcium Oxalate Crystal Occasional A, Urine Mucus Many A 02/17/21 21:50: Urine Opiate s Screen Pending, Urine Methadone Screen Pending, Ur Propoxyphene Screen Pending, Ur Barbiturates Scr een Pending, Ur Phencyclidine Scrn Pending, Ur Amphetamines Screen Pending, U Benzodiazepines S crn Pending, Urine Cocaine Screen Pending, U Cannabinoids Screen Pending Medications Ordered: Discontinued Medications Ibuprofen (Motrin) 600 mg PO ONCE ONE Stop: 02/17/21 21:31 Last Admin: 02/17/21 21:40 Dose: 600 mg Documented by: [email or web address] Ondansetron HCl (Zofran Odt) 4 mg PO ONCE ONE Stop: 02/17/21 21:31 Last Admin: 02/18/21 01:03 Dose: 4 mg Documented by: [id number] Radiology Orders: Radiology Orders 02/17/21 21:26 CT abdomen pelvis wo con Stat MDM/COURSE Vital Signs Temperature 36.8 C 02/17/21 21:27 Pulse Rate 78 02/17/21 21:27 Respiratory Rate 18 02/17/21 21:27 Blood Pressure 150/93 H 02/17/21 21:27 02 Sat by Pulse Oximetry 100 02/17/21 21:27 Temperature 36.8 C 02/17/21 21:27 Pulse Rate 78 02/17/21 21:27 Respiratory Rate 18 02/17/21 21:27 Blood Pressure 150/93 H 02/17/21 21:27 02 Sat by Pulse Oximetry 100 02/17/21 21:27 - [facility] Medical Decision Making Narrative: 02/17/21 21:29 ddx: uti, renal stone 02/18/21 01:24 CT abdomen and pelvis w/o: 1. No specific evidence of acute pathology. 2. Mild mesenteric edema, of uncertain significa nce. UA revealed some calcium oxalate. Patient was re-evaluated and found to be resting comfortably in the ED. no vomiting, no significant flank pain. His abdomen was soft, some mild periumbilical tenderness was noted. He was afebrile. He did state that yesterday he had 3 watery BM without blood. perhaps his symptoms are secondary to a passed stone or infectious diarrhea. he was given a script for fl agyl, dicyclomine, ibuprofen and gave referral to see PCP for follow up of his symptoms. advised to return to ED if you develop worsening pain, fever, vomiting, diarrhea. patient verbalized understanding and had no ques tions at d/c 02/18/21 01:25 Disposition Clinical Impression: Diarrhea Disposition: Home or Self-Care Condition: Fair Instructions: Self-Care for Vomiting and Diarrhe a Care Plan Goals: Follow up with in 1-2 days. Return to ED if symptoms worsen Prescriptions: Dicyclomine [Bentyl] 20 mg PO QID PRN #20 tablet PRN Reason: Stomach Cramps Prescription Printed metroNIDAZOLE [Flagyl] 500 mg PO TID 7 Days #21 tablet Prescription Printed Ibuprofen [Motrin] 400 mg PO BID PRN 7 Days #14 tablet PRN Reason: Pain Prescription Printed Referrals: Rufina Shaw MD [Staff Physician] - Dictated By: NONA Cueto Signed By: Keesha Pires 02/18/21 0129 Lg Hutchinson MD 02/18/21 0408 DD/ 27 TD/TT: 02/17/212127 Puppet Developer: RACHEL cc: THELMA* Pcp-Md JOSE Carrasco 2019-07-13 14:37:00-00:00 [facility] ([facility]) EMERGENCY PROVIDER REPORT REPORT#:[id number] REPORT STATUS: Signed DATE:07/13/19 TIME: 1437 PATIENT: ROGER TENORIO UNIT #: [id number] ROOM: BED: AGE: 48 SEX: M PCP PHYS: No Primary or Family Ph ysician SERVICE AUTHOR: Rohith Salazar NP * ALL edits or amendments must be made on the el [employer]/computer document * HPI-Back Pain 40 and Over General Confirmed Patient Yes Patient Type New patient Initial Greet Date/Time 07/13/19 1431 Assumed Care at Time 1437 Date 07/13/19 Presentation Chief Complaint Pain, lumbar Hx Obtained From Patient Sudden in Onset? No Onset Occurred Weeks ago Symptom Duration Waxes and wanes Progression since Onset Intermittent, Waxes and wanes Caused by Chronic Injury Location Spinal lumbar area Quality Aching Radiation No: Does not radiate, Abdomen, Chest, Inguinal, Neck, Shoulder R, Shoulder L, Arm R, Arm L, Perineal area, Leg R, above knee, Leg R, below knee, Leg L, above knee, Leg L, below knee. Severity: Onset Moderate Severity: Current Moderate Associated with Reports: Incontinence bladder, Numbness, lower e xt R, Numbness, lower ext L. Denies: Abdominal pain, Chest pain, Coug h, Dyspnea, Dysuria, Fever, Frequency, Hematuria, Inability to walk, Incontinence bowel , Nausea, Vomiting, Numbness, both lower ext, Tingling, lower ext R, Tingling, lower ext L, Tingling, both lower ext, Weakness, lower ext R, Weakness, lowe r ext L, Weakness, both lower ext. Exacerbated by Movement, Palpation Relieved by Lying still Context Immunization Status General All up to date Risk-Back Pain 40 and Over Risk Stratification )( Abdominal Aortic Aneurysm Risk factors review ed )( Thoracic Aortic Dissection Risk factors revie wed Nexus C-Spine Criteria No: Post midline tenderness, Intoxicated, Altere d LOC/alertness, Focal neuro deficit pres, Distracting injury pres. Review of Systems ROS Statements All systems rev neg except as marked. Complete sys rev neg except as marked. Basic Review of Systems Basic ROS EYES: No redness, ENT: No sore throat, SKIN: No rash, PSYCH: NL thought content Focused Review of Systems Constitutional Denies: Chills, Fatigue, Fever, Lethargy, Malais e, Recent wt loss, Weakness - generalized. Respiratory Denies: Cough, non-productive, Cough, productive , Dyspnea on exertion, Hemoptysis, Parox nocturnal dyspnea, Pleuritic p ain, Shortness of breath, Wheezing. Cardiovascular Denies: Chest pain, Dyspnea on exertion, Edema, Orthopnea, Palpitations, Parox nocturnal dyspnea, Syncope. GI Denies: Abdominal pain, Anorexia, Belching, Bloo dy/tarry stool, Constipation, Diarrhea, Dysphagia, Hematemesis, Hemato chezia, Mucousy stool, Melena, Nausea, Rectal pain, Vomiting. Male Denies: Dysuria, Flank pain, Hematuria, Incontinence, Nocturia, Penile discharge , Penile lesion, Scrotal swe lling, Testicular pain, Testicular swelling, Urinary frequency, Urinary urgency, Urination decreased, Urination increased. Musculoskeletal Reports: Lumbar pain. Denies: Back pain, Extremi ty pain, Extremity swelling, Joint pain, Joint swelling, Myalgia, Neck pain, Thoracic pain. Neurologic Denies: Abnormal movement, Bladder dysfu nction, Bowel dysfunction, Change LOC, Confusion, Dizziness, Focal weakness, Generalize d weakness, Headache, Lightheaded, Numbness, Problem walking, Seizure, Shaking, Slurred speech, Spinning sensation, Syncope, Tingling, Unable to speak, Vision change. Additional Review of Systems Eyes Denies: Blurred R, Blurred L , Blurred bilat, Diplopia, Discharge R, Discharge L, Discharge bilat, Eye pain R, Eye pain L, Eye pain bilat, Photophobia, Redness R, Redness L, Redness bilat, Sw elling R, Swelling L, Swelling bilat, Visual loss R, Visual loss L, Visual loss bilat, Yellow R, [place] ow L, Yellow bilat. Skin Denies: Abrasion, Abscess, Burn, Contusion, Diap horesis, Erythema, Itching, Jaundice, Laceration, Rash, Swelling, Ulceration . Psychiatric Denies: Agitation, Anxiety, Change mental status , Confusion, Delusional, Depression, Hallucinations, auditory, Hallucinations, visual, Homicidal ideation , Hostile, Insomnia, Stress, Suicidal ideation, Unable to control self. Past Medical History - Adult Stated Complaint LOWER BACK PAIN Allergies Coded Allergies: penicillin G (RASH 07/13/19) tramadol (RASH 07/13/19) Suicide Risk (Nursing) Patient is at Risk for Suicide: NO Review of Nursing Notes Rev avail, and agree Pt reports no significant: Family history Family History: Denies: Abdominal aortic aneurysm, Anemia, Asthm a, CAD < 40 yrs old, Cancer, Coagulopathy, Dementia/Alzheimer's dis, Depressi on/mood disorder, Diabetes, Heart disease, Hypertension, Kidney disease/stones, Seizure disorder, Stroke/TIA , Subarachnoid hemorrhage, S udden cardiac , Thyroid disorder, , Connective tissue dis, Gallbladder disease, Hyperlipidemia, Neurofibromatosis, Sickle cell disease. Alcohol Use Denies EtOH use Drug Use Denies recreational drugs Smoking status for patients 13 years old or olde r: Current every day smoker Pack years (pk/d)*(yrs): 1 Date last smoked: still smoking State Controlled Subst DB Report Reviewed Yes Ambulatory Status Independent Physical Exam Vital Signs Vital Signs First Documented: Result Date Time Pulse Ox 98 07/13 1429 Temp 98.2 07/13 1429 Pulse 91 07/13 1429 Resp 20 07/13 1429 Last Documented: Result Date Time Pulse Ox 98 07/13 1429 Temp 98.2 07/13 1429 Pulse 91 07/13 1429 Resp 07/13 Review of Vital Signs Reviewed Basic Physical Exam Basic PE HEAD: Atraumatic/NC, EYES: PERRL, conj clear, ENT: Membranes moist, NECK: Supple, EXT: No gross abnormality, SKIN: No rashes, warm/dry, NEURO: alert oriented, NEURO: gross movement NL, PSYCH: NL t hought content Focused PE General/Const General/Const Awake, Alert, Cooperative MS Neck Neck Atraumatic, Supple, No meningismus, Full r robert of motion Resp/Chest Respiratory/Chest Atraumatic, Breath sounds NL, Breath sounds = bilat, No respiratory distress Cardiovascular Cardiovascular Heart rate NL, Regular rhythm, H eart sounds NL, No gallop Abdomen/GI Abdomen/GI Atraumatic, Soft, Non-tender, BS nor moactive MS Back Muscle Spasm/ROM Lumbar area spasm. Negative: Thoracic area spas m, Sacral area spasm, Trapezius tender R, Trapezius tender L, Rhomboid tender R, Rhomboid tender L, Erector spinae tender R, Erector spinae tender L , Latisimus dorsi tender R, Latisimus dorsi tender L, Gluteus tenderness R, Gluteus tenderness L, ROM decrease - mild, ROM decrease - mod, ROM decreas e - severe. Skin Skin Warm, Dry, Intact Neurologic Neurologic Oriented X3, Speech NL, No m otor deficits, No sensory deficits, CN II - XII intact, Reflexes equal bilat, Cerebella r NL, Memory NL, Gait NL Additional PE MS Head Head Atraumatic, Normocephalic Eyes Eyes Atraumatic, PERRL, EOMI, No nystagmus Ears/Nose/Throat Ears/Nose/Throat Atraumatic, Airway patent, Muc ous membranes moist, Pharynx NL Psychiatric Psychiatric Affect NL, Mood NL, Not suicidal, N ot homicidal, No hallucinations, Cognitive function NL, J udgment/insight NL, Thought content NL Interpretation Diagnostics Lab Results Interpretation Results Recent Impressions: [facility] - MRI L-SPINE W/O CON T 07/13 1520 Report Impression - Status: SIGNED Entered: 07/13/2019 1612 IMPRESSION: 1. Multilevel degenerative disease as detailed a fran, worst at L4-L5 where there is grade 1 anterolisthesis and mild to moderate canal narrowing 2. Normal conus. No conus compression Impression By: [id number] - Keila Delgado MD Imaging Statement Radiographic studies reviewed and considered in the medical decision-making. Point of Care Testing Pulse Oximetry Pulse Ox % 100 On: Room air Interpretation Interpreted by me, Pulse oximetr y normal Time 1633 Re-Evaluation MDM Free Text MDM Notes Free Text MDM Notes Patient comes in stating he was seen at another ER 3 weeks ago and diagnosed with a slipped disc in his lumbar area. Patient states he is in between jobs and came to ER today as he has been having a pro blem with urination and bowel incontinence. Patient is AAO x3 has good PMS in all 4 extremities does not display any visible signs of distress. Re-Evaluation/Progress #1 Text/Dict Note relaxed Time of Re-Eval 1633 Re-Eval Status Improved Eval Following Treatment Pt. feels better Pain Re-Evaluation Pain improved Exam Post Tx - General Active, Alert, Appears no n-toxic, Appears well, Vital signs stable, Capillary refill normal, Hydration normal Exam Post Tx - Sys Review Lungs clear Plan Post Re-Eval Plan discharge Back Pain MDM Note The patient presented with acute back pain. The patient is now resting comfortably and feels better, is alert, talkativ e, interactive and in no distress. The repeat examination is unremarkable and benign. The patient is neurologically intact and is ambulatory in the ED. The patient has no fever, no bowel or bladder incontinenc e, no saddle anesthesia, and is otherwise alert and well-appearing. The history, physical ex amination, and diagnostics (if any) do not suggest the presence of acute spinal epidural abscess, acute spinal epidural bleed, cauda equina syndrome, abdominal aortic a neurysm, aortic dissection or other process requiring further testing, treatme nt or consultation in the emergency department. The vi fortunato signs have been stable. The patient's condition is stable and appropriate for discharge. The pat ient will pursue further outpatient evaluation with the primary care phys ician or other designated or consulting physician as indicated in the dischar ge instructions. ED Course Medication(s) Ordered Medication(s) Ordered: Autonomic Drugs Sig/Elvis Start time Last Medication Dose Route Stop Time Status Admin Orphenadrine Citrate 60 MG X1ED STA 07/13 1436 DC 07/13 IM 07/13 143 1629 Central Nervous System Agents Sig/Elvis Start time Last Medication Dose Route Stop Time Status Admin Ketorolac 15 MG X1ED STA 07/13 1436 DC 07/13 Tromethamine IM 07/13 1437 1628 Skin And Mucous Membrane Agent Sig/Elvis Start time Last Medication Dose Route Stop Time Status Admin Lidocaine 1 EA ONCE ONE 07/13 1445 DC 07/13 TOPICAL 07/13 1446 1629 Differential Diagnosis Differential Diagnosis Cauda equina syndrome, He rniated disk, Lumbar strain, Spinal mass Patient Discharge Departure Vital Signs/Condition Vital Signs First Documented: Result Date Time Pulse Ox 98 07/13 1429 Temp 98.2 07/13 1429 Pulse 91 07/13 1429 Resp 20 07/13 1429 Last Documented: Result Date Time Pulse Ox 98 07/13 1429 Temp 98.2 07/13 1429 Pulse 91 07/13 1429 Resp 20 07/13 1429 All vital signs available at the time of this en try have been reviewed. Condition Improved, Stable Clinical Impression Clinical Impression Primary Impression: Degenerative disc disease, l umbar Secondary Impressions: Chronic back pain, Lumbar strain Disposition Decision Discharge )( Discharged to Home Yes )( Time 1633 )( Date 07/13/19 Discharge/Care Plan Counseled Regarding Diagnosi s, Imaging studies, Prescriptions, Need for follow- up, Smoking cessation, When to return to ED Prescriptions LIDODERM MOTRIN PARAFON FORTE Prescriptions Reviewed Risks, Benefits, Alternat rickey treatment Discharge Note I have spoken with the patie nt and/or caregivers. I have explained the patient's condition, diagnoses and janine atment plan based on the information available to me at this time. I have answered the patient's and/ or caregiver's questions and addressed any concerns. The patient and/or careg reynold have as good an understanding of the patient 's diagnosis, condition and treatment plan as can be expected at this point. The vital signs have bee n stable. The patient's condition is stable and appr opriate for discharge from the emergency department. The patient will pursue further outpatient evalu ation with the primary care physician or other designated or consulting phys ician as outlined in the discharge instructions. The patient and/or caregivers are agreeable to this plan of care and follow-up instructions have been exp lained in detail. The patient and/or caregivers have received these instructio ns in written format and have expressed an understanding of the discharge inst ructions. The patient and/or caregivers are aware that any significant change in condition or worsening of symptoms should prompt an immediate return to [facility] or the closest emergency department or a call to 911. Quality Measures Rx Drug Database Rev Yes Care Coordination Adv care plan discussed Smoking Cessation Screened, tobacco user Tobacco Screening/Cessation 18 years or older, Tobacco user, Smoking cessation offered, Counseled 3-10 minutes Smoking Cessation Counseling The patient was questioned r egarding their smoking habits, and I have determined , as the patient's treating physician, that ther e is a medical necessity in regards to the patient's med ical condition to provide smoking cessation program education. The patient was a dvised to stop smoking and counseled for a period of greater than 3 minutes. The patient was instructed to follow up with a primary care physician for smoking cessation and given i nformation regarding local smoking cessation programs i n the area. The patient received detailed discharge instructions as to how to stop smoking. The patient expressed an understanding of the need to follow up and the plan for smokin g cessation. Electronically Signed by Rohith Salazar NP on at 1810 RPT #:[id number] END OF REPORT 2019-07-13 14:37:00-00:00 [facility] ([facility]) EMERGENCY PROVIDER REPORT REPORT#:[id number] REPORT STATUS: Signed DATE:07/13/19 TIME: 1437 PATIENT: ROGER TENORIO UNIT #: [id number] ROOM: BED: AGE: 48 SEX: M PCP PHYS: No Primary or Family Ph ysician SERVICE AUTHOR: Rohith Salazar GAMING FLOOR SUPERVISOR * ALL edits or amendments must be made on the [employer] document * Chuy Salazaron 07/13/19 1437: HPI-Back Pain 40 and Over General Confirmed Patient Yes Patient Type New patient Assumed Care at Time 1437 Date 07/13/19 Presentation Chief Complaint Pain, lumbar Hx Obtained From Patient Sudden in Onset? No Onset Occurred Weeks ago Symptom Duration Waxes and wanes Progression since Onset Intermittent, Waxes and wanes Caused by Chronic Injury Location Spinal lumbar area Quality Aching Radiation No: Does not radiate, Abdomen, Chest, Inguinal, Neck, Shoulder R, Shoulder L, Arm R, Arm L, Perineal area, Leg R, above knee, Leg R, below knee, Leg L, above knee, Leg L, below knee. Severity: Onset Moderate Severity: Current Moderate Associated with Reports: Incontinence bladder, Numbness, lower e xt R, Numbness, lower ext L. Denies: Abdominal pain, Chest pain, Coug h, Dyspnea, Dysuria, Fever, Frequency, Hematuria, Inability to walk, Incontinence bowel , Nausea, Vomiting, Numbness, both lower ext, Tingling, lower ext R, Tingling, lower ext L, Tingling, both lower ext, Weakness, lower ext R, Weakness, lowe r ext L, Weakness, both lower ext. Exacerbated by Movement, Palpation Relieved by Lying still Context Immunization Status General All up to date Risk-Back Pain 40 and Over Risk Stratification )( Abdominal Aortic Aneurysm Risk factors review ed )( Thoracic Aortic Dissection Risk factors revie wed Nexus C-Spine Criteria No: Post midline tenderness, Intoxicated, Altere d LOC/alertness, Focal neuro deficit pres, Distracting injury pres. Review of Systems ROS Statements All systems rev neg except as marked. Complete sys rev neg except as marked. Basic Review of Systems Basic ROS EYES: No redness, ENT: No sore throat, SKIN: No rash, PSYCH: NL thought content Focused Review of Systems Constitutional Denies: Chills, Fatigue, Fever, Lethargy, Malais e, Recent wt loss, Weakness - generalized. Respiratory Denies: Cough, non-productive, Cough, productive , Dyspnea on exertion, Hemoptysis, Parox nocturnal dyspnea, Pleuritic p ain, Shortness of breath, Wheezing. Cardiovascular Denies: Chest pain, Dyspnea on exertion, Edema, Orthopnea, Palpitations, Parox nocturnal dyspnea, Syncope. GI Denies: Abdominal pain, Anorexia, Belching, Bloo dy/tarry stool, Constipation, Diarrhea, Dysphagia, Hematemesis, Hemato chezia, Mucousy stool, Melena, Nausea, Rectal pain, Vomiting. Male Denies: Dysuria, Flank pain, Hematuria, Incontinence, Nocturia, Penile discharge , Penile lesion, Scrotal swe lling, Testicular pain, Testicular swelling, Urinary frequency, Urinary urgency, Urination decreased, Urination increased. Musculoskeletal Reports: Lumbar pain. Denies: Back pain, Extremi ty pain, Extremity swelling, Joint pain, Joint swelling, Myalgia, Neck pain, Thoracic pain. Neurologic Denies: Abnormal movement, Bladder dysfu nction, Bowel dysfunction, Change LOC, Confusion, Dizziness, Focal weakness, Generalize d weakness, Headache, Lightheaded, Numbness, Problem walking, Seizure, Shaking, Slurred speech, Spinning sensation, Syncope, Tingling, Unable to speak, Vision change. Additional Review of Systems Eyes Denies: Blurred R, Blurred L , Blurred bilat, Diplopia, Discharge R, Discharge L, Discharge bilat, Eye pain R, Eye pain L, Eye pain bilat, Photophobia, Redness R, Redness L, Redness bilat, Sw elling R, Swelling L, Swelling bilat, Visual loss R, Visual loss L, Visual loss bilat, Yellow R, [place] ow L, Yellow bilat. Skin Denies: Abrasion, Abscess, Burn, Contusion, Diap horesis, Erythema, Itching, Jaundice, Laceration, Rash, Swelling, Ulceration . Psychiatric Denies: Agitation, Anxiety, Change mental status , Confusion, Delusional, Depression, Hallucinations, auditory, Hallucinations, visual, Homicidal ideation , Hostile, Insomnia, Stress, Suicidal ideation, Unable to control self. Past Medical History - Adult Stated Complaint LOWER BACK PAIN Allergies Coded Allergies: penicillin G (RASH 07/13/19) tramadol (RASH 07/13/19) Suicide Risk (Nursing) Patient is at Risk for Suicide: NO Review of Nursing Notes Rev avail, and agree Pt reports no significant: Family history Family History: Denies: Abdominal aortic aneurysm, Anemia, Asthm a, CAD < 40 yrs old, Cancer, Coagulopathy, Dementia/Alzheimer's dis, Depressi on/mood disorder, Diabetes, Heart disease, Hypertension, Kidney disease/stones, Seizure disorder, Stroke/TIA , Subarachnoid hemorrhage, S udden cardiac , Thyroid disorder, , Connective tissue dis, Gallbladder disease, Hyperlipidemia, Neurofibromatosis, Sickle cell disease. Alcohol Use Denies EtOH use Drug Use Denies recreational drugs Smoking status for patients 13 years old or olde r: Current every day smoker Pack years (pk/d)*(yrs): 1 Date last smoked: still smoking State Controlled Subst DB Report Reviewed Yes Ambulatory Status Independent Physical Exam Vital Signs Vital Signs First Documented: Result Date Time Pulse Ox 98 07/13 142 Temp 98.2 07/13 142 Pulse 91 07/13 142 Resp 20 07/13 1429 Last Documented: Result Date Time Pulse Ox 98 07/13 1429 Temp 98.2 07/13 1429 Pulse 91 07/13 142 Resp 07/13 Review of Vital Signs Reviewed Basic Physical Exam Basic PE HEAD: Atraumatic/NC, EYES: PERRL, conj clear, ENT: Membranes moist, NECK: Supple, EXT: No gross abnormality, SKIN: No rashes, warm/dry, NEURO: alert oriented, NEURO: gross movement NL, PSYCH: NL t hought content Focused PE General/Const General/Const Awake, Alert, Cooperative MS Neck Neck Atraumatic, Supple, No meningismus, Full r robert of motion Resp/Chest Respiratory/Chest Atraumatic, Breath sounds NL, Breath sounds = bilat, No respiratory distress Cardiovascular Cardiovascular Heart rate NL, Regular rhythm, H eart sounds NL, No gallop Abdomen/GI Abdomen/GI Atraumatic, Soft, Non-tender, BS nor moactive MS Back Muscle Spasm/ROM Lumbar area spasm. Negative: Thoracic area spas m, Sacral area spasm, Trapezius tender R, Trapezius tender L, Rhomboid tender R, Rhomboid tender L, Erector spinae tender R, Erector spinae tender L , Latisimus dorsi tender R, Latisimus dorsi tender L, Gluteus tenderness R, Gluteus tenderness L, ROM decrease - mild, ROM decrease - mod, ROM decreas e - severe. Skin Skin Warm, Dry, Intact Neurologic Neurologic Oriented X3, Sp eech NL, No motor deficits, No sensory deficits, CN II - XII intact, Reflexes equal bilat, Cerebella r NL, Memory NL, Gait NL Additional PE MS Head Head Atraumatic, Normocephalic Eyes Eyes Atraumatic, PERRL, EOMI, No nystagmus Ears/Nose/Throat Ears/Nose/Throat Atraumatic, Airway patent, Muc ous membranes moist, Pharynx NL Psychiatric Psychiatric Affect NL, Mood NL, Not suicidal, N ot homicidal, No hallucinations, Cognitive function NL, J udgment/insight NL, Thought content NL Interpretation Diagnostics Lab Results Interpretation Results Recent Impressions: [facility] IMAGING - MRI L-SPINE W/O CON T 07/13 1520 Report Impression - Status: SIGNED Entered: 07/13/2019 1612 IMPRESSION: 1. Multilevel degenerative disease as detailed a fran, worst at L4-L5 where there is grade 1 anterolisthesis and mild to moderate canal narrowing 2. Normal conus. No conus compression Impression By: [email or web address] - Keila Delgado MD Imaging Statement Radiographic studies reviewed and considered in the medical decision-making. Point of Care Testing Pulse Oximetry Pulse Ox % 100 On: Room air Interpretation Interpreted by me, Pulse oximetr y normal Time 1633 Re-Evaluation MDM Free Text MDM Notes Free Text MDM Notes Patient comes in stating he was seen at another ER 3 weeks ago and diagnosed with a slipped disc in his lumbar area. Patient states he is in between jobs and came to ER today as he has been having a pro blem with urination and bowel incontinence. Patient is AAO x3 has good PMS in all 4 extremities does not display any visible signs of distress. Re-Evaluation/Progress #1 Text/Dict Note relaxed Time of Re-Eval 1633 Re-Eval Status Improved Eval Following Treatment Pt. feels better Pain Re-Evaluation Pain improved Exam Post Tx - General Active, Alert, Appears no n-toxic, Appears well, Vital signs stable, Capillary refill normal, Hydration normal Exam Post Tx - Sys Review Lungs clear Plan Post Re-Eval Plan discharge Back Pain MDM Note The patient presented with acute back pain. The patient is now resting comfortably and feels better, is alert, talkativ e, interactive and in no distress. The repeat examination is unremarkable and benign. The patient is neurologically intact and is ambulatory in the ED. The patient has no fever, no bowel or bladder incontinenc e, no saddle anesthesia, and is otherwise alert and well-appearing. The history, physical ex amination, and diagnostics (if any) do not suggest the presence of acute spinal epidural abscess, acute spinal epidural bleed, cauda equina syndrome, abdominal aortic a neurysm, aortic dissection or other process requiring further testing, treatme nt or consultation in the emergency department. The vi fortunato signs have been stable. The patient's condition is stable and appropriate for discharge. The pat ient will pursue further outpatient evaluation with the primary care phys ician or other designated or consulting physician as indicated in the dischar ge instructions. ED Course Medication(s) Ordered Medication(s) Ordered: Autonomic Drugs Sig/Elvis Start time Last Medication Dose Route Stop Time Status Admin Orphenadrine Citrate 60 MG X1ED STA 07/13 1436 DC 07/13 IM 07/13 1437 1629 Central Nervous System Agents Sig/Elvis Start time Last Medication Dose Route Stop Time Status Admin Ketorolac 15 MG X1ED STA 07/13 1436 DC 07/13 Tromethamine IM 07/13 143 1628 Skin And Mucous Membrane Agent Sig/Elvis Start time Last Medication Dose Route Stop Time Status Admin Lidocaine 1 EA ONCE ONE 07/13 1445 DC 07/13 TOPICAL 07/13 144 1629 Differential Diagnosis Differential Diagnosis Cauda equina syndrome, He rniated disk, Lumbar strain, Spinal mass Patient Discharge Departure Vital Signs/Condition Vital Signs First Documented: Result Date Time Pulse Ox 98 07/13 142 Temp 98.2 07/13 142 Pulse 91 07/13 142 Resp 20 07/13 1429 Last Documented: Result Date Time Pulse Ox 98 07/13 1429 Temp 98.2 07/13 1429 Pulse 91 07/13 142 Resp 07/13 All vital signs available at the time of this en try have been reviewed. Condition Improved, Stable Clinical Impression Clinical Impression Primary Impression: Degenerative disc disease, l umbar Secondary Impressions: Chronic back pain, Lumbar strain Disposition Decision Discharge )( Discharged to Home Yes )( Time 1633 )( Date 07/13/19 Discharge/Care Plan Counseled Regarding Diagnosi s, Imaging studies, Prescriptions, Need for follow- up, Smoking cessation, When to return to ED Prescriptions LIDELIZA SANTOS FORTTravon Prescriptions Reviewed Risks, Benefits, Alternat rickey treatment Discharge Note I have spoken with the patie nt and/or caregivers. I have explained the patient's condition, diagnoses and janine atment plan based on the information available to me at this time. I have answered the patient's and/ or caregiver's questions and addressed any concerns. The patient and/or careg reynold have as good an understanding of the patient 's diagnosis, condition and treatment plan as can be expected at this point. The vital signs have bee n stable. The patient's condition is stable and appr opriate for discharge from the emergency department. The patient will pursue further outpatient evalu ation with the primary care physician or other designated or consulting phys marquita as outlined in the discharge instructions. The patient and/or caregivers are agreeable to this plan of care and follow-up instructions have been exp lained in detail. The patient and/or caregivers have received these instructio ns in written format and have expressed an understanding of the discharge inst ructions. The patient and/or caregivers are aware that any significant change in condition or worsening of symptoms should prompt an immediate return to [facility] or the closest emergency department or a call to 911. Quality Measures Rx Drug Database Rev Yes Care Coordination Adv care plan discussed Smoking Cessation Screened, tobacco user Tobacco Screening/Cessation 18 years or older, Tobacco user, Smoking cessation offered, Counseled 3-10 minutes Smoking Cessation Counseling The patient was questioned r egarding their smoking habits, and I have determined , as the patient's treating physician, that ther e is a medical necessity in regards to the patient's med ical condition to provide smoking cessation program education. The patient was a dvised to stop smoking and counseled for a period of greater than 3 minutes. The patient was instructed to follow up with a primary care physician for smoking cessation and given i nformation regarding local smoking cessation programs i n the area. The patient received detailed discharge instructions as to how to stop smoking. The patient expressed an understanding of the need to follow up and the plan for smokin g cessation. Keila Florian 07/23/19 1608: HPI-Back Pain 40 and Over General Initial Greet Date/Time 07/13/19 1431 Patient Discharge Departure Supervising Physician Note MidLv Saw Pt Alone I have reviewed the PA/GAMING FLOOR SUPERVISOR's note and plan of car e. I was available for consultation as needed at al l times during the patient's visit in the emergency department. I agree with the clinical impression , plan and disposition. Electronically Signed by Rohith Salazar NP on at 1810 RPT #:[id number] END OF REPORT 2019-07-13 14:37:00-00:00 [facility] ([facility]) EMERGENCY PROVIDER REPORT REPORT#:[id number] REPORT STATUS: Signed DATE:07/13/19 TIME: 1436 PATIENT: ROEGR TENORIO UNIT #: [id number] ROOM: BED: AGE: 48 SEX: M PCP PHYS: No Primary or Family Ph ysician SERVICE AUTHOR: Rohith Salazar NP * ALL edits or amendments must be made on the [employer]computer document * Rohith Salazar 07/13/19 1437: HPI-Back Pain 40 and Over General Confirmed Patient Yes Patient Type New patient Assumed Care at Time 1437 Date 07/13/19 Presentation Chief Complaint Pain, lumbar Hx Obtained From Patient Sudden in Onset? No Onset Occurred Weeks ago Symptom Duration Waxes and wanes Progression since Onset Intermittent, Waxes and wanes Caused by Chronic Injury Location Spinal lumbar area Quality Aching Radiation No: Does not radiate, Abdomen, Chest, Inguinal, Neck, Shoulder R, Shoulder L, Arm R, Arm L, Perineal area, Leg R, above knee, Leg R, below knee, Leg L, above knee, Leg L, below knee. Severity: Onset Moderate Severity: Current Moderate Associated with Reports: Incontinence bladder, Numbness, lower e xt R, Numbness, lower ext L. Denies: Abdominal pain, Chest pain, Coug h, Dyspnea, Dysuria, Fever, Frequency, Hematuria, Inability to walk, Incontinence bowel , Nausea, Vomiting, Numbness, both lower ext, Tingling, lower ext R, Tingling, lower ext L, Tingling, both lower ext, Weakness, lower ext R, Weakness, lowe r ext L, Weakness, both lower ext. Exacerbated by Movement, Palpation Relieved by Lying still Context Immunization Status General All up to date Risk-Back Pain 40 and Over Risk Stratification )( Abdominal Aortic Aneurysm Risk factors review ed )( Thoracic Aortic Dissection Risk factors revie wed Nexus C-Spine Criteria No: Post midline tenderness, Intoxicated, Altere d LOC/alertness, Focal neuro deficit pres, Distracting injury pres. Review of Systems ROS Statements All systems rev neg except as marked. Complete sys rev neg except as marked. Basic Review of Systems Basic ROS EYES: No redness, ENT: No sore throat, SKIN: No rash, PSYCH: NL thought content Focused Review of Systems Constitutional Denies: Chills, Fatigue, Fever, Lethargy, Malais e, Recent wt loss, Weakness - generalized. Respiratory Denies: Cough, non-productive, Cough, productive , Dyspnea on exertion, Hemoptysis, Parox nocturnal dyspnea, Pleuritic p ain, Shortness of breath, Wheezing. Cardiovascular Denies: Chest pain, Dyspnea on exertion, Edema, Orthopnea, Palpitations, Parox nocturnal dyspnea, Syncope. GI Denies: Abdominal pain, Anorexia, Belching, Bloo dy/tarry stool, Constipation, Diarrhea, Dysphagia, Hematemesis, Hemato chezia, Mucousy stool, Melena, Nausea, Rectal pain, Vomiting. Male Denies: Dysuria, Flank pain, Hematuria, Incontinence, Nocturia, Penile discharge , Penile lesion, Scrotal swe lling, Testicular pain, Testicular swelling, Urinary frequency, Urinary urgency, Urination decreased, Urination increased. Musculoskeletal Reports: Lumbar pain. Denies: Back pain, Extremi ty pain, Extremity swelling, Joint pain, Joint swelling, Myalgia, Neck pain, Thoracic pain. Neurologic Denies: Abnormal movement, Bladder dysfu nction, Bowel dysfunction, Change LOC, Confusion, Dizziness, Focal weakness, Generalize d weakness, Headache, Lightheaded, Numbness, Problem walking, Seizure, Shaking, Slurred speech, Spinning sensation, Syncope, Tingling, Unable to speak, Vision change. Additional Review of Systems Eyes Denies: Blurred R, Blurred L , Blurred bilat, Diplopia, Discharge R, Discharge L, Discharge bilat, Eye pain R, Eye pain L, Eye pain bilat, Photophobia, Redness R, Redness L, Redness bilat, Sw elling R, Swelling L, Swelling bilat, Visual loss R, Visual loss L, Visual loss bilat, Yellow R, [place] ow L, Yellow bilat. Skin Denies: Abrasion, Abscess, Burn, Contusion, Diap horesis, Erythema, Itching, Jaundice, Laceration, Rash, Swelling, Ulceration . Psychiatric Denies: Agitation, Anxiety, Change mental status , Confusion, Delusional, Depression, Hallucinations, auditory, Hallucinations, visual, Homicidal ideation , Hostile, Insomnia, Stress, Suicidal ideation, Unable to control self. Past Medical History - Adult Stated Complaint LOWER BACK PAIN Allergies Coded Allergies: penicillin G (RASH 07/13/19) tramadol (RASH 07/13/19) Suicide Risk (Nursing) Patient is at Risk for Suicide: NO Review of Nursing Notes Rev avail, and agree Pt reports no significant: Family history Family History: Denies: Abdominal aortic aneurysm, Anemia, Asthm a, CAD < 40 yrs old, Cancer, Coagulopathy, Dementia/Alzheimer's dis, Depressi on/mood disorder, Diabetes, Heart disease, Hypertension, Kidney disease/stones, Seizure disorder, Stroke/TIA , Subarachnoid hemorrhage, S udden cardiac , Thyroid disorder, , Connective tissue dis, Gallbladder disease, Hyperlipidemia, Neurofibromatosis, Sickle cell disease. Alcohol Use Denies EtOH use Drug Use Denies recreational drugs Smoking status for patients 13 years old or olde r: Current every day smoker Pack years (pk/d)*(yrs): 1 Date last smoked: still smoking State Controlled Subst DB Report Reviewed Yes Ambulatory Status Independent Physical Exam Vital Signs Vital Signs First Documented: Result Date Time Pulse Ox 98 07/13 1429 Temp 98.2 07/13 1429 Pulse 91 07/13 1429 Resp 07/13 Last Documented: Result Date Time Pulse Ox 98 07/13 142 Temp 98.2 07/13 1429 Pulse 91 07/13 1429 Resp 07/13 Review of Vital Signs Reviewed Basic Physical Exam Basic PE HEAD: Atraumatic/NC, EYES: PERRL, conj clear, ENT: Membranes moist, NECK: Supple, EXT: No gross abnormality, SKIN: No rashes, warm/dry, NEURO: alert oriented, NEURO: gross movement NL, PSYCH: NL t hought content Focused PE General/Const General/Const Awake, Alert, Cooperative MS Neck Neck Atraumatic, Supple, No meningismus, Full r robert of motion Resp/Chest Respiratory/Chest Atraumatic, Breath sounds NL, Breath sounds = bilat, No respiratory distress Cardiovascular Cardiovascular Heart rate NL, Regular rhythm, H eart sounds NL, No gallop Abdomen/GI Abdomen/GI Atraumatic, Soft, Non-tender, BS nor moactive MS Back Muscle Spasm/ROM Lumbar area spasm. Negative: Thoracic area spas m, Sacral area spasm, Trapezius tender R, Trapezius tender L, Rhomboid tender R, Rhomboid tender L, Erector spinae tender R, Erector spinae tender L , Latisimus dorsi tender R, Latisimus dorsi tender L, Gluteus tenderness R, Gluteus tenderness L, ROM decrease - mild, ROM decrease - mod, ROM decreas e - severe. Skin Skin Warm, Dry, Intact Neurologic Neurologic Oriented X3, Speech NL, No m otor deficits, No sensory deficits, CN II - XII intact, Reflexes equal bilat, Cerebella r NL, Memory NL, Gait NL Additional PE MS Head Head Atraumatic, Normocephalic Eyes Eyes Atraumatic, PERRL, EOMI, No nystagmus Ears/Nose/Throat Ears/Nose/Throat Atraumatic, Airway patent, Muc ous membranes moist, Pharynx NL Psychiatric Psychiatric Affect NL, Mood NL, Not suicidal, N ot homicidal, No hallucinations, Cognitive function NL, J udgment/insight NL, Thought content NL Interpretation Diagnostics Lab Results Interpretation Results Recent Impressions: MAGNETIC [facility]ONANCE IMAGING - MRI L-SPINE W/O CON T 07/13 1520 Report Impression - Status: SIGNED Entered: 07/13/2019 1612 IMPRESSION: 1. Multilevel degenerative disease as detailed a fran, worst at L4-L5 where there is grade 1 anterolisthesis and mild to moderate canal narrowing 2. Normal conus. No conus compression Impression By: [email or web address] - Keila Delgado MD Imaging Statement Radiographic studies reviewed and considered in the medical decision-making. Point of Care Testing Pulse Oximetry Pulse Ox % 100 On: Room air Interpretation Interpreted by me, Pulse oximetr y normal Time 1633 Re-Evaluation MDM Free Text MDM Notes Free Text MDM Notes Patient comes in stating he was seen at another ER 3 weeks ago and diagnosed with a slipped disc in his lumbar area. Patient states he is in between jobs and came to ER today as he has been having a pro blem with urination and bowel incontinence. Patient is AAO x3 has good PMS in all 4 extremities does not display any visible signs of distress. Re-Evaluation/Progress #1 Text/Dict Note relaxed Time of Re-Eval 1633 Re-Eval Status Improved Eval Following Treatment Pt. feels better Pain Re-Evaluation Pain improved Exam Post Tx - General Active, Alert, Appears no n-toxic, Appears well, Vital signs stable, Capillary refill normal, Hydration normal Exam Post Tx - Sys Review Lungs clear Plan Post Re-Eval Plan discharge Back Pain MDM Note The patient presented with acute back pain. The patient is now resting comfortably and feels better, is alert, talkativ e, interactive and in no distress. The repeat examination is unremarkable and benign. The patient is neurologically intact and is ambulatory in the ED. The patient has no fever, no bowel or bladder incontinenc e, no saddle anesthesia, and is otherwise alert and well-appearing. The history, physical ex amination, and diagnostics (if any) do not suggest the presence of acute spinal epidural abscess, acute spinal epidural bleed, cauda equina syndrome, abdominal aortic a neurysm, aortic dissection or other process requiring further testing, treatme nt or consultation in the emergency department. The vi fortunato signs have been stable. The patient's condition is stable and appropriate for discharge. The pat ient will pursue further outpatient evaluation with the primary care phys ician or other designated or consulting physician as indicated in the dischar ge instructions. ED Course Medication(s) Ordered Medication(s) Ordered: Autonomic Drugs Sig/Elvis Start time Last Medication Dose Route Stop Time Status Admin Orphenadrine Citrate 60 MG X1ED STA 07/13 143 DC 07/13 IM 07/13 143 1629 Central Nervous System Agents Sig/Elvis Start time Last Medication Dose Route Stop Time Status Admin Ketorolac 15 MG X1ED STA 07/13 143 DC 07/13 Tromethamine IM 07/13 1437 1628 Skin And Mucous Membrane Agent Sig/Elvis Start time Last Medication Dose Route Stop Time Status Admin Lidocaine 1 EA ONCE ONE 07/13 1445 DC 07/13 TOPICAL 07/13 144 1629 Differential Diagnosis Differential Diagnosis Cauda equina syndrome, He rniated disk, Lumbar strain, Spinal mass Patient Discharge Departure Vital Signs/Condition Vital Signs First Documented: Result Date Time Pulse Ox 98 07/13 1429 Temp 98.2 07/13 1429 Pulse 91 07/13 1429 Resp 20 07/13 1429 Last Documented: Result Date Time Pulse Ox 98 07/13 1429 Temp 98.2 07/13 1429 Pulse 91 07/13 1429 Resp 20 07/13 1429 All vital signs available at the time of this en try have been reviewed. Condition Improved, Stable Clinical Impression Clinical Impression Primary Impression: Degenerative disc disease, l umbar Secondary Impressions: Chronic back pain, Lumbar strain Disposition Decision Discharge )( Discharged to Home Yes )( Time 1633 )( Date 07/13/19 Discharge/Care Plan Counseled Regarding Diagnosi s, Imaging studies, Prescriptions, Need for follow- up, Smoking cessation, When to return to ED Prescriptions LIDODERM MOTRIN PARAFON FORTE Prescriptions Reviewed Risks, Benefits, Alternat rickey treatment Discharge Note I have spoken with the patie nt and/or caregivers. I have explained the patient's condition, diagnoses and janine atment plan based on the information available to me at this time. I have answered the patient's and/ or caregiver's questions and addressed any concerns. The patient and/or careg reynold have as good an understanding of the patient 's diagnosis, condition and treatment plan as can be expected at this point. The vital signs have bee n stable. The patient's condition is stable and appr opriate for discharge from the emergency department. The patient will pursue further outpatient evalu ation with the primary care physician or other designated or consulting phys ician as outlined in the discharge instructions. The patient and/or caregivers are agreeable to this plan of care and follow-up instructions have been exp lained in detail. The patient and/or caregivers have received these instructio ns in written format and have expressed an understanding of the discharge inst ructions. The patient and/or caregivers are aware that any significant change in condition or worsening of symptoms should prompt an immediate return to [facility] or the closest emergency department or a call to 911. Quality Measures Rx Drug Database Rev Yes Care Coordination Adv care plan discussed Smoking Cessation Screened, tobacco user Tobacco Screening/Cessation 18 years or older, Tobacco user, Smoking cessation offered, Counseled 3-10 minutes Smoking Cessation Counseling The patient was questioned r egarding their smoking habits, and I have determined , as the patient's treating physician, that ther e is a medical necessity in regards to the patient's med ical condition to provide smoking cessation program education. The patient was a dvised to stop smoking and counseled for a period of greater than 3 minutes. The patient was instructed to follow up with a primary care physician for smoking cessation and given i nformation regarding local smoking cessation programs i n the area. The patient received detailed discharge instructions as to how to stop smoking. The patient expressed an understanding of the need to follow up and the plan for smokin g cessation. Keila Florian 07/23/19 1608: HPI-Back Pain 40 and Over General Initial Greet Date/Time 07/13/19 1431 Patient Discharge Departure Supervising Physician Note MidLv Saw Pt Alone I have reviewed the PA/GAMING FLOOR SUPERVISOR's note and plan of car e. I was available for consultation as needed at al l times during the patient's visit in the emergency department. I agree with the clinical impression , plan and disposition. Electronically Signed by Rohith Salazar NP on at 1810 Electronically Signed by Keila Florian MD on 09/10 at 1608 RPT #:[id number] END OF REPORT
--- NOTE | 2023-01-22 22:22 | RAD REPORT ---
EXAM DESCRIPTION: RAD - Knee Left 3 View - 01/22/2023 9:50 pm CLINICAL HISTORY: PAIN COMPARISON: No comparisons TECHNIQUE: Left knee, 3 views. FINDINGS: No fracture, dislocation or periosteal reaction.Small joint effusion seen. Mild tricompart mental osteoarthritic changes with marginal spurring particularly at the patellofemoral compartment. Ossification of the patellar tendon attachments particularly superiorly, may reflect long-standing se quelae of Lqtrold-Cnkaqa-Rvsaqqqrf disease. Sequelae of prior ACL reconstruction. Clinical concerns for internal derangement or occult bony injury could be further assessed with MR im aging. IMPRESSION: No acute osseus abnormality. Small joint effusion. Mild tricompartmental osteoarthriti c changes. Chronic findings as above.
--- NOTE | 2023-01-22 22:31 | EDPHYS ---
Physician Documentation [facility] Name: Jeramie Gibbs Age: 52 yrs Sex: Male : 1970 Arrival Date: 01/22/2023 Time: 21:07 Bed IW2 Private MD: ED Physician Keith Alcaraz HPI: 01/22 22:10 This 52 yrs old Male presents to ER via Ambulatory with complaints of Knee Pain. kb 22:10 The patient presents with pain, that is acute. The complaints affect the left knee. kb Context: The problem was sustained at home, resulted from playing sports, basketball, the patient can fully bear weight, the patient is able to ambulate, Problem is a result from a previous injury: Yes. Onset: The symptoms/episode began/occurred today. Modifying factors: The symptoms are alleviated by nothing. the symptoms are aggravated by nothing. Associated signs and symptoms: The patient has no apparent associated signs or symptoms. Treatment prior to arrival includes: no previous treatment. Severity of symptoms: At their worst the symptoms were mild, in the emergency department the symptoms are unchanged. The patient has not experienced similar symptoms in the past. The patient has not recently seen a physician. Pt reports he was playing basketball and felt a pop in his left knee. Has had pain since then. States he has had multiple problems with this knee in the past. Pt is at [facility] and they wanted him to come in to rule out a fracture. Historical: - Allergies: 21:22 PENICILLINS; kl - Home Meds: 21:22 None [Active]; kl - PSHx: 21:22 ACL Meniscus repair; kl - Immunization history:: Adult Immunizations not immunized. - Social history:: Smoking status: Patient denies any tobacco usage or history of. ROS: 22:10 Constitutional: Negative for fever, chills, and weight loss. kb 22:10 MS/extremity: Positive for pain, of the left knee. 22:10 All other systems are negative. Exam: 22:10 Constitutional: This is a well developed, well nourished patient who is awake, alert, kb and in no acute distress. Head/Face: Normocephalic, atraumatic. ENT: Moist Mucous membranes Cardiovascular: Regular rate and rhythm with a normal S1 and S2. No gallops, murmurs, or rubs. No pulse deficits. Respiratory: Respirations even and unlabored. No increased work of breathing. Talking in full sentences Abdomen/GI: Soft, non-tender. No distention Skin: Warm, dry with normal turgor. Normal color. MS/ Extremity: Pulses equal, no cyanosis. Neurovascular intact. Full, normal range of motion. Neuro: Awake and alert, GCS 15, oriented to person, place, time, and situation. Moves all extremities. Normal gait. Vital Signs: 21:20 BP 144 / 99; Pulse 76; Resp 18; Temp 97.5(TE); Pulse Ox 100% on R/A; Weight 72.57 kg kl (R); Height 5 ft. 7 in. ; Pain 4/10; 23:11 Pulse 98; Resp 16; Pulse Ox 99% ; kl 21:20 Body Mass Index 25.06 (72.57 kg, 170.18 cm) kl 21:20 Pain Scale: Adult kl MDM: 21:12 Patient medically screened. kb 22:12 Differential diagnosis: dislocation, closed fracture, strain. Data reviewed: vital kb signs, nurses notes. 22:30 Counseling: I had a detailed discussion with the patient and/or guardian regarding: the kb historical points, exam findings, and any diagnostic results supporting the discharge/admit diagnosis, radiology results, the need for outpatient follow up, a orthopedic surgeon, to return to the emergency department if symptoms worsen or persist or if there are any questions or concerns that arise at home. 01/22 21:16 Order name: Knee Left 3 View XRAY; Complete Time: 22:29 kb 01/22 22:30 Order name: Filiberto Wrap; Complete Time: 22:58 kb Administered Medications: No medications were administered Disposition Summary: 01/22/23 22:30 Discharge Ordered Location: Home kb Condition: Stable kb Diagnosis - Pain in left knee kb Followup: kb - With: Emergency Department - When: As needed - Reason: Worsening of condition Followup: kb - With: Private Physician - When: 2 - 3 days - Reason: Recheck today's complaints, Continuance of care, Re-evaluation by your physician Discharge Instructions: - Discharge Summary Sheet kb - Acute Knee Pain, Adult, [id number] kb Forms: - Medication Reconciliation Form kb - Thank You Letter kb - Antibiotic Education kb - Prescription Opioid Use kb Prescriptions: - Diclofenac Sodium 75 mg Oral tablet,delayed release (/EC) - take 1 tablet by ORAL route 2 times per day As needed; 30 tablet; Refills: 0, kb Product Selection Permitted Signatures: Dispatcher [employer] Shaylee Hauser FNP-C FNP-Vicki Garner, RN RN kl
--- NOTE | 2023-01-22 22:31 | ER ---
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 Coronavirus screen: Vaccine status: Patient reports being unvaccinated. Ebola Screen: Patient negative for fever greater than or equal to 101.5 degrees Fahrenheit, and additional compatible Ebola Virus Disease symptoms. Initial Sepsis Screen: Does the patient meet any 2 criteria? No. Patient's initial sepsis screen is negative. Does the patient have a suspected source of infection? No. Patient's initial sepsis screen is negative. Risk Assessment: Do you want to hurt yourself or someone else? Patient reports no desire to harm self or others. 21:20 Method Of Arrival: Ambulatory kl 21:20 Acuity: KANDIS 4 kl Triage Assessment: 21:23 General: Appears in no apparent distress. comfortable, Behavior is calm, cooperative. kl Pain: Complains of pain in medial aspect of left knee Pain currently is 4 out of 10 on a pain scale. at worst was 10 out of 10 on a pain scale. Aggravated by increased activity, weight bearing. Historical: - Allergies: 21:22 PENICILLINS; kl - Home Meds: 21:22 None [Active]; kl - PSHx: 21:22 ACL Meniscus repair; kl - Immunization history:: Adult Immunizations not immunized. - Social history:: Smoking status: Patient denies any tobacco usage or history of. Screenin:11 [facility] ED Fall Risk Assessment (Adult) History of falling in the last 3 months, kl including since admission Yes- single mechanical fall (1 pt) Confusion or Disorientation No (0 pts) Intoxicated or Sedated No (0 pts) Impaired Gait Yes (1 pt) Mobility Assist Device Used Yes (1 pt) Altered Elimination No (0 pt) Score/Fall Risk Level 3 or more points = High Risk Oriented to surroundings, Maintained a safe environment, Apply high fall risk patient identification: yellow non skid footwear/ fall signage. Abuse screen: Denies threats or abuse. Nutritional screening: No deficits noted. Tuberculosis screening: No symptoms or risk factors identified. Assessment: 23:11 Reassessment: Patient appears in no apparent distress at this time. Patient and/or kl family updated on plan of care and expected duration. Pain level reassessed. Patient is alert, oriented x 3, equal unlabored respirations, skin warm/dry/pink. Vital Signs: 21:20 BP 144 / 99; Pulse 76; Resp 18; Temp 97.5(TE); Pulse Ox 100% on R/A; Weight 72.57 kg kl (R); Height 5 ft. 7 in. ; Pain 4/10; 23:11 Pulse 98; Resp 16; Pulse Ox 99% ; kl 21:20 Body Mass Index 25.06 (72.57 kg, 170.18 cm) kl 21:20 Pain Scale: Adult kl ED Course: 21:08 Patient arrived in ED. ag3 21:15 Shaylee Escalera FNP-C is [facility]. kb 21:15 Keith Alcaraz MD is Attending Physician. kb 21:22 Triage completed. kl 21:52 Knee Left 3 View XRAY In Process Unspecified. EDMS 23:11 Patient has correct armband on for positive identification. kl 23:11 No provider procedures requiring assistance completed. Patient did not have IV access kl during this emergency room visit. Administered Medications: No medications were administered Medication: 23:11 VIS not applicable for this client. kl Outcome: 22:30 Discharge ordered by . kb 23:12 Patient left the ED. Signatures: Dispatcher [employer] EDMS Shaylee Escalera FNP-C FNP-Ckb Lewis, Kimberly, RN RN Diamond Bennett ag3
[2023-01-22 23:26] VITALS: BP 144/99; TEMP 97.5; O2SAT 100
== END 2023-01-22 23:12 | disposition home or self-care (01) ==
LOC: ER 21:07
DX: M25.562 Pain in left knee (principal); Z88.0 Allergy status to penicillin
CPT/HCPCS: 99282